=== PATIENT | female | born 1990 | race Caucasian/White ===

== ENCOUNTER 2020-03-12 13:23 | Emergency (ER) | payer OTHER, SELFPAY ==
[2020-03-12 13:27] VITALS: BP 148/92; PULSE 94; RESP 18; TEMP 36.4; O2SAT 98; BMI 34.5
--- NOTE | 2020-03-12 14:48 | ED.BACK ---
HPI - Back Pain/Injury General Chief Complaint: Back Pain/Injury Stated Complaint: low back and leg pain Time Seen by Provider: 03/12/20 14:34 Source: patient Mode of arrival: ambulatory Limitations: no limitations History of Present Illness HPI Narrative: 30yoF c PMHx of chronic back pain for the past 4 months she had an MRI which revealed a bulging this presenting to the ED with complaints of acute on chronic worsening back pain. Reports she stop using all the medications they gave her due to they are not providing any symptomatic relief she gets a long list which includes Advil, Motrin, naproxen, Flexeril and multiple other drugs that she mention. Denies any other symptom complaints or concerns at this time. Related Data Previous Rx's Medication Instructions Recorded ibuprofen 800 mg PO Q8H PRN #14 tab 03/12/20 oxycodone 5 mg PO Q8H PRN #14 tab 03/12/20 prednisone 40 mg PO DAILY 5 Days #10 tab 03/12/20 Allergies Allergy/AdvReac Type Severity Reaction Status Date / Time minocycline [MINOCYCLINE] Allergy Intermediate INTERCRANIAL Verified 03/12/20 13:27 HTN Review of Systems Review of Systems: Constitutional : No trauma, No Weight loss, No Fever, No Chills, ENT/Mouth : No Hearing loss, No Ear Pain, No Nasal Congestion, No Sinus Pain, No Hoarseness, No sore throat, No Rhinorrhea, No Swallowing Difficulty Cardiovascular : No Chest Pain, No SOB Respiratory : No Cough, No Dyspnea Gastrointestinal : No Nausea, No Vomiting, No Diarrhea, No abdominal Pain, No Hematochezia, No Melena Genitourinary : No Dysuria, No Urinary Frequency, No Hematuria, No Urinary or Bowel Incontinence/retention Musculoskeletal : + Back pain, No neck pain, No joint stiffness, No joint swelling Skin : No Skin Lesions, No rash or signs of infection Neuro : No Weakness, No radiation, No Numbness, No Paresthesias, No headache, no loss of bowel or bladder incontinence, no saddle anesthesia Denies history of IV drug usage. Yes all other systems are reviewed and are negative [facility] Past Medical History Attestation statement: The following information was validated with the patient. Medical History Bulging disc HTN (hypertension) Migraines Social History Social History Advance Directives: No Advance Directives Information Provided: No Physical Exam Vital Signs: Vital Signs: Last Vital Signs Temp 97.6 F 03/12/20 13:27 Pulse 94 03/12/20 13:27 Resp 18 03/12/20 13:27 BP 148/92 H 03/12/20 13:27 Pulse Ox 98 03/12/20 13:27 Body Mass Index 34.5 vital signs have been reviewed as normal and appeared to be correct. Blood pressure normal. Heart rate normal. Respiration rate normal. Temperature normal. Oxygen saturation normal. Appearance: Alert. Oriented X3. No acute distress. Head: Normal external exam. Normocephalic. Atraumatic. No Gandara signs noted. No raccoon eyes noted Eyes: PERRLA. EOMI. Conjunctiva and sclera normal. Eyelids normal. ENT: EAC normal. TM's Normal. Pharynx normal. Uvula midline. Moist mucous membranes. No trismus noted. No drooling noted. No muffled voice noted. Neck: Normal inspection. Neck supple. FROM. No adenopathy. Thyroid Normal. No meningeal signs. No neck mass noted. CVS: Normal heart rate and rhythm. Heart sound normal. No murmurs noted. Pulses normal throughout. Respiratory: No respiratory distress. Painless inspiration. Breath sounds normal. No wheezes/rales/rhonchi noted. Chest nontender. No accessory muscle usage noted or decreased air movement noted. Abdomen: Soft and nontender. Bowel sounds normal in all 4 quadrants. No distention noted. No organomegaly noted. No visible injury noted. Back: No CVA tenderness. Full range of motion noted. No obvious deformities, or edema. Mild para-spinal muscular tenderness from lumbar region to coccyx. Full ROM in back and lower extremities. 5/5 strength hip extension/flexion, abduction, adduction. Mild Lumbar pain with hip flexion against resistance. Straight leg raise test negative on right; Straight leg raise test negative on left; Reflexes normal ankle and knee bilaterally; EHL motor strength normal bilaterally Skin: Skin warm and dry. Normal skin color. Normal skin turgor. No rashes/lesions/lacerations noted. Extremities: No lower extremity edema. Extremities exhibit normal range of motion. Extremities nontender. Neuro: Oriented X 3. No motor deficit. No sensory deficit. Reflexes normal. Course Course Course Narrative: Pt c likely muscular pain, but could be herniated disc. Neuro exam shows no deficits. Not c/w AAA/epidural abscess/dissection.No high risk Hx (Incont, fever, immunosupp, recent surgery/LP, coag, signif trauma, wt loss, puls mass, hx/o Ca, TB, or IVDU) to warrant MRI/CT today. Not c/w Pyelo/UTI/kidney stone/spinal fx. Not cauda equina syndrome. DC c meds and f/u. MDM - Back Pain/Injury Medical Records Attestation: I reviewed the patient's medical records. Discharge Plan Discharge Clinical Impression: Lumbar radiculopathy Patient Disposition: Home, Self-Care Instructions: Lumbar Radiculopathy (ED), Lower Back Exercises (ED) Additional Instructions: [facility] [address], [place] [address] [phone] Prescriptions: New ibuprofen 800 mg tablet 800 mg PO Q8H PRN (Reason: pain) Qty: 14 RF: 0 prednisone 20 mg tablet 40 mg PO DAILY 5 Days Qty: 10 RF: 0 oxycodone 5 mg tablet 5 mg PO Q8H PRN (Reason: pain) Qty: 14 RF: 0 Referrals: Physician,Unknown [Primary Care Provider] - 2 days Darrius Thurston MD [Physician] - 2 days Stand Alone Forms: Work/School Release Print Language: Taiwanese
[2020-03-12] MEDS: NaPROXEN 500 MG TABLET PO (15:02)
[2020-03-12] MEDS: oxyCODONE HCl Immed Release 5 MG TABLET PO (15:02)
== END 2020-03-12 15:10 | disposition home or self-care (01) ==
PROVIDERS: Emergency Provider Emergency Medicine Emergency Medical Services
DX: M54.16 Radiculopathy, lumbar region (principal); I10 Essential (primary) hypertension
CPT/HCPCS: 99283

== ENCOUNTER → 2020-05-16 12:34 | Outpatient (BNVA) | payer OTHER, SELFPAY | PROVIDERS: Visit Provider Anesthesiology ==

== ENCOUNTER 2020-05-28 12:10 | Emergency (ER) | payer OTHER, SELFPAY ==
[2020-05-28 12:14] VITALS: BP 145/105; PULSE 72; RESP 18; TEMP 36.8; O2SAT 99; BMI 34.7
--- NOTE | 2020-05-28 12:27 | ED.SKABFB ---
HPI - Skin/Abscess/Foreign Bdy General Chief complaint: Skin/Abscess/Foreign Body Stated complaint: infection in nose Time Seen by Provider: 05/28/20 12:22 Source: patient Mode of arrival: ambulatory Limitations: no limitations History of Present Illness HPI narrative: recurrent nose cellulitis on and off since 2010 on cephalexin since 05/26 feels it is not improving, no topical medications ordered Onset (ago): day(s) (3) Tetanus up to date: yes Location: face (nose) Severity: mild Quality: aching Pain Consistency: constant Relieving factors: none Exacerbating factors: none Context: recent antibiotic Associated symptoms: fever and chills Treatments prior to arrival: antibiotic Related Data Previous Rx's Medication Instructions Recorded ibuprofen 800 mg PO Q8H PRN #14 tab 03/12/20 oxycodone 5 mg PO Q8H PRN #14 tab 03/12/20 prednisone 40 mg PO DAILY 5 Days #10 tab 03/12/20 alprazolam 0.5 mg tablet 0.5 mg PO DAILY 1 Days #2 tab 05/16/20 mupirocin 1 appl TOPICAL BID 7 Days #15 g 05/28/20 sulfamethoxazole-trimethoprim 1 tab PO BID 7 Days #14 tab 05/28/20 [Bactrim DS] Allergies Allergy/AdvReac Type Severity Reaction Status Date / Time minocycline [MINOCYCLINE] Allergy Intermediate INTERCRANIAL Verified 05/16/20 12:58 HTN Review of Systems Review of Systems: Constitutional : pos Fever, No Chills ENT/Mouth : No sore throat, No Rhinorrhea Eyes: No Eye Pain, No Swelling, No Redness Cardiovascular : No Chest Pain, No SOB Respiratory : No Cough, No Sputum Gastrointestinal : No Nausea, No Vomiting, No Diarrhea, No abdominal Pain Genitourinary : No Dysuria, No Hematuria Musculoskeletal : No joint pain, No Myalgias, No Joint Swelling Skin : pos Skin Lesions, positive skin rash Neuro : No Weakness, No Numbness, No Headache Psych : No Anxiety, No Depression Heme/Lymph: No Bruising, No Bleeding,No Lymphadenopathy Endocrine : No Polyuria, No Polydipsia All other systems reviewed and are negative PMFSH Past Medical History Attestation statement: The following information was validated with the patient. 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 Oriented X3. No acute distress. Eyes: Pupils equal, round and reactive to light. ENT: Pharynx normal. Nose - honey colored crusts on tip of nose no vesicles, mild swelling with erythema no extension into the nose Neck: Normal inspection. Neck supple. CVS: Normal heart rate and rhythm. Pulses normal. Respiratory: No respiratory distress. Breath sounds normal. Abdomen: Soft and nontender. Skin: Skin warm and dry. Normal skin color. Normal skin turgor. Extremities: No lower extremity edema. No calf ttp Neuro: Oriented X 3. No motor deficit. No sensory deficit. MDM - Skin/Abscess/Foreign Bdy MDM Narrative Medical decision making narrative: 30 yo female with hx of nose cellulitis - at this time the patient is on keflex but likely needs dual coverage, she is not toxic, no signs of facial extension - add on bactrim given hx of tetracycline intolerance and mupirocin - refer to PCP Discharge Plan Discharge Clinical Impression: Impetigo Cellulitis Qualifiers: Site of cellulitis: face Qualified Code(s): L03.211 - Cellulitis of face Patient Disposition: Home, Self-Care Instructions: Impetigo (ED), Cellulitis (ED) Additional Instructions: return to ED for any worsening symptoms or concerns continue the oral antibiotic continue the cephalexin Prescriptions: New mupirocin 2 % ointment 1 appl topical BID 7 Days Qty: 15 RF: 0 sulfamethoxazole-trimethoprim [Bactrim DS] 800-160 mg tablet 1 tab PO BID 7 Days Qty: 14 RF: 0 No Action ibuprofen 800 mg tablet 800 mg PO Q8H PRN (Reason: pain) Qty: 14 RF: 0 prednisone 20 mg tablet 40 mg PO DAILY 5 Days Qty: 10 RF: 0 oxycodone 5 mg tablet 5 mg PO Q8H PRN (Reason: pain) Qty: 14 RF: 0 alprazolam 0.5 mg tablet 0.5 mg PO DAILY 1 Days Qty: 2 RF: 0 Referrals: Physician,None [Primary Care Provider] - 2 days Stand Alone Forms: Work/School Release
== END 2020-05-28 12:43 | disposition home or self-care (01) ==
PROVIDERS: Emergency Provider Emergency Medicine
DX: L01.00 Impetigo, unspecified (principal); L03.211 Cellulitis of face; I10 Essential (primary) hypertension
CPT/HCPCS: 99283

== ENCOUNTER 2020-05-30 09:08 | Outpatient (REF) | payer OTHER, SELFPAY ==
--- NOTE | ~2020-05-30 | US_ITS ---
EXAMINATION: PELVIC ULTRASOUND CLINICAL INFORMATION: Follow-up right ovarian cyst seen on lumbar spine MRI COMPARISON: Lumbar spine MRI 02/29/2020 TECHNIQUE: Transabdominal and transvaginal pelvic ultrasound was performed. Transvaginal exam was performed for better visualization of the uterus and ovaries. FINDINGS: The uterus is retroverted and retroflexed and measures 7.4 x 5.1 x 1.2 cm in dimension. No focal uterine lesion is seen. There may be an arcuate-type uterus. Endometrial thickness is normal measuring 1 cm. The cervix is normal. The right ovary is normal and measures 3.4 x 1.4 x 2.9 cm, volume 7.2 mL. The previously identified 1.8 cm right ovarian cyst on lumbar spine MRI February 2020 is no longer seen. The left ovary measures 3.1 x 2.2 x 2.2 cm, volume 8 mL. There is a 2 cm simple left ovarian cyst or dominant follicle. There is no fluid in the pelvis. US/US transvaginal IMPRESSION: Unremarkable pelvic ultrasound.
--- NOTE | ~2020-05-30 | US_ITS ---
EXAMINATION: PELVIC ULTRASOUND CLINICAL INFORMATION: Follow-up right ovarian cyst seen on lumbar spine MRI COMPARISON: Lumbar spine MRI 02/29/2020 TECHNIQUE: Transabdominal and transvaginal pelvic ultrasound was performed. Transvaginal exam was performed for better visualization of the uterus and ovaries. FINDINGS: The uterus is retroverted and retroflexed and measures 7.4 x 5.1 x 1.2 cm in dimension. No focal uterine lesion is seen. There may be an arcuate-type uterus. Endometrial thickness is normal measuring 1 cm. The cervix is normal. The right ovary is normal and measures 3.4 x 1.4 x 2.9 cm, volume 7.2 mL. The previously identified 1.8 cm right ovarian cyst on lumbar spine MRI February 2020 is no longer seen. The left ovary measures 3.1 x 2.2 x 2.2 cm, volume 8 mL. There is a 2 cm simple left ovarian cyst or dominant follicle. There is no fluid in the pelvis. US/US pelvic complete IMPRESSION: Unremarkable pelvic ultrasound.
== END 2020-05-30 09:09 | disposition home or self-care (01) ==
LOC: HO.HMGCX 09:08
PROVIDERS: Visit Provider Nurse Practitioner Primary Care
DX: N94.89 Other specified conditions associated with female genital organs and menstrual cycle (principal)
CPT/HCPCS: 76830; 76856

== ENCOUNTER 2020-05-30 19:35 | Emergency (ER) | payer OTHER, SELFPAY ==
[2020-05-30 21:14] VITALS: BP 142/72; PULSE 81; RESP 18; TEMP 36.3; O2SAT 99; BMI 34.7
--- NOTE | 2020-05-30 23:48 | ED_ITS ---
HPI - Back Pain/Injury General Chief Complaint: Back Pain/Injury Stated Complaint: back pain Time Seen by Provider: 05/31/20 00:08 Source: patient Mode of arrival: ambulatory Limitations: no limitations History of Present Illness HPI Narrative: 30-year-old female with past medical history of sacroiliac joint dysfunction of the right side, disc degeneration to the lumbar, and spondylosis presents with lumbar back pain. States that she has been to her primary care physician as well as Pain Management and they ?do not do anything for her?. She is asking for pain management stating that nothing she has been doing has been working. She does not describe any symptoms indicating cauda equina, has a well-balanced gait, denies fevers, chills, abdominal pain, abdominal distention, dysuria, hematuria, numbness or tingling down the extremities, loss of sensation to the feet, or any other concerning symptoms. MD elicited complaint: back pain Pertinent past history: prior back pain Onset (ago): month(s) Timing: constant Severity: severe Pain scale (0-10): 10 Similar Symptoms Previously: Yes Quality: burning, aching, spasming and throbbing Location: lumbar spine and sacrum Radiation: none Exacerbating factors: movement, supine positioning, walking and coughing/sneezing Relieving factors: none Associated symptoms: denies other symptoms Treatments prior to arrival: cold therapy, heat therapy, NSAIDS, acetaminophen and prescription analgesics Work related injury: No Related Data Previous Rx's Medication Instructions Recorded ibuprofen 800 mg PO Q8H PRN #14 tab 03/12/20 oxycodone 5 mg PO Q8H PRN #14 tab 03/12/20 prednisone 40 mg PO DAILY 5 Days #10 tab 03/12/20 alprazolam 0.5 mg tablet 0.5 mg PO DAILY 1 Days #2 tab 05/16/20 mupirocin 1 appl TOPICAL BID 7 Days #15 g 05/28/20 sulfamethoxazole-trimethoprim 1 tab PO BID 7 Days #14 tab 05/28/20 [Bactrim DS] diazepam [Valium] 5 mg PO TID PRN #14 tab 05/31/20 methocarbamol [Robaxin-750] 750 mg PO Q8H PRN #30 tab 05/31/20 Allergies Allergy/AdvReac Type Severity Reaction Status Date / Time minocycline [MINOCYCLINE] Allergy Intermediate INTERCRANIAL Verified 05/16/20 12:58 HTN Review of Systems Review of Systems: Constitutional: No Fever, No Chills ENT/Mouth: No Ear Pain, No Hoarseness, No sore throat Eyes: No Eye Pain, No Swelling, No Redness, No Foreign Body Cardiovascular: No Chest Pain, No SOB Respiratory: No Cough, No Dyspnea Gastrointestinal: No Nausea, No Vomiting, No Diarrhea, No abdominal Pain Genitourinary: No Dysuria, No Hematuria Musculoskeletal: positive lower back pain, No Myalgias, No Joint Swelling Skin: No Skin lacerations, No rash Neuro: No Weakness, No Numbness, No Paresthesias, No Loss of Consciousness, No Dizziness, No Headache Psych: No Anxiety/Panic, No Depression Heme/Lymph: no easy bruising, no Lymphadenopathy Endocrine: No Polyuria, No Polydipsia Yes all other systems are reviewed and are negative [facility] Past Medical History Attestation statement: The following information was validated with the patient. 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 Oriented X3. No acute distress. Eyes: Pupils equal, round and reactive to light. ENT: Pharynx normal. Neck: Normal inspection. Neck supple. CVS: Normal heart rate and rhythm. Pulses normal. Respiratory: No respiratory distress. Breath sounds normal. Abdomen: Soft and nontender. Skin: Skin warm and dry. Normal skin color. Normal skin turgor. Extremities: No lower extremity edema. Neuro: No motor deficit. No sensory deficit. Course Course Course Narrative: 30-year-old female with chronic lower back pain presents for unrelieved back pain. She is asking for pain management. She was seen by Dr. Thurston on 05/16/20 and his note stated in his note that he was going to schedule this patient for bilateral L2-L3 L4 dorsal ramus L5 medial branch blocks diagnostic and will offer her options for radiofrequency ablation versus therapeutic injections in the area. This was discussed with the patient, she states that she is looking for pain medications and that her primary care physician and pain management will not give her oxycodone. She stated that she received oxycodone in the emergency department at our prior visit. Detailed discussion about proper use of narcotics, she was dissatisfied but did except the Valium and Robaxin prescriptions that were offered to her. She is advised to follow-up with pain management as scheduled. MDM - Back Pain/Injury MDM Narrative Medical decision making narrative: Spondylolysis Differential Diagnosis Differential diagnosis: Likely lumbar radiculopathy, thoracic back pain and discitis Medical Records Attestation: I reviewed the patient's medical records. Discharge Plan Discharge Clinical Impression: Spondylosis without myelopathy or radiculopathy, lumbar region, Sacroiliac joint dysfunction of right side Patient Disposition: Home, Self-Care Instructions: Chronic Back Pain (DC) Additional Instructions: You were evaluated for lower back pain. Please follow-up with the plan design by Dr. Thurston on May 16, 2020 for radiofrequency ablation versus therapeutic injections. We cannot prescribe narcotics at this time. Please use Valium to help with muscle spasms, Valium as benzo diazepam has high risk for addiction and abuse. Do not drive or operate machinery while taking this medication. This medication will delay reaction time, cause drowsiness, and increased risk. Please use Robaxin, this is a muscle relaxer. This medication can reduce reaction time, cause drowsiness, and increased risk. Do not drive or operate machinery while taking this medication. Thank you for choosing this emergency department for evaluation. Please follow-up with primary care physician as needed. Return to the emergency department for any new, concerning, or worsening symptoms. Prescriptions: New diazepam [Valium] 5 mg tablet 5 mg PO TID PRN (Reason: muscle spasm) Qty: 14 RF: 0 methocarbamol [Robaxin-750] 750 mg tablet 750 mg PO Q8H PRN (Reason: Pain, muscle spasms) Qty: 30 RF: 0 No Action mupirocin 2 % ointment 1 appl topical BID 7 Days Qty: 15 RF: 0 sulfamethoxazole-trimethoprim [Bactrim DS] 800-160 mg tablet 1 tab PO BID 7 Days Qty: 14 RF: 0 ibuprofen 800 mg tablet 800 mg PO Q8H PRN (Reason: pain) Qty: 14 RF: 0 prednisone 20 mg tablet 40 mg PO DAILY 5 Days Qty: 10 RF: 0 oxycodone 5 mg tablet 5 mg PO Q8H PRN (Reason: pain) Qty: 14 RF: 0 alprazolam 0.5 mg tablet 0.5 mg PO DAILY 1 Days Qty: 2 RF: 0 Interventions: ED Discharge Assessment Last Done: 05/31/20 00:38 Discharge Date/Time: 05/31/20 00:39
[2020-05-31] MEDS: diazePAM 5 MG TABLET PO (00:33)
[2020-05-31] MEDS: Ketorolac Tromethamine 60 MG/2 ML VIAL IM (00:35)
== END 2020-05-31 00:39 | disposition home or self-care (01) ==
PROVIDERS: Emergency Provider Internal Medicine
DX: G89.29 Other chronic pain (principal); M54.5 Low back pain; M47.816 Spondylosis without myelopathy or radiculopathy, lumbar region; M53.3 Sacrococcygeal disorders, not elsewhere classified; M51.36 Other intervertebral disc degeneration, lumbar region; I10 Essential (primary) hypertension; Z79.899 Other long term (current) drug therapy
CPT/HCPCS: 96372; 99283; 99284; J1885

== ENCOUNTER → 2020-05-31 13:02 | Outpatient (BNVA) | payer OTHER, SELFPAY | PROVIDERS: Visit Provider Anesthesiology ==

== ENCOUNTER → 2020-06-16 10:10 | Outpatient (BNVA) | payer OTHER, SELFPAY | PROVIDERS: Visit Provider Anesthesiology ==

== ENCOUNTER → 2020-06-30 10:19 | Outpatient (BNVA) | payer OTHER, SELFPAY | PROVIDERS: Visit Provider Anesthesiology ==

== ENCOUNTER 2020-12-19 18:35 | Outpatient (REF) | payer OTHER, SELFPAY ==
--- NOTE | ~2020-12-19 | MR_ITS ---
EXAMINATION: MR LUMBAR SPINE WITHOUT CONTRAST CLINICAL INFORMATION: Radiculopathy. Spondylosis without myelopathy. COMPARISON: None TECHNIQUE: MRI of the lumbar spine was obtained using routine sequences without contrast. FINDINGS: The lumbar vertebral bodies maintain normal heights and alignment. There is mild disc desiccation at L4-L5 without associated height loss. No bone marrow edema is seen. There is a hemangioma in the L4 vertebral body. The distal spinal cord appears normal. Conus medullaris terminates normally at the L1 level. The extraspinal soft tissues are within normal limits. SPINAL LEVELS: L1-L2: No posterior disc abnormality. No spinal canal or neural foraminal stenosis. L2-L3: No posterior disc abnormality. No spinal canal or neural foraminal stenosis. L3-L4: No posterior disc abnormality. No spinal canal or neural foraminal stenosis. L4-L5: Disc bulging with shallow central disc protrusion with associated annular fissuring causing mild indentation on the ventral thecal sac. Mild facet arthropathy. No significant narrowing of the spinal canal or neural foramina. L5-S1: Disc bulging with shallow central disc protrusion and mild facet arthropathy. No spinal canal or neural foraminal stenosis. MR/MR lumbar spine wo con IMPRESSION: No spinal canal stenosis or nerve root compression. Shallow central disc protrusion seen at L4-L5 and L5-S1.
== END 2020-12-19 18:36 | disposition home or self-care (01) ==
LOC: HO.MRI 18:35
PROVIDERS: PCP Internal Medicine; Visit Provider Internal Medicine
DX: M47.819 Spondylosis without myelopathy or radiculopathy, site unspecified (principal); M51.9 Unspecified thoracic, thoracolumbar and lumbosacral intervertebral disc disorder
CPT/HCPCS: 72148

== ENCOUNTER 2022-01-11 15:57 | Outpatient (REF) | payer OTHER, SELFPAY ==
--- NOTE | ~2022-01-11 | XR_ITS ---
EXAMINATION: XR KNEE, RIGHT CLINICAL INFORMATION: Pain right knee. COMPARISON: None TECHNIQUE: Four views of the right knee. FINDINGS: Bones and soft tissues are normal. No fracture or joint effusion. Alignment is anatomic. Joint spaces are well maintained. No abnormal soft tissue calcification. XR/XR knee RT 4V IMPRESSION: Unremarkable right knee.
== END 2022-01-11 15:58 | disposition home or self-care (01) ==
LOC: HO.XRAY 15:57
PROVIDERS: PCP Internal Medicine; Visit Provider Internal Medicine
DX: M25.561 Pain in right knee (principal)
CPT/HCPCS: 73564

== ENCOUNTER 2022-02-09 07:54 | Outpatient (REF) | payer OTHER, SELFPAY | END 2022-02-09 07:55 | disposition home or self-care (01) | LOC: HO.HOSX 07:54 | PROVIDERS: Visit Provider Physician Assistant | DX: Z13.89 Encounter for screening for other disorder (principal) ==

== ENCOUNTER 2023-02-11 12:20 | Outpatient (REF) | payer OTHER, SELFPAY ==
[2023-02-11 14:10] LABS: Rheumatoid Factor < 13.0 IU/mL (<15.0)
[2023-02-11 14:16] LABS: C Reactive Protein 2.84 mg/dL (< or = 0.50)
[2023-02-11 14:24] LABS: Erythrocyte Sedimentation Rate 44 MM/HR (0-20)
[2023-02-13 09:18] LABS: Cyclic Citrullinated Peptide <16 UNITS
[2023-02-15 07:44] LABS: Anti Nuclear Antibody Screen NEGATIVE (NEGATIVE)
== END 2023-02-11 12:21 | disposition home or self-care (01) ==
LOC: HO.HHCL 12:20
PROVIDERS: Visit Provider Internal Medicine
DX: R21 Rash and other nonspecific skin eruption (principal); R53.82 Chronic fatigue, unspecified
CPT/HCPCS: 36415; 85652; 86038; 86140; 86200; 86431

== ENCOUNTER → 2023-10-08 10:05 | Outpatient (BNVA) | payer MEDICAID, SELFPAY | PROVIDERS: PCP Internal Medicine; Visit Provider Internal Medicine Hypertension Specialist ==

== ENCOUNTER 2023-10-08 10:09 | Outpatient (AMB) | payer MEDICAID, SELFPAY ==
--- NOTE | 2023-10-08 10:03 | HO.NEPHOV_ITS ---
Vital Signs 10/08/23 10:06 Height 5 ft 2 in Weight 232 lb BMI 42.4 BP 110/84 Blood Pressure Location Lt brachial Position Sitting Pulse 84 Pulse Source Pulse Oximeter Pulse Oximetry (%) 94 Oxygen Delivery Method Room Air Intake Visit Reasons: Hypertension/ Conf Administrative Personal Assistant Required: No Accompanied by: Son Allergies minocycline [MINOCYCLINE] Allergy (Intermediate, Verified 10/08/23 10:07) INTERCRANIAL HTN Medication List - Last Reconciled 10/08/23 by Vinay Tapia MD albuterol sulfate 90 mcg/actuation 2 puffs inhalation Q4H PRN amoxicillin-pot clavulanate 875-125 mg 1 tab PO BID cholecalciferol (vitamin D3) 25 mcg PO QAM hydrochlorothiazide 12.5 mg PO DAILY ibuprofen 800 mg PO Q8H lidocaine 5% patches topical nifedipine ER 90 mg PO QAM phentermine 15 mg PO QAM pyridoxine (vitamin B6) 25 mg PO DAILY sertraline (Zoloft) 25 mg PO DAILY sumatriptan succinate 100 mg PO DAILY PRN venlafaxine ER 150 mg PO DAILY HPI Comments Details: Nadia is a pleasant 33-year-old woman with a history of hypertension and elevated BMI. She was diagnosed with hypertension at age of 26. She has been on 2 antihypertensive medications and she is here for further evaluation of hypertension and possible renal evaluation. 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 She is history of chronic back pain. She takes ibuprofen 800 mg 3 times a day. This is a history of weight gain. She also has history of mild snoring at night. She had not been evaluated for sleep apnea. No history of any smoking or alcohol abuse. She was a strong family history of hypertension. No renal issues. [facility] Medical History (Updated 10/08/23 @ 10:21 by Vinay Tapia MD) Sacroiliac joint dysfunction of right side Disc degeneration, lumbar Spondylosis without myelopathy or radiculopathy, lumbar region HTN (hypertension) Migraines Bulging disc Social History Alcohol intake: never Review of Systems Const Reports as per HPI, Denies anorexia, Denies fatigue, Denies fever(s) and Denies headache(s) Eyes Denies blurry vision ENT Denies headache(s) Card Denies chest pain, Denies pedal edema and Denies dyspnea Resp Denies cough, Denies hemoptysis and Denies dyspnea GI Denies diarrhea, Denies nausea and Denies vomiting Denies hematuria, Denies urinary frequency and Denies urinary hesitancy Neuro Denies confusion, Denies headache(s) and Denies focal weakness Psych Denies confusion Endo Denies cold intolerance, Denies fatigue and Denies polyuria Physical Exam Vital Signs: Last Vital Signs Pulse 84 10/08/23 10:06 BP 110/84 10/08/23 10:06 Pulse Ox 94 10/08/23 10:06 Oxygen Delivery Method Room Air 10/08/23 10:06 BMI result Body Mass Index 42.4 Const General: No confusion Orientation/consciousness: No confusion Eyes General: appearance normal, both eyes and all related structures Visual Sharpe: normal visual sharpe by confrontation Neck Neck: Yes supple and Yes no JVD Resp Effort & Inspection: normal respiratory effort and respiratory effort not decreased Auscultation: rhonchi Cardio Palpation: no palpable S3 and no palpable S4 Heart sounds: no rubs GI Inspection: Yes normal to inspection Palpation (GI): Soft to palpation Percussion: Yes normal to percussion Auscultation: normal bowel sounds General: Yes no CVA tenderness Back/Spine/Pelvis Back: no CVA tenderness Skin General skin exam: no petechiae and no purpura Neuro General: No confusion Extrem General: No clubbing and No edema Results Reviewed Results Reviewed: Labs Nephrology Results: No Data to Display Assessment & Plan Assessment & Plan (1) HTN (hypertension): Code(s): I10 - Essential (primary) hypertension Category: Medical Plan Young woman with hypertension in the setting of elevated BMI. Today the blood pressure is acceptable. However blood pressure has been fluctuating in the past. I have initiated basic workup including UA urine studies and BMP. She will benefit from a 24 hour ambulatory blood pressure monitoring. I have ordered the same. Encouraged her to stand low-sodium diet. She will benefit from weight loss. Baseline with a 24 hour blood pressure monitoring if she has significant nocturnal elevation in blood pressure she will require a polysomnography. No changes were made to the medications today. Orders: Orders Comprehensive Met. Panel Today Vinay Tpaia MD I10 - Essential (primary) hypertension Total Protein Urine Random Today Vinay Tapia MD I10 - Essential (primary) hypertension Aldost/Renin Today Vinay Tapia MD I10 - Essential (primary) hypertension AMB 24 HR B/P Monitor INTERPRETATION Today Vinay Tapia MD I10 - Essential (primary) hypertension UA and rflx microscopic Today Vinay Tapia MD I10 - Essential (primary) hypertension Creatinine Urine Today Vinay Tapia MD I10 - Essential (primary) hypertension Aldosterone Today MD Mick Renee0 - Essential (primary) hypertension Renin Today Vinay Tapia MD I10 - Essential (primary) hypertension Medications: Changed From ibuprofen 800 mg PO Q8H PRN 14 tabs 0RF pain To ibuprofen 800 mg PO Q8H MACHELLE Black Coding Level of Care Code New Pt Level 4 (28988) Diagnoses HTN (hypertension) I10
[2023-10-08 10:06] VITALS: BP 110/84; PULSE 84; O2SAT 94; BMI 42.4
--- OUTSIDE RECORDS SUMMARY | 2023-10-08 10:08 | XMS_ITS | Continuity of Care Document ---
Author Organization [facility] Address [address] [place] [address], [address] [place] [address]- Care Team Providers Care Internal Combustion Engine Subassembler Name Role Phone Kishan Kennedy MD, Becki Herrera Primary Care Physici an [id number] Date(s[facility] - 09/04/21 [facility] [address], 4th [place] [address]- Attending Physician: Robert HOWARD [OB], Patti Palencia Allergies, Adverse Reactions, Alerts Substance Reaction Severity Status minocycline 1 H/A Active 1pseudotumor ceriebri Immunizations Given and Recorded Vaccine Date Status Refusal Reason tetanus/diphtheria/pertussis, acel(Tdap) 1 06/26/21 Given influenza virus vaccine, inactivated 06/04/10 Give n pneumococcal 23-valent vaccine 06/04/10 Given 1Result Comment: [id number] Medications aspirin 81 mg oral capsule 4 capsule = 324 mg, By Mouth, Every 4 hours, 0 Refills, Maintenance, 06/26/21 8:45:00 EDT, Partial fill upon patient request if the prescription is for a schedule II opioid drug. Start Date: 06/26/21 Status: Ordered hydrocortisone-pramoxine topical 1%-1% cream with applicator 1 application, Rectally, 3 times a day, # 30 Gm, 0 Refills, Acute 04/07/22 0:00:00 EST, 07/09/21 20:49:00 EDT, Cream, [id number], ok to sub for foam if cream not available, 1 application Rectally 3 times a day, 158, cm, 06/26/21 8:44:... Start Date: 07/09/21 Stop Date: 04/07/22 Status: Ordered hydrocortisone-pramoxine topical 1%-1% cream with applicator 1 application, Rectally, 3 times a day, for 90 days, # 30 Gm, 3 Refills, Acute 04/02/23 0:00:00 EST, 04/07/22 0:00:00 EST, Cream, [facility], ok to sub for foam if cream not available, 1 application Rectally 3 times a day,x90 days,... Start Date: 04/07/22 Stop Date: 04/02/23 Status: Ordered labetalol 100 mg oral tablet 1 tablet = 100 mg, By Mouth, 2 times a day, # 60 tablet, 6 Refills, Maintenance, 05/17/21 9:07:00 EST, Tablet, [facility], Partial fill upon patient request if the prescription isfor a schedule II opioid drug., 158, cm, 05/17/21 8... Start Date: 05/17/21 Status: Ordered 1 0 Refills, Maintenance, 03/26/21 18:49:00 EST, Partial fill upon patient request if the prescription is for a schedule II opioid drug. Start Date: 03/26/21 Status: Ordered Unisom = 25 mg, By Mouth, Daily, 0 Refills, Maintenance, 03/26/21 18:49:00 EST, Partial fill upon patient request if the prescription is for a schedule II opioid drug. Start Date: 03/26/21 Status: Ordered Vitamin B12 with Iron and Zinc oral liquid 1 mL, By Mouth, Daily, # 60 mL, 0 Refills, Maintenance, 03/26/21 18:49:00 EST, Liquid, Partial fillupon patient request if the prescription is for a schedule II opioid drug. Start Date: 03/26/21 Status: Ordered Vitamin B6 25 mg oral tablet 1 tablet = 25 mg, By Mouth, Daily, # 60 tablet, 5 Refills, Acute 02/22/22 14:48:00 EST, 02/21/21 14:47:00 EST, Tablet, [facility], Partial fill upon patient request if the prescription is for a schedule II opioid drug., 158, cm, 11... Start Date: 02/21/21 Stop Date: 02/22/22 Status: Ordered Problem List Condition Effective Dates Status Health Status Inform ant Constipation(Confirmed) Active Disorder of lumbar disc(Confirmed) Active History of COVID-19(Confirmed) Active Chronic hypertension(Confirmed) Active Migraine headache without aura(Confirmed) Active Obesity(Confirmed) Active Severe obesity(Confirmed) Active Social History Social History Type Response Smoking Status Never (less than 100 in lifetime) entered on: 02/07/21 Sex
--- OUTSIDE RECORDS SUMMARY | 2023-10-08 10:08 | XMS_ITS | Continuity of Care Document ---
Author Organization [facility] ter Address [address] [place] [address]- Care Team Providers Care Manager School Name Role Phone Kishan Kennedy MD, Becki Herrera Primary Care Physici an Encounter [facility] Date(s): 12/16/22 - 12/16/[address] [address]- Discharge Disposition: A-D/C Home Attending Physician: Hai Ugalde MD Admitting Physician: Hai Ugalde MD Referring Physician: Not on Staff, Referring MD Allergies, Adverse Reactions, Alerts Substance Reaction Severity Status minocycline 1 H/A Active 1pseudotumor ceriebri Immunizations Given and Recorded Vaccine Date Status Refusal Reason Measles/Mumps/Rubella Virus Vaccine 09/13/21 Given tetanus/diphtheria/pertussis, acel(Tdap) 1 06/26/21 Given influenza virus vaccine, inactivated 06/04/10 Give n pneumococcal 23-valent vaccine 06/04/10 Given 1Result Comment: [id number] Medications acetaminophen/butalbital/caffeine 325 mg-50 mg-40 mg oral tablet 0 Refills, Maintenance, 08/16/22 14:19:00 EDT, Partial fill upon patient request if the prescription is for a schedule II opioid drug. Start Date: 08/16/22 Status: Ordered ergocalciferol 37999 iu oral capsule 50,000 International_Units, 1, capsule, By Mouth, Every week, # 30 capsule, Refills 0, Maintenance,08/16/22 14:19:00 EDT, Partial fill upon patient request if the prescription is for a schedule II opioid drug. Start Date: 08/16/22 Status: Ordered hydrOXYzine hydrochloride 25 mg oral tablet 1 tablet = 25 mg, By Mouth, 4 times a day, 0 Refills, Maintenance, 08/16/22 14:21:00 EDT Start Date: 08/16/22 Status: Ordered Liletta 52 mg intrauterine device 1 each = 52 mg, Vaginally, Once, # 1 each, 0 Refills, Soft Stop, 09/06/21 11:23:00 EDT, [facility], Partial fill upon patient request if the prescription is for a schedule II opioid drug., 158, cm, 09/06/21 10:59:00 EDT, Height, 103.1... Start Date: 09/06/21 Status: Ordered NIFEdipine (Eqv-Procardia XL) 90 mg oral tablet, extended release TAKE 1 TABLET BY MOUTH EVERY MORNING. DO NOT BREAK, CRUSH, DISSOLVE OR CHEW Start Date: 12/06/22 Status: Ordered sertraline 25 mg oral tablet 1 tablet = 25 mg, By Mouth, Daily, # 30 tablet, 0 Refills, Maintenance, 12/06/22 15:49:00 EDT, Tablet, Partial fill upon patient request if the prescription is for a schedule II opioid drug. Start Date: 12/06/22 Status: Ordered Sumatriptan = 50 mg, Once, 0 Refills, Maintenance, 08/16/22 14:21:00 EDT Start Date: 08/16/22 Status: Ordered topiramate 25 mg oral tablet TAKE 1 TABLET BY MOUTH EVERY TWELVE HOURS Start Date: 12/06/22 Status: Ordered venlafaxine 75 mg oral capsule, extended release TAKE 1 CAPSULE BY MOUTH EVERY MORNING. DO NOT BREAK, CRUSH, DISSOLVE OR CHEW Start Date: 12/06/22 Status: Ordered Problem List Condition Confirmation Course Effective Dates Status [facility] atus Informant Facet arthropathy, lumbosacral Confirmed Active Constipation Confirmed Active Disorder of lumbar disc Confirmed Active History of COVID-19 Confirmed Active Chronic hypertension Confirmed Active Migraine headache without aura Confirmed Active Obesity Confirmed Active Encounter for insertion of mirena IUD Confirmed Active Rubella non-immune Confirmed Active Severe obesity Confirmed Active Syncope Confirmed Active Vital Signs Most recent to oldest [Reference Range]: 1 2 3 Height 160 cm (12/16/22 11:12 PM) 160 cm (12/16/22 2:00 PM) 160 cm (12/16/22 1:46 PM) Oxygen Saturation [94-100 %] 100 % (12/16/22 11:12 PM) 100 % (12/16/22 2:32 PM) 100 % (12/16/22 1:46 PM) Pulse Rate [55-90 bpm] 54 bpm *L* (12/16/22 11:12 PM) 56 bpm (12/16/22 2:32 PM) 60 bpm (12/16/22 1:46 PM) Blood Pressure [90-138/55-84 mm Hg] 109/70mm Hg (12/16/22 11:12 PM) 143/98mm Hg *H* (12/16/22 2:32 PM) 136/88mm Hg (12/16/22 1:46 PM) Respiratory Rate [16-30 br/min] 18 br/min (12/16/22 11:12 PM) 18 br/min (12/16/22 1:46 PM) Temperature [96.8-100.4 DegF] 98.2 DegF (12/16/22 2:32 PM) 98.2 DegF (12/16/22 1:46 PM) Mode of Delivery (Oxygen) Room air (12/16/22 11:12 PM) Room air (12/16/22 2:32 PM) Room air (12/16/22 1:46 PM) Blood pressure sites Arm, right (12/16/22 11:12 PM) Arm, left (12/16/22 2:32 PM) Arm, right (12/16/22 1:46 PM) Temperature Route Oral (12/16/22 2:32 PM) Oral (12/16/22 1:46 PM) Dry Weight 100 kg (12/16/22 11:12 PM) 100 kg (12/16/22 2:00 PM) 100 kg (12/16/22 1:46 PM) Social History Social History Type Response Smoking Status Never (less than 100 in lifetime) entered on: 02/07/21 Sex Patient Care team information Care Team Personnel Name: Becki Posadas MD Position: [facility] Outreach Member Role: PCP Address: Address: [address] [place] [address] [address] [place] [address]- [place] Name: Isaiah Bravo Position: [facility] Associate Professional Member Role: ED Physician Typesetter Perforator Operator Address: Address: [address] [place] [address] [place] [address]- Name: Magnolia Suarez RN Position: [facility] ED RN W/OE and Tasks Member Role: Patient Care Provider Name: Hai Ugalde MD Position: [facility] ED Medicine MD Member Role: Admitting Physician Address: Address: [address] [place] [address]- Care Team Related Persons Name: DAVID, BELLA Address: home [address] [place] [address] Name: RADHA GALLEGOS Address: home [address] [place] [address] Name: LUIS CARLOS SAENZ Address: home [address] [address] Name: GEENA SAENZ Address: [address] Address: home [address]
--- OUTSIDE RECORDS SUMMARY | 2023-10-08 10:08 | XMS_ITS | Continuity of Care Document ---
Author Organization [facility] Address [address] [place] [address], [address] [place] [address]- Care Team Providers Care Plumber Apprentice Name Role Phone Kishan Kennedy MD, Becki Herrera Primary Care Physici an Encounter [facility] [place] [facility] Date(s): 09/06/21 - 09/13/21 [facility] [address] [facility], 4th [place] [address]- Attending Physician: Jt HOWARD, Codi Suarez Referring Physician: Robert HOWARD [OB], Patti Palencia Allergies, Adverse Reactions, Alerts Substance Reaction Severity Status minocycline 1 H/A Active 1pseudotumor ceriebri Immunizations Given and Recorded Vaccine Date Status Refusal Reason Measles/Mumps/Rubella Virus Vaccine 09/13/21 Given tetanus/diphtheria/pertussis, acel(Tdap) 1 06/26/21 Given influenza virus vaccine, inactivated 06/04/10 Give n pneumococcal 23-valent vaccine 06/04/10 Given 1Result Comment: [id number] Medications aspirin 81 mg oral capsule 4 [...] 04/07/22 0:00:00 EST, 07/09/21 20:49:00 EDT, Cream, [facility] #[id number], ok to sub for foam if cream not available, 1 application Rectally 3 times a day, 158, cm, 06/26/21 8:44:... Start Date: 07/09/21 Stop Date: 04/07/22 Status: Ordered hydrocortisone-pramoxine topical 1%-1% cream with applicator 1 application, Rectally, 3 times a day, for 90 days, # 30 Gm, 3 Refills, Acute 04/02/23 0:00:00 EST, 04/07/22 0:00:00 EST, Cream, [facility], ok to sub for foam if cream not available, 1 application Rectally 3 times a day,x90 days,... Start Date: 04/07/22 Stop Date: 04/02/23 Status: Ordered labetalol 100 mg oral tablet 1 tablet = 100 mg, By Mouth, 2 times a day, # 60 tablet, 6 Refills, Maintenance, 05/17/21 9:07:00 EST, Tablet, [facility], Partial fill upon patient request if the prescription isfor a schedule II opioid drug., 158, cm, 05/17/21 8... Start Date: 05/17/21 Status: Ordered Liletta 52 mg intrauterine device 1 each = 52 mg, Vaginally, Once, # 1 each, 0 Refills, Soft Stop, 09/06/21 11:23:00 EDT, [facility], Partial fill upon patient request if the prescription is for a schedule II opioid drug., 158, cm, 09/06/21 10:59:00 EDT, Height, 103.1... Start Date: 09/06/21 Status: Ordered 1 0 Refills, Maintenance, 03/26/21 [...] 02/22/22 14:48:00 EST, 02/21/21 14:47:00 EST, Tablet, [facility], Partial fill upon patient request if the prescription is for a schedule II opioid drug., 158, cm, 11... Start Date: 02/21/21 Stop Date: 02/22/22 Status: Ordered Problem List Condition Effective Dates Status Health Status Inform ant Constipation(Confirmed) Active Disorder of lumbar disc(Confirmed) Active History of COVID-19(Confirmed) Active Chronic hypertension(Confirmed) Active Migraine headache without aura(Confirmed) Active Obesity(Confirmed) Active Rubella non-immune(Confirmed) Active Severe obesity(Confirmed) Active Syncope(Confirmed) Active Vital Signs Most recent to oldest [Reference Range]: 1 Height 158 cm (09/06/21 10:59 AM) Weight 111.81 kg (09/06/21 10:59 AM) Body Mass Index [18.5-24.99] 44.79 *>HHI* (09/06/21 10:59 AM) Blood Pressure [90-138/55-84 mm Hg] 108/ 72mm Hg (09/06/21 10:59 AM) Blood pressure sites Arm, left (09/06/21 10:59 AM) Weight Obtained Via Standing scale (09/06/21 10:59 AM) Social History Social History Type Response Smoking Status Never (less than 100 in lifetime) entered on: 02/07/21 Sex
--- OUTSIDE RECORDS SUMMARY | 2023-10-08 10:08 | XMS_ITS | Continuity of Care Document ---
Author Organization [facility] Address [address], [address] [place] [address]- Care Team Providers Care Tree Surgeon Helper Name Role Phone Joshua HOWARD, [place] Primary Care Physician Encounter [facility] [place] Date(s): 05/12/20 - 06/11/20 [facility] [address], 4th [address] [place], [place] [address] Allergies, Adverse Reactions, Alerts Substance Reaction Severity Status minocycline 1 H/A Active 1pseudotumor ceriebri Immunizations Given and Recorded Vaccine Date Status Refusal Reason influenza virus vaccine, inactivated 06/04/10 Give n pneumococcal 23-valent vaccine 06/04/10 Given Medications Mirena 52 mg intrauterine device 1 each = 52 mg, Vaginally, Once, # 1 each, 0 Refills, Soft Stop, 05/12/20 16:31:00 EST, [facility], Partial fill upon patient request if the prescription is for a schedule II opioid drug., 161, cm, 04/28/20 13:38:00 EST, Height, 93.5,... Start Date: 05/12/20 Status: Ordered Nexplanon 68 mg subcutaneous implant 1 each = 68 mg, Subcutaneous Infusion, Once, Pharmacy supplied and inserted by Judith Ramirez 06/12/18 lot#[id number] exp 09/2020, # 1 each, 0 Refills, Soft Stop, 06/12/18 15:19:03 EST Start Date: 06/12/18 Status: Ordered Oxycodone By Mouth, 0 Refills, Maintenance, 04/28/20 13:42:00 EST, Partial fill upon patient request if the prescription is for a schedule II opioid drug. Start Date: 04/28/20 Status: Ordered Topamax 100 mg oral tablet 1 tablet = 100 mg, By Mouth, Daily, D/C PRIOR SCRIPT .dose increase, # 30 tablet, 5 Refills, Maintenance, 01/12/19 11:48:32 EDT, Tablet Start Date: 01/12/19 Stop Date: 07/11/19 Status: Ordered Problem List Condition Effective Dates Status Health Status Inform ant Pseudotumor cerebri(Confirmed) Active Epidermoid cyst of skin(Confirmed) 2014 Active Migraine headache without aura(Confirmed) Active Women's annual routine gynec ological examination(Confirmed) Active Social History Social History Type Response Smoking Status Never (less than 100 in lifetime); Tobacco user in household: No entered on: 01/14/19 Sex
--- OUTSIDE RECORDS SUMMARY | 2023-10-08 10:08 | XMS_ITS | Continuity of Care Document ---
Author Organization [facility] Address [address], [address]t [place] [address]- Care Team Providers Care Medical Leader Name Role Phone Kishan Kennedy MD, Becki Herrera Primary Care Physici an [place] [facility] Date(s): 03/14/21 - 04/13/21 [facility] [address], [address]th [place] [address]- Allergies, Adverse Reactions, Alerts Substance Reaction Severity Status minocycline 1 H/A Active 1pseudotumor ceriebri Immunizations Given and Recorded Vaccine Date Status Refusal Reason influenza virus vaccine, inactivated 06/04/10 Give n pneumococcal 23-valent vaccine 06/04/10 Given Medications Labetalol 0 Refills, Maintenance, 03/26/21 18:49:00 EST, Partial fill upon patient request if the prescription is for a schedule II opioid drug. Start Date: 03/26/21 Status: Ordered 1 0 Refills, Maintenance, 03/26/21 18:49:00 EST, Partial fill upon patient request if the prescription is for a schedule II opioid drug. Start Date: 03/26/21 Status: Ordered vitamins vitamins, 0 Refills, Maintenance, 02/21/21 14:20:00 EST Start Date: 02/21/21 Status: Ordered Unisom = 25 mg, By [...] Daily, # 60 tablet, 5 Refills, Acute 10/10/21 10:38:00 EDT, 02/22/21 14:48:00 EST, Tablet, [facility], Partial fill upon patient request if the prescription is for a schedule II opioid drug., 158, cm, 12... Start Date: 02/22/21 Stop Date: 10/10/21 Status: Ordered Vitamin B6 25 mg oral tablet 1 tablet = 25 mg, By Mouth, Daily, # 60 tablet, 5 Refills, Acute 02/22/22 14:48:00 EST, 02/21/21 14:47:00 EST, Tablet, [facility], Partial fill upon patient request if the prescription is for a schedule II opioid drug., 158, cm, 11... Start Date: 02/21/21 Stop Date: 02/22/22 Status: Ordered Problem List Condition Effective Dates Status Health Status Inform ant Pseudotumor cerebri(Confirmed) Active Constipation(Confirmed) Active Disorder of lumbar disc(Confirmed) Active Chronic hypertension(Confirmed) Active Migraine headache without aura(Confirmed) Active Obesity(Confirmed) Active Women's annual routine gynec ological examination(Confirmed) Active Severe obesity(Confirmed) Active Social History Social History Type Response Smoking Status Never (less than 100 in lifetime) entered on: 02/07/21 Sex
--- OUTSIDE RECORDS SUMMARY | 2023-10-08 10:08 | XMS_ITS | Continuity of Care Document ---
Author Organization [facility] Address [address], [address] [place] [address]- Care Team Providers Care Tanning Salon Attendant Name Role Phone Kishan Kennedy MD, Becki Herrera Primary Care Physici an [place] [facility] [place](s): 03/15/21 - 04/14/21 [facility] [address], [address]th [place] [address]- Allergies, Adverse Reactions, Alerts Substance Reaction Severity [...] 10/10/21 10:38:00 EDT, 02/22/21 14:48:00 EST, Tablet, [facility], Partial fill upon patient request if the prescription is for a schedule II opioid drug., 158, cm, 12... Start Date: 02/22/21 Stop Date: 10/10/21 Status: Ordered Vitamin B6 25 mg oral tablet 1 tablet = 25 mg, By Mouth, Daily, # 60 tablet, 5 Refills, Acute 02/22/22 14:48:00 EST, 02/21/21 14:47:00 EST, Tablet, [facility], Partial fill upon patient request [...]
--- OUTSIDE RECORDS SUMMARY | 2023-10-08 10:08 | XMS_ITS | Continuity of Care Document ---
Author Organization [facility] Address [address] [place] [address], 4t [place] [address]- Care Team Providers Care Component Technician Name Role Phone Kishan Kennedy MD, Becki Herrera Primary Care Physici an [place] [facility] [place] 05[place]22 [facility] [address] [facility], [address]th [place], [place] [address] Attending Physician: Admtr, Ar8 Admitting Physician: Admtr, Ar8 Referring Physician: Admtr, Ar8 Allergies, Adverse Reactions, Alerts Substance Reaction Severity Status minocycline 1 H/A Active 1pseudotumor ceriebri Immunizations Given and Recorded Vaccine Date Status Refusal Reason Measles/Mumps/Rubella Virus Vaccine 09/13/21 Given tetanus/diphtheria/pertussis, acel(Tdap) 1 06/26/21 Given influenza virus vaccine, inactivated 06/04/10 Give n pneumococcal 23-valent vaccine 06/04/10 Given 1Result Comment: [id number] Medications Liletta 52 mg intrauterine device 1 each = 52 mg, Vaginally, Once, # 1 each, 0 Refills, Soft Stop, 09/06/21 11:23:00 EDT, [facility], Partial fill upon patient request if the prescription is for a schedule II opioid drug., 158, cm, 09/06/21 10:59:00 EDT, Height, 103.1... Start Date: 09/06/21 Status: Ordered 1 0 Refills, Maintenance, 03/26/21 18:49:00 EST, Partial fill upon patient request if the prescription is for a schedule II opioid drug. Start Date: 03/26/21 Status: Ordered Problem List Condition Confirmation Course Effective Dates Status Health St atus Informant Constipation Confirmed Active Disorder of lumbar disc Confirmed Active History of COVID-19 Confirmed Active Chronic hypertension Confirmed Active Migraine headache without aura Confirmed Active Obesity Confirmed Active Encounter for insertion of mirena IUD Confirmed Active Rubella non-immune Confirmed Active Severe obesity Confirmed Active Syncope Confirmed Active Social History Social History Type Response Smoking Status Never (less than 100 in lifetime) entered on: 02/07/21 Sex Patient Care team information Care Team Personnel Name: Becki Posadas MD Position: [facility] Outreach Member Role: PCP Address: Address: [address] [place] [address] [address] [place] [address]- Care Team Related Persons Name: BELLA HERNANDEZ Address: home [address] [place] [address] Name: RADHA GALLEGOS Address: home [address] [place] [address] Name: LUIS CARLOS SAENZ Address: home [address] [place] [address] Name: GEENA SAENZ Address: [address] Address: home [address] [id number]
--- OUTSIDE RECORDS SUMMARY | 2023-10-08 10:08 | XMS_ITS | Continuity of Care Document ---
Author Organization [facility] Address [address] [place] [address], 4[address] [place] [address]- Care Team Providers Care Filter Changing Technician Name Role Phone Kishan Kennedy MD, Becki Herrera Primary Care Physici an [id number] Date[facility]s): [facility]21[facility]21 - [facility]28/[facility] [address] [facility], 4th [place] [address]- Attending Physician: Coy HOWARD, Dot Hernandez Referring Physician: Ligia Arce MD Allergies, Adverse Reactions, Alerts Substance Reaction Severity Status minocycline 1 H/A Active 1pseudotumor ceriebri Immunizations Given and Recorded Vaccine Date Status Refusal Reason influenza virus vaccine, inactivated 06/04/10 Give n pneumococcal 23-valent vaccine 06/04/10 Given Medications vitamins vitamins, 0 Refills, Maintenance, 02/21/21 14:20:00 EST Start Date: 02/21/21 Status: Ordered Vitamin B6 25 mg oral tablet 1 tablet = 25 mg, By Mouth, Daily, # 60 tablet, 5 Refills, Acute 02/22/22 14:48:00 EST, 02/21/21 14:47:00 EST, Tablet, [facility], Partial fill upon patient request [...] gynec ological examination(Confirmed) Active Severe obesity(Confirmed) Active Vital Signs Most recent to oldest [Reference Range]: 1 Height 158 cm (02/21/21 2:02 PM) Weight 100.72 kg (02/21/21 2:02 PM) Body Mass Index [18.5-24.99] 40.35 *>HHI* (02/21/21 2:02 PM) Blood Pressure [90-138/55-84 mm Hg] 126/ 86mm Hg (02/21/21 2:02 PM) Blood pressure sites Arm, left (02/21/21 2:02 PM) Weight Obtained Via Standing scale (02/21/21 2:02 PM) Social History Social History Type Response Smoking Status Never (less than 100 in lifetime) entered on: 02/07/21 Sex
--- OUTSIDE RECORDS SUMMARY | 2023-10-08 10:08 | XMS_ITS | Continuity of Care Document ---
Author Organization [facility] [address], [address] [place] [address]- Care Team Providers Care Neurological Surgery Teacher Name Role Phone Spring Lewis MD Primary Care Physician Encounter [facility] Date(s): 01/18/21 - 02/17/21 [facility] [address] [place] [address] Drive, [address] [place], [place] [address] Attending Physician: Sheila Hodge Admitting Physician: Sheila Hodge Referring Physician: AdmSheila null Allergies, Adverse Reactions, Alerts Substance Reaction Severity Status minocycline 1 H/A Active 1pseudotumor ceriebri Immunizations Given and Recorded Vaccine Date Status Refusal Reason influenza virus vaccine, inactivated 06/04/10 Give n pneumococcal 23-valent vaccine 06/04/10 Given Problem List Condition Effective Dates Status Health Status Inform ant Pseudotumor cerebri(Confirmed) Active Constipation(Confirmed) Active Chronic hypertension(Confirmed) Active Migraine headache without aura(Confirmed) Active Obesity(Confirmed) Active Women's annual routine gynec ological examination(Confirmed) Active Social History Social History Type Response Smoking Status Never (less than 100 in lifetime) entered on: 02/07/21 Sex
--- OUTSIDE RECORDS SUMMARY | 2023-10-08 10:08 | XMS_ITS | Continuity of Care Document ---
Author Organization [facility] Address [address] [place] [address], 4t [place] [address]- Care Team Providers Care Commercial Loan Reviewer Name Role Phone Kishan Kennedy MD, Becki Herrera Primary Care Physici an [place] [facility] [place] Date(s): 06/27/21 - 10/25/21 [facility] [address] [facility], 4th [place] [address]- Attending Physician: Yazimn HOWARD, Ligia Suarez Referring Physician: Robert HOWARD [OB], Patti Palencia Allergies, Adverse Reactions, Alerts Substance Reaction Severity Status minocycline 1 H/A Active 1pseudotumor ceriebri Immunizations Given and Recorded Vaccine Date Status Refusal Reason Measles/Mumps/Rubella Virus Vaccine 09/13/21 Given tetanus/diphtheria/pertussis, acel(Tdap) 1 06/26/21 Given influenza virus vaccine, inactivated 06/04/10 Give n pneumococcal 23-valent vaccine 06/04/10 Given 1Result Comment: [id number] Medications aspirin 81 mg oral capsule 4 [...] 04/07/22 0:00:00 EST, 07/09/21 20:49:00 EDT, Cream, [id number], ok to sub for foam if cream not available, 1 application Rectally 3 times a day, 158, cm, 06/26/21 8:44:... Start Date: 07/09/21 Stop Date: 04/07/22 Status: Ordered hydrocortisone-pramoxine topical 1%-1% cream with applicator 1 application, Rectally, 3 times a day, for 90 days, # 30 Gm, 3 Refills, Acute 04/02/23 0:00:00 EST, 04/07/22 0:00:00 EST, Cream, [facility], [place] to sub for foam if cream not available, 1 application Rectally 3 times a day,x90 days,... Start Date: 04/07/22 Stop Date: 04/02/23 Status: Ordered labetalol 100 mg oral tablet 1 tablet = 100 mg, By Mouth, 2 times a day, # 60 tablet, 6 Refills, Maintenance, 05/17/21 9:07:00 EST, Tablet, [facility], Partial fill upon patient request if the prescription isfor a schedule II opioid drug., 158, cm, 05/17/21 8... Start Date: 05/17/21 Status: Ordered Liletta 52 mg intrauterine device 1 each = 52 mg, Vaginally, Once, # 1 each, 0 Refills, Soft Stop, 09/06/21 11:23:00 EDT, [facility], Partial fill upon patient [...] 02/22/22 14:48:00 EST, 02/21/21 14:47:00 EST, Tablet, [facility], Partial fill upon patient [...] non-immune(Confirmed) Active Severe obesity(Confirmed) Active Syncope(Confirmed) Active Social History Social History Type Response Smoking Status Never (less than 100 in lifetime) entered on: 02/07/21 Sex
--- OUTSIDE RECORDS SUMMARY | 2023-10-08 10:08 | XMS_ITS | Continuity of Care Document ---
Author Organization [facility] Address [address] [place] [address]- Care Team Providers Care Hvac Technician Name Role Phone Kishan Kennedy MD, Becki Herrera Primary Care Physici an [place] [facility] [place] Date(s): 03/07/21 - 03/14/21 [facility] [address] [place] [id number] Attending Physician: Loretta Mack MD Referring Physician: Dot Cespedes MD Mary Allergies, Adverse Reactions, Alerts Substance Reaction Severity [...] 02/22/22 14:48:00 EST, 02/21/21 14:47:00 EST, Tablet, [facility], Partial fill upon patient request if [...]
--- OUTSIDE RECORDS SUMMARY | 2023-10-08 10:08 | XMS_ITS | Continuity of Care Document ---
Author Organization [facility] Address [address] [place] [address], 4t [place] [address]- Care Team Providers Care Geophysicist Name Role Phone Kishan Kennedy MD, Becki Herrera Primary Care Physici an Encounter [facility] [id number] Date(s): 06/13/21 - 10/11/21 [facility]any [facility] [address] [facility], 4th Floor [place], [place] [address] Attending Physician: Robert HOWARD [OB], Patti Palencia Allergies, Adverse Reactions, Alerts Substance Reaction Severity Status minocycline 1 H/A Active 1pseudotumor ceriebri Immunizations Given and Recorded Vaccine Date Status Refusal Reason Measles/Mumps/Rubella Virus Vaccine 09/13/21 Given tetanus/diphtheria/pertussis, acel(Tdap) 1 06/26/21 Given influenza virus vaccine, inactivated 06/04/10 Give n pneumococcal 23-valent vaccine 06/04/10 Given 1Result Comment: [id number] Medications aspirin 81 mg oral capsule 4 [...] 04/07/22 0:00:00 EST, 07/09/21 20:49:00 EDT, Cream, [id number], ok to sub for foam if cream not available, 1 application Rectally 3 times a day, 158, cm, 06/26/21 8:44:... Start Date: 07/09/21 Stop Date: 04/07/22 Status: Ordered hydrocortisone-pramoxine topical 1%-1% cream with applicator 1 application, Rectally, 3 times a day, for 90 days, # 30 Gm, 3 Refills, Acute 04/02/23 0:00:00 EST, 04/07/22 0:00:00 EST, Cream, [facility], ok to sub for foam if cream not available, 1 application Rectally 3 times a day,x90 days,... Start Date: 04/07/22 Stop Date: 04/02/23 Status: Ordered labetalol 100 mg oral tablet 1 tablet = 100 mg, By Mouth, 2 times a day, # 60 tablet, 6 Refills, Maintenance, 05/17/21 9:07:00 EST, Tablet, [facility], Partial fill upon patient request if the prescription isfor a schedule II opioid drug., 158, cm, 05/17/21 8... Start Date: 05/17/21 Status: Ordered Liletta 52 mg intrauterine device 1 each = 52 mg, Vaginally, Once, # 1 each, 0 Refills, Soft Stop, 09/06/21 11:23:00 EDT, [facility], Partial fill upon patient [...] 02/22/22 14:48:00 EST, 02/21/21 14:47:00 EST, Tablet, [facility], Partial fill upon patient request [...]
--- OUTSIDE RECORDS SUMMARY | 2023-10-08 10:09 | XMS_ITS | Continuity of Care Document ---
Author Organization [facility] Address [address] [place] [address], [address] [address]- Care Team Providers Care Housekeeping Worker Name Role Phone Kishan Kennedy MD, Becki Herrera Primary Care Physici an Encounter [facility] [place] Date(s): 11/03/21 - 12/03/21 [facility] [employer] [facility] [address] [facility], 4th [place] [address]- Allergies, Adverse Reactions, Alerts Substance Reaction Severity Status minocycline 1 H/A Active 1pseudotumor ceriebri Immunizations Given and Recorded Vaccine Date Status Refusal Reason Measles/Mumps/Rubella Virus Vaccine 09/13/21 Given tetanus/diphtheria/pertussis, acel(Tdap) 1 06/26/21 Given influenza virus vaccine, inactivated 06/04/10 Give n pneumococcal 23-valent vaccine 06/04/10 Given 1Result Comment: [id number] Medications Liletta 52 mg intrauterine device 1 each = 52 mg, Vaginally, Once, # 1 each, 0 Refills, Soft Stop, 09/06/21 11:23:00 EDT, [facility], Partial fill upon patient request if the prescription is for a schedule II opioid drug., 158, cm, 09/06/21 10:59:00 EDT, Height, 103.1... Start Date: 09/06/21 Status: Ordered 1 0 Refills, Maintenance, 03/26/21 18:49:00 EST, Partial fill upon patient request if the prescription is for a schedule II opioid drug. Start Date: 03/26/21 Status: Ordered Problem List Condition Effective Dates Status Health Status Inform ant Constipation(Confirmed) Active Disorder of lumbar disc(Confirmed) Active History of COVID-19(Confirmed) Active Chronic hypertension(Confirmed) Active Migraine headache without aura(Confirmed) Active Obesity(Confirmed) Active Encounter for insertion of m bernard IUD(Confirmed) Active Rubella non-immune(Confirmed) Active Severe obesity(Confirmed) Active Syncope(Confirmed) Active Social History Social History Type Response Smoking Status Never (less than 100 in lifetime) entered on: 02/07/21 Sex Care Team Personnel Name: Becki Posadas MD Address: [address] [place] [address] [address] [place] [id number]
--- OUTSIDE RECORDS SUMMARY | 2023-10-08 10:09 | XMS_ITS | Continuity of Care Document ---
Author Organization [facility] Address [address] [facility], 4t [place] [address]- Care Team Providers Care Patrol Mother Name Role Phone Kishan Kennedy MD, Becki Herrera Primary Care Physici an [id number] Date(s): 05/04[facility]21 - 05/11/21 [facility]any [facility] [address] [facility], 4th [place] [address]- Attending Physician: Dot Cespedes MD Mary Allergies, Adverse [...] 02/22/22 14:48:00 EST, 02/21/21 14:47:00 EST, Tablet, [facility], Partial fill upon patient request if [...]
--- OUTSIDE RECORDS SUMMARY | 2023-10-08 10:09 | XMS_ITS | Continuity of Care Document ---
Author Organization [facility] Address [address] [place] [address], 4t [place] [address]- Care Team Providers Care Poultry Processing Supervisor Name Role Phone Kishan Kennedy MD, Becki Herrera Primary Care Physici an [place] [facility] [id number] Date(s): 01/01/23 - 03/29/23 [facility] [address] [facility], 4th [place] [address]- Attending Physician: Not on Staff, Attending MD Referring Physician: Mohan Taylor MD Allergies, Adverse Reactions, Alerts Substance Reaction Severity Status minocycline 1 H/A Active 1pseudotumor ceriebri Immunizations Given and Recorded Vaccine Date Status Refusal Reason Measles/Mumps/Rubella Virus Vaccine 09/13/21 Given tetanus/diphtheria/pertussis, acel(Tdap) 1 06/26/21 Given influenza virus vaccine, inactivated 06/04/10 Give n pneumococcal 23-valent vaccine 06/04/10 Given 1Result Comment: [id number] Medications acetaminophen/butalbital/caffeine 325 mg-50 mg-40 mg oral tablet 0 Refills, Maintenance, 08/16/22 14:19:00 EDT, Partial fill upon patient request if the prescription is for a schedule II opioid drug. Start Date: 08/16/22 Status: Ordered ergocalciferol 51293 iu oral capsule 50,000 International_[employer]its, 1, capsule, By Mouth, Every week, # 30 capsule, Refills 0, Maintenance,08/16/22 14:19:00 EDT, Partial fill upon patient request if the prescription is for a schedule II opioid drug. Start Date: 08/16/22 Status: Ordered Mirena 52 mg intrauterine device 1 each = 52 mg, Intrauterine, Once, Please bring to office for insertion., # 1 each, 0 Refills, Soft Stop, 01/01/23 16:56:00 EDT, [facility], Partial fill upon patient request if theprescription is for a schedule II opioid drug., 160... Start Date: 01/01/23 Status: Ordered NIFEdipine (Eqv-Procardia XL) 90 mg oral tablet, extended release TAKE 1 TABLET BY MOUTH EVERY MORNING. DO NOT BREAK, CRUSH, DISSOLVE OR CHEW Start Date: 12/06/22 Status: Ordered phentermine 15 mg oral capsule 1 capsule = 15 mg, By Mouth, Daily in AM, 0 Refills, Maintenance, 01/05/23 16:17:00 EDT, Capsule, Partial fill upon patient request if the prescription is for a schedule II opioid drug. Start Date: 01/05/23 Status: Ordered sertraline 25 mg oral tablet 1 tablet = 25 mg, By Mouth, Daily, # 30 tablet, 0 Refills, Maintenance, 12/06/22 15:49:00 EDT, Tablet, Partial fill upon patient request if the prescription is for a schedule II opioid drug. Start Date: 12/06/22 Status: Ordered Sumatriptan = 50 mg, Once, 0 Refills, Maintenance, 08/16/22 14:21:00 EDT Start Date: 08/16/22 Status: Ordered venlafaxine 75 mg oral capsule, extended release TAKE 1 CAPSULE BY MOUTH EVERY MORNING. DO NOT BREAK, CRUSH, DISSOLVE OR CHEW Start Date: 12/06/22 Status: Ordered Problem List Condition Confirmation Course Effective Dates Status [facility] St atus Informant Facet arthropathy, lumbosacral Confirmed Active Sacroiliac joint dysfunction of both sides Confirmed Active Constipation Confirmed Active Disorder of lumbar disc Confirmed Active History of COVID-19 Confirmed Active Chronic hypertension Confirmed Active Migraine headache without aura Confirmed Active Obesity Confirmed Active Encounter for insertion of mirena IUD Confirmed Active Peripheral neuropathy Confirmed Active Rubella non-immune Confirmed Active Severe obesity Confirmed Active Syncope Confirmed Active Social History Social History Type Response Smoking Status Never (less than 100 in lifetime) entered on: 02/07/21 Sex Patient Care team information Care Team Personnel Name: Becki Posadas MD Position: [facility] Outreach Member Role: PCP Address: Address: [address] [place] [address] [address] [place] [address]- Care Team Related Persons Name: BELLA HERNANDEZ Address: home [address] [place] [address] Name: RADHA GALLEGOS Address: home [address] [place] [address] Name: LUIS CARLOS SAENZ Address: [address] [address] Name: GEENA SAENZ Address: [address] Address: [address]
--- OUTSIDE RECORDS SUMMARY | 2023-10-08 10:09 | XMS_ITS | Continuity of Care Document ---
Author Organization [facility] Address [address] [facility], 4t [place] [address]- Care Team Providers Care Neuro Psych Sales Specialist Name Role Phone Kishan Kennedy MD, Becki Herrera Primary Care Physici an [id number] Date(s): 04/20/21 - 04/27/21 [facility] [address] [facility], 4th [place] [address]- Attending Physician: Mohan Taylor MD Referring Physician: Dot Cespedes MD Mary [...] 02/22/22 14:48:00 EST, 02/21/21 14:47:00 EST, Tablet, [facility], Partial fill upon patient [...]
--- OUTSIDE RECORDS SUMMARY | 2023-10-08 10:09 | XMS_ITS | Continuity of Care Document ---
Author Organization [facility] Address [address] [facility] [facility] [address], [address]r d Floor, [address] [place] [address]- Care Team Providers Care Airport Clerk Name Role Phone Spring Lewis MD Primary Care Physician [phone] Encounter [facility] Date(s): 04/28/19 - 05/08/19 [facility] [address], [address] Floor, [address] [place] [address] Attending Physician: Sheila Hodge Admitting Physician: AdmSheila null Referring Physician: Sheila Hodge Allergies, Adverse Reactions, Alerts Substance Reaction Severity Status minocycline 1 H/A Active 1pseudotumor ceriebri Immunizations Given and Recorded Vaccine Date Status Refusal Reason influenza virus vaccine, inactivated 06/04/10 Give n pneumococcal 23-valent vaccine 06/04/10 Given Medications metoprolol 25 mg oral tablet 25 mg, 1, tablet, By Mouth, 2 times a day, # 180 tablet, Refills 0, Maintenance, 08/10/18 12:44:39 EDT Start Date: 08/10/18 Status: Ordered Nexplanon 68 mg subcutaneous implant 1 each = 68 mg, Subcutaneous Infusion, Once, Pharmacy supplied and inserted by Judith Ramirez 06/12/18 lot#[id number] exp 09/2020, # 1 each, 0 Refills, Soft Stop, 06/12/18 15:19:03 EST Start Date: 06/12/18 Status: Ordered SUMAtriptan 100 mg oral tablet 1 tablet = 100 mg, By Mouth, Once, 0 Refills, Maintenance, 09/17/17 16:12:23 EDT Start Date: 09/17/17 Status: Ordered Topamax 100 mg oral tablet [...]
--- OUTSIDE RECORDS SUMMARY | 2023-10-08 10:09 | XMS_ITS | Continuity of Care Document ---
Author Organization [facility] Address [address] [place] [address], [address] [place] [address]- Care Team Providers Care Foreign Language Interpreter Name Role Phone Kishan Kennedy MD, Becki Herrera Primary Care Physici an En[facility] [place] Date(s): 05/05/21 - 06/04/21 [facility] [address] [facility], 4th [place] [address]- Allergies, Adverse Reactions, Alerts Substance Reaction Severity Status minocycline 1 H/A Active 1pseudotumor ceriebri Immunizations Given and Recorded Vaccine Date Status Refusal Reason influenza virus vaccine, inactivated 06/04/10 Give n pneumococcal 23-valent vaccine 06/04/10 Given Medications labetalol 100 mg oral tablet 1 tablet = 100 mg, By Mouth, 2 times a day, # 60 tablet, 6 Refills, Maintenance, 05/17/21 9:07:00 EST, Tablet, [facility], Partial fill upon patient [...] 02/22/22 14:48:00 EST, 02/21/21 14:47:00 EST, Tablet, [facility], Partial fill upon patient [...]
--- OUTSIDE RECORDS SUMMARY | 2023-10-08 10:09 | XMS_ITS | Continuity of Care Document ---
Author Organization [facility] ter Address [address] [place] [address]- Care Team Providers Care Fire Prevention Officer Name Role Phone Kishan Kennedy MD, Becki Herrera Primary Care Physici an [place] [facility] [place]26/21 - 03/26/[address] [address]- Discharge Disposition: A-D/C Home Attending Physician: Roderick Yang DO Admitting Physician: Roderick Yang DO Referring Physician: Roderick Yang DO Allergies, Adverse Reactions, Alerts Substance Reaction Severity [...] 02/22/22 14:48:00 EST, 02/21/21 14:47:00 EST, Tablet, [facility], Partial fill upon patient request [...] Most recent to oldest [Reference Range]: 1 Weight 103.1 kg (03/26/21 6:42 PM) Oxygen Saturation [94-100 %] 100 % (03/26/21 6:42 PM) Pulse Rate [55-90 bpm] 86 bpm (03/26/21 6:42 PM) Blood Pressure [90-138/55-84 mm Hg] 137/ 80mm Hg (03/26/21 6:42 PM) Respiratory Rate [16-30 br/min] 16 br/mi n (03/26/21 6:42 PM) Temperature [96.8-100.4 DegF] 98.3 DegF (03/26/21 6:42 PM) Mode of Delivery (Oxygen) Room air (03/26/21 6:42 PM) Blood pressure sites Arm, left 1 (03/26/21 6:42 PM) Temperature Route Oral (03/26/21 6:42 PM) Dry Weight 103.1 kg (03/26/21 6:42 PM) Weight Obtained Via Standing scale (03/26/21 6:42 PM) Dry Weight Obtained Via Standing scale (03/26/21 6:42 PM) 1Result Comment: left arm measured at 42cm Social History Social History Type Response Smoking Status Never (less than 100 in lifetime) entered on: 02/07/21 Sex
--- OUTSIDE RECORDS SUMMARY | 2023-10-08 10:09 | XMS_ITS | Continuity of Care Document ---
Author Organization [facility] Address [address] [facility] [address], 4t [place] [address]- Care Team Providers Care Outboard Motor Assembler Name Role Phone Kishan Kennedy MD, Becki Herrera Primary Care Physici an En[place] [facility] [place] Date(s): 03/01/21 - 03/31/21 [facility] [employer] [address], 4th [place] [address]- Allergies, Adverse Reactions, Alerts Substance Reaction Severity [...] 02/22/22 14:48:00 EST, 02/21/21 14:47:00 EST, Tablet, [facility], Partial fill upon patient request if [...]
--- OUTSIDE RECORDS SUMMARY | 2023-10-08 10:09 | XMS_ITS | Continuity of Care Document ---
Author Organization [facility] [employer] Address [address] [place] [address], 4t [place] [address]- Care Team Providers Care Accounting Methods Analyst Name Role Phone Kishan Kennedy MD, Becki Herrera Primary Care Physici an [id number] Date(s): 06/14/21 - 06/21/21 [facility] [address] [facility], 4th [place] [address]- Attending Physician: Codi Waters MD Referring Physician: Ligia Arce MD Allergies, Adverse [...] 6 Refills, Maintenance, 05/17/21 9:07:00 EST, Tablet, [facility], Partial fill upon patient request if [...] 02/22/22 14:48:00 EST, 02/21/21 14:47:00 EST, Tablet, [facility], Partial fill upon patient request if the prescription is for a schedule II opioid drug., 158, cm, 11... Start Date: 02/21/21 Stop Date: 02/22/22 Status: Ordered Problem List Condition Effective Dates Status Health Status Inform ant Constipation(Confirmed) Active Disorder of lumbar disc(Confirmed) Active History of COVID-19(Confirmed) Active Chronic hypertension(Confirmed) Active Migraine headache without aura(Confirmed) Active Obesity(Confirmed) Active Severe obesity(Confirmed) Active Vital Signs Most recent to oldest [Reference Range]: 1 Height 158 cm (06/14/21 8:55 AM) Weight 107.27 kg (06/14/21 8:55 AM) Body Mass Index [18.5-24.99] 42.97 *>HHI* (06/14/21 8:55 AM) Blood Pressure [90-138/55-84 mm Hg] 110/ 60mm Hg (06/14/21 8:55 AM) Blood pressure sites Arm, left (06/14/21 8:55 AM) Weight Obtained Via Standing scale (06/14/21 8:55 AM) Social History Social History Type Response Smoking Status Never (less than 100 in lifetime) entered on: 02/07/21 Sex
--- OUTSIDE RECORDS SUMMARY | 2023-10-08 10:09 | XMS_ITS | Continuity of Care Document ---
Author Organization [facility] Address [address] [place] [address]- Care Team Providers Care Earth Moving Machine Operator Name Role Phone Kishan Kennedy MD, Becki Herrera Primary Care Physici an [id number] Date(s): 06/11/23 - 08/21/23 [facility] [address] [place] [address]- Attending Physician: Johan Resendiz MD Admitting Physician: Johan Resendiz MD Allergies, Adverse Reactions, Alerts Substance Reaction Severity Status minocycline 1 H/A Active 1pseudotumor ceriebri Immunizations Given and Recorded Vaccine Date Status Refusal Reason Measles/Mumps/Rubella Virus Vaccine 09/13/21 Given tetanus/diphtheria/pertussis, acel(Tdap) 1 06/26/21 Given influenza virus vaccine, inactivated 06/04/10 Give n pneumococcal 23-valent vaccine 06/04/10 Given 1Result Comment: [id number] Medications acetaminophen/butalbital/caffeine 325 mg-50 mg-40 mg oral tablet 0 Refills, Maintenance, 08/16/22 14:19:00 EDT, Partial fill upon patient request if the prescription is for a schedule II opioid drug. Start Date: 08/16/22 Status: Ordered ergocalciferol 56361 iu oral capsule 50,000 International_Units, 1, capsule, By Mouth, Every week, # 30 capsule, Refills 0, Maintenance,08/16/22 14:19:00 EDT, Partial fill upon patient request if the prescription is for a schedule II opioid drug. Start Date: 08/16/22 Status: Ordered Mirena 52 mg intrauterine device 1 each = 52 mg, Intrauterine, Once, Pharmacy supplied and inserted by Gee Munguia MD on 07/18/23 lot#[id number] exp 12/2024 [facility]#55713-392-59, # 1 each, 0 Refills, Soft Stop, 04/10/23 9:19:00 EST, [facility], Partial fill upon patient requ... Start Date: 04/10/23 Status: Ordered NIFEdipine (Eqv-Procardia XL) 90 mg [...] Effective Dates Status Health St atus Informant Facet arthropathy, lumbosacral Confirmed [...] Team Personnel Name: Becki Posadas MD Position: [facility] Outreach Member Role: PCP Address: Address: [address] [place] [address] [address] [place], [place] [address] Care Team Related Persons Name: DAVID, BELLA Address: home [address] [place] [address] Name: RADHA GALLEGOS Address: home [address] [place] [address] Name: LUIS CARLOS SAENZ Address: [address] [address] Name: GEENA SAENZ Address: [address] Address: [address]
--- OUTSIDE RECORDS SUMMARY | 2023-10-08 10:09 | XMS_ITS | Continuity of Care Document ---
Author Organization [facility] Address [address] [place] [address], 4t [place] [address]- Care Team Providers Care Tyre Builder Name Role Phone Kishan Kennedy MD, Becki Herrera Primary Care Physici an En[place] [facility] [place] Date(s): 06/20/21 - 10/18/21 [facility]nadia Su[facility] [address] [facility], 4th [place] [address]- Attending Physician: Robert HOWARD [OB], Patti Palencia Allergies, Adverse Reactions, Alerts Substance Reaction Severity Status minocycline 1 H/A Active 1pseudotumor ceriebri Immunizations Given and Recorded Vaccine Date Status Refusal Reason Measles/Mumps/Rubella Virus Vaccine 09/13/21 Given tetanus/diphtheria/pertussis, acel(Tdap) 1 06/26/21 Given influenza virus vaccine, inactivated 06/04/10 Give n pneumococcal 23-valent vaccine 06/04/10 Given 1Result Comment: [id number] Medications aspirin 81 mg oral capsule 4 [...] 04/07/22 0:00:00 EST, 07/09/21 20:49:00 EDT, Cream, [id number], ok to sub for foam if cream not available, 1 application Rectally 3 times a day, 158, cm, 06/26/21 8:44:... Start Date: 07/09/21 Stop Date: 04/07/22 Status: Ordered hydrocortisone-pramoxine topical 1%-1% cream with applicator 1 application, Rectally, 3 times a day, for 90 days, # 30 Gm, 3 Refills, Acute 04/02/23 0:00:00 EST, 04/07/22 0:00:00 EST, Cream, [facility], ok to sub for foam if cream not available, 1 application Rectally 3 times a day,x90 days,... Start Date: 04/07/22 Stop Date: 04/02/23 Status: Ordered labetalol 100 mg oral tablet 1 tablet = 100 mg, By Mouth, 2 times a day, # 60 tablet, 6 Refills, Maintenance, 05/17/21 9:07:00 EST, Tablet, [facility], Partial fill upon patient request if the prescription isfor a schedule II opioid drug., 158, cm, 05/17/21 8... Start Date: 05/17/21 Status: Ordered Liletta 52 mg intrauterine device 1 each = 52 mg, Vaginally, Once, # 1 each, 0 Refills, Soft Stop, 09/06/21 11:23:00 EDT, [facility], Partial fill upon patient [...] 02/22/22 14:48:00 EST, 02/21/21 14:47:00 EST, Tablet, [facility], Partial fill upon patient [...]
--- OUTSIDE RECORDS SUMMARY | 2023-10-08 10:09 | XMS_ITS | Continuity of Care Document ---
Author Organization [facility] Address [address] [place] [address], 4t [place] [address]- Care Team Providers Care Project Engineer Chemicals Name Role Phone Kishan Kennedy MD, Becki Herrera Primary Care Physici an [id number] Date[facility]s): 10/26/21 - 05/10/22 [facility] [address] [facility], 4th Floor [place], [place] [address] Attending Physician: Rose Grover DO Referring Physician: Mohan Taylor MD Allergies, Adverse Reactions, Alerts Substance Reaction Severity Status minocycline 1 H/A Active 1pseudotumor ceriebri Immunizations Given and Recorded Vaccine Date Status Refusal Reason Measles/Mumps/Rubella Virus Vaccine 09/13/21 Given tetanus/diphtheria/pertussis, acel(Tdap) 1 06/26/21 Given influenza virus vaccine, inactivated 06/04/10 Give n pneumococcal 23-valent vaccine 06/04/10 Given 1Result Comment: [id number] Medications Liletta 52 mg intrauterine device 1 each = 52 mg, Vaginally, Once, # 1 each, 0 Refills, Soft Stop, 09/06/21 11:23:00 EDT, [facility], Partial fill upon patient request [...] Care team information Care Team Personnel Name: Kishan Kennedy MD, Becki Herrera Position: [facility] Outreach Member Role: PCP Address: Address: [address] [place] [address] [place] [address]- Care Team Related Persons Name: BELLA HERNANDEZ Address: home [address] [place] [address] Name: RADHA GALLEGOS Address: home [address] [place] [address] Name: LUIS CARLOS SAENZ Address: home [address] [place] [address] Name: GEENA SAENZ Address: [address] Address: [place] [phone]
--- OUTSIDE RECORDS SUMMARY | 2023-10-08 10:09 | XMS_ITS | Continuity of Care Document ---
Author Organization [facility] Address [address] [place] [address], 4[place] [address]- Care Team Providers Care Sleeve Setter Lockstitch Name Role Phone Kishan Kennedy MD, Becki Herrera Primary Care Physici an [facility] [id number] Date(s): 03/21/21 - 03/28/21 [facility] [address] [facility], 4th [place] [address]- Attending Physician: Yazmin HOWARD, Ligia Suarez Referring Physician: Dot Cespedes MD Mary Allergies, [...] 02/22/22 14:48:00 EST, 02/21/21 14:47:00 EST, Tablet, [facility], Partial fill upon patient request [...] oldest [Reference Range]: 1 Height 158 cm (03/21/21 3:37 PM) Weight 100.45 kg (03/21/21 3:37 PM) Body Mass Index [18.5-24.99] 40.24 *>HHI* (03/21/21 3:37 PM) Blood Pressure [90-138/55-84 mm Hg] 133/ 87mm Hg (03/21/21 3:37 PM) Blood pressure sites Arm, left (03/21/21 3:37 PM) Weight Obtained Via Standing scale (03/21/21 3:37 PM) Social History Social History Type Response Smoking Status Never (less than 100 in lifetime) entered on: 02/07/21 Sex
--- OUTSIDE RECORDS SUMMARY | 2023-10-08 10:09 | XMS_ITS | Continuity of Care Document ---
Author Organization [facility] Address [address] [facility], 4t [place] [address]- Care Team Providers Care Community Ambassador Name Role Phone Kishan Kennedy MD, Becki Herrera Primary Care Physici an Encounter [place] Date(s): 01/31/21 - 03/02/21 [facility] Suh[facility] [address] [facility], 4th [place] [address]- Allergies, Adverse Reactions, Alerts Substance Reaction Severity [...] 14:48:00 EST, 02/21/21 14:47:00 EST, Tablet, [facility], Partial fill upon patient request if [...]
--- OUTSIDE RECORDS SUMMARY | 2023-10-08 10:09 | XMS_ITS | Continuity of Care Document ---
Author Organization [facility] Address [address] [place] [address], [address] [place] [address]- Care Team Providers Care Personal Companion Name Role Phone Joshua HOWARD, [place] Primary Care Physician [phone] Encounter [facility] Date(s): 01/03/21 - 02/02/21 [facility] [address] [place] [address], [address] [place] [address]- Allergies, Adverse Reactions, Alerts Substance Reaction Severity [...]
--- OUTSIDE RECORDS SUMMARY | 2023-10-08 10:09 | XMS_ITS | Continuity of Care Document ---
Author Organization [facility] Address [address] [place] [address], 4[place] [address]- Care Team Providers Care Construction Project Manager Name Role Phone Kishan Kennedy MD, Becki Herrera Primary Care Physici an [place] [facility] [place](s[place] 02/27/23 - 03/29/23 [facility] [address] [facility], 4th [address] [place], [place] [address] Attending Physician: Admtr, [id number] Admitting Physician: Admtr, Ar8 Referring Physician: Admtr, Ar8 Allergies, Adverse Reactions, Alerts Substance Reaction Severity Status minocycline 1 H/A Active 1pseudotumor ceriebri Immunizations Given and Recorded Vaccine Date Status Refusal Reason Measles/Mumps/Rubella Virus Vaccine 09/13/21 Given tetanus/diphtheria/pertussis, acel(Tdap) 1 06/26/21 Given influenza virus vaccine, inactivated 06/04/10 Give n pneumococcal 23-valent vaccine 06/04/10 Given 1Result Comment: [id number] Medications acetaminophen/butalbital/caffeine 325 mg-50 mg-40 mg oral tablet 0 Refills, Maintenance, 08/16/22 14:19:00 EDT, Partial fill upon patient request if the prescription is for a schedule II opioid drug. Start Date: 08/16/22 Status: Ordered ergocalciferol 23776 iu oral capsule 50,000 International_Units, 1, capsule, [...] 0 Refills, Soft Stop, 01/01/23 16:56:00 EDT, [facility], Partial fill upon [...] List Condition Confirmation Course Effective Dates Status [facility] St atus Informant Facet arthropathy, lumbosacral Confirmed [...] Team Personnel Name: Becki Posadas MD Position: [facility] Outreach Member Role: PCP Address: Address: [address] [place] [address] [address] [place] [address]- [place] Care Team Related Persons Name: DAVIDBELLA Address: home [address] [place] [address] Name: RADHA GALLEGOS Address: home [address] [place] [address] Name: LUIS CARLOS SAENZ Address: [address] [address] Name: GEENA SAENZ Address: [address] Address: [address]
--- OUTSIDE RECORDS SUMMARY | 2023-10-08 10:09 | XMS_ITS | Continuity of Care Document ---
Author Organization [facility] Address [address] [place] [address], [address] [address]- Care Team Providers Care Establishment Guide Name Role Phone Kishan Kennedy MD, Becki Herrera Primary Care Physici an [id number] Date(s): 07/18/23 - 07/25/23 [facility] [employer] [facility] [address] [facility], 4th [place] [address]- Attending Physician: Ric Faye MD Admitting Physician: Gee Munguia MD Referring Physician: Kishan Kennedy MD, Becki Herrera Allergies, Adverse Reactions, Alerts Substance Reaction Severity Status minocycline 1 H/A Active 1pseudotumor ceriebri Immunizations Given and Recorded Vaccine Date Status Refusal Reason Measles/Mumps/Rubella Virus Vaccine 09/13/21 Given tetanus/diphtheria/pertussis, acel(Tdap) 1 06/26/21 Given influenza virus vaccine, inactivated 06/04/10 Give n pneumococcal 23-valent vaccine 06/04/10 Given 1Result Comment: [id number] Medications acetaminophen/butalbital/caffeine 325 mg-50 mg-40 mg oral tablet 0 Refills, Maintenance, 08/16/22 14:19:00 EDT, Partial fill upon patient request if the prescription is for a schedule II opioid drug. Start Date: 08/16/22 Status: Ordered ergocalciferol 95566 iu oral capsule 50,000 International_Units, 1, capsule, By Mouth, Every week, # 30 capsule, Refills 0, Maintenance,08/16/22 14:19:00 EDT, Partial fill upon patient request if the prescription is for a schedule II opioid drug. Start Date: 08/16/22 Status: Ordered Mirena 52 mg intrauterine device 1 each = 52 mg, Intrauterine, Once, Pharmacy supplied and inserted by Gee Munguia MD on 07/18/23 lot#[id number] exp 12/2024 [facility]#[id number], # 1 each, 0 Refills, Soft Stop, 04/10/23 9:19:00 EST, [facility], Partial fill upon patient requ... [...] oldest [Reference Range]: 1 Height 158 cm (07/18/23 4:00 PM) Pulse Rate [55-90 bpm] 67 bpm (07/18/23 4:00 PM) Blood Pressure [90-138/55-84 mm Hg] 123/ 85mm Hg (07/18/23 4:00 PM) Blood pressure sites Arm, right (07/18/23 4:00 PM) Weight Obtained Via Patient/family state d (07/18/23 4:00 PM) Dry Weight Obtained Via Patient/family s tated (07/18/23 4:00 PM) Social History Social History Type Response Smoking Status Never (less than 100 in lifetime) entered on: 02/07/21 Sex Patient Care team information Care Team Personnel Name: Kishan Kennedy MD, Becki Herrera Position: [facility] Outreach Member Role: PCP Address: Address: [address] [place] [address] [address] [place] [address]- [place] Care Team Related Persons Name: BELLA HERNANDEZ Address: home [address] [place] [address] Name: RADHA GALLEGOS Address: home [address] [place] [address] Name: LUIS CARLOS SAENZ Address: home [address] [address] Name: GEENA SAENZ Address: [address] Address: home [address] [place] [id number]
--- OUTSIDE RECORDS SUMMARY | 2023-10-08 10:09 | XMS_ITS | Continuity of Care Document ---
Author Organization [facility] Address [address] [place] [address]- Care Team Providers Care Residential Solar Sales Consultant Name Role Phone Kishan Kennedy MD, Becki Herrera Primary Care Physici an Encounter [facility] Date(s): 01/05/23 - 01/05/[address] [address]- Discharge Disposition: A-D/C Home Attending Physician: Andrea Recinos MD Admitting Physician: Andrea Recinos MD Referring Physician: Not on Staff, Referring MD Allergies, Adverse Reactions, Alerts Substance Reaction Severity Status minocycline 1 H/A Active 1pseudotumor ceriebri Immunizations Given and Recorded Vaccine Date Status Refusal Reason Measles/Mumps/Rubella Virus Vaccine 09/13/21 Given tetanus/diphtheria/pertussis, acel(Tdap) 1 06/26/21 Given influenza virus vaccine, inactivated 06/04/10 Give n pneumococcal 23-valent vaccine 06/04/10 Given 1Result Comment: [id number] Medications acetaminophen/butalbital/caffeine 325 mg-50 mg-40 mg oral tablet 0 Refills, Maintenance, 08/16/22 14:19:00 EDT, Partial fill upon patient request if the prescription is for a schedule II opioid drug. Start Date: 08/16/22 Status: Ordered cephalexin monohydrate 500 mg oral capsule 1 capsule = 500 mg, By Mouth, 4 times a day, for 7 days, # 28 capsule, 0 Refills, Acute 01/12/23 19:15:00 EDT, 01/05/23 19:15:00 EDT, Capsule, [id number], Partial fill upon patient request if the prescription is for a schedule II opio... Start Date: 01/05/23 Stop Date: 01/12/23 Status: Ordered ergocalciferol 86660 iu oral capsule 50,000 International_Units, 1, capsule, [...] 0 Refills, Soft Stop, 09/06/21 11:23:00 EDT, [facility], Partial fill upon patient request if the prescription is for a schedule II opioid drug., 158, cm, 09/06/21 10:59:00 EDT, Height, 103.1... Start Date: 09/06/21 Status: Ordered Mirena 52 mg intrauterine device 1 each = 52 mg, Intrauterine, Once, Please bring to office for insertion., # 1 each, 0 Refills, Soft Stop, 01/01/23 16:56:00 EDT, [facility], Partial fill upon patient [...] recent to oldest [Reference Range]: 1 2 Height 158 cm (01/05/23 6:46 PM) 158 cm (01/05/23 4:16 PM) Weight 102.2 kg (01/05/23 4:16 PM) Oxygen Saturation [94-100 %] 100 % (01/05/23 6:46 PM) 99 % (01/05/23 4:14 PM) Pulse Rate [55-90 bpm] 113 bpm *H* (01/05/23 6:46 PM) 119 bpm *H* (01/05/23 4:14 PM) Blood Pressure [90-138/55-84 mm Hg] 130/ 78mm Hg (01/05/23 6:46 PM) 151/94mm Hg *H* (01/05/23 4:16 PM) Respiratory Rate [16-30 br/min] 18 br/mi n (01/05/23 6:46 PM) 16 br/min (01/05/23 4:14 PM) Temperature [96.8-100.4 DegF] 97.1 DegF (01/05/23 4:16 PM) Mode of Delivery (Oxygen) Room air (01/05/23 6:46 PM) Room air (01/05/23 4:14 PM) Blood pressure sites Arm, left (01/05/23 4:16 PM) Temperature Route Temporal (01/05/23 4:16 PM) Dry Weight 102.2 kg (01/05/23 4:16 PM) Weight Obtained Via Standing scale (01/05/23 4:16 PM) Dry Weight Obtained Via Standing scale (01/05/23 4:16 PM) Social History Social History Type Response Smoking Status Never (less than 100 in lifetime) entered on: 02/07/21 Sex Note * Andrea Recinos MD: PERFORM Event Display: Patient Education Leaflets Authored Date: [id number] Cellulitis ?? [id number] Cellulitis Cellulitis is an infection of the deep layers of skin. A break in the skin, such as a cut or scratch, can let bacteria under the skin. Cellulitis causes the affected skin to become red, swollen, warm, and sore. The reddened areas havea border you can see. An open sore may leak fluid (pus). You may have a fever, chills, and pain. Cellulitis is treated with antibiotics taken for 7 to 10 days. An open sore may be cleaned and covered with cool wet gauze. Symptoms should get better 1 to 2 days after treatment is started. Make sure to take all the antibiotics for the full number of days until they are gone. Keep taking the medicine even if your symptoms go away. If not treated, cellulitis can get into the bloodstream and lymph nodes. The infection can then spread throughout the body. This causes serious illness. Home care Follow these tips: ??? Limit the use of the part of your body with cellulitis.? If the infection is on your leg, keep your leg raised while sitting. This helps reduce swelling. ??? Take all of the antibiotic medicine exactly as directed until it is gone. Don't miss any doses, especially duringthe first 7 days. Finish taking all of the medicine even when your symptoms get better. ??? Keep the affected area clean and dry. ??? Wash your hands with soap and clean, running water before and after touching your skin. Anyone else who touches your skin should also wash his or her hands. Don't share towels. ?? Follow-up care Follow up with your healthcare provider, or as advised. If your infection doesn't go away after finishing the first antibiotic, your healthcare provider will prescribe a different one. ?? When to seek medical advice Call your healthcare provider right away if any of these occur: ??? Red areas that spread ??? Swelling or pain that gets worse ??? Fluid leaking from the skin (pus) ??? Fever higher of 100.4?? F (38.0?? C) or higher after 2 days on antibiotics ?? Last Reviewed Date: 2021 ?? [id number] [employer] All rights reserved. This information is not intended as a substitute for professional medical care. Always follow your healthcare professional's instructions. ?? Patient Care team information Care Team Personnel Name: Becki Posadas MD Position: [facility] Outreach Member Role: PCP Address: Address: [address] [place] [id number] Name: Adrianna Jackson RN Position: [facility] ED RN W/OE and Tasks Member Role: Patient Care Provider Name: Andrea Recinos MD Position: [facility] ED Medicine MD Member Role: Admitting Physician Address: Address: [address] [place] [address] Emergency Medicine [place], [place] [address] Name: Andrew COSTA, Chilango Maldonado Position: [facility] ED RN W/OE and Tasks Member Role: Patient Care Provider Name: Yanely Wayne Position: [facility] ED TA [facility] Member Role: Patient Care Provider Care Team Related Persons Name: BELLA HERNANDEZ Address: home [address] [place] [address] Name: RADHA GALLEGOS Address: home [address] [place] [address] Name: LUIS CARLOS SAENZ Address: home [address] [address] Name: GEENA SAENZ Address: [address] Address: home [address] [address]
--- OUTSIDE RECORDS SUMMARY | 2023-10-08 10:09 | XMS_ITS | Continuity of Care Document ---
[facility] Address [address] [facility], [address] [place] [address]- Care Team Providers Care Fuel House Attendant Name Role Phone Joshua HOWARD, [place] Primary Care Physician [phone] Encounter [facility] Date(s): 01/10/21 - 02/09/21 [facility] [address], [address] [place] [address]- Allergies, Adverse Reactions, Alerts Substance Reaction Severity [...]
--- OUTSIDE RECORDS SUMMARY | 2023-10-08 10:09 | XMS_ITS | Continuity of Care Document ---
Author Organization [facility] Address [address] [facility], 4t [place] [address]- Care Team Providers Care Secretary Office Clerk Name Role Phone Joshua HOWARD, [place] Primary Care Physician [place] [facility] [place]07[place] - 02/14/21 [facility] [address], 4th [place] [address]- Attending Physician: Yazmin HOWARD, Ligia Suarez Allergies, Adverse Reactions, Alerts Substance Reaction Severity [...] Women's annual routine gynec ological examination(Confirmed) Active Vital Signs Most recent to oldest [Reference Range]: 1 Height 158 cm (02/07/21 3:06 PM) Weight 93.5 kg (02/07/21 3:06 PM) Body Mass Index [18.5-24.99] 37.45 *>HHI* (02/07/21 3:06 PM) Dry Weight 93.5 kg (02/07/21 3:06 PM) Weight Obtained Via Standing scale (02/07/21 3:06 PM) Dry Weight Obtained Via Standing scale (02/07/21 3:06 PM) Social History Social History Type Response Smoking Status Never (less than 100 in lifetime) entered on: 02/07/21 Sex
--- OUTSIDE RECORDS SUMMARY | 2023-10-08 10:09 | XMS_ITS | Continuity of Care Document ---
Author Organization [facility] Address [address] [place] [address]- Care Team Providers Care Data Analytics Developer Name Role Phone Kishan Kennedy MD, Becki Herrera Primary Care Physici an [place] [facility] [place] 03/15/23 - 04/14/23 [facility] [address] [place] [address]- Attending Physician: Admtr, [id number] Admitting Physician: Admtr, Ar8 Referring Physician: Admtr, Ar8 Allergies, Adverse Reactions, Alerts Substance Reaction Severity Status minocycline 1 H/A Active 1pseudotumor ceriebri Immunizations Given and Recorded Vaccine Date Status Refusal Reason Measles/Mumps/Rubella Virus Vaccine 09/13/21 Given tetanus/diphtheria/pertussis, acel(Tdap) 1 06/26/21 Given influenza virus vaccine, inactivated 06/04/10 Give n pneumococcal 23-valent vaccine 06/04/10 Given 1Result Comment: [id number] Medications acetaminophen/butalbital/caffeine 325 mg-50 mg-40 mg oral tablet 0 Refills, Maintenance, 08/16/22 14:19:00 EDT, Partial fill upon patient request if the prescription is for a schedule II opioid drug. Start Date: 08/16/22 Status: Ordered ergocalciferol 39942 iu oral capsule 50,000 International_Units, 1, capsule, [...] 0 Refills, Soft Stop, 04/10/23 9:19:00 EST, [facility], Partial fill upon patient request if the prescription is for a schedule II opioid drug., 158,... Start Date: 04/10/23 Status: Ordered NIFEdipine (Eqv-Procardia [...] Team Personnel Name: Becki Posadas MD Position: [facility] Outreach Member Role: PCP Address: Address: [address] [place] [address] [address] [place] [address]- Care Team Related Persons Name: BELLA HERNANDEZ Address: home [address] [place] [address] Name: RADHA GALLEGOS Address: home [address] [place] [address] Name: LUIS CARLOS SAENZ Address: [address] [address] Name: GEENA SAENZ Address: [address] Address: [place] [phone]
--- OUTSIDE RECORDS SUMMARY | 2023-10-08 10:09 | XMS_ITS | Continuity of Care Document ---
Author Organization [facility] Address [address] [place] [address], 4t [place] [address]- Care Team Providers Care Vice President Process Name Role Phone Kishan Kennedy MD, Becki Herrera Primary Care Physici an [id number] Date[facility]11[facility]23 - [facility]/23 [facility] [address] [facility], 4th [place] [address]- Attending Physician: Not on Staff, Attending MD Referring Physician: Kishan Kennedy MD, Becki Herrera Allergies, Adverse Reactions, Alerts Substance Reaction Severity Status minocycline 1 H/A Active 1pseudotumor ceriebri Immunizations Given and Recorded Vaccine Date Status Refusal Reason Measles/Mumps/Rubella Virus Vaccine 09/13/21 Given tetanus/diphtheria/pertussis, acel(Tdap) 1 06/26/21 Given influenza virus vaccine, inactivated 06/04/10 Give n pneumococcal 23-valent vaccine 06/04/10 Given 1Result Comment: [id number] Medications acetaminophen/butalbital/caffeine 325 mg-50 mg-40 mg oral tablet 0 Refills, Maintenance, 08/16/22 14:19:00 EDT, Partial fill upon patient request if the prescription is for a schedule II opioid drug. Start Date: 08/16/22 Status: Ordered ergocalciferol 75527 iu oral capsule 50,000 International_Units, 1, capsule, [...] 0 Refills, Soft Stop, 04/10/23 9:19:00 EST, [facility], Partial fill upon patient request [...] List Condition Confirmation Course Effective Dates Status [facility] St atus Informant Facet arthropathy, [...] Team Personnel Name: Becki Posadas MD Position: [facility] Outreach Member Role: PCP Address: Address: [address] [place] [address] [address] [place] [address]- Care Team Related Persons Name: BELLA HERNANDEZ Address: home [address] [place] [address] Name: RADHA GALLEGOS Address: home [address] [place] [address] Name: LUIS CARLOS SAENZ Address: [address] [address] Name: GEENA SAENZ Address: [address] Address: [address]
--- OUTSIDE RECORDS SUMMARY | 2023-10-08 10:09 | XMS_ITS | Continuity of Care Document ---
Author Organization [facility] Address [address] [place] [address], [address] [place] [address]- Care Team Providers Care Grants Assistant Name Role Phone Kishan Kennedy MD, Becki Herrera Primary Care Physici an [id number] Date[facility] 08/21/21 - 08/28/21 [facility] [address] [facility], 4th [place] [address]- Attending Physician: Yazmin HOWARD, Ligia Suarez Referring Physician: Robert HOWARD [OB], Patti Palencia Allergies, Adverse Reactions, Alerts Substance Reaction Severity Status minocycline 1 H/A Active 1pseudotumor ceriebri Immunizations Given and Recorded Vaccine Date Status Refusal Reason tetanus/diphtheria/pertussis, acel(Tdap) 1 06/26/21 Given influenza virus vaccine, inactivated 06/04/10 Give n pneumococcal 23-valent vaccine 06/04/10 Given 1Result Comment: [id number] Medications aspirin 81 mg oral capsule 4 [...] 04/07/22 0:00:00 EST, 07/09/21 20:49:00 EDT, Cream, [id number], ok to sub for foam if cream not available, 1 application Rectally 3 times a day, 158, cm, 06/26/21 8:44:... Start Date: 07/09/21 Stop Date: 04/07/22 Status: Ordered hydrocortisone-pramoxine topical 1%-1% cream with applicator 1 application, Rectally, 3 times a day, for 90 days, # 30 Gm, 3 Refills, Acute 04/02/23 0:00:00 EST, 04/07/22 0:00:00 EST, Cream, [facility], ok to sub for foam if cream not available, 1 application Rectally 3 times a day,x90 days,... Start Date: 04/07/22 Stop Date: 04/02/23 Status: Ordered labetalol 100 mg oral tablet 1 tablet = 100 mg, By Mouth, 2 times a day, # 60 tablet, 6 Refills, Maintenance, 05/17/21 9:07:00 EST, Tablet, [facility], Partial fill upon [...] 02/22/22 14:48:00 EST, 02/21/21 14:47:00 EST, Tablet, [facility], Partial fill upon [...]
--- OUTSIDE RECORDS SUMMARY | 2023-10-08 10:09 | XMS_ITS | Continuity of Care Document ---
Author Organization [facility] Address [address] [place] [address], [address] [place] [address]- Care Team Providers Care Chairman And Chief Executive Officer Name Role Phone Kishan Kennedy MD, Becki Herrera Primary Care Physici an [place] [facility] [place](s): 01/01/23 - 01/31/23 [facility] [address] [facility], [address] [place] [address]- Allergies, Adverse Reactions, Alerts Substance Reaction Severity Status minocycline 1 H/A Active 1pseudotumor ceriebri Immunizations Given and Recorded Vaccine Date Status Refusal Reason Measles/Mumps/Rubella Virus Vaccine 09/13/21 Given tetanus/diphtheria/pertussis, acel(Tdap) 1 06/26/21 Given influenza virus vaccine, inactivated 06/04/10 Give n pneumococcal 23-valent vaccine 06/04/10 Given 1Result Comment: [id number] Medications acetaminophen/butalbital/caffeine 325 mg-50 mg-40 mg oral tablet 0 Refills, Maintenance, 08/16/22 14:19:00 EDT, Partial fill upon patient request if the prescription is for a schedule II opioid drug. Start Date: 08/16/22 Status: Ordered ergocalciferol 85106 iu oral capsule 50,000 International_Units, 1, capsule, [...] 0 Refills, Soft Stop, 09/06/21 11:23:00 EDT, [facility], Partial fill upon patient request if the prescription is for a schedule II opioid drug., 158, cm, 09/06/21 10:59:00 EDT, Height, 103.1... Start Date: 09/06/21 Status: Ordered Mirena 52 mg intrauterine device 1 each = 52 mg, Intrauterine, Once, Please bring to office for insertion., # 1 each, 0 Refills, Soft Stop, 01/01/23 16:56:00 EDT, [facility], Partial fill upon patient [...] Name: Kishan Kennedy MD, Becki Herrera Position: [facility] Outreach Member Role: PCP Address: Address: [address] [place] [address] [address] [place] [address]- Care Team Related Persons Name: BELLA HERNANDEZ Address: home [address] [place] [address] Name: RADHA GALLEGOS Address: home [address] [place] [address] Name: LUIS CARLOS SAENZ Address: home [address] [place] [address] Name: GEENA SAENZ Address: [address] Address: [place] [id number]
--- OUTSIDE RECORDS SUMMARY | 2023-10-08 10:09 | XMS_ITS | Continuity of Care Document ---
Author Organization [facility] Address [address] [place] [address], 4t [place] [address]- Care Team Providers Care Yoghurt Maker Name Role Phone Kishan Kennedy MD, Becki Herrera Primary Care Physici an [place] [facility] [place] Date(s): 06/26/21 - 07/03/21 [facility] [address] [facility], 4th [place] [address]- Attending Physician: Robert HOWARD [OB], Patti Palencia Allergies, Adverse Reactions, Alerts Substance Reaction Severity Status minocycline 1 H/A Active 1pseudotumor ceriebri Immunizations Given and Recorded Vaccine Date Status Refusal Reason tetanus/diphtheria/pertussis, acel(Tdap) 1 06/26/21 Given influenza virus vaccine, inactivated 06/04/10 Give n pneumococcal 23-valent vaccine 06/04/10 Given 1Result Comment: [id number] Medications aspirin 81 mg oral capsule 4 capsule = 324 mg, By Mouth, Every 4 hours, 0 Refills, Maintenance, 06/26/21 8:45:00 EDT, Partial fill upon patient request if the prescription is for a schedule II opioid drug. Start Date: 06/26/21 Status: Ordered labetalol 100 mg oral tablet 1 tablet = 100 mg, By Mouth, 2 times a day, # 60 tablet, 6 Refills, Maintenance, 05/17/21 9:07:00 EST, Tablet, [facility], Partial fill upon patient request [...] 02/22/22 14:48:00 EST, 02/21/21 14:47:00 EST, Tablet, [facility], Partial fill upon patient request [...]
--- OUTSIDE RECORDS SUMMARY | 2023-10-08 10:09 | XMS_ITS | Continuity of Care Document ---
Author Organization [facility] Address [address] [place] [address]- Care Team Providers Care Bilingual Teacher Name Role Phone Joshua HOWARD, [place] Primary Care Physician [place] [facility] [place] - 01/[place]/[address] [address] Discharge Disposition: A-D/C Home Attending Physician: Gerhard Hopper MD Admitting Physician: Gerhard Hopper MD Referring Physician: Gerhard Hopper MD Allergies, Adverse Reactions, Alerts Substance Reaction [...] Most recent to oldest [Reference Range]: 1 Oxygen Saturation [94-100 %] 100 % (01/31/21 12:22 PM) Pulse Rate [55-90 bpm] 90 bpm (01/31/21 12:22 PM) Blood Pressure [90-138/55-84 mm Hg] 122/ 77mm Hg (01/31/21 12:22 PM) Respiratory Rate [16-30 br/min] 20 br/mi n (01/31/21 12:22 PM) Temperature [96.8-100.4 DegF] 98.7 DegF (01/31/21 12:22 PM) Mode of Delivery (Oxygen) Room air (01/31/21 12:22 PM) Blood pressure sites Arm, left 1 (01/31/21 12:22 PM) Temperature Route Oral (01/31/21 12:22 PM) 1Result Comment: left arm measured at 40cm Social History Social History Type Response Smoking Status Never (less than 100 in lifetime); Tobacco user in household: No entered on: 01/14/19 Sex
--- OUTSIDE RECORDS SUMMARY | 2023-10-08 10:10 | XMS_ITS | Continuity of Care Document ---
Author Organization [facility] Address [address] [facility], 4t [place] [address]- Care Team Providers Care Assistant Floor Covering Printer Name Role Phone Kishan Kennedy MD, Becki Herrera Primary Care Physici an En[place] [facility] [place] Date(s): 03/01/21 - 03/31/21 [facility] [address], 4th [place] [address]- Allergies, Adverse Reactions, Alerts Substance Reaction Severity [...] 02/22/22 14:48:00 EST, 02/21/21 14:47:00 EST, Tablet, [facility], Partial fill upon [...]
--- OUTSIDE RECORDS SUMMARY | 2023-10-08 10:10 | XMS_ITS | Continuity of Care Document ---
Author Organization [facility] [facility] Address [address] [facility], 4t [place] [address]- Care Team Providers Care Locomotive Electrician Name Role Phone Kishan Kennedy MD, Becki Herrera Primary Care Physici an [place] [facility] [place] [facility] [id number] Date(s): 08/07/21 - 08/14/21 [facility] [address] [facility] [facility], [address]th [place] [address]- Attending Physician: Robert HOWARD [OB], Patti Palencia Allergies, Adverse Reactions, Alerts Substance Reaction Severity Status minocycline 1 H/A Active 1pseudotumor ceriebri Immunizations Given and Recorded Vaccine Date Status Refusal Reason tetanus/diphtheria/pertussis, acel(Tdap) 1 06/26/21 Given influenza virus vaccine, inactivated 06/04/10 Give n pneumococcal 23-valent vaccine 06/04/10 Given 1Result Comment: [id number] Medications aspirin 81 mg oral capsule 4 [...] 04/07/22 0:00:00 EST, 07/09/21 20:49:00 EDT, Cream, [id number], ok to sub for foam if cream not available, 1 application Rectally 3 times a day, 158, cm, 06/26/21 8:44:... Start Date: 07/09/21 Stop Date: 04/07/22 Status: Ordered hydrocortisone-pramoxine topical 1%-1% cream with applicator 1 application, Rectally, 3 times a day, for 90 days, # 30 Gm, 3 Refills, Acute 04/02/23 0:00:00 EST, 04/07/22 0:00:00 EST, Cream, [facility], ok to sub for foam if cream not available, 1 application Rectally 3 times a day,x90 days,... Start Date: 04/07/22 Stop Date: 04/02/23 Status: Ordered labetalol 100 mg oral tablet 1 tablet = 100 mg, By Mouth, 2 times a day, # 60 tablet, 6 Refills, Maintenance, 05/17/21 9:07:00 EST, Tablet, [facility], Partial fill upon patient [...] 02/22/22 14:48:00 EST, 02/21/21 14:47:00 EST, Tablet, [facility], Partial fill upon patient [...]
--- OUTSIDE RECORDS SUMMARY | 2023-10-08 10:10 | XMS_ITS | Continuity of Care Document ---
Author Organization [facility] Address [address], [address] [place] [address]- Care Team Providers Care Siding Applicator Name Role Phone Kishan Kenneyd MD, Becki Herrera Primary Care Physici an [place] [facility] [place] 09/24/21 [facility]ia [employer] [facility] [address], 4th [place] [address]- Allergies, Adverse Reactions, Alerts Substance Reaction Severity Status minocycline 1 H/A Active 1pseudotumor ceriebri Immunizations Given and Recorded Vaccine Date Status Refusal Reason Measles/Mumps/Rubella Virus Vaccine 09/13/21 Given tetanus/diphtheria/pertussis, acel(Tdap) 1 06/26/21 Given influenza virus vaccine, inactivated 06/04/10 Give n pneumococcal 23-valent vaccine 06/04/10 Given 1Result Comment: [id number] Medications aspirin 81 mg oral capsule 4 [...] 04/07/22 0:00:00 EST, 07/09/21 20:49:00 EDT, Cream, [id number], ok to sub for foam if cream not available, 1 application Rectally 3 times a day, 158, cm, 06/26/21 8:44:... Start Date: 07/09/21 Stop Date: 04/07/22 Status: Ordered hydrocortisone-pramoxine topical 1%-1% cream with applicator 1 application, Rectally, 3 times a day, for 90 days, # 30 Gm, 3 Refills, Acute 04/02/23 0:00:00 EST, 04/07/22 0:00:00 EST, Cream, [facility], ok to sub for foam if cream not available, 1 application Rectally 3 times a day,x90 days,... Start Date: 04/07/22 Stop Date: 04/02/23 Status: Ordered labetalol 100 mg oral tablet 1 tablet = 100 mg, By Mouth, 2 times a day, # 60 tablet, 6 Refills, Maintenance, 05/17/21 9:07:00 EST, Tablet, [facility], Partial fill upon patient request if the prescription isfor a schedule II opioid drug., 158, cm, 05/17/21 8... Start Date: 05/17/21 Status: Ordered Liletta 52 mg intrauterine device 1 each = 52 mg, Vaginally, Once, # 1 each, 0 Refills, Soft Stop, 09/06/21 11:23:00 EDT, [facility], Partial fill upon patient [...] 02/22/22 14:48:00 EST, 02/21/21 14:47:00 EST, Tablet, [facility], Partial fill upon patient request [...]
--- OUTSIDE RECORDS SUMMARY | 2023-10-08 10:10 | XMS_ITS | Continuity of Care Document ---
Author Organization [facility] [employer] Address [address] [place] [address], [address] [place] [address]- Care Team Providers Care Heel Sander Rubber Name Role Phone Kishan Kennedy MD, Becki Herrera Primary Care Physici an [id number]): [facility] [employer] [facility] [address], [address] [place] [address]- Attending Physician: Robert HOWARD [OB], Patti Palencia Referring Physician: Ligia Arce MD Allergies, Adverse [...] 6 Refills, Maintenance, 05/17/21 9:07:00 EST, Tablet, [facility], Partial fill upon patient request [...] 02/22/22 14:48:00 EST, 02/21/21 14:47:00 EST, Tablet, [facility], Partial fill upon patient request [...] oldest [Reference Range]: 1 Height 158 cm (05/17/21 8:52 AM) Weight 107.27 kg (05/17/21 8:52 AM) Body Mass Index [18.5-24.99] 42.97 *>HHI* (05/17/21 8:52 AM) Blood Pressure [90-138/55-84 mm Hg] 134/ 75mm Hg (05/17/21 8:52 AM) Blood pressure sites Arm, right (05/17/21 8:52 AM) Weight Obtained Via Standing scale (05/17/21 8:52 AM) Social History Social History Type Response Smoking Status Never (less than 100 in lifetime) entered on: 02/07/21 Sex
--- OUTSIDE RECORDS SUMMARY | 2023-10-08 10:10 | XMS_ITS | Continuity of Care Document ---
Author Organization [facility] Group Address [address] [place] [address], [address] [address]- Care Team Providers Care Rice Farmer Name Role Phone Kishan Kennedy MD, Becki Herrera Primary Care Physici an Encounter [facility] [place] Date(s): 08/07/21 - 08/14/21 [facility]anynadia [facility] [facility] [address] [facility], [address] [place] [address]- Attending Physician: Yazmin HOWARD, Ligia Suarez Referring Physician: Robert HOWARD [OB], Patti Palencia Allergies, Adverse Reactions, Alerts Substance Reaction Severity Status minocycline 1 H/A Active 1pseudotumor ceriebri Immunizations Given and Recorded Vaccine Date Status Refusal Reason tetanus/diphtheria/pertussis, acel(Tdap) 1 06/26/21 Given influenza virus vaccine, inactivated 06/04/10 Give n pneumococcal 23-valent vaccine 06/04/10 Given 1Result Comment: [id number] Medications aspirin 81 mg oral capsule 4 [...] 04/07/22 0:00:00 EST, 07/09/21 20:49:00 EDT, Cream, [id number], ok to sub for foam if cream not available, 1 application Rectally 3 times a day, 158, cm, 06/26/21 8:44:... Start Date: 07/09/21 Stop Date: 04/07/22 Status: Ordered hydrocortisone-pramoxine topical 1%-1% cream with applicator 1 application, Rectally, 3 times a day, for 90 days, # 30 Gm, 3 Refills, Acute 04/02/23 0:00:00 EST, 04/07/22 0:00:00 EST, Cream, [facility], ok to sub for foam if cream not available, 1 application Rectally 3 times a day,x90 days,... Start Date: 04/07/22 Stop Date: 04/02/23 Status: Ordered labetalol 100 mg oral tablet 1 tablet = 100 mg, By Mouth, 2 times a day, # 60 tablet, 6 Refills, Maintenance, 05/17/21 9:07:00 EST, Tablet, [facility], Partial fill upon patient request [...] 02/22/22 14:48:00 EST, 02/21/21 14:47:00 EST, Tablet, [facility], Partial fill upon patient request [...] oldest [Reference Range]: 1 Height 158 cm (08/07/21 10:02 AM) Weight 109.09 kg (08/07/21 10:02 AM) Body Mass Index [18.5-24.99] 43.7 *>HHI* (08/07/21 10:02 AM) Blood Pressure [90-138/55-84 mm Hg] 118/ 62mm Hg (08/07/21 10:02 AM) Blood pressure sites Arm, right (08/07/21 10:02 AM) Weight Obtained Via Standing scale (08/07/21 10:02 AM) Social History Social History Type Response Smoking Status Never (less than 100 in lifetime) entered on: 02/07/21 Sex
--- OUTSIDE RECORDS SUMMARY | 2023-10-08 10:10 | XMS_ITS | Continuity of Care Document ---
Author Organization [facility] [address], [address] [place] [address]- Care Team Providers Care Spragger Name Role Phone Joshua HOWARD, Spring Primary Care Physician [phone] [place] [facility] [place]s): 01/03/21 - 02/17/21 [facility] [address] [place] [address] Drive, [address] [place] [address]- Attending Physician: Alber Gilbert MD Referring Physician: Becki Posadas MD Allergies, Adverse Reactions, Alerts Substance Reaction [...]
--- OUTSIDE RECORDS SUMMARY | 2023-10-08 10:10 | XMS_ITS | Continuity of Care Document ---
Author Organization [facility] [facility] Address [address] [place] [address], [address] [place] [address]- Care Team Providers Care All Source Analyst Name Role Phone Kishan Kennedy MD, Becki Herrera Primary Care Physici an [place] [facility] [place]): 07/24/21 - 07/31/21 [facility] [facility] [facility] [address] [facility], 4th [place] [address]- Attending Physician: Robert HOWARD [OB], Patti Palencia Allergies, Adverse Reactions, Alerts Substance Reaction Severity Status minocycline 1 H/A Active 1pseudotumor ceriebri Immunizations Given and Recorded Vaccine Date Status Refusal Reason tetanus/diphtheria/pertussis, acel(Tdap) 1 06/26/21 Given influenza virus vaccine, inactivated 06/04/10 Give n pneumococcal 23-valent vaccine 06/04/10 Given 1Result Comment: [id number] Medications aspirin 81 mg oral capsule 4 [...] 04/07/22 0:00:00 EST, 07/09/21 20:49:00 EDT, Cream, [facility][id number], ok to sub for foam if cream not available, 1 application Rectally 3 times a day, 158, cm, 06/26/21 8:44:... Start Date: 07/09/21 Stop Date: 04/07/22 Status: Ordered hydrocortisone-pramoxine topical 1%-1% cream with applicator 1 application, Rectally, 3 times a day, for 90 days, # 30 Gm, 3 Refills, Acute 04/02/23 0:00:00 EST, 04/07/22 0:00:00 EST, Cream, [facility], ok to sub for foam if cream not available, 1 application Rectally 3 times a day,x90 days,... Start Date: 04/07/22 Stop Date: 04/02/23 Status: Ordered labetalol 100 mg oral tablet 1 tablet = 100 mg, By Mouth, 2 times a day, # 60 tablet, 6 Refills, Maintenance, 05/17/21 9:07:00 EST, Tablet, [facility] [...] oldest [Reference Range]: 1 Height 158 cm (07/24/21 9:25 AM) Weight 108.98 kg (07/24/21 9:25 AM) Body Mass Index [18.5-24.99] 43.65 *>HHI* (07/24/21 9:25 AM) Blood Pressure [90-138/55-84 mm Hg] 114/ 69mm Hg (07/24/21 9:25 AM) Blood pressure sites Arm, right (07/24/21 9:25 AM) Weight Obtained Via Standing scale (07/24/21 9:25 AM) Social History Social History Type Response Smoking Status Never (less than 100 in lifetime) entered on: 02/07/21 Sex
--- OUTSIDE RECORDS SUMMARY | 2023-10-08 10:10 | XMS_ITS | Continuity of Care Document ---
Author Organization [facility] Address [address] [place] [address], [address] [place] [address]- Care Team Providers Care Dry Clipper Tender Name Role Phone Joshua HOWARD, [place] Primary Care Physician En[place] [facility] [place] Date(s): 05/26/20 - 07/13/20 [facility] [address] [place] [address] Drive, [address] [place], [place] [address] Attending Physician: Alber Gilbert MD Referring Physician: Lurdes DESIGN CHECKER, Lacy Perez Allergies, Adverse Reactions, Alerts Substance Reaction Severity Status minocycline 1 H/A Active 1pseudotumor ceriebri Immunizations Given and Recorded Vaccine Date Status Refusal Reason influenza virus vaccine, inactivated 06/04/10 Give n pneumococcal 23-valent vaccine 06/04/10 Given Medications Mirena 52 mg intrauterine device 1 each = 52 mg, Vaginally, Once, # 1 each, 0 Refills, Soft Stop, 05/12/20 16:31:00 EST, [facility], Partial fill upon patient request if the prescription is for a schedule II opioid drug., 161, cm, 04/28/20 13:38:00 EST, Height, 93.5,... Start Date: 05/12/20 Status: Ordered Nexplanon 68 mg subcutaneous implant 1 each = 68 mg, Subcutaneous Infusion, Once, Pharmacy supplied and inserted by Judith Ramirez 06/12/18 lot#[id number] exp 09/2020, # 1 each, 0 Refills, [...]
--- OUTSIDE RECORDS SUMMARY | 2023-10-08 10:10 | XMS_ITS | Continuity of Care Document ---
Author Organization [facility] Address [address] [place] [address]- Care Team Providers Care Epic Trainer Name Role Phone Kishan Kennedy MD, Becki Herrera Primary Care Physici an [place] [facility] [place]23 [place] 07/11/23 [facility] [address] [place] [address]- Allergies, Adverse Reactions, Alerts Substance Reaction Severity Status minocycline 1 H/A Active 1pseudotumor ceriebri Immunizations Given and Recorded Vaccine Date Status Refusal Reason Measles/Mumps/Rubella Virus Vaccine 09/13/21 Given tetanus/diphtheria/pertussis, acel(Tdap) 1 06/26/21 Given influenza virus vaccine, inactivated 06/04/10 Give n pneumococcal 23-valent vaccine 06/04/10 Given 1Result Comment: [id number] Medications acetaminophen/butalbital/caffeine 325 mg-50 mg-40 mg oral tablet 0 Refills, Maintenance, 08/16/22 14:19:00 EDT, Partial fill upon patient request if the prescription is for a schedule II opioid drug. Start Date: 08/16/22 Status: Ordered ergocalciferol 68662 iu oral capsule 50,000 International_Units, 1, capsule, [...] 0 Refills, Soft Stop, 04/10/23 9:19:00 EST, [facility], Partial fill upon patient [...] Team Personnel Name: Becki Posadas MD Position: [facility] Outreach Member Role: PCP Address: Address: [address] [place] [address] [place] [address]- Care Team Related Persons Name: BELLA HERNANDEZ Address: home [address] [place] [address] Name: RADHA GALLEGOS Address: home [address] [place] [address] Name: LUIS CARLOS SAENZ Address: [address] [address] Name: GEENA SAENZ Address: [address] Address: [address] [address]
--- OUTSIDE RECORDS SUMMARY | 2023-10-08 10:10 | XMS_ITS | Continuity of Care Document ---
Author Organization [facility] Address [address] [facility], 4t [place] [address]- Care Team Providers Care Traveling Sales Representative Name Role Phone Kishan Kennedy MD, Becki Herrera Primary Care Physici an En[facility] [place] Date(s): 06/22/21 - 07/22/21 [facility] [facility] [address] [facility], 4th [place] [address]- Allergies, Adverse Reactions, Alerts Substance Reaction Severity Status minocycline 1 H/A Active 1pseudotumor ceriebri Immunizations Given and Recorded Vaccine Date Status Refusal Reason tetanus/diphtheria/pertussis, acel(Tdap) 1 06/26/21 Given influenza virus vaccine, inactivated 06/04/10 Give n pneumococcal 23-valent vaccine 06/04/10 Given 1Result Comment: [id number] Medications aspirin 81 mg oral capsule 4 [...] 04/07/22 0:00:00 EST, 07/09/21 20:49:00 EDT, Cream, [facility] #[id number], ok to sub for foam if cream not available, 1 application Rectally 3 times a day, 158, cm, 06/26/21 8:44:... Start Date: 07/09/21 Stop Date: 04/07/22 Status: Ordered hydrocortisone-pramoxine topical 1%-1% cream with applicator 1 application, Rectally, 3 times a day, for 90 days, # 30 Gm, 3 Refills, Acute 04/02/23 0:00:00 EST, 04/07/22 0:00:00 EST, Cream, [facility], ok to sub for foam if cream not available, 1 application Rectally 3 times a day,x90 days,... Start Date: 04/07/22 Stop Date: 04/02/23 Status: Ordered labetalol 100 mg oral tablet 1 tablet = 100 mg, By Mouth, 2 times a day, # 60 tablet, 6 Refills, Maintenance, 05/17/21 9:07:00 EST, Tablet, [facility], Partial fill upon patient request [...] 02/22/22 14:48:00 EST, 02/21/21 14:47:00 EST, Tablet, [facility], Partial fill upon patient request [...]
--- OUTSIDE RECORDS SUMMARY | 2023-10-08 10:10 | XMS_ITS | Continuity of Care Document ---
Author Organization [facility] Address [address] [place] [address]- Care Team Providers Care Trolley Collector Name Role Phone Kishan Kennedy MD, Becki Herrera Primary Care Physici an [place] [facility] [place] Date(s): 09/11/21 - 09/13/[address] [address]- Discharge Disposition: A-D/C Home Attending Physician: Gerhard Hopper MD Admitting Physician: Gerhard Hopper MD Referring Physician: Ligia Arce MD Allergies, Adverse Reactions, Alerts Substance Reaction Severity Status minocycline 1 H/A Active 1pseudotumor ceriebri Immunizations Given and Recorded Vaccine Date Status Refusal Reason Measles/Mumps/Rubella Virus Vaccine 09/13/21 Given tetanus/diphtheria/pertussis, acel(Tdap) 1 06/26/21 Given influenza virus vaccine, inactivated 06/04/10 Give n pneumococcal 23-valent vaccine 06/04/10 Given 1Result Comment: [id number] Medications Acetaminophen Tablet 650 mg, Tablet, By Mouth, Every 4 hours, PRN for Pain , Mild, (1-3), may give 325mg per patient preference and re-dose with 325mg within 4 hours, if needed. Patient should only receive a total of 650mg of Acetaminophen every 4 hours., Routine, 09/12... Start Date: 09/12/21 Stop Date: 09/14/21 Status: Discontinued aspirin 81 mg oral capsule 4 capsule [...] 04/07/22 0:00:00 EST, 07/09/21 20:49:00 EDT, [id number], ok to sub for foam if cream not available, 1 application Rectally 3 times a day, 158, cm, 06/26/21 8:44:... Start Date: 07/09/21 Stop Date: 04/07/22 Status: Ordered hydrocortisone-pramoxine topical 1%-1% cream with applicator 1 application, Rectally, 3 times a day, for 90 days, # 30 Gm, 3 Refills, Acute 04/02/23 0:00:00 EST, 04/07/22 0:00:00 EST, Cream, [facility], ok to sub for foam if cream not available, 1 application Rectally 3 times a day,x90 days,... Start Date: 04/07/22 Stop Date: 04/02/23 Status: Ordered labetalol 100 mg oral tablet 1 tablet = 100 mg, By Mouth, 2 times a day, # 60 tablet, 6 Refills, Maintenance, 05/17/21 9:07:00 EST, Tablet, [facility], Partial fill upon patient request if the prescription isfor a schedule II opioid drug., 158, cm, 05/17/21 8... Start Date: 05/17/21 Status: Ordered labetalol 100 mg oral tablet 100 mg, Tablet, By Mouth, 09/13/21 9:00:00 EDT Start Date: 09/13/21 Stop Date: 09/13/21 Status: Completed Liletta 52 mg intrauterine device 1 each = 52 mg, Vaginally, Once, # 1 each, 0 Refills, Soft Stop, 09/06/21 11:23:00 EDT, [facility], Partial fill upon patient [...] 02/22/22 14:48:00 EST, 02/21/21 14:47:00 EST, Tablet, [facility], Partial fill upon patient request [...] oldest [Reference Range]: 1 2 3 Height 158 cm (09/13/21 4:01 AM) 158 cm (09/13/21 12:26 AM) 158 cm (09/12/21 8:35 PM) Weight 111.81 kg (09/11/21 8:19 AM) Oxygen Saturation [94-100 %] 98 % (09/13/21 8:00 AM) 98 % (09/13/21 4:01 AM) 96 % (09/13/21 12:26 AM) Pulse Rate [55-90 bpm] 71 bpm (09/13/21 9:06 AM) 71 bpm (09/13/21 8:00 AM) 71 bpm (09/13/21 4:01 AM) Body Mass Index [18.5-24.99] 44.79 *>HHI* (09/11/21 8:19 AM) Blood Pressure [90-138/55-84 mm Hg] 110/56mm Hg (09/13/21 9:06 AM) 110/56mm Hg (09/13/21 8:00 AM) 114/62mm Hg (09/13/21 4:01 AM) Respiratory Rate [16-30 br/min] 18 br/min (09/13/21 8:00 AM) 20 br/min (09/13/21 4:01 AM) 18 br/min (09/13/21 1:26 AM) Temperature [96.8-100.4 DegF] 98.7 DegF (09/13/21 8:00 AM) 98.4 DegF (09/13/21 4:01 AM) 98.4 DegF (09/13/21 12:26 AM) Mode of Delivery (Oxygen) Room air (09/13/21 8:00 AM) Room air (09/13/21 4:01 AM) Room air (09/13/21 12:26 AM) Blood pressure sites Arm, right (09/13/21 8:00 AM) Arm, right (09/13/21 4:01 AM) Arm, right (09/13/21 12:26 AM) Temperature Route Oral (09/13/21 8:00 AM) Oral (09/13/21 4:01 AM) Oral (09/13/21 12:26 AM) Dry Weight 111.81 kg (09/11/21 8:19 AM) Social History Social History Type Response Smoking Status Never (less than 100 in lifetime) entered on: 02/07/21 Sex
--- OUTSIDE RECORDS SUMMARY | 2023-10-08 10:10 | XMS_ITS | Continuity of Care Document ---
Author Organization [facility] Address [address] [place] [address]- Care Team Providers Care Group Home Supervisor Name Role Phone Kishan Kennedy MD, Becki Herrera Primary Care Physici an [place] [facility] [place] - 01/16/23 [facility] [address] [place] [address]- Allergies, Adverse Reactions, Alerts Substance Reaction Severity Status minocycline 1 H/A Active 1pseudotumor ceriebri Immunizations Given and Recorded Vaccine Date Status Refusal Reason Measles/Mumps/Rubella Virus Vaccine 09/13/21 Given tetanus/diphtheria/pertussis, acel(Tdap) 1 06/26/21 Given influenza virus vaccine, inactivated 06/04/10 Give n pneumococcal 23-valent vaccine 06/04/10 Given 1Result Comment: [id number] Medications acetaminophen/butalbital/caffeine 325 mg-50 mg-40 mg oral tablet 0 Refills, Maintenance, 08/16/22 14:19:00 EDT, Partial fill upon patient request if the prescription is for a schedule II opioid drug. Start Date: 08/16/22 Status: Ordered ergocalciferol 07946 iu oral capsule 50,000 International_Units, 1, capsule, [...] 0 Refills, Soft Stop, 09/06/21 11:23:00 EDT, [facility], Partial fill upon patient request if the prescription is for a schedule II opioid drug., 158, cm, 09/06/21 10:59:00 EDT, Height, 103.1... Start Date: 09/06/21 Status: Ordered Mirena 52 mg intrauterine device 1 each = 52 mg, Intrauterine, Once, Please bring to office for insertion., # 1 each, 0 Refills, Soft Stop, 01/01/23 16:56:00 EDT, [facility], Partial fill upon patient [...] Team Personnel Name: Becki Posadas MD Position: [facility] Outreach Member Role: PCP Address: Address: [address] [place] [address]- Care Team Related Persons Name: BELLA HERNANDEZ Address: home [address] [place] [address] Name: RADHA GALLEGOS Address: home [address] [place] [address] Name: LUIS CARLOS SAENZ Address: home [address] [place] [address] Name: GEENA SAENZ Address: [address] Address: [place] [id number]
--- OUTSIDE RECORDS SUMMARY | 2023-10-08 10:10 | XMS_ITS | Continuity of Care Document ---
Author Organization [facility] Address [address] [place] [address]- Care Team Providers Care Behavioral Health Associate Name Role Phone Kishan Kennedy MD, Becki Herrera Primary Care Physici an [place] [facility] [place] 07/[place]23 - 08/21/23 [facility] [address] [place] [address]- Attending Physician: Sheila Hodge Admitting Physician: AdmtrSheila Referring Physician: Admtr, Ar8 Allergies, Adverse Reactions, Alerts Substance Reaction Severity Status minocycline 1 H/A Active 1pseudotumor ceriebri Immunizations Given and Recorded Vaccine Date Status Refusal Reason Measles/Mumps/Rubella Virus Vaccine 09/13/21 Given tetanus/diphtheria/pertussis, acel(Tdap) 1 06/26/21 Given influenza virus vaccine, inactivated 06/04/10 Give n pneumococcal 23-valent vaccine 06/04/10 Given 1Result Comment: [id number] Medications acetaminophen/butalbital/caffeine 325 mg-50 mg-40 mg oral tablet 0 Refills, Maintenance, 08/16/22 14:19:00 EDT, Partial fill upon patient request if the prescription is for a schedule II opioid drug. Start Date: 08/16/22 Status: Ordered ergocalciferol 92254 iu oral capsule 50,000 International_Units, 1, capsule, By Mouth, Every week, # 30 capsule, Refills 0, Maintenance,08/16/22 14:19:00 EDT, Partial fill upon patient request if the prescription is for a schedule II opioid drug. Start Date: 08/16/22 Status: Ordered Mirena 52 mg intrauterine device 1 each = 52 mg, Intrauterine, Once, Pharmacy supplied and inserted by Gee Munguia MD on 07/18/23 lot#[id number] exp 12/2024 [facility]#[id number], # 1 each, 0 Refills, Soft Stop, 04/10/23 9:19:00 EST, [facility], Partial fill upon patient [...] Condition Confirmation Course Effective Dates Status [facility] Informant Facet arthropathy, lumbosacral [...] Team Personnel Name: Becki Posadas MD Position: [facility] Outreach Member Role: PCP Address: Address: [address] [place] [address] [place] [address]- Care Team Related Persons Name: BELLA HERNANDEZ Address: home [address] [place] [address] Name: RADHA GALLEGOS Address: home [address] [place] [address] Name: LUIS CARLOS SAENZ Address: [address] [address] Name: GEENA SAENZ Address: [address] Address: [address]
--- OUTSIDE RECORDS SUMMARY | 2023-10-08 10:10 | XMS_ITS | Continuity of Care Document ---
Author Organization [facility] [employer] Address [address] [place] [address], [address] [address]- Care Team Providers Care Ruby Software Developer Name Role Phone Kishan Kennedy MD, Becki Herrera Primary Care Physici an [id number] Date(s): 02/21/21 - 02/28/21 [facility] [address] [facility], 4th [place] [address]- Attending Physician: Loretta Mack MD Referring Physician: Ligia Arce MD Allergies, [...] 02/22/22 14:48:00 EST, 02/21/21 14:47:00 EST, Tablet, [facility], Partial fill upon patient request if [...]
--- OUTSIDE RECORDS SUMMARY | 2023-10-08 10:10 | XMS_ITS | Continuity of Care Document ---
Author Organization [facility] [employer] Address [address] [place] [address], [address] [address]- Care Team Providers Care Dental Prosthetist Name Role Phone Kishan Kennedy MD, Becki Herrera Primary Care Physici an Encounter [facility] [place] Date(s): 08/16/21 - 08/23/21 [facility] [employer] [facility] [address] [facility], 4th [place] [address]- Attending Physician: Robert HOWARD [OB], Patti Palencia Allergies, Adverse Reactions, Alerts Substance Reaction Severity Status minocycline 1 H/A Active 1pseudotumor ceriebri Immunizations Given and Recorded Vaccine Date Status Refusal Reason tetanus/diphtheria/pertussis, acel(Tdap) 1 06/26/21 Given influenza virus vaccine, inactivated 06/04/10 Give n pneumococcal 23-valent vaccine 06/04/10 Given 1Result Comment: [id number] Medications aspirin 81 mg oral capsule 4 [...] 04/07/22 0:00:00 EST, 07/09/21 20:49:00 EDT, Cream, [id number], ok to sub for foam if cream not available, 1 application Rectally 3 times a day, 158, cm, 06/26/21 8:44:... Start Date: 07/09/21 Stop Date: 04/07/22 Status: Ordered hydrocortisone-pramoxine topical 1%-1% cream with applicator 1 application, Rectally, 3 times a day, for 90 days, # 30 Gm, 3 Refills, Acute 04/02/23 0:00:00 EST, 04/07/22 0:00:00 EST, Cream, [facility], ok to sub for foam if cream not available, 1 application Rectally 3 times a day,x90 days,... Start Date: 04/07/22 Stop Date: 04/02/23 Status: Ordered labetalol 100 mg oral tablet 1 tablet = 100 mg, By Mouth, 2 times a day, # 60 tablet, 6 Refills, Maintenance, 05/17/21 9:07:00 EST, Tablet, [facility], Partial fill upon patient [...] 02/22/22 14:48:00 EST, 02/21/21 14:47:00 EST, Tablet, [facility], Partial fill upon patient [...]
--- OUTSIDE RECORDS SUMMARY | 2023-10-08 10:10 | XMS_ITS | Continuity of Care Document ---
Author Organization [facility] [employer] Address [address] [facility], 4[address] [place] [address]- Care Team Providers Care Groundsman Name Role Phone Kishan Kennedy MD, Becki Herrera Primary Care Physici an [place] [facility] [place]11[place]21 - 05/11/21 [facility] [employer] [facility] [address] [facility], 4th [place] [address]- Allergies, Adverse Reactions, Alerts Substance Reaction Severity [...]
--- OUTSIDE RECORDS SUMMARY | 2023-10-08 10:10 | XMS_ITS | Continuity of Care Document ---
Author Organization [facility] [employer] [facility] Address [address] [place] [address], 4t [place] [address]- Care Team Providers Care Licensed Sales Producer Name Role Phone Kishan Kennedy MD, Becki Herrera Primary Care Physici an Encounter [facility] [place] Date(s): 07/10/21 - 07/17/21 [facility] [address] [facility], 4th [place] [address]- Attending Physician: Robert HOWARD [OB], Patti Palencia Allergies, Adverse Reactions, Alerts Substance Reaction Severity Status minocycline 1 H/A Active 1pseudotumor ceriebri Immunizations Given and Recorded Vaccine Date Status Refusal Reason tetanus/diphtheria/pertussis, acel(Tdap) 1 06/26/21 Given influenza virus vaccine, inactivated 06/04/10 Give n pneumococcal 23-valent vaccine 06/04/10 Given 1Result Comment: [id number] Medications aspirin 81 mg oral capsule 4 [...] 04/07/22 0:00:00 EST, 07/09/21 20:49:00 EDT, Cream, [id number], ok to sub for foam if cream not available, 1 application Rectally 3 times a day, 158, cm, 06/26/21 8:44:... Start Date: 07/09/21 Stop Date: 04/07/22 Status: Ordered hydrocortisone-pramoxine topical 1%-1% cream with applicator 1 application, Rectally, 3 times a day, for 90 days, # 30 Gm, 3 Refills, Acute 04/02/23 0:00:00 EST, 04/07/22 0:00:00 EST, Cream, [facility], ok to sub for foam if cream not available, 1 application Rectally 3 times a day,x90 days,... Start Date: 04/07/22 Stop Date: 04/02/23 Status: Ordered labetalol 100 mg oral tablet 1 tablet = 100 mg, By Mouth, 2 times a day, # 60 tablet, 6 Refills, Maintenance, 05/17/21 9:07:00 EST, Tablet, [facility], Partial fill upon patient [...] 02/22/22 14:48:00 EST, 02/21/21 14:47:00 EST, Tablet, [facility], Partial fill upon patient [...] oldest [Reference Range]: 1 Height 158 cm (07/10/21 8:18 AM) Weight 110.0 kg (07/10/21 8:18 AM) Body Mass Index [18.5-24.99] 44.06 *>HHI* (07/10/21 8:18 AM) Blood Pressure [90-138/55-84 mm Hg] 115/ 78mm Hg (07/10/21 8:18 AM) Blood pressure sites Arm, right (07/10/21 8:18 AM) Weight Obtained Via Standing scale (07/10/21 8:18 AM) Social History Social History Type Response Smoking Status Never (less than 100 in lifetime) entered on: 02/07/21 Sex
--- OUTSIDE RECORDS SUMMARY | 2023-10-08 10:10 | XMS_ITS | Continuity of Care Document ---
Author Organization [facility] Address [address] [place] [address], [address]r [address] Floor, [address] [place] [address]- Care Team Providers Care Data Security Analyst Name Role Phone Spring Lewis MD Primary Care Physician Encounter [facility] [place] Date(s): 01/28/19 - 05/28/19 [facility] [address] [facility], 3rd Floor, [address] [place] [address] Attending Physician: Olegario Jordan NP Admitting Physician: Olegario Jordan NP Allergies, Adverse Reactions, Alerts Substance Reaction Severity [...] supplied and inserted by Judith Ramirez 06/12/18 lot#[id number] exp 09/2020, # 1 each, 0 Refills, [...]
--- OUTSIDE RECORDS SUMMARY | 2023-10-08 10:10 | XMS_ITS | Continuity of Care Document ---
Author Organization [facility] Address [address] [place] [address]- Care Team Providers Care Sterile Technician Name Role Phone Kishan Kennedy MD, Becki Herrera Primary Care Physici an [place] [facility] [place] Date(s): 02/28/22 - 03/30/22 [facility] [address] [place] [address]- Attending Physician: Admtr, Ar8 Admitting Physician: Admtr, Ar8 Referring Physician: Admtr, Ar8 Allergies, Adverse Reactions, Alerts Substance Reaction Severity Status minocycline 1 H/A Active 1pseudotumor ceriebri Immunizations Given and Recorded Vaccine Date Status Refusal Reason Measles/Mumps/Rubella Virus Vaccine 09/13/21 Given tetanus/diphtheria/pertussis, acel(Tdap) 1 06/26/21 Given influenza virus vaccine, inactivated 06/04/10 Give n pneumococcal 23-valent vaccine 06/04/10 Given 1Result Comment: [id number] Medications Liletta 52 mg intrauterine device 1 each = 52 mg, Vaginally, Once, # 1 each, 0 Refills, Soft Stop, 09/06/21 11:23:00 EDT, [facility], Partial fill upon patient request [...] Team Personnel Name: Becki Posadas MD Position: [facility] Outreach Member Role: PCP Address: Address: [address] [place] [address]- Care Team Related Persons Name: BELLA HERNANDEZ Address: home [address] [place] [address] Name: RADHA GALLEGOS Address: home [address] [place] [address] Name: LUIS CARLOS SAENZ Address: home [address] [place] [address] Name: GEENA SAENZ Address: [address] Address: [place] [phone]
--- OUTSIDE RECORDS SUMMARY | 2023-10-08 10:10 | XMS_ITS | Continuity of Care Document ---
Author Organization [facility] [employer] [facility] Address [address] [facility], 4t [place] [address]- Care Team Providers Care Stock And Station Agent Name Role Phone Kishan Kennedy MD, Becki Herrera Primary Care Physici an En[place] [facility] [place] Date(s): 07/05/21 - 08/04/21 [facility] [employer] [facility] [address] [facility], 4th [place] [address]- Allergies, Adverse Reactions, Alerts Substance Reaction Severity Status minocycline 1 H/A Active 1pseudotumor ceriebri Immunizations Given and Recorded Vaccine Date Status Refusal Reason tetanus/diphtheria/pertussis, acel(Tdap) 1 06/26/21 Given influenza virus vaccine, inactivated 06/04/10 Give n pneumococcal 23-valent vaccine 06/04/10 Given 1Result Comment: [id number] Medications aspirin 81 mg oral capsule 4 [...] 04/07/22 0:00:00 EST, 07/09/21 20:49:00 EDT, Cream, [id number], ok to sub for foam if cream not available, 1 application Rectally 3 times a day, 158, cm, 06/26/21 8:44:... Start Date: 07/09/21 Stop Date: 04/07/22 Status: Ordered hydrocortisone-pramoxine topical 1%-1% cream with applicator 1 application, Rectally, 3 times a day, for 90 days, # 30 Gm, 3 Refills, Acute 04/02/23 0:00:00 EST, 04/07/22 0:00:00 EST, Cream, [facility], ok to sub for foam if cream not available, 1 application Rectally 3 times a day,x90 days,... Start Date: 04/07/22 Stop Date: 04/02/23 Status: Ordered labetalol 100 mg oral tablet 1 tablet = 100 mg, By Mouth, 2 times a day, # 60 tablet, 6 Refills, Maintenance, 05/17/21 9:07:00 EST, Tablet, [facility], Partial fill upon patient [...] 02/22/22 14:48:00 EST, 02/21/21 14:47:00 EST, Tablet, [facility], Partial fill upon patient [...]
--- OUTSIDE RECORDS SUMMARY | 2023-10-08 10:10 | XMS_ITS | Continuity of Care Document ---
Author Organization [facility] [employer] Address [address] [place] [address], 4t [place] [address]- Care Team Providers Care Associate Professor Of Pathology Name Role Phone Joshua HOWARD, Spring Primary Care Physician [place] [facility] [place] Date(s): 05/12/20 - 07/23/20 [facility] [place] [facility] [address] [facility], 4th Floor [place], [place] [address] Attending Physician: Lianne Wick MD Referring Physician: Judith Alaniz CNM Allergies, Adverse Reactions, Alerts Substance Reaction Severity Status minocycline 1 H/A Active 1pseudotumor ceriebri Immunizations Given and Recorded Vaccine Date Status Refusal Reason influenza virus vaccine, inactivated 06/04/10 Give n pneumococcal 23-valent vaccine 06/04/10 Given Medications Mirena 52 mg intrauterine device 1 each = 52 mg, Vaginally, Once, # 1 each, 0 Refills, Soft Stop, 05/12/20 16:31:00 EST, [facility], Partial fill upon patient request if the prescription is for a schedule II opioid drug., 161, cm, 04/28/20 13:38:00 EST, Height, 93.5,... Start Date: 05/12/20 Status: Ordered Nexplanon 68 mg subcutaneous implant 1 each = 68 mg, Subcutaneous Infusion, Once, Pharmacy supplied and inserted by Judith Ramirez 06/12/18 lot#[id number] exp 09/2020, # 1 each, 0 Refills, [...]
--- OUTSIDE RECORDS SUMMARY | 2023-10-08 10:10 | XMS_ITS | Continuity of Care Document ---
Author Organization [facility] [employer] Address [address] [facility], 4t [place] [address]- Care Team Providers Care Manager Commission Name Role Phone Joshua HOWARD, Spring Primary Care Physician [place] [facility] [place](s[place] 05/16/20 - 06/15/20 [facility] [place] [facility] [address] [facility], 4th Floor [place], [place] [address] Allergies, Adverse Reactions, Alerts Substance Reaction Severity Status minocycline 1 H/A Active 1pseudotumor ceriebri Immunizations Given and Recorded Vaccine Date Status Refusal Reason influenza virus vaccine, inactivated 06/04/10 Give n pneumococcal 23-valent vaccine 06/04/10 Given Medications Mirena 52 mg intrauterine device 1 each = 52 mg, Vaginally, Once, # 1 each, 0 Refills, Soft Stop, 05/12/20 16:31:00 EST, [facility], Partial fill upon patient request if the prescription is for a schedule II opioid drug., 161, cm, 04/28/20 13:38:00 EST, Height, 93.5,... Start Date: 05/12/20 Status: Ordered Nexplanon 68 mg subcutaneous implant 1 each = 68 mg, Subcutaneous Infusion, Once, Pharmacy supplied and inserted by Judith Ramirez 06/12/18 lot#[id number] exp 09/2020, # 1 each, 0 Refills, [...]
--- OUTSIDE RECORDS SUMMARY | 2023-10-08 10:10 | XMS_ITS | Continuity of Care Document ---
Author Organization [facility] [employer] Address [address] [place] [address], 4[place] [address]- Care Team Providers Care Leaf Sucker Operator Name Role Phone Kishan Kennedy MD, Becki Herrera Primary Care Physici an [place] [facility] [place]): 09/06[place]21 - 09/13/21 [facility] [employer] [address] [facility], 4th [place] [address]- Attending Physician: Robert HOWARD [OB], Patti Palencia Allergies, Adverse Reactions, Alerts Substance Reaction Severity Status minocycline 1 H/A Active 1pseudotumor ceriebri Immunizations Given and Recorded Vaccine Date Status Refusal Reason Measles/Mumps/Rubella Virus Vaccine 09/13/21 Given tetanus/diphtheria/pertussis, acel(Tdap) 1 06/26/21 Given influenza virus vaccine, inactivated 06/04/10 Give n pneumococcal 23-valent vaccine 06/04/10 Given 1Result Comment: [id number] Medications aspirin 81 mg oral capsule 4 [...] 04/07/22 0:00:00 EST, 07/09/21 20:49:00 EDT, Cream, [id number], ok to sub for foam if cream not available, 1 application Rectally 3 times a day, 158, cm, 06/26/21 8:44:... Start Date: 07/09/21 Stop Date: 04/07/22 Status: Ordered hydrocortisone-pramoxine topical 1%-1% cream with applicator 1 application, Rectally, 3 times a day, for 90 days, # 30 Gm, 3 Refills, Acute 04/02/23 0:00:00 EST, 04/07/22 0:00:00 EST, Cream, [facility], ok to sub for foam if cream not available, 1 application Rectally 3 times a day,x90 days,... Start Date: 04/07/22 Stop Date: 04/02/23 Status: Ordered labetalol 100 mg oral tablet 1 tablet = 100 mg, By Mouth, 2 times a day, # 60 tablet, 6 Refills, Maintenance, 05/17/21 9:07:00 EST, Tablet, [facility], Partial fill upon patient request if the prescription isfor a schedule II opioid drug., 158, cm, 05/17/21 8... Start Date: 05/17/21 Status: Ordered Liletta 52 mg intrauterine device 1 each = 52 mg, Vaginally, Once, # 1 each, 0 Refills, Soft Stop, 09/06/21 11:23:00 EDT, [facility], Partial fill upon patient [...] 02/22/22 14:48:00 EST, 02/21/21 14:47:00 EST, Tablet, [facility], Partial fill upon patient request [...]
--- OUTSIDE RECORDS SUMMARY | 2023-10-08 10:10 | XMS_ITS | Continuity of Care Document ---
Author Organization [facility] [employer] Address [address] [place] [address], 4[place] [address]- Care Team Providers Care Nursing Secretary Name Role Phone Joshua HOWARD, Spring Primary Care Physician [place] [facility] [place](s): 04/28/20 - 06/15/20 [facility] [address] [facility], 4th Floor [place], [place] [address] Attending Physician: Not on Staff, Attending MD Referring Physician: Adrianna Chamorro CNM Allergies, Adverse Reactions, Alerts Substance Reaction Severity Status minocycline 1 H/A Active 1pseudotumor ceriebri Immunizations Given and Recorded Vaccine Date Status Refusal Reason influenza virus vaccine, inactivated 06/04/10 Give n pneumococcal 23-valent vaccine 06/04/10 Given Medications Mirena 52 mg intrauterine device 1 each = 52 mg, Vaginally, Once, # 1 each, 0 Refills, Soft Stop, 05/12/20 16:31:00 EST, [facility], Partial fill upon patient request if the prescription is for a schedule II opioid drug., 161, cm, 04/28/20 13:38:00 EST, Height, 93.5,... Start Date: 05/12/20 Status: Ordered Nexplanon 68 mg subcutaneous implant 1 each = 68 mg, Subcutaneous Infusion, Once, Pharmacy supplied and inserted by Judith Ramirez 06/12/18 lot#[id number] exp 09/2020, # 1 each, 0 Refills, [...]
--- OUTSIDE RECORDS SUMMARY | 2023-10-08 10:11 | XMS_ITS | Continuity of Care Document ---
Author Organization [facility] Address [address] [place] [address]- Care Team Providers Care Nuclear Chemistry Technician Name Role Phone Joshua HOWARD, Spring Primary Care Physician Encounter [facility] Date(s): 01/31/21 - 01/31/[address] [address]- Discharge Disposition: A-D/C Home Attending Physician: Torrey Reid MD Admitting Physician: Torrey Reid MD Referring Physician: Not on Staff, Referring MD Allergies, Adverse Reactions, Alerts Substance Reaction Severity Status minocycline 1 H/A Active 1pseudotumor ceriebri Immunizations Given and Recorded Vaccine Date Status Refusal Reason influenza virus vaccine, inactivated 06/04/10 Give n pneumococcal 23-valent vaccine 06/04/10 Given Medications No Known Medications Problem List Condition Effective Dates Status Health Status Inform ant Pseudotumor cerebri(Confirmed) Active Epidermoid cyst of skin(Confirmed) 2014 Active Migraine headache without aura(Confirmed) Active Women's annual routine gynec ological examination(Confirmed) Active Vital Signs Most recent to oldest [Reference Range]: 1 2 3 Height 158 cm (01/31/21 8:43 PM) 158 cm (01/31/21 5:36 PM) Weight 97.9 kg (01/31/21 5:36 PM) Oxygen Saturation [94-100 %] 99 % (01/31/21 9:48 PM) 99 % (01/31/21 8:43 PM) 99 % (01/31/21 5:36 PM) Pulse Rate [55-90 bpm] 82 bpm (01/31/21 9:48 PM) 85 bpm (01/31/21 8:43 PM) 88 bpm (01/31/21 5:36 PM) Blood Pressure [90-138/55-84 mm Hg] 112/70mm Hg (01/31/21 9:48 PM) 107/68mm Hg (01/31/21 8:43 PM) 123/73mm Hg (01/31/21 5:36 PM) Respiratory Rate [16-30 br/min] 20 br/min (01/31/21 9:48 PM) 16 br/min (01/31/21 8:43 PM) 16 br/min (01/31/21 5:36 PM) Temperature [96.8-100.4 DegF] 99.1 DegF (01/31/21 5:36 PM) Mode of Delivery (Oxygen) Room air (01/31/21 9:48 PM) Room air (01/31/21 8:43 PM) Room air (01/31/21 5:36 PM) Blood pressure sites Arm, right (01/31/21 9:48 PM) Arm, left (01/31/21 8:43 PM) Arm, right (01/31/21 5:36 PM) Temperature Route Oral (01/31/21 5:36 PM) Dry Weight 97.9 kg (01/31/21 5:36 PM) Weight Obtained Via Standing scale (01/31/21 5:36 PM) Dry Weight Obtained Via Standing scale (01/31/21 5:36 PM) Social History Social History Type Response Smoking Status Never (less than 100 in lifetime); Tobacco user in household: No entered on: 01/14/19 Sex
--- OUTSIDE RECORDS SUMMARY | 2023-10-08 10:11 | XMS_ITS | Continuity of Care Document ---
Author Organization [facility] [employer] Address [address] [facility], 4t [place] [address]- Care Team Providers Care Derrick Boat Leverman Name Role Phone Joshua HOWARD, Spring Primary Care Physician [place] [facility] [place] 03/07/20 - 04/06/20 [facility] [address] [facility], 4th [place] [address]- Allergies, Adverse Reactions, Alerts Substance Reaction Severity [...] supplied and inserted by Judith Ramirez 06/12/18 lot#[id number] exp 09/2020, # 1 each, 0 Refills, [...]
--- OUTSIDE RECORDS SUMMARY | 2023-10-08 10:11 | XMS_ITS | Continuity of Care Document ---
Author Organization [facility] Address [address] [place] [address]- Care Team Providers Care Utility Plant Operative Name Role Phone Kishan Kennedy MD, Becki Herrera Primary Care Physici an En[place] [facility] [place] Date(s): 04/18/23 - 05/18/23 [facility] [address] [place] [address]- Allergies, Adverse Reactions, Alerts Substance Reaction Severity Status minocycline 1 H/A Active 1pseudotumor ceriebri Immunizations Given and Recorded Vaccine Date Status Refusal Reason Measles/Mumps/Rubella Virus Vaccine 09/13/21 Given tetanus/diphtheria/pertussis, acel(Tdap) 1 06/26/21 Given influenza virus vaccine, inactivated 06/04/10 Give n pneumococcal 23-valent vaccine 06/04/10 Given 1Result Comment: [id number] Medications acetaminophen/butalbital/caffeine 325 mg-50 mg-40 mg oral tablet 0 Refills, Maintenance, 08/16/22 14:19:00 EDT, Partial fill upon patient request if the prescription is for a schedule II opioid drug. Start Date: 08/16/22 Status: Ordered ergocalciferol 71351 iu oral capsule 50,000 International_[employer]its, 1, capsule, [...] 0 Refills, Soft Stop, 04/10/23 9:19:00 EST, [facility], Partial fill upon [...] Team Personnel Name: Becki Posadas MD Position: [facility] Outreach Member Role: PCP Address: Address: [address] [place] [address] [address] [place] [address]- Care Team Related Persons Name: DAVIDITA NUNEZMA Address: home [address] [place] [address] Name: RADHA GALLEGOS Address: home [address] [place] [address] Name: LUIS CARLOS SAENZ Address: [address] [address] Name: GEENA SAENZ Address: [address] Address: [address]
--- OUTSIDE RECORDS SUMMARY | 2023-10-08 10:11 | XMS_ITS | Continuity of Care Document ---
Author Organization [facility] Address [address] [place] [address], 4t [place] [address]- Care Team Providers Care Client Technical Professional Name Role Phone Kishan Kennedy MD, Becki Herrera Primary Care Physici an [id number] Date[facility]s): 09/13/21 - 10/19/21 [facility] Clifford [facility] [address] [facility], 4th [place] [address]- Attending Physician: Yazmin HOWARD, Ligia Suarez Referring Physician: Cathy Torres DO Allergies, Adverse Reactions, Alerts Substance Reaction Severity Status minocycline 1 H/A Active 1pseudotumor ceriebri Immunizations Given and Recorded Vaccine Date Status Refusal Reason Measles/Mumps/Rubella Virus Vaccine 09/13/21 Given tetanus/diphtheria/pertussis, acel(Tdap) 1 06/26/21 Given influenza virus vaccine, inactivated 06/04/10 Give n pneumococcal 23-valent vaccine 06/04/10 Given 1Result Comment: [id number] Medications aspirin 81 mg oral capsule 4 [...] 04/07/22 0:00:00 EST, 07/09/21 20:49:00 EDT, Cream, [id number], ok to sub for foam if cream not available, 1 application Rectally 3 times a day, 158, cm, 06/26/21 8:44:... Start Date: 07/09/21 Stop Date: 04/07/22 Status: Ordered hydrocortisone-pramoxine topical 1%-1% cream with applicator 1 application, Rectally, 3 times a day, for 90 days, # 30 Gm, 3 Refills, Acute 04/02/23 0:00:00 EST, 04/07/22 0:00:00 EST, Cream, [facility], ok to sub for foam if cream not available, 1 application Rectally 3 times a day,x90 days,... Start Date: 04/07/22 Stop Date: 04/02/23 Status: Ordered labetalol 100 mg oral tablet 1 tablet = 100 mg, By Mouth, 2 times a day, # 60 tablet, 6 Refills, Maintenance, 05/17/21 9:07:00 EST, Tablet, [facility], Partial fill upon patient request if the prescription isfor a schedule II opioid drug., 158, cm, 05/17/21 8... Start Date: 05/17/21 Status: Ordered Liletta 52 mg intrauterine device 1 each = 52 mg, Vaginally, Once, # 1 each, 0 Refills, Soft Stop, 09/06/21 11:23:00 EDT, [facility], Partial fill upon patient [...] 02/22/22 14:48:00 EST, 02/21/21 14:47:00 EST, Tablet, [facility], Partial fill upon patient [...]
--- OUTSIDE RECORDS SUMMARY | 2023-10-08 10:11 | XMS_ITS | Continuity of Care Document ---
Author Organization [facility] Address [address] [place] [address], 4[place] [address]- Care Team Providers Care Refrigerating Engineer Head Name Role Phone Kishan Kennedy MD, Becki Herrera Primary Care Physici an [facility] [id number] Date(s): 06/26/21 - 07/03/[address] [facility] Hany [facility] [address] [facility], 4th [place] [address]- Attending Physician: Yazmin HOWARD, Ligia Suarez Referring Physician: Robert HOWARD [OB], Patti Palencia Allergies, Adverse Reactions, Alerts Substance Reaction Severity Status minocycline 1 H/A Active 1pseudotumor ceriebri Immunizations Given and Recorded Vaccine Date Status Refusal Reason tetanus/diphtheria/pertussis, acel(Tdap) 1 06/26/21 Given influenza virus vaccine, inactivated 06/04/10 Give n pneumococcal 23-valent vaccine 06/04/10 Given 1Result Comment: [id number] Medications aspirin 81 mg oral capsule 4 [...] 6 Refills, Maintenance, 05/17/21 9:07:00 EST, Tablet, [facility], Partial fill upon patient request if [...] 02/22/22 14:48:00 EST, 02/21/21 14:47:00 EST, Tablet, [facility], Partial fill upon patient request if [...] oldest [Reference Range]: 1 Height 158 cm (06/26/21 8:44 AM) Weight 108.1 kg (06/26/21 8:44 AM) Body Mass Index [18.5-24.99] 43.3 *>HHI* (06/26/21 8:44 AM) Blood Pressure [90-138/55-84 mm Hg] 118/ 78mm Hg (06/26/21 8:44 AM) Blood pressure sites Arm, left (06/26/21 8:44 AM) Weight Obtained Via Standing scale (06/26/21 8:44 AM) Social History Social History Type Response Smoking Status Never (less than 100 in lifetime) entered on: 02/07/21 Sex
--- OUTSIDE RECORDS SUMMARY | 2023-10-08 10:11 | XMS_ITS | Continuity of Care Document ---
Author Organization [facility] Group Address [address] [place] [address], 4[place] [address]- Care Team Providers Care Professor Of Fine Art Name Role Phone Kishan Kennedy MD, Becki Herrera Primary Care Physici an Encounter [facility] Date(s): 10/26/21 - 11/02/21 [facility] [address] [facility], [address]th [place], [place] [address] Attending Physician: Mohan Taylor MD Referring Physician: Robert HOWARD [OB], Patti Palencia Allergies, Adverse Reactions, Alerts Substance Reaction Severity Status minocycline 1 H/A Active 1pseudotumor ceriebri Immunizations Given and Recorded Vaccine Date Status Refusal Reason Measles/Mumps/Rubella Virus Vaccine 09/13/21 Given tetanus/diphtheria/pertussis, acel(Tdap) 1 06/26/21 Given influenza virus vaccine, inactivated 06/04/10 Give n pneumococcal 23-valent vaccine 06/04/10 Given 1Result Comment: [id number] Medications Liletta 52 mg intrauterine device 1 each = 52 mg, Vaginally, Once, # 1 each, 0 Refills, Soft Stop, 09/06/21 11:23:00 EDT, [facility], Partial fill upon [...] oldest [Reference Range]: 1 Height 158 cm (10/26/21 10:15 AM) Weight 100 kg (10/26/21 10:15 AM) Body Mass Index [18.5-24.99] 40.06 *>HHI* (10/26/21 10:15 AM) Blood Pressure [90-138/55-84 mm Hg] 118/ 69mm Hg (10/26/21 10:15 AM) Blood pressure sites Arm, right (10/26/21 10:15 AM) Weight Obtained Via Standing scale (10/26/21 10:15 AM) Social History Social History Type Response Smoking Status Never (less than 100 in lifetime) entered on: 02/07/21 Sex
--- OUTSIDE RECORDS SUMMARY | 2023-10-08 10:11 | XMS_ITS | Continuity of Care Document ---
Author Organization [facility]any [employer] Address [address] [facility], 4t [place] [address]- Care Team Providers Care Store Grocery Merchandiser Name Role Phone Joshua HOWARD, Spring Primary Care Physician [phone] [id number] Date(s): 08/30/20 - 12/28/20 [facility] [employer] [facility] [address] [facility], 4th Floor [place], [place] [address] Attending Physician: Not on Staff, Attending MD Referring Physician: Judith Alaniz CNM Allergies, Adverse Reactions, Alerts Substance Reaction Severity Status minocycline 1 H/A Active 1pseudotumor ceriebri Immunizations Given and Recorded Vaccine Date Status Refusal Reason influenza virus vaccine, inactivated 06/04/10 Give n pneumococcal 23-valent vaccine 06/04/10 Given Medications Alejandra 30 mg oral tablet 1 tablet = 30 mg, By Mouth, Once, # 1 tablet, 1 Refills, Soft Stop, 08/29/20 15:59:00 EDT, Tablet, [id number], Partial fill upon patient request if the prescription is for a scheduleII opioid drug., 161, cm, 08/29/20 15:34:00 EDT, He... Start Date: 08/29/20 Status: Ordered Nexplanon 68 mg subcutaneous implant 1 each = 68 mg, Subcutaneous Infusion, Once, Pharmacy supplied and inserted by Judith Ramirez 06/12/18 lot#[id number] exp 09/2020, # 1 each, 0 Refills, Soft Stop, 06/12/18 15:19:03 EST Start Date: 06/12/18 Status: Ordered Topamax 100 mg oral tablet 1 tablet = 100 mg, By Mouth, Daily, D/C PRIOR SCRIPT .dose increase, # 30 tablet, 5 Refills, Maintenance, 01/12/19 11:48:32 EDT, Tablet Start Date: 01/12/19 Stop Date: 07/11/19 Status: Ordered traZODone 50 mg oral tablet 50 mg, 1, tablet, By Mouth, 2 times a day, Refills 0, Maintenance, 08/29/20 15:36:00 EDT, Partial fill upon patient request if the prescription is for a schedule II opioid drug. Start Date: 08/29/20 Status: Ordered Problem List Condition Effective Dates Status Health Status Inform ant Pseudotumor cerebri(Confirmed) Active Epidermoid cyst of skin(Confirmed) 2014 Active Migraine headache without aura(Confirmed) Active Women's annual routine gynec ological examination(Confirmed) Active Social History Social History Type Response Smoking Status Never (less than 100 in lifetime); Tobacco user in household: No entered on: 01/14/19 Sex
--- OUTSIDE RECORDS SUMMARY | 2023-10-08 10:11 | XMS_ITS | Continuity of Care Document ---
Author Organization [facility] Address [address] [place] [address], [address] [address]- Care Team Providers Care Hogshead Builder Name Role Phone Kishan Kennedy MD, Becki Herrera Primary Care Physici an Encounter [facility] Date(s): 08/03/21 - 11/22/21 [facility] [address] [facility] [place], [address]th [place], [place] [address] Attending Physician: Robert HOWARD [OB], Patti Palencia Allergies, Adverse Reactions, Alerts Substance Reaction Severity Status minocycline 1 H/A Active 1pseudotumor ceriebri Immunizations Given and Recorded Vaccine Date Status Refusal Reason Measles/Mumps/Rubella Virus Vaccine 09/13/21 Given tetanus/diphtheria/pertussis, acel(Tdap) 1 06/26/21 Given influenza virus vaccine, inactivated 06/04/10 Give n pneumococcal 23-valent vaccine 06/04/10 Given 1Result Comment: [id number] Medications Liletta 52 mg intrauterine device 1 each = 52 mg, Vaginally, Once, # 1 each, 0 Refills, Soft Stop, 09/06/21 11:23:00 EDT, [facility], Partial fill upon [...]
--- OUTSIDE RECORDS SUMMARY | 2023-10-08 10:11 | XMS_ITS | Continuity of Care Document ---
Author Organization [facility] ter Address [address] [place] [address]- Care Team Providers Care Compensation And Benefits Manager Name Role Phone Spring Lewis MD Primary Care Physician En[facility] NBR [id number] Date(s): 05/16/19 - 05/16/[address] [address] Encounter Diagnosis Cellulitis(Final) - 05/16/19 Discharge Disposition: A-D/C Home Attending Physician: Cody Coker MD Admitting Physician: Cody Coker MD Referring Physician: Not on Staff, Referring MD Allergies, Adverse Reactions, Alerts Substance Reaction Severity Status minocycline 1 H/A Active 1pseudotumor ceriebri Immunizations Given and Recorded Vaccine Date Status Refusal Reason influenza virus vaccine, inactivated 06/04/10 Give n pneumococcal 23-valent vaccine 06/04/10 Given Medications Bactrim DS 800 mg-160 mg oral tablet 1 tablet, By Mouth, 2 times a day, for 7 days, # 14 tablet, 0 Refills, Acute 05/23/19 18:04:00 EST,05/16/19 18:04:00 EST, Tablet, [facility][id number], 1 tablet By Mouth 2 times a day,x7 days, 161, cm, 01/14/19 9:08:00 EDT, Height, 81.6, kg, 0... Start Date: 05/16/19 Stop Date: 05/23/19 Status: Ordered metoprolol 25 mg oral tablet 25 mg, 1, tablet, By Mouth, 2 times a day, # 180 tablet, Refills 0, Maintenance, 08/10/18 12:44:39 EDT Start Date: 08/10/18 Status: Ordered Miconazole 3 vaginal suppository 1 supp = 200 mg, Vaginally, Daily at bedtime, for 3 days, # 3 supp, 0 Refills, Acute 05/19/19 18:28:00 EST, 05/16/19 18:28:00 EST, [id number], 161, cm, 01/14/19 9:08:00 EDT, Height, 81.6, kg, 08/10/18 12:40:00 EDT, Dry Weight Start Date: 05/16/19 Stop Date: 05/19/19 Status: Ordered miconazole topical 100 mg suppository 1 sprays, Vaginally, Daily at bedtime, # 7 supp, 0 Refills, Acute 05/17/19 18:29:00 EST, 05/16/19 18:28:00 EST, Suppository, [facility] #[id number], 161, cm, 01/14/19 9:08:00 EDT, Height, 81.6, kg, 08/10/18 12:40:00 EDT, Dry Weight Start Date: 05/16/19 Stop Date: 05/17/19 Status: Ordered Nexplanon 68 mg subcutaneous implant 1 each = 68 mg, Subcutaneous Infusion, Once, Pharmacy supplied and inserted by Judith Ramirez 06/12/18 lot#[id number] exp 09/2020, # 1 each, 0 Refills, [...] 1 Oxygen Saturation [94-100 %] 100 % (05/16/19 4:07 PM) Pulse Rate [55-90 bpm] 51 bpm *L* (05/16/19 4:07 PM) Blood Pressure [90-138/55-84 mm Hg] 109/ 64mm Hg (05/16/19 4:07 PM) Respiratory Rate [16-30 br/min] 16 br/mi n (05/16/19 4:07 PM) Temperature [96.8-100.4 DegF] 98.6 DegF (05/16/19 4:07 PM) Mode of Delivery (Oxygen) Room air (05/16/19 4:07 PM) Blood pressure sites Arm, right (05/16/19 4:07 PM) Temperature Route Oral (05/16/19 4:07 PM) Social History Social History Type Response Smoking Status Never (less than 100 in lifetime); Tobacco user in household: No entered on: 01/14/19 Sex
--- OUTSIDE RECORDS SUMMARY | 2023-10-08 10:11 | XMS_ITS | Continuity of Care Document ---
Author Organization [facility] Hany [employer] [facility] Address [address] [facility], [address]t [place] [address]- Care Team Providers Care Benzene Washer Name Role Phone Joshua HOWARD, Spring Primary Care Physician [facility] Date(s): 11/28/20 - 12/28/20 [facility] [address] [facility] [address] [facility], [address] [place], [place] [address] Attending Physician: Admtr, Ar8 Admitting Physician: [...] Refills, Soft Stop, 08/29/20 15:59:00 EDT, Tablet, [facility][id number], Partial fill upon patient request if the prescription is for a scheduleII opioid drug., 161, cm, 08/29/20 15:34:00 EDT, He... Start Date: 08/29/20 Status: Ordered Nexplanon 68 mg subcutaneous implant 1 each = 68 mg, Subcutaneous Infusion, Once, Pharmacy supplied and inserted by Judith Ramirez 06/12/18 lot#[id number] exp 09/2020, # 1 each, 0 Refills, [...]
--- OUTSIDE RECORDS SUMMARY | 2023-10-08 10:11 | XMS_ITS | Continuity of Care Document ---
Author Organization [facility] [email or web address] [facility] Address [address] [place] [address], 4[place] [address]- Care Team Providers Care Philosophy Faculty Member Name Role Phone Kishan Kennedy MD, Becki Herrera Primary Care Physici an Encounter [facility] Date(s): 05/27/23 - 06/26/23 [facility] [place] [email or web address] [facility] [address] [facility], [address]th [place], [place] [address] Attending Physician: Admtr, Ar8 Admitting Physician: Admtr, Ar8 Referring Physician: Admtr, Ar8 Allergies, Adverse Reactions, Alerts Substance Reaction Severity Status minocycline 1 H/A Active 1pseudotumor ceriebri Immunizations Given and Recorded Vaccine Date Status Refusal Reason Measles/Mumps/Rubella Virus Vaccine 09/13/21 Given tetanus/diphtheria/pertussis, acel(Tdap) 1 06/26/21 Given influenza virus vaccine, inactivated 06/04/10 Give n pneumococcal 23-valent vaccine 06/04/10 Given 1Result Comment: [id number] Medications acetaminophen/butalbital/caffeine 325 mg-50 mg-40 mg oral tablet 0 Refills, Maintenance, 08/16/22 14:19:00 EDT, Partial fill upon patient request if the prescription is for a schedule II opioid drug. Start Date: 08/16/22 Status: Ordered ergocalciferol 75770 iu oral capsule 50,000 International[employer]its, 1, capsule, [...] 0 Refills, Soft Stop, 04/10/23 9:19:00 EST, [facility], Partial fill upon [...] List Condition Confirmation Course Effective Dates Status [facility] atus Informant Facet arthropathy, [...] Team Personnel Name: Becki Posadas MD Position: [facility] Outreach Member Role: PCP Address: Address: [address] [place] [address]- Care Team Related Persons Name: BELLA HERNANDEZ Address: home [address] [place] [address] Name: RADHA GALLEGOS Address: home [address] [place] [address] Name: LUIS CARLOS SAENZ Address: [address] [address] Name: GEENA SAENZ Address: [address] Address: [address]
--- OUTSIDE RECORDS SUMMARY | 2023-10-08 10:11 | XMS_ITS | Continuity of Care Document ---
Author Organization [facility] [employer] [facility] Address [address] [place] [address], 4t [place] [address]- Care Team Providers Care Metal Tube Cutter Name Role Phone Kishan Kennedy MD, Becki Herrera Primary Care Physici an Encounter [facility] Date(s): 09/19/21 - 10/19/21 [facility] [address] [facility], 4th Floor [place], [place] [address] Attending Physician: Admtr, Ar8 Admitting Physician: Admtr, Ar8 Referring Physician: Admtr, Ar8 Allergies, Adverse Reactions, Alerts Substance Reaction Severity Status minocycline 1 H/A Active 1pseudotumor ceriebri Immunizations Given and Recorded Vaccine Date Status Refusal Reason Measles/Mumps/Rubella Virus Vaccine 09/13/21 Given tetanus/diphtheria/pertussis, acel(Tdap) 1 06/26/21 Given influenza virus vaccine, inactivated 06/04/10 Give n pneumococcal 23-valent vaccine 06/04/10 Given 1Result Comment: [id number] Medications aspirin 81 mg oral capsule 4 [...] 04/07/22 0:00:00 EST, 07/09/21 20:49:00 EDT, Cream, [facility][id number], ok to sub for foam if cream [...] 0 Refills, Soft Stop, 09/06/21 11:23:00 EDT, [facility], Partial fill upon patient [...]
--- OUTSIDE RECORDS SUMMARY | 2023-10-08 10:11 | XMS_ITS | Continuity of Care Document ---
Author Organization [facility] Address [address] [facility], 4t [place] [address]- Care Team Providers Care Head Neck Surgeon Name Role Phone Kishan Kennedy MD, Becki Herrera Primary Care Physici an En[facility] Date(s): 02/28/21 - 03/30/21 [facility]any [facility] [address], 4th [place] [address]- Allergies, Adverse Reactions, Alerts Substance Reaction Severity [...] 02/22/22 14:48:00 EST, 02/21/21 14:47:00 EST, Tablet, [facility], Partial fill upon patient request [...]
--- OUTSIDE RECORDS SUMMARY | 2023-10-08 10:11 | XMS_ITS | Continuity of Care Document ---
Author Organization [facility] Address [address] [place] [address], [address] [place] [address]- Care Team Providers Care Hydroelectric Station Operator Name Role Phone Joshua HOWARD, Spring Primary Care Physician [phone] [facility] Date(s[place] 06/13/20 - 07/13/20 [facility] [address] [place] [address], [address] [place], [place] [address] Attending Physician: Admtr, Ar8 Admitting Physician: Admtr, [...] 0 Refills, Soft Stop, 05/12/20 16:31:00 EST, [facility], Partial fill upon patient request if the prescription is for a schedule II opioid drug., 161, cm, 04/28/20 13:38:00 EST, Height, 93.5,... Start Date: 05/12/20 Status: Ordered Nexplanon 68 mg subcutaneous implant 1 each = 68 mg, Subcutaneous Infusion, Once, Pharmacy supplied and inserted by Judith Ramirez 06/12/18 lot#[id number] exp 09/2020, # 1 each, 0 Refills, [...]
--- OUTSIDE RECORDS SUMMARY | 2023-10-08 10:11 | XMS_ITS | Continuity of Care Document ---
Author Organization [facility]any [employer] Address [address] [facility], 4t [place] [address]- Care Team Providers Care Telecom Manager Name Role Phone Spring Lewis MD Primary Care Physician [phone] [id number] Date[facility]s): 08/29/20 - 09/05/20 [facility] [address] [facility], 4th [address] [place], [place] [address] Attending Physician: Not on Staff, Attending MD Referring Physician: Spring Lewis MD Allergies, Adverse Reactions, Alerts Substance Reaction Severity Status minocycline 1 H/A Active 1pseudotumor ceriebri Immunizations Given and Recorded Vaccine Date Status Refusal Reason influenza virus vaccine, inactivated 06/04/10 Give n pneumococcal 23-valent vaccine 06/04/10 Given Medications Alejandra 30 mg oral tablet 1 tablet = 30 mg, By Mouth, Once, # 1 tablet, 1 Refills, Soft Stop, 08/29/20 15:59:00 EDT, Tablet, [id number], Partial fill upon patient request if the prescription is for a scheduleII opioid drug., 161, cm, 08/29/20 15:34:00 EDT, He... Start Date: 08/29/20 Status: Ordered Nexplanon 68 mg subcutaneous implant 1 each = 68 mg, Subcutaneous Infusion, Once, Pharmacy supplied and inserted by [facility] Ramirez 06/12/18 lot#[id number] 09/2020, # 1 each, 0 Refills, [...] recent to oldest [Reference Range]: 1 Height 161 cm (08/29/20 3:34 PM) Weight 93.5 kg (08/29/20 3:34 PM) Pulse Rate [55-90 bpm] 76 bpm (08/29/20 3:34 PM) Body Mass Index [18.5-24.99] 36.07 *>HHI* (08/29/20 3:34 PM) Blood Pressure [90-138/55-84 mm Hg] 136/ 88mm Hg (08/29/20 3:34 PM) Blood pressure sites Arm, right (08/29/20 3:34 PM) Dry Weight 93.5 kg (08/29/20 3:34 PM) Weight Obtained Via Standing scale (08/29/20 3:34 PM) Dry Weight Obtained Via Standing scale (08/29/20 3:34 PM) Social History Social History Type Response Smoking Status Never (less than 100 in lifetime); Tobacco user in household: No entered on: 01/14/19 Sex
--- OUTSIDE RECORDS SUMMARY | 2023-10-08 10:11 | XMS_ITS | Continuity of Care Document ---
Author Organization [facility] [employer] [facility] [facility] Address [address] [place] [address], 4t [place] [address]- Care Team Providers Care Parboiler Name Role Phone Joshua HOWARD, Spring Primary Care Physician [facility] Date(s): 04/28/20 - 05/05/20 [facility] [employer] [facility] [facility] [address] [facility], 4th [place] [address]- Attending Physician: Ligia Arce MD Referring Physician: Judith Alaniz CNM Allergies, Adverse Reactions, Alerts Substance Reaction Severity Status minocycline 1 H/A Active 1pseudotumor ceriebri Immunizations Given and Recorded Vaccine Date Status Refusal Reason influenza virus vaccine, inactivated 06/04/10 Give n pneumococcal 23-valent vaccine 06/04/10 Given Medications Nexplanon 68 mg subcutaneous implant 1 each = 68 mg, Subcutaneous Infusion, Once, Pharmacy supplied and inserted by [facility] Ramirez 06/12/18 lot#[id number] 09/2020, # 1 each, 0 Refills, [...] oldest [Reference Range]: 1 Height 161 cm (04/28/20 1:38 PM) Weight 93.5 kg (04/28/20 1:38 PM) Pulse Rate [55-90 bpm] 91 bpm *H* (04/28/20 1:38 PM) Body Mass Index [18.5-24.99] 36.07 *>HHI* (04/28/20 1:38 PM) Blood Pressure [90-138/55-84 mm Hg] 120/ 70mm Hg (04/28/20 1:38 PM) Blood pressure sites Arm, right (04/28/20 1:38 PM) Dry Weight 93.5 kg (04/28/20 1:38 PM) Weight Obtained Via Standing scale (04/28/20 1:38 PM) Dry Weight Obtained Via Standing scale (04/28/20 1:38 PM) Social History Social History Type Response Smoking Status Never (less than 100 in lifetime); Tobacco user in household: No entered on: 01/14/19 Sex
--- OUTSIDE RECORDS SUMMARY | 2023-10-08 10:11 | XMS_ITS | Continuity of Care Document ---
Author Organization [facility] Address [address] [place] [address], [address] [place] [address]- Care Team Providers Care [place] Manager Name Role Phone Joshua HOWARD, Spring Primary Care Physician [phone] Encounter [facility] Date(s): 05/26/20 - 06/25/20 [facility] [address] [place] [address] Drive, [address] [place], [place] [address] Allergies, Adverse Reactions, Alerts Substance Reaction Severity Status minocycline 1 H/A Active 1pseudotumor ceriebri Immunizations Given and Recorded Vaccine Date Status Refusal Reason influenza virus vaccine, inactivated 06/04/10 Give n pneumococcal 23-valent vaccine 06/04/10 Given Medications Mirena 52 mg intrauterine device 1 each = 52 mg, Vaginally, Once, # 1 each, 0 Refills, Soft Stop, 05/12/20 16:31:00 EST, [facility], Partial fill upon patient request if the prescription is for a schedule II opioid drug., 161, cm, 04/28/20 13:38:00 EST, Height, 93.5,... Start Date: 05/12/20 Status: Ordered Nexplanon 68 mg subcutaneous implant 1 each = 68 mg, Subcutaneous Infusion, Once, Pharmacy supplied and inserted by Judith Ramirez 06/12/18 lot#[id number] exp 09/2020, # 1 each, 0 Refills, [...]
--- OUTSIDE RECORDS SUMMARY | 2023-10-08 10:11 | XMS_ITS | Continuity of Care Document ---
Author Organization [facility] Address [address] [place] [address], [address] [place] [address]- Care Team Providers Care [place]is[place] Head Name Role Phone Kishan Kennedy MD, Becki Herrera Primary Care Physici an Encounter [facility] Date(s): 08/21/21 - 08/28/21 [facility] [address] [facility] [place], [address]th [place] [address]- Attending Physician: Robert HOWARD [OB], Patti Palencia Allergies, Adverse Reactions, Alerts Substance Reaction Severity Status minocycline 1 H/A Active 1pseudotumor ceriebri Immunizations Given and Recorded Vaccine Date Status Refusal Reason tetanus/diphtheria/pertussis, acel(Tdap) 1 06/26/21 Given influenza virus vaccine, inactivated 06/04/10 Give n pneumococcal 23-valent vaccine 06/04/10 Given 1Result Comment: [id number] Medications aspirin 81 mg oral capsule 4 [...] 04/07/22 0:00:00 EST, 07/09/21 20:49:00 EDT, Cream, [id number], ok to sub for foam if cream not available, 1 application Rectally 3 times a day, 158, cm, 06/26/21 8:44:... Start Date: 07/09/21 Stop Date: 04/07/22 Status: Ordered hydrocortisone-pramoxine topical 1%-1% cream with applicator 1 application, Rectally, 3 times a day, for 90 days, # 30 Gm, 3 Refills, Acute 04/02/23 0:00:00 EST, 04/07/22 0:00:00 EST, Cream, [facility], ok to sub for foam if cream not available, 1 application Rectally 3 times a day,x90 days,... Start Date: 04/07/22 Stop Date: 04/02/23 Status: Ordered labetalol 100 mg oral tablet 1 tablet = 100 mg, By Mouth, 2 times a day, # 60 tablet, 6 Refills, Maintenance, 05/17/21 9:07:00 EST, Tablet, [facility], Partial fill upon patient [...] 14:48:00 EST, 02/21/21 14:47:00 EST, Tablet, [facility], Partial fill upon patient [...]
--- OUTSIDE RECORDS SUMMARY | 2023-10-08 10:11 | XMS_ITS | Continuity of Care Document ---
Author Organization [facility] Address [address] [place] [address]- Care Team Providers Care Rn Labor And Delivery Name Role Phone Joshua HOWARD, Spring Primary Care Physician Encounter [facility] Date(s): 01/31/21 - 01/31/[address] [address]- Discharge Disposition: A-D/C Walkout Attending Physician: Not on Staff, Attending MD Admitting Physician: Not on Staff, Admitting MD Referring Physician: Not on Staff, Referring [...] Oxygen Saturation [94-100 %] 100 % (01/31/21 12:55 PM) Pulse Rate [55-90 bpm] 98 bpm *H* (01/31/21 12:55 PM) Blood Pressure [90-138/55-84 mm Hg] 116/ 66mm Hg (01/31/21 12:55 PM) Respiratory Rate [16-30 br/min] 18 br/mi n (01/31/21 12:55 PM) Temperature [96.8-100.4 DegF] 98.6 DegF (01/31/21 12:55 PM) Mode of Delivery (Oxygen) Room air (01/31/21 12:55 PM) Blood pressure sites Arm, left (01/31/21 12:55 PM) Temperature Route Oral (01/31/21 12:55 PM) Social History Social History Type Response Smoking Status Never (less than 100 in lifetime); Tobacco user in household: No entered on: 01/14/19 Sex
--- OUTSIDE RECORDS SUMMARY | 2023-10-08 10:11 | XMS_ITS | Continuity of Care Document ---
Author Organization [facility] Address [address] [facility], [address] [place] [address]- Care Team Providers Care Pricer Bagger Name Role Phone Kishan Kennedy MD, Becki Herrera Primary Care Physici an Encounter [facility] AC[facility] R [id number] Date(s): 08/02/21 - 08/09/21 [facility] [address] [facility], [address]th [place] [address]- Attending Physician: Robert HOWARD [OB], Patti Palencia Allergies, Adverse Reactions, Alerts Substance Reaction Severity Status minocycline 1 H/A Active 1pseudotumor ceriebri Immunizations Given and Recorded Vaccine Date Status Refusal Reason tetanus/diphtheria/pertussis, acel(Tdap) 1 06/26/21 Given influenza virus vaccine, inactivated 06/04/10 Give n pneumococcal 23-valent vaccine 06/04/10 Given 1Result Comment: [id number] Medications aspirin 81 mg oral capsule 4 [...] 04/07/22 0:00:00 EST, 07/09/21 20:49:00 EDT, Cream, [id number], ok to sub for foam if cream not available, 1 application Rectally 3 times a day, 158, cm, 06/26/21 8:44:... Start Date: 07/09/21 Stop Date: 04/07/22 Status: Ordered hydrocortisone-pramoxine topical 1%-1% cream with applicator 1 application, Rectally, 3 times a day, for 90 days, # 30 Gm, 3 Refills, Acute 04/02/23 0:00:00 EST, 04/07/22 0:00:00 EST, Cream, [facility], ok to sub for foam if cream not available, 1 application Rectally 3 times a day,x90 days,... Start Date: 04/07/22 Stop Date: 04/02/23 Status: Ordered labetalol 100 mg oral tablet 1 tablet = 100 mg, By Mouth, 2 times a day, # 60 tablet, 6 Refills, Maintenance, 05/17/21 9:07:00 EST, Tablet, [facility], Partial fill upon patient request if [...] 14:48:00 EST, 02/21/21 14:47:00 EST, Tablet, [facility], Partial fill upon patient request if [...]
== END 2023-10-08 10:33 | disposition home or self-care (01) ==
PROVIDERS: PCP Internal Medicine; Visit Provider Internal Medicine Hypertension Specialist
DX: I10 Essential (primary) hypertension (principal)
CPT/HCPCS: 99204

== ENCOUNTER 2023-10-08 10:27 | Outpatient (REF) | payer MEDICAID, SELFPAY ==
[2023-10-08 13:18] LABS: Appearance Urine Cloudy; Color Urine Yellow; Glucose Urine UA Negative (Negative); Leukocyte Esterase Urine Small (1+) (Negative); Nitrite Urine Negative (Negative); PH >= 9.0 (5.0-9.0); Specific Gravity - Urine 1.015 (1.005-1.025); UMIC TRIGGER UA YES; Urine Blood Trace (Negative); Urine Ketones Negative (Negative); Urine Protein Trace mg/dL (Neg-Trace)
[2023-10-08 13:27] LABS: Bacteria Urine None Seen (None Seen); Hyaline Casts Urine 0-2 /LPF (0-2); RBC Urine 0-2 /HPF (0-2); WBC Urine 0-5 /HPF (0-5)
[2023-10-08 13:58] LABS: Alanine Aminotransferase 20 U/L (0-31); Albumin Level 4.2 g/dL (3.5-5.0); Alkaline Phosphatase 55 U/L (39-117); Anion Gap 11 (12-20); Aspartate Amino Transferase 19 U/L (5-31); Bilirubin Total 0.3 mg/dL (0.0-1.0); Blood Urea Nitrogen 10 mg/dL (9-16); Calcium 9.5 mg/dL (8.4-10.2); Carbon Dioxide 29 mmol/L (22-29); Chloride 104 mmol/L (96-108); Estimated Glomerular Filt Rate > 60; Glucose Random 106 mg/dL (60-115); Potassium 3.5 mmol/L (3.3-5.1); Sodium 140 mmol/L (135-145); Total Protein 7.9 g/dL (6.5-8.0)
[2023-10-08 14:09] LABS: Total Protein Urine Random 8 mg/dL (<12)
[2023-10-14 15:12] LABS: Renin 2.76 ng/mL/h (0.25-5.82)
[2023-10-15 14:09] LABS: Aldosterone/Renin Ratio 16.3 Ratio (0.9-28.9); Plasma Renin Activity 1.53 ng/mL/h (0.25-5.82)
== END 2023-10-08 10:28 | disposition home or self-care (01) ==
LOC: HO.10HDL 10:27
PROVIDERS: Visit Provider Internal Medicine Hypertension Specialist
DX: I10 Essential (primary) hypertension (principal)
CPT/HCPCS: 36415; 80053; 81001; 82088; 82570; 84156; 84244; 99202

== ENCOUNTER 2023-10-28 14:04 | Outpatient (AMB) | payer MEDICAID, SELFPAY ==
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
== END 2023-10-28 14:39 | disposition home or self-care (01) ==
PROVIDERS: PCP Internal Medicine; Referring Provider Physician Assistant; Visit Provider Physician Assistant
DX: M54.16 Radiculopathy, lumbar region (principal)
CPT/HCPCS: 99204

== ENCOUNTER → 2023-10-28 14:04 | Outpatient (BNVA) | payer MEDICAID, SELFPAY | PROVIDERS: PCP Internal Medicine; Visit Provider Physician Assistant | DX: M54.16 Radiculopathy, lumbar region (principal) | CPT/HCPCS: 99212 ==

== ENCOUNTER 2023-10-28 16:02 | Outpatient (REF) | payer MEDICAID, SELFPAY ==
[2023-10-28 17:40] LABS: Hematocrit 40.1 % (37.0-47.0); Hemoglobin 13.7 g/dl (12.0-16.0); Mean Corpuscular HGB Conc 34.2 g/dl (31.0-35.0); Mean Corpuscular Hemoglobin 30.4 pg (27.0-33.0); Mean Corpuscular Volume 89.1 fL (80.0-98.0); Mean Platelet Volume 9.9 fL (9.4-12.3); Platelet Count 371 X10*3/uL (160-400); Red Cell Distribution Width 13.8 % (11.0-16.0); White Blood Count 10.3 X10*3/uL (4.8-10.8)
[2023-10-28 17:55] LABS: Alanine Aminotransferase 22 U/L (0-31); Albumin Level 4.5 g/dL (3.5-5.0); Alkaline Phosphatase 57 U/L (39-117); Anion Gap 16 (12-20); Aspartate Amino Transferase 19 U/L (5-31); Bilirubin Total 0.2 mg/dL (0.0-1.0); Blood Urea Nitrogen 22 mg/dL (9-16); Calcium 10.6 mg/dL (8.4-10.2); Carbon Dioxide 25 mmol/L (22-29); Chloride 104 mmol/L (96-108); Estimated Glomerular Filt Rate > 60; Glucose Random 106 mg/dL (60-115); Potassium 3.9 mmol/L (3.3-5.1); Sodium 141 mmol/L (135-145); Total Protein 8.4 g/dL (6.5-8.0)
== END 2023-10-28 16:03 | disposition home or self-care (01) ==
LOC: HO.HHCL 16:02
PROVIDERS: Visit Provider Nurse Practitioner Family
DX: K92.1 Melena (principal)
CPT/HCPCS: 36415; 80053; 85027

== ENCOUNTER → 2023-11-06 12:33 | Outpatient (BNVA) | payer MEDICAID, SELFPAY | PROVIDERS: PCP Internal Medicine; Visit Provider Internal Medicine Hypertension Specialist ==

== ENCOUNTER 2023-11-07 11:41 | Outpatient (REF) | payer MEDICAID, SELFPAY | END 2023-11-07 11:42 | disposition home or self-care (01) | LOC: HO.HHCLNP 11:41 | PROVIDERS: Visit Provider Nurse Practitioner Family | DX: I10 Essential (primary) hypertension (principal) | CPT/HCPCS: 99212 ==

== ENCOUNTER 2023-11-07 11:42 | Outpatient (AMB) | payer MEDICAID, SELFPAY ==
[2023-11-07 11:52] VITALS: BP 140/92; PULSE 104; O2SAT 98; BMI 42.6
--- NOTE | 2023-11-07 11:52 | HO.NEPHOV ---
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 Golf Player Assistant Required: No Accompanied by: Child Allergies minocycline [MINOCYCLINE] Allergy (Intermediate, Verified 11/07/23 11:54) INTERCRANIAL HTN Medication List - Last Reconciled 11/07/23 by Vinay Tapia MD albuterol sulfate 90 mcg/actuation 2 puffs inhalation Q4H PRN amoxicillin-pot clavulanate 875-125 mg 1 tab PO BID biotin-keratin 10,000-100 mcg-mg tabs PO DAILY cholecalciferol (vitamin D3) 25 mcg PO QAM cyanocobalamin (vitamin B-12) 1,000 mcg PO DAILY hydrochlorothiazide 12.5 mg PO DAILY ibuprofen 800 mg PO Q8H lidocaine 5% patches topical nifedipine ER 90 mg PO QAM phentermine 15 mg PO QAM pyridoxine (vitamin B6) 25 mg PO DAILY sertraline (Zoloft) 25 mg PO DAILY sumatriptan succinate 100 mg PO DAILY PRN venlafaxine ER 150 mg PO DAILY HPI Comments Details: Nadia is a pleasant 33-year-old woman with a history of hypertension and elevated BMI. She was diagnosed with hypertension at age of 26. She has been on 2 antihypertensive medications and she is here for further evaluation of hypertension and possible renal evaluation. 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 She is history of chronic back pain. She takes ibuprofen 800 mg 3 times a day. This is a history of weight gain. She also has history of mild snoring at night. She had not been evaluated for sleep apnea. No history of any smoking or alcohol abuse. She was a strong family history of hypertension. No renal issues. [facility] Medical History (Updated 10/28/23 @ 14:46 by MACHELLE Islas) Lumbar radiculopathy Sacroiliac joint dysfunction of right side Disc degeneration, lumbar Spondylosis without myelopathy or radiculopathy, lumbar region HTN (hypertension) Migraines Bulging disc Social History Alcohol intake: never Physical Exam Vital Signs: Last Vital Signs Pulse 104 H 11/07/23 11:52 BP 140/92 H 11/07/23 11:52 Pulse Ox 98 11/07/23 11:52 Oxygen Delivery Method Room Air 11/07/23 11:52 BMI result Body Mass Index 42.6 Const General: comfortable; No acute distress Orientation/consciousness: patient oriented x3 Eyes General: appearance normal, both eyes and all related structures Visual Sharpe: normal visual sharpe by confrontation Neck Neck: Yes supple and Yes no JVD Resp Effort & Inspection: normal respiratory effort and respiratory effort not decreased Auscultation: rhonchi Cardio Palpation: no palpable S3 and no palpable S4 Heart sounds: no rubs GI Inspection: Yes normal to inspection Palpation (GI): Soft to palpation Percussion: Yes normal to percussion Auscultation: normal bowel sounds General: Yes no CVA tenderness Back/Spine/Pelvis Back: no CVA tenderness Skin General skin exam: no petechiae and no purpura Neuro General: patient oriented x3 and no focal motor deficits Extrem General: No clubbing and No edema Office Procedures 24 B/P Monitor Interpretation Details: 24 hour blood pressure elevated. Suboptimal dipping. She has ABP stage I hypertension. CPT: 18015 24 Hour Blood Pressure Monitor Reading Procedure code (CPT) selection complete Results Reviewed Nephrology Results: Hgb 13.7 g/dl (12.0-16.0) 10/28/23 WBC 10.3 X10*3/uL (4.8-10.8) 10/28/23 Plt Count 371 X10*3/uL (160-400) 10/28/23 Sodium 141 mmol/L (135-145) 10/28/23 Potassium 3.9 mmol/L (3.3-5.1) 10/28/23 Chloride 104 mmol/L (96-108) 10/28/23 Carbon Dioxide 25 mmol/L (22-29) 10/28/23 BUN 22 mg/dL (9-16) H 10/28/23 Creatinine 0.88 mg/dL (0.5-1.4) 10/28/23 Calcium 10.6 mg/dL (8.4-10.2) H 10/28/23 Urine Protein Trace mg/dL (Neg-Trace) 10/08/23 Urine Creatinine 95.90 mg/dL 10/08/23 Assessment & Plan Assessment & Plan (1) HTN (hypertension): Code(s): I10 - Essential (primary) hypertension Category: Medical Plan Young woman with hypertension in the setting of elevated BMI. Based on the 24 hour ambulatory blood pressure monitoring I will discontinue HCTZ. Start spironolactone/HCTZ 20/25 half a tablet today and titrate dose has need Encouraged her to stayon low-sodium diet. She will benefit from weight loss. Mild hypercalcemia. Recheck serum calcium intact PTH prior to next visit. Orders: Orders AMB 24 HR B/P Monitor INTERPRETATION Today I10 - Essential (primary) hypertension Basic Metabolic Panel 4 Weeks I10 - Essential (primary) hypertension Parathyroid Hormone Intact 4 Weeks I10 - Essential (primary) hypertension Vitamin D 25-OH (D2 and D3) 4 Weeks I10 - Essential (primary) hypertension Medications: New spironolacton-hydrochlorothiaz 25-25 mg 0.5 tabs PO DAILY 90 tabs 0RF Coding Level of Care Code Est Pt Level 4 (84363) Diagnoses HTN (hypertension) I10 CPT Codes - CPT: 55314 24 Hour Blood Pressure Monitor Reading ([id number])
== END 2023-11-07 12:14 | disposition home or self-care (01) ==
PROVIDERS: PCP Internal Medicine; Visit Provider Internal Medicine Hypertension Specialist
DX: I10 Essential (primary) hypertension (principal)
CPT/HCPCS: 93790; 99214

== ENCOUNTER 2023-12-25 15:49 | Outpatient (AMB) | payer MEDICAID, SELFPAY ==
--- NOTE | 2023-12-25 15:50 | HO.NEPHOV_ITS ---
Vital Signs 12/25/23 15:51 Height 5 ft 2 in Weight 220 lb BMI 40.2 BP 130/84 Blood Pressure Location Rt brachial Position Sitting Pulse 97 Pulse Source Pulse Oximeter Pulse Oximetry (%) 97 Oxygen Delivery Method Room Air Intake Visit Reasons: Hypertension/ Conf Produce Shipper Required: No Accompanied by: Self / Same As Patient Allergies minocycline [MINOCYCLINE] Allergy (Intermediate, Verified 12/25/23 15:53) INTERCRANIAL HTN Medication List - Last Reconciled 12/25/23 by Vinay Tapia MD biotin-keratin 10,000-100 mcg-mg tabs PO DAILY cholecalciferol (vitamin D3) 25 mcg PO QAM cyanocobalamin (vitamin B-12) 1,000 mcg PO DAILY lidocaine 5% patches topical nifedipine ER 90 mg PO QAM pyridoxine (vitamin B6) 25 mg PO DAILY rizatriptan 10 mg PO Q2-4H PRN tramadol 50 mg PO DAILY PRN HPI Comments Details: Nadia is a pleasant 33-year-old woman with a history of hypertension and elevated BMI. She was diagnosed with hypertension at age of 26. She has been on 2 antihypertensive medications and she is here for further evaluation of hypertension and possible renal evaluation. 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 She is history of chronic back pain. She takes ibuprofen 800 mg 3 times a day. This is a history of weight gain. She also has history of mild snoring at night. She had not been evaluated for sleep apnea. No history of any smoking or alcohol abuse. She was a strong family history of hypertension. No renal issues. 12/25/2023 During her previous visit Based on the 24 hour ambulatory blood pressure monitoring I discontinued HCTZ. Started spironolactone/HCTZ 20/25 half tablet Blood pressure is suboptimal and she increase to full tablet today. Since then blood pressure well controlled. She is overall she is doing well no new issues today. 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, lumbar Spondylosis without myelopathy or radiculopathy, lumbar region HTN (hypertension) Migraines Bulging disc Social History Alcohol intake: never Physical Exam Vital Signs: Last Vital Signs Pulse 97 12/25/23 15:51 BP 130/84 12/25/23 15:51 Pulse Ox 97 12/25/23 15:51 Oxygen Delivery Method Room Air 12/25/23 15:51 BMI result Body Mass Index 40.2 Const General: comfortable; No acute distress Orientation/consciousness: patient oriented x3 Eyes General: appearance normal, both eyes and all related structures Visual Sharpe: normal visual sharpe by confrontation Neck Neck: Yes supple and Yes no JVD Resp Effort & Inspection: normal respiratory effort and respiratory effort not decreased Auscultation: rhonchi Cardio Palpation: no palpable S3 and no palpable S4 Heart sounds: no rubs GI Inspection: Yes normal to inspection Palpation (GI): Soft to palpation Percussion: Yes normal to percussion Auscultation: normal bowel sounds General: Yes no CVA tenderness Back/Spine/Pelvis Back: no CVA tenderness Skin General skin exam: no petechiae and no purpura Neuro General: patient oriented x3 and no focal motor deficits Extrem General: No clubbing and No edema Results Reviewed Results Reviewed: 11/21/2023 Repeat calcium 9.3 Serum creatinine 0.72 Nephrology Results: Hgb 13.7 g/dl (12.0-16.0) 10/28/23 WBC 10.3 X10*3/uL (4.8-10.8) 10/28/23 Plt Count 371 X10*3/uL (160-400) 10/28/23 Sodium 141 mmol/L (135-145) 10/28/23 Potassium 3.9 mmol/L (3.3-5.1) 10/28/23 Chloride 104 mmol/L (96-108) 10/28/23 Carbon Dioxide 25 mmol/L (22-29) 10/28/23 BUN 22 mg/dL (9-16) H 10/28/23 Creatinine 0.88 mg/dL (0.5-1.4) 10/28/23 Calcium 10.6 mg/dL (8.4-10.2) H 10/28/23 Urine Protein Trace mg/dL (Neg-Trace) 10/08/23 Urine Creatinine 95.90 mg/dL 10/08/23 Assessment & Plan Assessment & Plan (1) HTN (hypertension): Code(s): I10 - Essential (primary) hypertension Category: Medical Plan Young woman with hypertension in the setting of elevated BMI. Overall blood pressure is better controlled. Keep spironolactone HCTZ 25/25 1 a day along with nifedipine. Encouraged her to stay on low-sodium diet. She will benefit from weight loss. h/o Mild hypercalcemia. Repeat serum calcium was normal at 9.3. She will follow as needed Orders: Orders Basic Metabolic Panel 6 Months I10 - Essential (primary) hypertension Coding Level of Care Code Est Pt Level 3 (21958) Diagnoses HTN (hypertension) I10
--- OUTSIDE RECORDS SUMMARY | 2023-12-25 15:50 | XMS_ITS | Continuity of Care Document ---
Author Organization [facility] Address [address] [place] [address], [address] [place] [address]- Care Team Providers Care Driver License Reviewing Officer Name Role Phone Kishan Kennedy MD, Becki Herrera Primary Care Physici an [id number] Date(s[facility] - 10/23/23 [facility] [address] [facility], 4th [place] [address]- Attending Physician: Not on Staff, Attending MD Referring Physician: Gee Munguia MD Allergies, Adverse Reactions, Alerts Substance Reaction Severity Status minocycline 1 H/A Active 1pseudotumor ceriebri Immunizations Given and Recorded Vaccine Date Status Refusal Reason Measles/Mumps/Rubella Virus Vaccine 09/13/21 Given tetanus/diphtheria/pertussis, acel(Tdap) 1 06/26/21 Given influenza virus vaccine, inactivated 06/04/10 Give n pneumococcal 23-valent vaccine 06/04/10 Given 1Result Comment: [id number] Medications acetaminophen/butalbital/caffeine 325 mg-50 mg-40 mg oral tablet 0 Refills, Maintenance, 08/16/22 14:19:00 EDT, Partial fill upon patient request if the prescription is for a schedule II opioid drug. Start Date: 08/16/22 Status: Ordered ergocalciferol 33775 iu oral capsule 50,000 [employer], 1, capsule, By Mouth, Every week, # 30 capsule, Refills 0, Maintenance,08/16/22 14:19:00 EDT, Partial fill upon patient request if the prescription is for a schedule II opioid drug. Start Date: 08/16/22 Status: Ordered Mirena 52 mg intrauterine device 1 each = 52 mg, Intrauterine, Once, Pharmacy supplied and inserted by Gee Munguia MD on 07/18/23 lot#[id number] exp 12/2024 [facility]#[id number], # 1 each, 0 Refills, Soft Stop, 04/10/23 9:19:00 EST, [facility], Partial fill upon [...] Outreach Member Role: PCP Address: Address: [address] [place] [address] [address] [place] [address]- Care Team Related Persons Name: BELLA HERNANDEZ Address: home [address] [place] [address] Name: RADHA GALLEGOS Address: home [address] [place] [address] Name: LUIS CARLOS SAENZ Address: home [address] [place] [address] Name: GEENA SAENZ Address: [address] Address: [address]
--- OUTSIDE RECORDS SUMMARY | 2023-12-25 15:50 | XMS_ITS | Continuity of Care Document ---
Author Organization [facility] Address [address] [place] [address]- Care Team Providers Care Patient Registration Supervisor Name Role Phone Kishan Kennedy MD, Becki Herrera Primary Care Physici an Encounter [facility] Date(s): 11/09/23 - 11/09/[address] [address]- Discharge Disposition: A-D/C Home Attending Physician: Misti Dorantes MD Admitting Physician: Misti Dorantes MD Referring Physician: Not on Staff, Referring MD Allergies, Adverse Reactions, Alerts Substance Reaction Severity Status minocycline 1 H/A Active 1pseudotumor ceriebri Immunizations Given and Recorded Vaccine Date Status Refusal Reason Measles/Mumps/Rubella Virus Vaccine 09/13/21 Given tetanus/diphtheria/pertussis, acel(Tdap) 1 06/26/21 Given influenza virus vaccine, inactivated 06/04/10 Give n pneumococcal 23-valent vaccine 06/04/10 Given 1Result Comment: [id number] Medications acetaminophen/butalbital/caffeine 325 mg-50 mg-40 mg oral tablet 0 Refills, Maintenance, 08/16/22 14:19:00 EDT, Partial fill upon patient request if the prescription is for a schedule II opioid drug. Start Date: 08/16/22 Status: Ordered Biotin By Mouth, Daily, 0 Refills, Maintenance, 11/09/23 15:22:00 EDT, Partial fill upon patient request if the prescription is for a schedule II opioid drug. Start Date: 11/09/23 Status: Ordered ergocalciferol 20187 iu oral capsule 50,000 International_Units, 1, capsule, By Mouth, Every week, # 30 capsule, Refills 0, Maintenance,08/16/22 14:19:00 EDT, Partial fill upon patient request if the prescription is for a schedule II opioid drug. Start Date: 08/16/22 Status: Ordered hydroCHLOROthiazide 12.5 mg oral capsule 1 capsule = 12.5 mg, By Mouth, Daily, 0 Refills, Maintenance, 11/09/23 15:21:00 EDT, Partial fill upon patient request if the prescription is for a schedule II opioid drug. Start Date: 11/09/23 Status: Ordered Mirena 52 mg intrauterine device 1 each = 52 mg, Intrauterine, Once, Pharmacy supplied and inserted by Gee Munguia MD on 07/18/23 lot#[id number] exp 12/[address] [facility]#[id number], # 1 each, 0 Refills, Soft Stop, 04/10/23 9:19:00 EST, [facility], Partial fill upon patient requ... Start Date: 04/10/23 Status: Ordered Multi Vitamin+ 0 Refills, Maintenance, 11/09/23 15:22:00 EDT, Partial fill upon patient request if the prescription is for a schedule II opioid drug. Start Date: 11/09/23 Status: Ordered NIFEdipine (Eqv-Procardia XL) 90 mg [...] 14:21:00 EDT Start Date: 08/16/22 Status: Ordered Toradol Inj 10 mg, Injection, IV Push Slowly, Once, STAT, 11/09/23 18:27:00 EDT, Stop date 11/09/23 18:27:00 EDT Start Date: 11/09/23 Stop Date: 11/09/23 Status: Completed venlafaxine 75 mg oral capsule, extended release [...] Severe obesity Confirmed Active Syncope Confirmed Active Results Radiology Reports * Exam Date Time Procedure Performing Provider Status 11/09/23 6:[address] Abd/Pelvis W/ IV Contrast Only Maral Flower; Dany (Verified) Notes: (CT Abd/Pelvis W/ IV Contrast Only) Reason For Exam: LLQ abdominal pain;Other: RESULT: CT Abd/Pelvis W/ IV Contrast Only CT Abd/Pelvis W/ IV Contrast Only Hx of Present Illness: GI issues for some tome but now Blood in stool with polyp like blood filled substance.; Reason: Other:; LLQ abdominal pain; Clinical Question(s): Diverticulitis; Order Comment:11 09 2023 18:19:01 EDT MD with pt, try back in a few mins. TECHNIQUE: Spiral CT through the abdomen and pelvis with IV contrast formatted in 3 planes. 100 cc of Omnipaque 300 was administered intravenously. This study was performed without oral contrast. Weight-based protocol using automatic tube modulation was used to optimize exposure parameters. CTDIvol Body: 23.25 mGy, DLP Body: 1188 mGy*cm. COMPARISON: None. FINDINGS: Tube Draw Helper View Findings, Lines and Tubes: None. Visualized Chest: Lung bases are clear. No pleural effusion. The heart is normal in size. No pericardial effusion. Diaphragm: Normal. Liver: Normal. Gallbladder: No CT evidence of gallbladder pathology. Bile ducts: No biliary ductal dilation. Spleen: Normal. Pancreas: Normal. Adrenal glands: Normal. Kidneys and ureters: No hydronephrosis, stones, or suspicious masses. Small hypodensities in the liver. Tiny possible stone in the lower pole of the right kidney. Bladder: Normal. Reproductive organs: Unremarkable. Stomach, small bowel, and large bowel: Normal. Appendix: Normal. Peritoneum and retroperitoneum: No ascites or pneumoperitoneum. No omental or mesenteric lesions. Lymph nodes: No enlarged lymph nodes. Blood vessels: Normal. No aneurysm. No evidence of venous thrombosis. Abdominal and pelvic wall: Unremarkable. Bones: No acute abnormality. IMPRESSION: No acute abnormality is appreciated. WSN: [id number] Ordering Physician: Misti Dorantes Dictated By: Vu Mendieta MD Dictated Date/Time: 11/09/23 7:14 pm Reviewed By: Vu Mendieta MD Signed By: Vu Mendieta MD Signed Date/Time: 11/09/23 7:14 pm Transcribed By: LAUREN Transcribed Date/Time: 11/09/23 7:05 pm Vital Signs Most recent to oldest [Reference Range]: 1 2 3 Height 158 cm (11/09/23 8:08 PM) 158 cm (11/09/23 6:58 PM) 158 cm (11/09/23 3:19 PM) Weight 102.4 kg (11/09/23 8:08 PM) 102.4 kg (11/09/23 6:58 PM) 102.4 kg (11/09/23 3:19 PM) Oxygen Saturation [94-100 %] 97 % (11/09/23 8:08 PM) 98 % (11/09/23 6:58 PM) 96 % (11/09/23 3:19 PM) Pulse Rate [55-90 bpm] 85 bpm (11/09/23 8:08 PM) 73 bpm (11/09/23 6:58 PM) 106 bpm *H* (11/09/23 3:19 PM) Body Mass Index [18.5-24.99 kg/m2] 41.02 kg/m2 *>HHI* (11/09/23 8:08 PM) 41.02 kg/m2 *>HHI* (11/09/23 6:58 PM) Blood Pressure [90-138/55-84 mm Hg] 143/100mm Hg *H* (11/09/23 8:08 PM) 139/94mm Hg *H* (11/09/23 6:58 PM) 169/116mm Hg *H* (11/09/23 3:19 PM) Respiratory Rate [16-30 br/min] 16 br/min (11/09/23 8:08 PM) 16 br/min (11/09/23 7:23 PM) 20 br/min (11/09/23 6:58 PM) Temperature [96.8-100.4 DegF] 97.8 DegF (11/09/23 3:19 PM) Mode of Delivery (Oxygen) Room air (11/09/23 8:08 PM) Room air (11/09/23 6:58 PM) Room air (11/09/23 3:19 PM) Blood pressure sites Arm, left (11/09/23 8:08 PM) Arm, left (11/09/23 6:58 PM) Arm, left (11/09/23 3:19 PM) Dry Weight 102.4 kg (11/09/23 8:08 PM) 102.4 kg (11/09/23 6:58 PM) 102.4 kg (11/09/23 3:19 PM) Dry Weight Obtained Via Standing scale (11/09/23 3:19 PM) Social History Social History Type Response Smoking Status Never (less than 100 in lifetime) entered on: 02/07/21 Sex Note * Misti Dorantes MD: PERFORM Event Display: Patient Education Leaflets Authored Date: [id number] Lower Gastrointestinal (GI) Bleeding (Stable) ?? [id number] Lower Gastrointestinal (GI) Bleeding (Stable) You have signs of blood in your stool. This is called rectal bleeding. The bleeding may have begun in another part of your gastrointestinal (GI) tract. If the blood is bright red, it's likely coming from the lower part of the GI tract. If the blood is black or dark, it might be coming from higher up in the GI tract. Very small amounts of GI bleeding may not be visible and can only be discovered during a test on your stool. Possible causes of lower GI bleeding include: ??? Swollen inflamed veins in the rectum (hemorrhoids) ??? Tear in the lining of the anus (anal fissures) ??? Bleeding from a blood vessel in a small pouch in the large intestine (diverticular bleeding) ??? Inflammatory bowel disease (Crohn's disease or ulcerative colitis) ??? Polyps (growths) in the intestine ??? Swelling and irritation of the colon (infectious colitis or other types of colitis)??? Colon cancer Note:??Iron supplements and medicines for diarrhea or upset stomach can cause black stools. Foods, such as licorice and red beets, can also discolor the stool and be mistaken for bleeding. These are not bleeding and are not a cause for alarm. Home care You have not lost a large amount of blood and your condition appears stable at this time.??You may resume normal activity as long as you feel well. Don't take NSAIDs, such as aspirin, ibuprofen, or naproxen. They can irritate the stomach and causefurther bleeding. If you are taking these medicines for other medical reasons, talk to your healthcare provider before you stop them.? Follow-up care Follow up with your healthcare provider, or as advised. Further tests may be needed to find??the cause of your bleeding. ?? When to get medical advice Call your healthcare provider??right away??if any of the following occur: ??? Rectal bleeding?Increasing belly (abdominal) pain ??? Weakness, dizziness ??? Current symptoms get worse, or you have new symptoms ?? Call 911 Call 911 if any of the following occur: ??? Loss of consciousness ??? Vomiting blood ??? Large amount of rectal bleeding? Last Reviewed Date: 2022 ?? [id number] [employer]. All rights reserved. This information is not intended as a substitute for professional medical care. Always follow your healthcare professional's instructions. ?? Patient Care team information Care Team Personnel Name: Becki Posadas MD Position: [facility] Outreach Member Role: PCP Address: Address: [address] [place] [address] [address] [place] [address]- [place] Care Team Related Persons Name: BELLA HERNANDEZ Address: home [address] [place] [address] Name: RADHA GALLEGOS Address: home [address] [place] [address] Name: LUIS CARLOS SAENZ Address: [address] [address] Name: LETTY, IVAR Address: [address] Address: home [address] [place] [address] [place]
[2023-12-25 15:51] VITALS: BP 130/84; PULSE 97; O2SAT 97; BMI 40.2
--- OUTSIDE RECORDS SUMMARY | 2023-12-25 15:51 | XMS_ITS | Continuity of Care Document ---
Author Organization [facility] Address [address] [place] [address], [address] [place] [address]- Care Team Providers Care Scissors Grinder Name Role Phone Kishan Kennedy MD, Becki Herrera [id number] Date(s): 10/[facility] - 10/22/23 [facility] [address] [facility], 4th [place] [address]- Attending Physician: Ric Faye MD Referring Physician: Not on Staff, Referring MD Allergies, Adverse Reactions, Alerts Substance Reaction Severity Status minocycline 1 H/A Active 1pseudotumor ceriebri Immunizations Given and Recorded Vaccine Date Status Refusal Reason Measles/Mumps/Rubella Virus Vaccine 09/13/21 Given tetanus/diphtheria/pertussis, acel(Tdap) 1 06/26/21 Given influenza virus vaccine, inactivated 06/04/10 Give n pneumococcal 23-valent vaccine 06/04/10 Given 1Result Comment: [id number] Medications acetaminophen/butalbital/caffeine 325 mg-50 mg-40 mg oral tablet 0 Refills, Maintenance, 08/16/22 14:19:00 EDT, Partial fill upon patient request if the prescription is for a schedule II opioid drug. Start Date: 08/16/22 Status: Ordered ergocalciferol 57682 iu oral capsule 50,000 International_Units, 1, capsule, By Mouth, Every week, # 30 capsule, Refills 0, Maintenance,08/16/22 14:19:00 EDT, Partial fill upon patient request if the prescription is for a schedule II opioid drug. Start Date: 08/16/22 Status: Ordered Mirena 52 mg intrauterine device 1 each = 52 mg, Intrauterine, Once, Pharmacy supplied and inserted by Gee Munguia MD on 07/18/23 lot#[id number] 12/[address] [facility]#[id number], # 1 each, 0 Refills, Soft Stop, 04/10/23 9:19:00 EST, [facility], Partial fill upon patient requ... [...] List Condition Confirmation Course Effective Dates Status [facility] atus Informant Facet arthropathy, lumbosacral [...] oldest [Reference Range]: 1 Height 158 cm (10/15/23 10:24 AM) Weight 102.72 kg (10/15/23 10:24 AM) Pulse Rate [55-90 bpm] 79 bpm (10/15/23 10:24 AM) Body Mass Index [18.5-24.99 kg/m2] 41.15 kg/m2 *>HHI* (10/15/23 10:24 AM) Blood Pressure [90-138/55-84 mm Hg] 129/ 85mm Hg (10/15/23 10:24 AM) Blood pressure sites Arm, right (10/15/23 10:24 AM) Dry Weight 102.72 kg (10/15/23 10:24 AM) Weight Obtained Via Standing scale (10/15/23 10:24 AM) Dry Weight Obtained Via Standing scale (10/15/23 10:24 AM) Social History Social History Type Response Smoking Status Never (less than 100 in lifetime) entered on: 02/07/21 Sex Patient Care team information Care Team Personnel Name: Becki Posadas MD Position: [facility] Outreach Member Role: PCP Address: Address: [address] [place] [address] [address] [place] [address]- Care Team Related Persons Name: BELLA HERNANDEZ Address: home [address] [place] [address] Name: RADHA GALLEGOS Address: home [address] [place] [address] Name: LUIS CARLOS SAENZ Address: home [address] [address] Name: GEENA SAENZ Address: [address] Address: [address] [address]
--- OUTSIDE RECORDS SUMMARY | 2023-12-25 15:52 | XMS_ITS | Continuity of Care Document ---
[facility] Address [address] [place] [address], [address] [place] [address]- Care Team Providers Care Manager Van Name Role Phone Kishan Kennedy MD, Becki Herrera Primary Care Physici an Encounter [facility] Date(s): 10/14/23 - 11/13/23 [facility] [address] [facility], [address] [place] [address]- Allergies, Adverse Reactions, Alerts Substance Reaction Severity Status minocycline 1 H/A Active 1pseudotumor ceriebri Immunizations Given and Recorded Vaccine Date Status Refusal Reason Measles/Mumps/Rubella Virus Vaccine 09/13/21 Given tetanus/diphtheria/pertussis, acel(Tdap) 1 06/26/21 Given influenza virus vaccine, inactivated 06/04/10 Give n pneumococcal 23-valent vaccine 06/04/10 Given 1Result Comment: [id number] Medications acetaminophen/butalbital/caffeine 325 mg-50 mg-40 mg oral [...] drug. Start Date: 11/09/23 Status: Ordered ergocalciferol 72666 iu oral capsule 50,000 International_Units, 1, capsule, [...] inserted by Gee Munguia MD on 07/18/23 lot#[id number] exp 12/2024 [facility]#[id number], # 1 each, 0 Refills, Soft Stop, 04/10/23 9:19:00 EST, [facility], Partial [...] OR CHEW Start Date: 12/06/22 Status: Ordered PEG-3350 with Electrolytes Lemon (Eqv-NuLYTELY) oral powder for reconstitution 240 mL, By Mouth, Every 10 minutes, until 4 liters are consumed or the rectal effluent is clear, # 4,000 mL, 0 Refills, Maintenance, 11/11/23 21:11:00 EDT, REC Powder, [facility] #[id number], Partial fill upon patient request if the prescription... Start Date: 11/11/23 Status: Ordered phentermine 15 mg oral capsule [...] Name: Kishan Kennedy MD, Becki Herrera Position: [facility] Outreach Member Role: PCP Address: Address: [address] [place] [address] [place], [place] [id number]- Care Team Related Persons Name: BELLA HERNANDEZ Address: [address] [place] [address] Name: RADHA GALLEGOS Address: home [address] [place] [address] Name: LUIS CARLOS SAENZ Address: [address] [address] Name: GEENA SAENZ Address: [address] Address: [place] [phone]
--- OUTSIDE RECORDS SUMMARY | 2023-12-25 15:53 | XMS_ITS | Continuity of Care Document ---
Author Organization [facility] [facility] Address [address] [place] [address], [address] [place] [address]- Care Team Providers Care Tin Can Feeder Name Role Phone Kishan Kennedy MD, Becki Herrera Primary Care Physici an Encounter [facility] Date(s): 10/15/23 - 11/14/23 [facility] [address] [facility], [address] [place], [place] [address] Attending Physician: Admtr, [id number] Admitting Physician: Admtr, Ar8 Referring Physician: Admtr, Ar8 Allergies, Adverse Reactions, Alerts Substance Reaction Severity Status minocycline 1 H/A Active 1pseudotumor ceriebri Immunizations Given and Recorded Vaccine Date Status Refusal Reason Measles/Mumps/Rubella Virus Vaccine 09/13/21 Given tetanus/diphtheria/pertussis, acel(Tdap) 1 06/26/21 Given influenza virus vaccine, inactivated 06/04/10 Give n pneumococcal 23-valent vaccine 06/04/10 Given 1Result Comment: [id number] Medications acetaminophen/butalbital/caffeine 325 mg-50 mg-40 mg oral [...] drug. Start Date: 11/09/23 Status: Ordered ergocalciferol 76367 iu oral capsule 50,000 International_Units, 1, capsule, [...] inserted by Gee Munguia MD on 07/18/23 lot#[id number] exp 12/2024 [facility]#[id number], # 1 each, 0 Refills, Soft Stop, 04/10/23 9:19:00 EST, [facility], Partial fill upon patient requ... [...] Refills, Maintenance, 11/11/23 21:11:00 EDT, REC Powder, [id number], Partial fill upon patient request if the [...] Name: Kishan Kennedy MD, Becki Herrera Position: [facility] Outreach Member Role: PCP Address: Address: [address] [place] [address] [address] [place] [address]- Care Team Related Persons Name: BELLA HERNANDEZ Address: home [address] [place] [address] Name: RADHA GALLEGOS Address: home [address] [place] [address] Name: LUIS CARLOS SAENZ Address: home [address] [address] Name: GEENA SAENZ Address: [address] Address: home [address] [place] [id number]
--- OUTSIDE RECORDS SUMMARY | 2023-12-25 15:53 | XMS_ITS | Continuity of Care Document ---
Author Organization [facility] ter Address [address] [place] [id number]- Care Team Providers Care Internal Medicine Specialist Name Role Phone Kishan Kennedy MD, Becki Herrera Primary Care Physici an [id number] Date(s): 11/21/23 - 11/21/[address] [id number] Discharge Disposition: A-D/C Home Attending Physician: Tobi Garcia DO Admitting Physician: Tobi Garcia DO Referring Physician: Tobi Garcia DO Allergies, Adverse Reactions, Alerts Substance Reaction Severity Status minocycline 1 H/A Active 1pseudotumor ceriebri Immunizations Given and Recorded Vaccine Date Status Refusal Reason Measles/Mumps/Rubella Virus Vaccine 09/13/21 Given tetanus/diphtheria/pertussis, acel(Tdap) 1 06/26/21 Given influenza virus vaccine, inactivated 06/04/10 Give n pneumococcal 23-valent vaccine 06/04/10 Given 1Result Comment: [id number] Medications acetaminophen/butalbital/caffeine 325 mg-50 mg-40 mg oral [...] drug. Start Date: 11/09/23 Status: Ordered ergocalciferol 14460 iu oral capsule 50,000 International_Units, 1, capsule, [...] inserted by Gee Munguia MD on 07/18/23 lot#[id number] exp 12/2024 [facility]#91576-642-10, # 1 each, 0 Refills, Soft Stop, 04/10/23 9:19:00 EST, [facility], Partial fill [...] oldest [Reference Range]: 1 2 3 Height 157.5 cm (11/21/23 10:30 AM) Weight 103 kg (11/21/23 10:30 AM) Oxygen Saturation [94-100 %] 98 % (11/21/23 11:58 AM) 97 % (11/21/23 11:54 AM) 97 % (11/21/23 11:50 AM) Pulse Rate [55-90 bpm] 70 bpm (11/21/23 11:58 AM) 66 bpm (11/21/23 11:54 AM) 72 bpm (11/21/23 11:50 AM) Body Mass Index [18.5-24.99 kg/m2] 41.52 kg/m2 *>HHI* (11/21/23 10:30 AM) Blood Pressure [90-138/55-84 mm Hg] 111/81mm Hg (11/21/23 11:58 AM) 111/64mm Hg (11/21/23 11:54 AM) 106/64mm Hg (11/21/23 11:50 AM) Respiratory Rate [16-30 br/min] 18 br/min (11/21/23 11:58 AM) 20 br/min (11/21/23 11:54 AM) 20 br/min (11/21/23 11:50 AM) Temperature [96.8-100.4 DegF] 97.4 DegF (11/21/23 11:50 AM) 97.5 DegF (11/21/23 10:30 AM) Mode of Delivery (Oxygen) Room air (11/21/23 11:58 AM) Room air (11/21/23 11:54 AM) Room air (11/21/23 11:50 AM) Blood pressure sites Arm, left (11/21/23 10:30 AM) Temperature Route Temporal (11/21/23 10:30 AM) Weight Obtained Via Patient/family state d (11/21/23 10:30 AM) Social History Social History Type Response Smoking Status Never (less than 100 in lifetime) entered on: 02/07/21 Sex Note * Zach Heck RN: PERFORM Event Display: Discharge/Transfer Note Hospital Authored Date: Nursing Discharge Note Entered On: 11/21/2023 11:48 EDT Performed On: 11/21/2023 11:48 EDT by Zach Hcek RN Nursing Discharge Note 2 Discharge Time : 11/21/2023 12:25 EDT Zach Heck RN - 11/21/2023 12:27 EDT Discharge Level of Care at Discharge : Home/Mcfp/Foster Care Patient Left Unit Via : Ambulatory Patient Accompanied Off Unit with : Significant other DC Instructions Provided & Signed by Pt : Yes Patient Understands D/C Instructions : Yes Patient Instructions Discharge Signed : Yes Did Pt have Specialty Bed or Wound Vac : No Zach Heck RN - 11/21/2023 11:48 EDT * Zach Heck RN: PERFORM Event Display: Patient Education/Instruction Authored Date: Surgery Adult Discharge Instructions [place] [id number] Name: MARIO COLE : 1990?? Visit: 11/21/2023 10:15?? Current Date: 11/21/2023 11:48 ?? Account: [id number]?? Surgery Discharge Instructions We would like to thank you for allowing us to assist you with your healthcare needs. The following includes patient education materials and information regarding your injury/illness. Our entire staffstrives to provide an excellent experience for our patients and their families. PLEASE ENSURE YOU FOLLOW-UP PER THE INSTRUCTIONS BELOW! ?? YOUR OPINION IS IMPORTANT TO US! Please complete the survey you may receive by mail or email. Your feedback will be used to make improvements to the healthcare experiences of our patients and their families. Surveys are administered by [employer] ?? If further treatment with your primary care physician or another doctor is recommended, it is important for you to keep the appointment. Call your primary care physician or return to the Emergency Department immediately if your condition worsens, fails to improve, or new symptoms develop. If you need to find a doctor, you can call [facility] Link for a referral at [phone] or toll free at [phone]) or log in to [email or web address].. ?? [facility], in keeping with [facility] guidance, no longer requires face masks for staff, patientsor visitors in most situations. Similiar to time spent indoors at other locations, there is the chance that you were exposed to repiratory viruses during your time with us (such as flu or COVID-19). If you develop symptoms concerning for a viral respiratory infection, please seek testing (and treatment if indicated) from your medical provider or home test kit. ?? You can view and manage your care through the patient portal or by using a health care iva of your choosing. [employer] is a website that allows you to securely view your medical information including your hospital discharge summary, office visit summaries, medications and follow-up visits. You can also request appointments, renew medications, and request access to your medical information using a health care iva of your choosing, or just ask a question. You are entitled to know the individuals who participated in your treatment. This information is available within your medical record and will be provided upon your request. You can enroll at [email or web address] or register d uring your next office visit. You have been discharged from [facility], Patient Care Unit: ENDO??. If you have any questions regarding these instructions after you leave, please call us and we will be happy to assist you. [facility] Your Care Team Attending Physician Jose MEHTA, Tobi Tri?? Reason for Admission RECTAL BLEEDING Primary Care Provider Becki Posadas MD? Advance Directive Health Care Proxy on File Yes - Health Care Proxy What to do next Instructions From Your Doctor ?? Orders?? You Need to Schedule the Following Appointments Follow Up with??Follow up with your PCP Follow Up with??Becki Kennedy When:??In 0 days Where: [address] [facility] [address] [place] [address]- [facility] (1) Discharge Medications MARIO MIRZA :1990 Visit Date:11/21/2023 Medications: Please continue your medications until treatment is completed or stopped by your provider. You may resume your daily prescription medications. Discuss any questions related to medications with your provider. What How Much When Instructions Next Dose Unchanged Acetaminophen/ Butalbital/ Caffeine (acetaminophen/ butalbital/ caffeine 325 mg-50 mg-40 mg oral tablet) Unchanged Biotin Oral Daily Unchanged Ergocalciferol (ergocalciferol 46014 iu oral capsule) 1 capsule Oral Every week Unchanged Hydrochlorothiazide (hydroCHLOROthiazide 12.5 mg oral capsule) 1 capsule Oral Daily Unchanged Levonorgestrel (Mirena 52 mg intrauterine device) 1 Each Intrauterine Once Pharmacy supplied and inserted by Gee Munguia MD on lot#[id number] exp 2024 [facility]#[id number] ?? Unchanged Multivitamin (Multi Vitamin+) Unchanged NIFEdipine (NIFEdipine (Eqv-Procardia XL) 90 mg oral tablet, extended release) TAKE 1 TABLET BY MOUTH EVERY MORNING. DO NOT BREAK, CRUSH, DISSOLVE OR CHEW ?? Unchanged Phentermine (phentermine 15 mg oral capsule) 1 capsule Oral Daily in the morning Unchanged Sertraline (sertraline 25 mg oral tablet) 1 tab(s) Oral Daily Unchanged Sumatriptan 50 Milligram Once Unchanged Venlafaxine (venlafaxine 75 mg oral capsule, extended release) TAKE 1 CAPSULE BY MOUTH EVERY MORNING. DO NOT BREAK, CRUSH, DISSOLVE OR CHEW ?? Allergies (NKA means No Known Allergies) minocycline??(H/A) Education Materials Below is the list of Educational Leaflet Providered with your Discharge Instructions. [employer] Patient Education - Surgery Medical Daystay Surgical Overnight Discharge Instructions?? [employer] Patient Education - Hemorrhoids Discharge Instructions?? Valuables and Belongings I fully understand and agree that [facility] accepts no responsibility for all my personal property including clothing, toilet articles, radios, jewelry, dentures, hearing aids, rings, money, or any other property that is in my possession or is brought to me after admission. I understand certain valuables may be placed in a hospital safe for a short period of time. I understand that the hospital is not liable for loss or damage due to accident, fire, or other natural occurrence while said property is in the safe. I accept full responsibility for any personal property that I keep with me, and will not hold the hospital responsible in case of loss or disappearance. I acknowledge that i have been encouraged to send valuables and belongings home. ?? Review of Valuable and Belonging List: With patient Date for Pt to Sign Valuables/Belongings: 11/21/23 10:30:00 ?? Valuables & Belongings ?? Clothes Electronic devices Jewelry Monetary Items Personal devices Miscellaneous Medications (Valuables) Valuables at Bedside Pants, Shirt, Shoes, Undergarments Cell phone ? Valuables Sent Home ? Valuables Sent to Security ? Valuables Sent to Locker ? Other Discharge Information ? Case Management Discharge Plan?? Discharge Plan?? Discharge Level of Care at Discharge: Home/Mcfp/Foster Care ?? Pulmonary Rehab Status?? Pulmonary Rehab Discharge Status?? Respiratory Rate:??14 br/min??Low ? Common Emergency Awareness Tips IS IT A STROKE? Act FAST and Check for these signs: FACE Does the face look uneven? ARM Does one arm drift down? SPEECH Does their speech sound strange? TIME Call at any sign of stroke ?? Heart Attack Signs Chest discomfort: Most heart attacks involve discomfort in the center of the chest and lasts more than a few minutes, or goes away and comes back. It can feel like uncomfortable pressure, squeezing, fullness or pain. Discomfort in upper body: Symptoms can include pain or discomfort in one or both arms, back, neck, jaw or stomach. Shortness of breath: With or without discomfort. Other signs: Breaking out in a cold sweat, nausea, or lightheaded. Remember, MINUTES DO MATTER. If you experience any of these heart attack warning signs, call to get immediate medical attention! ?? Smoking can increase your chances of developing chronic health problems and can cause harmful effects to other family members in your house. If you smoke, you are strongly encouraged to quit. Please call [facility] Link at [phone] or [phone] ([phone]) or log in to [email or web address] for referrals to smoking cessation programs. ?? The National Suicide Prevention Hotline is available 29/10 if you or someone you know needs to find a reason to keep living. By calling 4-980-147-[employer] (2663) you'll be connected to a skilled, trained counselor at a crisis center in your area. SURGERY DISCHARGE INSTRUCTIONS SIGNATURE PAGE MARIO MIRZA Location:[facility] Registration Date and Time:11/21/2023 10:15 EDT Primary Care Physician: Kishan Kennedy MD, Becki Herrera, Attending Physician: Tobi Garcia DO, I MARIO IMRZA, have received the above patient education materials/instructions and have verbalized understanding. If ambulance or transport services are being used I further acknowledge being given a choice of service. ?? If you need to contact me, please call me at this number: . Patient/Audiovisual Production Specialist Name: Patient/Audiovisual Production Specialist Signature: Relationship to Patient: Witness Name/Signature: Date: * Zach Heck RN: PERFORM, SIGN, VERIFY Event Display: Patient Education Handout Authored Date: * Zach Heck RN: PERFORM Event Display: Patient Education Leaflets Authored Date: Surgery Medical Daystay Surgical Overnight Discharge Instructions ?? 295 Medical Daystay/Surgical Overnight Discharge Instructions ? Since your coordination and judgment may be altered by medication and/or anesthesia, a responsible adult must drive you home from the hospital. ? If you have received medication for pain or sedation while under our care, you should not drive, operate machinery, drink alcohol, or sign any legal documents for 24 hours.?? You should have someone with you at home tonight. ? Remain at home the day of discharge.?? You may be up and about unless otherwise instructed by your physician. ? You may resume your daily prescription medication schedule.?? Any depressant medication should be avoided for 24 hours unless otherwise instructed by your surgeon or anesthesiologist. ? Call your physician for a follow-up appointment.? If you experience unusual or severe pain not relied by your pain medication, excessive bleedingor drainage, persistent nausea and vomiting, excessive swelling or redness, foul odor from incisionsite or fever over 100.6F, you need to call your physician. ? A follow-up phone call by a nurse will be made the day after your procedure.?? If you have stayed with us over night, you will not be receiving a follow-up phone call. ? Nausea and vomiting are a common side effect of prescription pain medication.?? We recommend that pills are not taken on an empty stomach.?? While taking any prescription pain medication you should not drive or drink alcohol. ? * Umang COSTA, Zach Araujo: PERFORM Event Display: Patient Education Leaflets Authored Date: [id number] Hemorrhoids Discharge Instructions ?? 672 ??Hemorrhoids Discharge Instructions ??You must carefully read the Consumer Information Use and Disclaimer below in order to understand and correctly use this information?? About this topic Hemorrhoids are swollen veins in the rectum. Your rectum is where stool leaves your body. You may be able to see or feel your hemorrhoids outside of your body, but some hemorrhoids are inside of yourrectum and cannot be seen. Hemorrhoids can cause itching, pain, and bleeding. Being constipated or having hard stools can make your hemorrhoids worse.?? What care is needed at home? Ask your doctor what you need to do when you go home. Make sure??you ask questions if you do not understand what the doctor says. This??way you will know what you need to do. ??? Soak your bottomin a few inches of warm water for 10 to 15 minutes??at a time. You can do this 2 to 3 times each day. Do not add soap,??bubble bath, or anything to the water. ??? Use jucm-qdy-akmnwlu medicines to treat your hemorrhoids. These??include ointments and creams to help with pain and swelling. You can??also use a product like witch eric to help dry out the skin in the area. ??? To help with constipation: ??? Use stool softeners when needed. ??? Eat high-fiber foods. These include whole grains, fruits, and??vegetables. ??? Drink plenty of water and other fluids each day. This helps to??keep your stools soft. ??? Set a regular schedule to try and have a bowel movement. Do??not ignore the urge to go to the bathroom. Don???t hold it in. ??? Give yourself plenty of time to have a bowel movement, but do not linger on the toilet either, by sitting and reading for a long time. ??? Do mild exercise each day like taking a walk. ??? Avoid heavy lifting or straining while the hemorrhoid is healing. ?? What follow-up care is needed? If your problem does not get better, other care may be needed. Your doctor may ask you to make visits to the office to check on your progress. Be sure to keep these visits.?? What drugs may be needed? The doctor may order drugs to: ??? Help with pain and swelling ??? Ease itching ??? Soften stools ?? Will physical activity be limited? Working out can help with digestion. It might help keep you from having hard stools. Ask your doctor about the best kind of exercise for you. ?? What problems could happen? You may have very bad bleeding. ??? Sometimes, treatments do not work. Some hemorrhoids are very??large. You might need surgery for either of these. ?? When do I need to call the doctor? You have a lot of bleeding from your rectum. ??? Your bowel movement looks like tar. ??? You are not able to pass stool because of pain from your??hemorrhoids. ??? Your pain gets worse and is nothelped by egoj-wqt-mqkhnmh??medicines, warm water, or your home care. ??? You have a fever of 100.4??F (38??C) or higher. ?? Teach Back: Helping You Understand The Teach Back Method helps you understand the information we are giving you. After you talk with the staff, tell them in your own words what you learned. This helps to make sure the staff has described each thing clearly. It also helps to explain things that may have been confusing. Before going home, make sure you can do these: ??? I can tell you about my condition. ??? I can tell you what may help ease my pain. ??? I can tell you what I will do if I have blood in my rectum. Where can I learn more?[employer] [place] [employer]icianshttps://familydoctor.or g/condition/hemorrhoids/National Digestive Disease Information Clearinghousehttps://www.niddk.nih.go v/health-information/digestive-diseases/hemorrhoids/definition-factsLast Reviewed Tgon0167-52-27Vkumfiqf Information Use and Disclaimer:This generalized information is a limited summary of diagnosis,treatment, and/or medication information. It is not meant to be comprehensive and should be used asa tool to help the user understand and/or assess potential diagnostic and treatment options. It does NOT include all information about conditions, treatments, medications, side effects, or risks thatmay apply to a specific patient. It is not intended to be medical advice or a substitute for the medical advice, diagnosis, or treatment of a health care provider based on the health care provider's examination and assessment of a patient???s specific and unique circumstances. Patients must speak with a health care provider for complete information about their health, medical questions, and treatment options, including any risks or benefits regarding use of medications. This information does not endorse any treatments or medications as safe, effective, or approved for treating a specific patient. [employer] and its affiliates disclaim any warranty or liability relating to this information or the use thereof. The use of this information is governed by the Terms of Use, available at??htt ps://www.[employer].com/en/know/ndjhqvhv-qvxrdmzoldgen-rbtrkZxgw Updated 05/31/21? Patient Care team information Care Team Personnel Name: Becki Posadas MD Position: [facility] Outreach Member Role: PCP Address: Address: [address] [place] [address] [address] [place] [address]- Care Team Related Persons Name: BELLA HERNANDEZ Address: home [address] [place] [address] Name: RADHA GALLEGOS Address: [address] [place] [address] Name: LUIS CARLOS SAENZ Address: [address] [address] Name: GEENA SAENZ Address: [address] Address: [address] [address]
== END 2023-12-25 16:11 | disposition home or self-care (01) ==
LOC: HO.HKAM 15:49
PROVIDERS: PCP Internal Medicine; Referring Provider Internal Medicine; Visit Provider Internal Medicine Hypertension Specialist
DX: I10 Essential (primary) hypertension (principal)
CPT/HCPCS: 99213

== ENCOUNTER → 2023-12-25 15:49 | Outpatient (BNVA) | payer MEDICAID, SELFPAY | PROVIDERS: PCP Internal Medicine; Visit Provider Internal Medicine Hypertension Specialist | DX: I10 Essential (primary) hypertension (principal); Z68.41 Body mass index [BMI] 40.0-44.9, adult | CPT/HCPCS: 99212 ==

== ENCOUNTER 2024-02-17 14:42 | Outpatient (AMB) | payer MEDICAID, SELFPAY ==
--- NOTE | 2024-02-17 14:44 | HO.NEPHOV_ITS ---
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 She was diagnosed with hypertension at age of 26. She has been on 2 antihypertensive medications and she is here for further evaluation of hypertension and possible renal evaluation. 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 She is history of chronic back pain. She takes ibuprofen 800 mg 3 times a day. This is a history of weight gain. She also has history of mild snoring at night. She had not been evaluated for sleep apnea. No history of any smoking or alcohol abuse. She was a strong family history of hypertension. No renal issues. 12/25/2023 During her previous visit Based on the 24 hour ambulatory blood pressure monitoring I discontinued HCTZ. Started spironolactone/HCTZ half tablet Blood pressure is suboptimal and she increase to full tablet today. Since then blood pressure well controlled. She is overall she is doing well no new issues today. 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, lumbar Spondylosis without myelopathy or radiculopathy, lumbar region HTN (hypertension) Migraines Bulging disc Social History Alcohol intake: never Physical Exam Vital Signs: Last Vital Signs Pulse 76 02/17/24 14:45 BP 118/80 02/17/24 14:45 Pulse Ox 98 02/17/24 14:45 Oxygen Delivery Method Room Air 02/17/24 14:45 Results Reviewed Nephrology Results: Hgb 13.7 g/dl (12.0-16.0) 10/28/23 WBC 10.3 X10*3/uL (4.8-10.8) 10/28/23 Plt Count 371 X10*3/uL (160-400) 10/28/23 Sodium 141 mmol/L (135-145) 10/28/23 Potassium 3.9 mmol/L (3.3-5.1) 10/28/23 Chloride 104 mmol/L (96-108) 10/28/23 Carbon Dioxide 25 mmol/L (22-29) 10/28/23 BUN 22 mg/dL (9-16) H 10/28/23 Creatinine 0.88 mg/dL (0.5-1.4) 10/28/23 Calcium 10.6 mg/dL (8.4-10.2) H 10/28/23 Urine Protein Trace mg/dL (Neg-Trace) 10/08/23 Urine Creatinine 95.90 mg/dL 10/08/23 Assessment & Plan Assessment & Plan (1) HTN (hypertension): Code(s): I10 - Essential (primary) hypertension Category: Medical Plan Young woman with hypertension in the setting of elevated BMI. Overall blood pressure is better controlled. Keep current dose of nifedipine. Would not use TONY inhibitors or ARB is since she is Encouraged her to stay on low-sodium diet. She will benefit from weight loss. h/o Mild hypercalcemia. Repeat serum calcium was normal at 9.3. She will follow as needed Coding Level of Care Code Est Pt Level 3 (78042) Diagnoses HTN (hypertension) I10
[2024-02-17 14:45] VITALS: BP 118/80; PULSE 76; O2SAT 98
== END 2024-02-17 14:57 | disposition home or self-care (01) ==
PROVIDERS: PCP Internal Medicine; Visit Provider Internal Medicine Hypertension Specialist
DX: I10 Essential (primary) hypertension (principal)
CPT/HCPCS: 99213

== ENCOUNTER → 2024-02-17 14:42 | Outpatient (BNVA) | payer MEDICAID, SELFPAY | PROVIDERS: PCP Internal Medicine; Visit Provider Internal Medicine Hypertension Specialist | DX: I10 Essential (primary) hypertension (principal) | CPT/HCPCS: 99212 ==

== ENCOUNTER 2024-09-29 13:25 | Outpatient (REF) | payer MEDICAID, SELFPAY ==
--- OUTSIDE RECORDS SUMMARY | 2024-09-29 15:30 | XMS_ITS | Encounter Summary ---
Author Organization [employer] Address [address] [place] [address] 7 [place] [address] Care Team Providers Care Assistant Executive Housekeeper Name Role Phone Becki Posadas MD Primary Care Provide r Jennie Deleon NP Primary Care Provider [phone] Jennie Deleon NP Primary Care Provider [phone] Reason for Visit * Reason Comments Med Refill Encounter Details Date Type Department Care Team (Late st Contact Info) Description 10/21/2022 Refill [facility] MED[facility]INE [address] [place], [place] [phone] Qian Jacques MD [address] [place], [place] [phone] Migraine without aura, not refractory Social History Tobacco Use Types Packs/Day Years Used Date Smoking Tobacco: Never Smokeless Tobacco: Never Alcohol Use Standard Drinks/Week Comments Not Currently 0 (1 standard drink = 0.6 oz pur e alcohol) Depression Answer Date Recorded Patient Health Questionnaire-9 Score 0 07/19/2022 Depression Answer Date Recorded Patient Health Questionnaire-2 Score 0 07/19/2022 Comments Unknown Sex and Gender Information Value Date Recorded Sex Assigned at Female 02/05/2022 10:17 AM EDT Legal Sex Female 10:17 AM EDT Gender Identity Female 02/05/2022 10:17 AM EDT Sexual Orientation Straight 02/05/2022 10 :17 AM EDT COVID-19 Exposure Response Date Recorded In the last 10 days, have nupur u been in contact with someone who was confirmed or suspected to have Coronavirus/COVID-19? No / Unsure 09/26/2022 9:40 AM EDT documented as of this encounter Plan of Treatment Upcoming Encounters Date Type Department Care Team (Late st Contact Info) Description 10/16/2024 2:30 PM EDT Office Visit [facility] ADULT DENTAL [address] [place] [address] Ramone Louis, DDS [address] [place] [address] 12/16/2024 3:00 PM EDT Office Visit [facility] OPTOMETRY [address] [place] [address] RubinPatti ramirez, OD [address] [place] [address] documented as of this encounter Visit Diagnoses Diagnosis Migraine without aura, not refractory documented in this encounter Additional Health Concerns Assessment Noted Time PHQ-9 Depression Total Score: 0 07/20/19 23 2:37 PM EDT documented as of this encounter Care Teams Assistant Executive Housekeeper Relationship Specialty Start Date End Date Becki Posadas MD [address] [place] [address] PCP - General Family Medicine 08/30/20 11/10/23 Jennie Deleon NP [address] [place] [address] PCP - General Family Medicine 11/11/23 11/11/23 Jennie Deleon NP [address] [place] [address] PCP - General Family Medicine 11/12/23 documented as of this encounter
[2024-09-29 16:26] LABS: Anion Gap 15 (12-20); Blood Urea Nitrogen 10 mg/dL (9-16); Calcium 9.5 mg/dL (8.4-10.2); Carbon Dioxide 25 mmol/L (22-29); Chloride 105 mmol/L (96-108); Estimated Glomerular Filt Rate > 60; Glucose Random 85 mg/dL (60-115); Potassium 3.6 mmol/L (3.3-5.1); Sodium 141 mmol/L (135-145)
[2024-09-29 17:04] LABS: Parathyroid Hormone Intact 86.8 pg/mL (8.7-77.1)
[2024-09-30 09:06] LABS: Alanine Aminotransferase 17 U/L (0-31); Albumin Level 4.1 g/dL (3.5-5.0); Alkaline Phosphatase 63 U/L (39-117); Anion Gap 13 (12-20); Aspartate Amino Transferase 22 U/L (5-31); Bilirubin Total 0.3 mg/dL (0.0-1.0); Blood Urea Nitrogen 11 mg/dL (9-16); Calcium 9.1 mg/dL (8.4-10.2); Carbon Dioxide 26 mmol/L (22-29); Chloride 105 mmol/L (96-108); Estimated Glomerular Filt Rate > 60; Glucose Random 81 mg/dL (60-115); Potassium 3.7 mmol/L (3.3-5.1); Sodium 140 mmol/L (135-145); Total Protein 7.6 g/dL (6.5-8.0)
[2024-10-04 15:48] LABS: Vitamin D 25-OH, D2 8 ng/mL; Vitamin D 25-OH, D3 27 ng/mL; Vitamin D 25-OH, Total 35 ng/mL (30-100)
== END 2024-09-29 13:26 | disposition home or self-care (01) ==
LOC: HO.HHCL 13:25
PROVIDERS: Internal Medicine Hypertension Specialist; PCP Nurse Practitioner Family; Visit Provider Emergency Medicine
DX: O10.03 Pre-existing essential hypertension complicating the puerperium (principal)
CPT/HCPCS: 36415; 80048; 80053; 82306; 83970

== ENCOUNTER 2024-10-01 14:43 | Outpatient (AMB) | payer MEDICAID, SELFPAY ==
[2024-10-01 14:47] VITALS: BP 108/78; PULSE 80; O2SAT 96; BMI 40.4
--- NOTE | 2024-10-01 14:47 | HO.NEPHOV ---
Vital Signs 10/01/24 14:47 Height 5 ft 2 in Weight 221 lb BMI 40.4 BP 108/78 Blood Pressure Location Lt brachial Position Sitting Pulse 80 Pulse Source Pulse Oximeter Pulse Oximetry (%) 96 Oxygen Delivery Method Room Air Intake Visit Reasons: Hypertension FU Compensation Expert Required: No Accompanied by: Nephew or Niece Allergies minocycline (MINOCYCLINE) Allergy (Intermediate, Verified 10/01/24 14:50) INTERCRANIAL HTN Medication List - Last Reconciled 10/01/24 by Vinay Tapia MD ferrous sulfate 324 mg PO BID nifedipine ER 90 mg PO QAM vit [id number] 27 mg iron- 800 mcg ( Vitamin) 1 tab PO DAILY HPI Comments Details: Nadia is a pleasant 33-year-old woman with a history of hypertension and elevated BMI. She was diagnosed with hypertension at age of 26. She has been on 2 antihypertensive medications and she is here for further evaluation of hypertension and possible renal evaluation. 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 She is history of chronic back pain. She takes ibuprofen 800 mg 3 times a day. This is a history of weight gain. She also has history of mild snoring at night. She had not been evaluated for sleep apnea. No history of any smoking or alcohol abuse. She was a strong family history of hypertension. No renal issues. 12/25/2023 During her previous visit Based on the 24 hour ambulatory blood pressure monitoring I discontinued HCTZ. Started spironolactone/HCTZ half tablet Blood pressure is suboptimal and she increase to full tablet today. Since then blood pressure well controlled. She is overall she is doing well no new issues today. 02/17/24 Currently 2 weeks Stopped Aldactazide Now on Nifedipine 10/01/24 The patient is a 34-year-old female presenting with hypertension and peripheral edema. Her blood pressure has been fluctuating since giving on September 17, with readings ranging from 114/76 to 139/89 mmHg. The patient also reports significant swelling in her feet, which began after her recent childbirth. The patient has a history of hyperparathyroidism, with recent lab tests showing normal calcium levels at 9.1 mg/dL but elevated parathyroid hormone levels. She is currently [facility] Medical History (Updated 10/28/23 @ 14:46 by MACHELLE Islas) Lumbar radiculopathy Sacroiliac joint dysfunction of right side Disc degeneration, lumbar Spondylosis without myelopathy or radiculopathy, lumbar region HTN (hypertension) Migraines Bulging disc Social History Alcohol intake: never Physical Exam Vital Signs: Last Vital Signs Pulse 80 10/01/24 14:47 BP 108/78 10/01/24 14:47 Pulse Ox 96 10/01/24 14:47 Oxygen Delivery Method Room Air 10/01/24 14:47 BMI result Body Mass Index 40.4 Const General: comfortable; No acute distress Orientation/consciousness: patient oriented x3 Eyes General: appearance normal, both eyes and all related structures Visual Sharpe: normal visual sharpe by confrontation Neck Neck: Yes supple and Yes no JVD Resp Effort & Inspection: normal respiratory effort and respiratory effort not decreased Auscultation: rhonchi Cardio Palpation: no palpable S3 and no palpable S4 Heart sounds: no rubs GI Inspection: Yes normal to inspection Palpation (GI): Soft to palpation Percussion: Yes normal to percussion Auscultation: normal bowel sounds General: Yes no CVA tenderness Back/Spine/Pelvis Back: no CVA tenderness Skin General skin exam: no petechiae and no purpura Neuro General: patient oriented x3 and no focal motor deficits Extrem General: No clubbing and No edema Results Reviewed Nephrology Results: Hgb, (12.0-16.0) 13.7 g/dl 10/28/23 WBC, (4.8-10.8) 10.3 X10*3/uL 10/28/23 Plt Count, (160-400) 371 X10*3/uL 10/28/23 Sodium, (135-145) 140 mmol/L 09/29/24 Potassium, (3.3-5.1) 3.7 mmol/L 09/29/24 Chloride, (96-108) 105 mmol/L 09/29/24 Carbon Dioxide, (22-29) 26 mmol/L 09/29/24 BUN, (9-16) 11 mg/dL 09/29/24 Creatinine, (0.5-1.4) 0.71 mg/dL 09/29/24 Calcium, (8.4-10.2) 9.1 mg/dL 09/29/24 PTH Intact, (8.7-77.1) 86.8 pg/mL H 09/29/24 Assessment & Plan Assessment & Plan (1) HTN (hypertension): Code(s): I10 - Essential (primary) hypertension Category: Medical Plan Young woman with hypertension in the setting of elevated BMI. DECREASE nifedipine to 30 mg due to edema. Would not use TONY inhibitors or ARB (breast feeding) Encouraged her to stay on low-sodium diet. She will benefit from weight loss. h/o Mild hypercalcemia. Repeat serum calcium was normal at 9.1 PTH mildly elevated will follow as needed Medications: New nifedipine ER 30 mg PO DAILY 90 tabs 0RF Coding Level of Care Code Est Pt Level 4 (87511) Diagnoses HTN (hypertension) I10
== END 2024-10-01 15:02 | disposition home or self-care (01) ==
LOC: HO.HKA 14:44
PROVIDERS: PCP Internal Medicine; Visit Provider Internal Medicine Hypertension Specialist
DX: I10 Essential (primary) hypertension (principal)
CPT/HCPCS: 99214

== ENCOUNTER → 2024-10-01 14:43 | Outpatient (BNVA) | payer MEDICAID, SELFPAY | PROVIDERS: PCP Internal Medicine; Visit Provider Internal Medicine Hypertension Specialist | DX: I10 Essential (primary) hypertension (principal) | CPT/HCPCS: 99212 ==

== ENCOUNTER 2024-11-30 13:53 | Outpatient (REF) | payer MEDICAID, SELFPAY ==
--- OUTSIDE RECORDS SUMMARY | 2024-11-27 15:45 | XMS_ITS | Encounter Summary ---
Author Organization [employer] Address [address] [facility] 7 [place] [address] Care Team Providers Care Chemist Name Role Phone Jennie Deleon NP Primary Care Provider [phone] Reason for Visit * Reason Comments Follow-up Encounter Details Date Type Department Care Team (Latest Contact Info) Description 11/27/2024 3:45 PM EDT Office Visit [facility] [address] [place], [place] [phone] Jennie Deleon NP [address] [place] [address] MARTINA (generalized anxiety disorder) (Primary Dx); Encounter [...] day (headache, bp monitoring). 1 each 1 gomzoifrxc-bcrvrvfgsobna-olpbjpbr (Fioricet) 50-300-40 MG capsule Take 1 capsule [...] Description 12/16/2024 3:00 PM EDT Office Visit [facility] OPT[facility]ET[facility] [address] [place] [address] Patti Conklin, OD [address] [place] [address] 12/28/2024 4:00 PM EDT Office Visit [facility] [address] [place] [address] Jennie Deleon NP [address] [place] [address] Scheduled Orders Name Type Priority Associated Diagnoses [...] documented as of this encounter Care Teams Chemist Relationship Specialty Start Date End Date Jennie Deleon NP [address] [place] [address] PCP - General Family Medicine 11/12/23 documented as of this encounter
--- NOTE | ~2024-11-30 | US_ITS ---
EXAMINATION: US PELVIS TRANSABDOMINAL AND TRANSVAGINAL HISTORY: s/p IUD placement, bleeding COMPARISON: Comparison is made with the prior examination dated 05/30/2020. TECHNIQUE: Transabdominal and endovaginal real-time 2D saldivar-scale ultrasound was performed. FINDINGS: Uterus: The uterus is normal in size, measuring 8.2 x 4.7 x 5.8 cm. Myometrium has a normal echotexture. No fibroids are identified. Endometrium: The endometrial stripe measures 3 mm in thickness. An IUD is noted in appropriate position in the endometrial cavity. Right ovary: The right ovary measures 2.3 x 2.2 x 2.2 cm. The right ovary is normal in size and echotexture. Left ovary: The left ovary measures 2.4 x 2.6 x 1.9 cm. The left ovary is normal in size and echotexture. Pelvic fluid: none. US/US pelvic and transvaginal IMPRESSION: Unremarkable pelvic ultrasound. IUD in appropriate position in the endometrial cavity. Electronically signed by: Alber Mercer MD 11/30/2024 03:20 PM EDT
--- OUTSIDE RECORDS SUMMARY | 2024-11-30 11:15 | XMS_ITS | Encounter Summary ---
Author Organization [employer] Address [address] [place] [address] Care Team Providers Care Rug Measurer Name Role Phone Jennie Deleon NP Primary Care Provider [phone] Reason for Referral * Imaging (STAT) - Closed Specialty Diagnoses / Procedures Referred By Ashley downing Referred To Contact Radiology Diagnoses Encounter for IUD insertion Procedures US Pelvis Transvaginal Jennie Deleon NP [address] [place] [address] Phone: tel: fax: [address] Phone: tel: fax: Referral ID Status Reason Start Date Expiration Date Visits Re quested Visits Authorized [id number] Closed 11/30/2024 11/30/2025 1 1 * Imaging (STAT) - Closed Specialty Diagnoses / Procedures Referred By Ashley downing Referred To Contact Radiology Diagnoses Encounter for IUD insertion Procedures Us Pelvis complete Jennie Deleon NP [address] [place] [address] Phone: tel: fax: [address] Phone: tel: fax: Referral ID Status Reason Start Date Expiration Date Visits Re quested Visits Authorized [id number] Closed 11/30/2024 11/30/2025 1 1 Encounter Details Date Type Department Care Team (Late st Contact Info) Description 11/30/2024 11:15 AM EDT Office Visit [facility] [address] [place] [address] Jennie Deleon NP [address] [place] [address] Encounter for IUD insertion (Primary Dx) Social History Tobacco Use Types Packs/Day Years [...] is your housing situation today? I have kemarsusi mata 11/27/[address] you [...] Sign Reading Time Taken Comments Blood Pressure 158/92 11/30/2024 12:52 PM EDT Pulse 73 11/30/2024 12:52 PM EDT Temperature 36.5 C (97.7 F) 11/30/2024 12:52 PM EDT Respiratory Rate 16 11/30/2024 12:52 PM EDT Oxygen Saturation 96% 11/30/2024 12:52 PM EDT Inhaled Oxygen Concentration - - Weight 98 kg (216 lb) 11/30/2024 12:52 PM EDT Height 157.5 cm (5' 2 ) 11/30/2024 12:52 PM EDT Body Mass Index 39.51 11/30/2024 12:52 PM EDT documented in this encounter Plan of Treatment Upcoming Encounters Date Type Department Care Team (Late st Contact Info) Description 12/16/2024 3:00 PM EDT Office Visit [facility] [address] [place] [address] Rubin, Patti, OD [address] [place] [address] 12/28/2024 4:00 PM EDT Office Visit [facility] [address] [place] [address] Jennie Deleon NP [address] [place] [address] Scheduled Orders Name Type Priority Associated Diagnoses Orde r Schedule IUD Management Procedures Routine Encounter for IUD insertion Ordered: 11/30/2024 Chlamydia/N. Gonorrhoeae, PCR, Urine Lab Routine Encounter for IUD insertion Ordered: 11/30/2024 CBC auto differential Lab Routine Encounter for IUD insertion Expected: 11/30/2024 (Approximate), Expires: 11/30/2025 Us Pelvis complete Imaging STAT Encounter for IUD insertion Expected: 11/30/2024, Expires: 11/30/2025 US Pelvis Transvaginal Imaging STAT Encounter for IUD insertion Expected: 11/30/2024, Expires: 11/30/2025 documented as of this encounter Procedures Procedure Name Priority Date/Time Associated Diagnosis Comments POCT , URINE Routine 11/30/2024 12:27 PM EDT Encounter for IUD insertion documented in this encounter Results * POCT Urine (11/30/2024 12:27 PM EDT) Preg Test, Ur Negative Negative, Indeterminate, None Detected, Invalid, Specimen unsatisfactory for evaluation, Weakly Positive, 2+ QC Media Lot # [id number] Lot# Expiration Date [id number] Urine 11/30/2024 12:2 7 PM EDT Jennie Deleon NP POINT OF CARE TEST ENTER/EDIT OR DERABLES Final Result documented in this encounter Visit Diagnoses Diagnosis Encounter for IUD insertion- Primary Insertion of intrauterine contraceptive device documented in this encounter Additional Health Concerns Assessment Noted Time PHQ-9 Depression Total Score: 10 025 4:36 PM EDT documented as of this encounter Care Teams Rug Measurer Relationship Specialty Start Date End Date Jennie Deleon NP [address] [place] [address] PCP - General Family Medicine 11/12/23 documented as of this encounter
--- OUTSIDE RECORDS SUMMARY | 2024-11-30 15:15 | XMS_ITS | Encounter Summary ---
Author Organization [employer] Address [address] [facility] 7 [place] [address] Care Team Providers Care Building Insulation Supervisor Name Role Phone Becki Posadas MD Primary Care Provide r Jennie Deleon NP Primary Care Provider [phone] Jennie Deleon NP Primary Care Provider [phone] Reason for Visit * Reason Comments Med Refill Encounter Details Date Type Department Care Team (Late st Contact Info) Description 04/03/2023 Refill [facility] [address] [place], [place] [phone] Joselyn Wild MD [address] [place], [place] [phone] Social History Tobacco Use Types Packs/Day Years Used Date Smoking Tobacco: Never Smokeless Tobacco: Never Alcohol Use Standard Drinks/Week Comments Not Currently 0 (1 standard drink = 0.6 oz pur e alcohol) Depression Answer Date Recorded Patient Health Questionnaire-9 Score 0 07/19/2022 Housing Stability Answer Date Recorded What is your housing situation today? I have kemar mata 01/25/[address] you li ve. Do you have problems with any of the following? None of the above 01/25/2023 Food Insecurity Answer Date Recorded Within the past 12 months, y ou worried that your food would run out before you got money to buy more: Never True 01/25/2023 Within the past 12 months,th e food you bought just didn't last and you didn't have enough money to get more: Never True Transportation Answer Date Recorded In the past 12 months, has l ack of transportation kept you from medical appts, meetings, work or from getting things needed for daily living? No 01/25/2023 Utilities Answer Date Recorded In the past 12 months, has t he electric, gas, oil or water company threatened to shut off services in your home? No 01/25/2023 Depression Answer Date Recorded Patient Health Questionnaire-2 [...] Description 12/16/2024 3:00 PM EDT Office Visit [facility] [address] [place] [address] Rubin, Patti, OD [address] [place] [address] 12/28/2024 4:00 PM EDT Office Visit [facility] [address] [place] [address] Jennie Deleon NP [address] [place] [address] documented as of this encounter Visit Diagnoses Not on filedocumented in this encounter Additional Health Concerns Assessment Noted Time PHQ-9 Depression Total Score: 0 07/20/19 23 2:37 PM EDT documented as of this encounter Care Teams Building Insulation Supervisor Relationship Specialty Start Date End Date Becki Posadas MD [address] [place] [address] PCP - General Family Medicine 08/30/20 11/10/23 Jennie Deleon NP [address] [place] [address] PCP - General Family Medicine 11/11/23 11/11/23 Jennie Deleon NP [address] [place] [address] PCP - General Family Medicine 11/12/23 documented as of this encounter
--- OUTSIDE RECORDS SUMMARY | 2024-11-30 15:15 | XMS_ITS | Encounter Summary ---
Author Organization [employer] Address [address] [facility] 7 [place] [address] Care Team Providers Care Community Pharmacist Name Role Phone Becki Posadas MD Primary Care Provide r Jennie Deleon NP Primary Care Provider [phone] Jennie Deleon NP Primary Care Provider [phone] Reason for Visit * Reason Comments Med Refill Encounter Details Date Type Department Care Team (Late st Contact Info) Description 12/28/2022 Refill [facility] [address] [place] [phone] Olegario Marquis MD [address] [place], [place] [phone] Social History Tobacco Use Types Packs/Day Years [...] Description 12/16/2024 3:00 PM EDT Office Visit [facility] [address] [place] [address] Patti Conklin, OD [address] [place] [address] 12/28/2024 4:00 PM EDT Office Visit [facility] [address] [place] [address] Jennie Deleon NP [address] [place] [address] documented as of this encounter Visit Diagnoses Not on filedocumented in this encounter Additional Health Concerns Assessment Noted Time PHQ-9 Depression Total Score: 0 07/20/19 23 2:37 PM EDT documented as of this encounter Care Teams Community Pharmacist Relationship Specialty Start Date End Date Becki Posadas MD [address] [place] [address] PCP - General Family Medicine 08/30/20 11/10/23 Jennie Deleon NP [address] [place] [address] PCP - General Family Medicine 11/11/23 11/11/23 Jennie Deleon NP [address] [place] [address] PCP - General Family Medicine 11/12/23 documented as of this encounter
--- OUTSIDE RECORDS SUMMARY | 2024-11-30 15:15 | XMS_ITS | Encounter Summary ---
Author Organization [employer] Address [address] [place] [address] 7 [place] [address] Care Team Providers Care Beef Grinder Name Role Phone Becki Posadas MD Primary Care Provide r Jennie Deleon NP Primary Care Provider [phone] Jennie Deleon NP Primary Care Provider [phone] Reason for Visit * Reason Onset Date Comments Med Refill 10/20/2023 Encounter Details Date Type Department Care Team (Late st Contact Info) Description 10/20/2023 Refill [facility] [address] [place], [place] [phone] Becki Posadas MD [address] [place], [place] [phone] Migraine without aura, not refractory; Migraine without aura and with status migrainosus, not intractable; Chronic hypertension; Primary hypertension; Class 3 severe obesity due to excess calories with serious comorbidity and body mass index (BMI) of 40.0 to 44.9 in adult (CMS/HCC); Anxiety; Migraine without status migrainosus, not intractable, unspecified migraine type Social History Tobacco Use Types Packs/Day Years [...] AM EDT documented as of this encounter Miscellaneous Notes * Telephone Encounter - Becki Kennedy MD - 10/21/2023 2:31 PM EDT I don't agree with some of the refills I will refill medications that I approve, for rest of it shewill have to follow up with new PCP thank you documented in this encounter Plan of Treatment Upcoming Encounters Date Type Department Care Team (Late st Contact Info) Description 12/16/2024 3:00 PM EDT Office Visit [facility] [address] [place] [address] Patti Conklin, OD [address] [place] [address] 12/28/2024 4:00 PM EDT Office Visit [facility] [address] [place] [address] Jennie Deleon NP [address] [place] [address] documented as of this encounter Visit Diagnoses Diagnosis Migraine without aura, not refractory Migraine without aura and with status migrainosus, not intractable Chronic hypertension Primary hypertension Unspecified essential hypertension Class 3 severe obesity due to excess calories with serious comorbidity and body mass index (BMI) of 40.0 to 44.9 in adult Anxiety Anxiety state, unspecified Migraine without status migrainosus, not intractable, unspecified migraine type documented in this encounter Additional Health Concerns Assessment Noted Time PHQ-9 Depression Total Score: 0 07/20/19 23 2:37 PM EDT documented as of this encounter Care Teams Beef Grinder Relationship Specialty Start Date End Date Becki Posadas MD [address] [place] [address] PCP - General Family Medicine 08/30/20 11/10/23 Jennie Deleon NP [address] [place] [address] PCP - General Family Medicine 11/11/23 11/11/23 Jennie Deleon NP [address] [place] [address] PCP - General Family Medicine 11/12/23 documented as of this encounter
--- OUTSIDE RECORDS SUMMARY | 2024-11-30 15:15 | XMS_ITS | Encounter Summary ---
Author Organization [employer] Address [address] [facility] 7 [place] [address] Care Team Providers Care Health Information Systems Technician Name Role Phone DanitzaJennie govea NIKOLAS Primary Care Provider [phone] Reason for Visit * Reason Onset Date Comments Med Refill 11/28/2023 Encounter Details Date Type Department Care Team (Late st Contact Info) Description 11/28/2023 Refill [facility] [address] [place], [place] [phone] Becki Posadas MD [address] [place], [place] [phone] Chronic hypertension; Class 3 severe obesity due to excess calories with serious comorbidity and body mass index (BMI) of 40.0 to 44.9 in adult (CMS/HCC); Vitamin D deficiency; Chronic bilateral low back pain, unspecified whether sciatica present; Anxiety; Migraine without aura, not refractory; Migraine without aura and with status migrainosus, not intractable Social History Tobacco Use Types Packs/Day Years Used Date Smoking Tobacco: Never Passive Smoke Exposure: Never Smokeless Tobacco: Never Alcohol Use Standard Drinks/Week Comments Not Currently 0 (1 standard drink = 0.6 oz pur e alcohol) Depression Answer Date Recorded Patient Health Questionnaire-9 Score 0 11/13/2023 Patient Health Questionnaire-9 Score 0 11/13/2023 Last PHQ-9: Questionnaire Data Not on file 0 11/13/2023 Housing Stability Answer Date Recorded What is your housing situation today? I have kemar sing 11/12/[address] you li ve. Do you have problems with any of the following? None of the above 11/12/2023 Food Insecurity Answer Date Recorded Within the past 12 months, y ou worried that your food would run out before you got money to buy more: Never True 11/12/2023 Within the past 12 months,th e food you bought just didn't last and you didn't have enough money to get more: Never True 09/2023 Transportation Answer Date Recorded In the past 12 months, has l ack of transportation kept you from medical appts, meetings, work or from getting things needed for daily living? No 11/12/2023 Utilities Answer Date Recorded In the past 12 months, has t he electric, gas, oil or water company threatened to shut off services in your home? No 11/12/2023 Depression Answer Date Recorded Patient Health Questionnaire-2 Score 0 11/13/2023 Comments No Sex and Gender Information Value Date Recorded Sex Assigned at Female 02/05/2022 10:17 AM EDT Legal Sex Female 10:17 AM EDT Gender Identity Female 02/05/2022 10:17 AM EDT Sexual Orientation Straight 02/05/2022 10 :17 AM EDT documented as of this encounter Miscellaneous Notes * Telephone Encounter - Jennie Deleon NP - 12/16/2023 10:07 AM EDT She needs visit as she is now taking daily htanks documented in this encounter Plan of Treatment Upcoming Encounters Date Type Department Care Team (Late st Contact Info) Description 12/16/2024 3:00 PM EDT Office Visit [facility] [address] [place] [address] Patti Conklin, BISMARK [address] [place] [address] 12/28/2024 4:00 PM EDT Office Visit [facility] [address] [place] [address] Jennie Deleon NP [address] [place] [address] documented as of this encounter Visit Diagnoses Diagnosis Chronic hypertension Class 3 severe obesity due to excess calories with serious comorbidity and body mass index (BMI) of 40.0 to 44.9 in adult Vitamin D deficiency Chronic bilateral low back pain, unspecified whether sciatica present Anxiety Anxiety state, unspecified Migraine without aura, not refractory Migraine without aura and with status migrainosus, not intractable documented in this encounter Additional Health Concerns Assessment Noted Time PHQ-9 Depression Total Score: 0 11/13/19 24 3:31 PM EDT documented as of this encounter Care Teams Health Information Systems Technician Relationship Specialty Start Date End Date Jennie Deleon NP [address] [place] [address] PCP - General Family Medicine 11/12/23 documented as of this encounter
--- OUTSIDE RECORDS SUMMARY | 2024-11-30 15:15 | XMS_ITS | Encounter Summary ---
Author Organization [employer] Address [address] [place] [address] 7 [place] [address] Care Team Providers Care Private Branch Exchange Service Adviser Name Role Phone Becki Posadas MD Primary Care Provide r Jennie Deleon NP Primary Care Provider [phone] Jennie Deleon NP Primary Care Provider Reason for Visit * Reason Onset Date Comments FYI 11/21/2022 Encounter Details Date Type Department Care Team (Late st Contact Info) Description 11/21/2022 Telephone [facility] [address] [place], [place] [phone] Becki Posadas MD 230 [place], [place] [phone] Social History Tobacco Use Types Packs/Day Years [...] encounter Miscellaneous Notes * Telephone Encounter - Wilma Christie LPN - 11/26/2022 9:41 AM EDT Patient called to report that she is on a waitlist for the neurologist and did not get an appt. Shewas going to address with PCP, see if she could get a referral to another location. informed her that her paperwork just put referral to neurology w/o dates * Telephone Encounter - Gretta Brito - 11/21/2022 10:04 AM EDT Tc from pt calling to inform she will be bring in FMLA paper work to medical records today . Any questions may contact pt . documented in this encounter Plan of Treatment Upcoming Encounters Date Type Department Care Team (Late st Contact Info) Description 12/16/2024 3:00 PM EDT Office Visit [facility] [address] [place] [address] Rubin, Patti, OD 230 [place] [address] 12/28/2024 4:00 PM EDT Office Visit [facility] [address] [place] [address] Jennie Deleon NP 230 [place] [address] documented as of this encounter Visit Diagnoses Not on filedocumented in this encounter Additional Health Concerns Assessment Noted Time PHQ-9 Depression Total Score: 0 07/20/19 23 2:37 PM EDT documented as of this encounter Care Teams Private Branch Exchange Service Adviser Relationship Specialty Start Date End Date Becki Posadas MD 230 [place] [address] PCP - General Family Medicine 08/30/20 11/10/23 Jennie Deleon NP [address] [place] [address] PCP - General Family Medicine 11/11/23 11/11/23 Jennie Deleon NP [address] [place] [address] PCP - General Family Medicine 11/12/23 documented as of this encounter
--- OUTSIDE RECORDS SUMMARY | 2024-11-30 15:15 | XMS_ITS | Encounter Summary ---
Author Organization [employer] Address [address] [facility] 7 [place] [address] Care Team Providers Care Java Solutions Architect Name Role Phone Becki Posadas MD Primary Care Provide r Jennie Deleon NP Primary Care Provider [phone] Jennie Deleon NP Primary Care Provider Encounter Details Date Type Department Care Team (Late st Contact Info) Description 03/13/2023 Orders Only [facility] 230 [place], [place] [phone] Susan Lopes MD [address] [place], [place] [phone] Social History Tobacco Use Types Packs/Day Years [...] Description 12/16/2024 3:00 PM EDT Office Visit [facility] [address] [place] [address] Rubin, Patti, OD 230 [place] [address] 12/28/2024 4:00 PM EDT Office Visit [facility] [address] [place] [address] Jennie Deleon NP 230 [place] [address] documented as of this encounter Visit Diagnoses Not on filedocumented in this encounter Additional Health Concerns Assessment Noted Time PHQ-9 Depression Total Score: 0 07/20/19 23 2:37 PM EDT documented as of this encounter Care Teams Java Solutions Architect Relationship Specialty Start Date End Date Becki Posadas MD [address] [place] [address] PCP - General Family Medicine 08/30/20 11/10/23 Jennie Deleon NP [address] [place] [address] PCP - General Family Medicine 11/11/23 11/11/23 Jennie Deleon NP 230 [place] [address] PCP - General Family Medicine 11/12/23 documented as of this encounter
--- OUTSIDE RECORDS SUMMARY | 2024-11-30 15:15 | XMS_ITS | Encounter Summary ---
Author Organization [employer] Address [address] [place] [address] 7 [place] [address] Care Team Providers Care Laundry Or Dry Cleaners Counter Clerk Name Role Phone Becki Posadas MD Primary Care Provide r Jennie Deleon NP Primary Care Provider [phone] Jennie Deleon NP Primary Care Provider [phone] Reason for Visit * Reason Comments Med Refill Encounter Details Date Type Department Care Team (Late st Contact Info) Description 10/21/2022 Refill [facility] 230 [place], [place] [phone] Qian Jacques MD 230 [place], [place] [phone] Migraine without aura, not refractory Social History [...] Recorded In the last 10 days, have yo u been in contact with someone who was confirmed or suspected to have Coronavirus/COVID-19? No / Unsure 09/26/2022 9:40 AM EDT documented as of this encounter Plan of Treatment Upcoming Encounters Date Type Department Care Team (Late st Contact Info) Description 12/16/2024 3:00 PM EDT Office Visit [facility] [address] [place] [address] Rubin, Patti, OD 230 [place] [address] 12/28/2024 4:00 PM EDT Office Visit [facility] [address] [place] [address] Jennie Deleon NP 230 [place] [address] documented as of this encounter Visit Diagnoses Diagnosis Migraine without aura, not refractory documented in this encounter Additional Health Concerns Assessment Noted Time PHQ-9 Depression Total Score: 0 07/20/19 23 2:37 PM EDT documented as of this encounter Care Teams Laundry Or Dry Cleaners Counter Clerk Relationship Specialty Start Date End Date Becki Posadas MD [address] [place] [address] PCP - General Family Medicine 08/30/20 11/10/23 Jennie Deleon NP 230 [place] [address] PCP - General Family Medicine 11/11/23 11/11/23 Jennie Deleon NP [address] [place] [address] PCP - General Family Medicine 11/12/23 documented as of this encounter
--- OUTSIDE RECORDS SUMMARY | 2024-11-30 15:15 | XMS_ITS | Encounter Summary ---
Author Organization [employer] Address [address] [facility] 7 [place] [address] Care Team Providers Care Commercial Collections Driver Name Role Phone Becki Posadas MD Primary Care Provide r Jennie Deleon NP Primary Care Provider [phone] Jennie Deleon NP Primary Care Provider Reason for Visit * Reason Onset Date Comments Med Refill 04/04/2023 Encounter Details Date Type Department Care Team (Late st Contact Info) Description 04/04/2023 Refill [facility] 230 [place], [place] [phone] Susan Lopes MD 230 [place], [place] [phone] Social History Tobacco Use Types Packs/Day Years [...] Description 12/16/2024 3:00 PM EDT Office Visit [facility] OPT[facility] [address] [place] [address] Rubin, Patti, OD 230 [place] [address] 12/28/2024 4:00 PM EDT Office Visit [facility] [address] [place] [address] Jennie Deleon NP [address] [place] [address] documented as of this encounter Visit Diagnoses Not on filedocumented in this encounter Additional Health Concerns Assessment Noted Time PHQ-9 Depression Total Score: 0 07/20/19 23 2:37 PM EDT documented as of this encounter Care Teams Commercial Collections Driver Relationship Specialty Start Date End Date Becki Posadas MD 230 [place] [address] PCP - General Family Medicine 08/30/20 11/10/23 Jennie Deleon NP [address] [place] [address] PCP - General Family Medicine 11/11/23 11/11/23 Jennie Deleon NP [address] [place] [address] PCP - General Family Medicine 11/12/23 documented as of this encounter
--- OUTSIDE RECORDS SUMMARY | 2024-11-30 15:15 | XMS_ITS | Encounter Summary ---
Author Organization [employer] Address 75 [facility] 7 [place] [address] Care Team Providers Care Test Facility Engineer Name Role Phone Becki Posadas MD Primary Care Provide r Jennie Deleon NP Primary Care Provider [phone] Jennie Deleon NP Primary Care Provider [phone] Reason for Visit * Reason Onset Date Comments Med Refill 10/20/2023 Encounter Details Date Type Department Care Team (Late st Contact Info) Description 10/20/2023 Refill [facility] 230 [place], [place] [phone] Susan Lopes MD 230 [place], [place] [phone] Social History Tobacco Use Types Packs/Day Years [...] encounter Miscellaneous Notes * Telephone Encounter - Ariadne Baker RN - 10/21/2023 12:14 PM EDT Images from the original note were not included. Triage call regarding Pt portal message below. Pt reports blood in stool for last 2-3 months. Pt reports no blood coloring the toilet bowl water , the blood is only mixed into the stool. Pt reports it is dk red color, and clots about size of dime. Pt does have problem with constipation but, even ifnot straining for stool blood will be mixed into the stool. Pt denies pain, nausea, abdominal discomfort. Pt is taking miralax daily, advised to increase liquids to 6-8 glasses of liquid daily, freshfruit, vegetables and increase fiber . Pt reports is implementing this advice already. ASK apt withDr. Alfaro 10/23/23 @ 1130am. Pt agrees with disposition. Insurance is verified as active prior to booking. Protocol Used: Rectal Bleeding (Adult) Protocol-Based Disposition: See in Office or Video Visit within 3 Days Video visit not offered Positive Triage Question: * Mild rectal bleeding (more than just a few drops or streaks) * All higher-acuity triage questions were negative Care Advice Discussed: * Reassurance and Education - Mild Rectal Bleeding * To Soften Stools and Treat Constipation * High Fiber Diet * Reasons To Call Back - Bleeding increases in amount - Bleeding occurs 3 or more times after using Care Advice - You become worse mark [facility] Clinical Support (supporting Becki Kennedy MD)14 hours ago (10:08 PM) TR Would like to speak or make an appointment with a provider in regards of a health concern. For the past several months I have been having blood in my stools and I believe there also has been clots inthe form of a capsule. I believe is some sort of blood clot because it is round and when this is popped theirs is blood inside and has a smell like old blood. And this is becoming concerning because the blood is not coming from my hemorrhoids. Thank you documented in this encounter Plan of Treatment Upcoming Encounters Date Type Department Care Team (Late st Contact Info) Description 12/16/2024 3:00 PM EDT Office Visit [facility] OPT[facility] [address] [place] [address] RubinPatti ramirez, OD 230 [place] [address] 12/28/2024 4:00 PM EDT Office Visit [facility] MEDICINE [address] [place] [address] Jennie Deleon NP 230 [place] [address] documented as of this encounter Visit Diagnoses Not on filedocumented in this encounter Additional Health Concerns Assessment Noted Time PHQ-9 Depression Total Score: 0 07/20/19 23 2:37 PM EDT documented as of this encounter Care Teams Test Facility Engineer Relationship Specialty Start Date End Date Becki Posadas MD [address] [place] [address] PCP - General Family Medicine 08/30/20 11/10/23 Jennie Deleon NP [address] [place] [address] PCP - General Family Medicine 11/11/23 11/11/23 Jennie Deleon NP 230 [facility] [place] [address] PCP - General Family Medicine 11/12/23 documented as of this encounter
--- OUTSIDE RECORDS SUMMARY | 2024-11-30 15:15 | XMS_ITS | Encounter Summary ---
Author Organization [employer] Address [address] [facility] 7 [place] [address] Care Team Providers Care Pressure Dispatcher Name Role Phone Becki Posadas MD Primary Care Provide r Jennie Deleon NP Primary Care Provider [phone] Jennie Deleon NP Primary Care Provider [phone] Reason for Visit * Reason Onset Date Comments Med Refill 10/20/2023 Encounter Details Date Type Department Care Team (Late st Contact Info) Description 10/20/2023 Refill [facility] [address] [place] [phone] Olegario Marquis MD 230 [place], [place] [phone] Migraine without status migrainosus, not intractable, unspecified [...] the past 12 months, has t he [employer] gas, oil or water company threatened to [...] Description 12/16/2024 3:00 PM EDT Office Visit [facility] [address] [place], [place] [phone] Patti Conklin, OD [address] [place] [address] 12/28/2024 4:00 PM EDT Office Visit [facility] [address] [place] [address] Jennie Deleon NP [address] [place] [address] documented as of this encounter Visit Diagnoses Diagnosis Migraine without status migrainosus, not intractable, unspecified migraine type documented in this encounter Additional Health Concerns Assessment Noted Time PHQ-9 Depression Total Score: 0 07/20/19 23 2:37 PM EDT documented as of this encounter Care Teams Pressure Dispatcher Relationship Specialty Start Date End Date Becki Posadas MD 230 [place] [address] PCP - General Family Medicine 08/30/20 11/10/23 Jennie Deleon NP [address] [place] [address] PCP - General Family Medicine 11/11/23 11/11/23 Jennie Deleon NP [address] [place] [address] PCP - General Family Medicine 11/12/23 documented as of this encounter
--- OUTSIDE RECORDS SUMMARY | 2024-11-30 15:15 | XMS_ITS | Encounter Summary ---
Author Organization [employer] Address [address] [facility] 7 [place] [address] Care Team Providers Care Hand Tennis Ball Coverer Name Role Phone Becki Posadas MD Primary Care Provide r Jennie Deleon NP Primary Care Provider [phone] Jennie Deleon NP Primary Care Provider [phone] Reason for Visit * Reason Comments Med Refill Encounter Details Date Type Department Care Team (Late st Contact Info) Description 03/13/2023 Refill [facility] 230 [place], [place] [phone] Becki Posadas MD 230 [place], [place] [phone] Social History Tobacco Use Types Packs/Day Years Used Date Smoking Tobacco: Never Smokeless Tobacco: Never Alcohol Use Standard Drinks/Week Comments Not Currently 0 (1 standard drink = 0.6 oz pur e alcohol) Depression Answer Date Recorded Patient Health Questionnaire-9 Score 0 07/19/2022 Housing Stability Answer Date Recorded What is your housing situation today? I have kemarsusi mata 01/25/[address] you [...] encounter Miscellaneous Notes * Telephone Encounter - Susan Lopes MD - 03/13/2023 12:22 PM EST No need for large dose Vit D, last Vit D was normal. She can take daily supplementation recommendedfor all adults 1000 international uits, and I sent the script for that documented in this encounter Plan of Treatment Upcoming Encounters Date Type Department Care Team (Late st Contact Info) Description 12/16/2024 3:00 PM EDT Office Visit [facility] [address] [place] [address] Rubin, Patti, OD 230 [place] [address] 12/28/2024 4:00 PM EDT Office Visit [facility] [address] [place] [address] Jennie Deleon NP 230 [place] [address] documented as of this encounter Visit Diagnoses Not on filedocumented in this encounter Additional Health Concerns Assessment Noted Time PHQ-9 Depression Total Score: 0 07/20/19 2:37 PM EDT documented as of this encounter Care Teams Hand Tennis Ball Coverer Relationship Specialty Start Date End Date Becki Posadas MD [address] [place] [address] PCP - General Family Medicine 08/30/20 11/10/23 Jennie Deleon NP [address] [place] [address] PCP - General Family Medicine 11/11/23 11/11/23 Jennie Deleon NP [address] [place] [address] PCP - General Family Medicine 11/12/23 documented as of this encounter
--- OUTSIDE RECORDS SUMMARY | 2024-11-30 15:15 | XMS_ITS | Encounter Summary ---
Author Organization [employer] Address [address] [place] [address] 7 [place] [address] Care Team Providers Care Field Party Manager Name Role Phone Becki Posadas MD Primary Care Provide r Jennie Deleon NP Primary Care Provider [phone] Jennie Deleon NP Primary Care Provider [phone] Reason for Visit * Reason Onset Date Comments ER Follow-up 12/17/2022 Encounter Details Date Type Department Care Team (Late st Contact Info) Description 12/17/2022 Telephone [facility] MEDICINE 230 [place], [place] [phone] Becki Posadas MD 230 [place], [place] [phone] ER Follow-up Social History Tobacco Use Types Packs/Day Years [...] encounter Miscellaneous Notes * Telephone Encounter - Lakshmi Booth RN - 12/17/2022 4:18 PM EDT Call to Nadia Montenegro, no answer, LVM to return call to [facility] triage. LVM with [facility] operating hours.Per ER report seen at [facility] ED on 12/16 due to back pain /lightheadedness following cortisone injection at [facility] Pain management. Pt advised to follow up with pain management and PCP. No meds started. * Telephone Encounter - Tracy Palafox - 12/17/2022 2:52 PM EDT Patient calling to report ED visit on 12/16/22 at [facility]. Seen for back pain, (cortisone injection sideaffects) nausea, dizziness and light headed. Patient advised will forward to team nurse for follow up. Symptom: Back Pain - Not From Injury Outcome: Schedule an appointment to be seen within 3 days Reason: Caller denied all higher acuity questions The caller accepted this outcome Patient states pain in severe. documented in this encounter Plan of Treatment Upcoming Encounters Date Type Department Care Team (Late st Contact Info) Description 12/16/2024 3:00 PM EDT Office Visit [facility] OPT[facility] [address] [place] [address] Patti Conklin, OD [address] [place] [address] 12/28/2024 4:00 PM EDT Office Visit [facility] MEDICINE 230 [place] [address] Jennie Deleon NP [address] [place] [address] documented as of this encounter Visit Diagnoses Not on filedocumented in this encounter Additional Health Concerns Assessment Noted Time PHQ-9 Depression Total Score: 0 04/13/20 23 2:37 PM EDT documented as of this encounter Care Teams Field Party Manager Relationship Specialty Start Date End Date Becki Posadas MD [address] [place] [address] PCP - General Family Medicine 08/30/20 11/10/23 Jennie Deleon NP [address] [place] [address] PCP - General Family Medicine 11/11/23 11/11/23 Jennie Deleon NP [address] [place] [address] PCP - General Family Medicine 11/12/23 documented as of this encounter
--- OUTSIDE RECORDS SUMMARY | 2024-11-30 15:16 | XMS_ITS | Encounter Summary ---
Author Organization [employer] Address [address] [facility] 7t [place] [address] Care Team Providers Care Proof Inspector Name Role Phone Jennie Deleon NP Primary Care Provider [phone] Encounter Details Date Type Department Care Team (Late st Contact Info) Description 05/17/2024 Orders Only [facility] MED[facility]INE [address] [place] [address] Provider, MD Toñito Social History Tobacco Use Types Packs/Day Years [...] housing situation today? I have kemar mata 11/12/[address] you li [...] Recorded Patient Health Questionnaire-2 Score 0 11/13/2023 Internet Access Answer Date Recorded Internet Access Q1 No 12/09/2023 Internet Access Q2 I do not want or need it 05/2023 Comments Yes Sex and Gender Information Value Date Recorded Sex Assigned at Female 02/05/2022 10:17 AM EDT Legal Sex Female 10:17 AM EDT Gender Identity Female 02/05/2022 10:17 AM EDT Sexual Orientation Straight 02/05/2022 10 :17 AM EDT documented as of this encounter Plan of Treatment Upcoming Encounters Date Type Department Care Team (Late st Contact Info) Description 12/16/2024 3:00 PM EDT Office Visit [facility] OPTOMET[facility] [address] [place] [address] Patti Conklin, OD [address] [place] [address] 12/28/2024 4:00 PM EDT Office Visit [facility] MEDICINE [address] [place] [address] Jennie Deleon, NIKOLAS [address] [place] [address] documented as of this encounter Procedures Procedure Name Priority Date/Time Associated Diagnosis Comments HM PAP/HPV Routine 03/11/2024 7:23 PM EST documented in this encounter Results * HM PAP/HPV (03/11/2024 7:23 PM EST) us Historical Provider HEALTH MAINTENANCE Final Result documented in this encounter Visit Diagnoses Not on filedocumented in this encounter Additional Health Concerns Assessment Noted Time PHQ-9 Depression Total Score: 0 11/13/19 24 3:31 PM EDT documented as of this encounter Care Teams Proof Inspector Relationship Specialty Start Date End Date Jennie Deleon NP [address] [place] [address] PCP - General Family Medicine 11/12/23 documented as of this encounter
--- OUTSIDE RECORDS SUMMARY | 2024-11-30 15:16 | XMS_ITS | Patient Health Record ---
Author Organization [employer] Address [address] [place] [address] Care Team Providers Care Helpdesk Analyst Name Role Phone BONILLA ZHOU Unavailable [phone] Allergies Allergen (clinical drug ingredient) Drug/Non Drug Allergy documented on EMR Reaction Allergy Type Onset Date Status minocycline Minocycline HCl Unknown Drug Allergy Active Reason For Referral No Information Medications Medication SIG (Take, Route, Fr equency, Duration) Notes Start Date End Date Status Saxenda 18 MG/3ML 3 mg Subcutaneous da tamar; Duration: 30 days 02/22/2022 Active Fish Oil Active Vitamin D Active Amitriptyline HCl 25 MG 1 tablet at bedt [place] Orally Once a day Active Multivitamin Active Social History Tobacco Use: Social History Observation Description Date Details (start date - stop date) Never Smoker NA - NA Tobacco Use/Smoking Question Answer Notes Are you a nonsmoker 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 Problems Problem Type SNOMED Code ICD Code Onset Dates Problem Status W/U Status Risk Notes Problem Obesity (226054851) Other obesity (E66.8) Active confirmed Problem Vitamin D deficiency (94916292) Vitamin D deficiency (E55.9) Active confirmed Problem Refractory migraine (385645327) Intractable migraine without status migrainosus, unspecified migraine type (G43.919) Active confirmed Problem Body mass index (BMI) of 40.1 to 44.9 in adult (Z68.41) Active confirmed Plan Of Treatment No Information Insurance Providers Payer Name Payer Address Payer Phone Subscriber Number Group Number Insured Name Patient Relationship to Insured Coverage Start Date Coverage End Date [facility] [address] [place] [address] [phone] [id number] Nadia Guadarrama Self - patient is the insured Medications Administered Medication Instructions Date of Administration Dosage Notes MICC B12 INJECTION 01/29/2022 1 mL Lot #: [id number] MICC B12 INJECTION 02/22/2022 1 mL Lot # [id number] Medical (General) History Medical History History ICD Code migraines pseudo-tumor 2011 history of HTN prior to , not t reated seasonal allergies
--- OUTSIDE RECORDS SUMMARY | 2024-11-30 15:16 | XMS_ITS | Encounter Summary ---
Author Organization [employer] Address [address] [facility] 7[address] [place] [address] Care Team Providers Care Cooler Service Supervisor Name Role Phone Adrienne Jennie NIKOLAS Primary Care Provider [phone] Encounter Details Date Type Department Care Team (Latest Contact Info) Description 11/27/2024 Travel Social History Tobacco Use Types Packs/Day Years [...] your housing situation today? I have kemar adolfo 11/27/[address] you li [...] AM EDT documented as of this encounter Functional Status * Over the [...] 4:36 PM EDT Jeb Self MA * Moving or speaking [...] 4:36 PM EDT Jeb Self MA * Patient Health Questionnaire-9 Score Answer Date of Assessment Author 10 11/27/2024 4:36 PM EDT Jeb Self MA * How difficult have [...] to sit still 1 11/27/2024 4:36 PM ANDRAT Jeb Self MA Becoming easily annoyed or irritable 3 11/27/2024 4:36 PM EDT Jeb Self MA Feeling afraid as if somethi ng awful might happen 0 11/27/2024 4:36 PM EDT Jeb Self MA MARTINA-7 Total Score 15 11/27/2024 4:36 PM EDT Jeb Self MA documented as of this encounter Plan of Treatment Upcoming Encounters Date Type Department Care Team (Late st Contact Info) Description 12/16/2024 3:00 PM EDT Office Visit [facility] OPTOMETRY [address] [place] [address] Patti Conklin, OD [address] [place] [address] 12/28/2024 4:00 PM EDT Office Visit [facility] MEDICINE [address] [place] [address] Jennie Deleon NP [address] [place] [address] documented as of this encounter Visit Diagnoses Not on filedocumented in this encounter Additional Health Concerns Assessment Noted Time PHQ-9 Depression Total Score: 10 025 4:36 PM EDT documented as of this encounter Care Teams Cooler Service Supervisor Relationship Specialty Start Date End Date Jennie Deleon NP [address] [place] [address] PCP - General Family Medicine 11/12/23 documented as of this encounter
--- OUTSIDE RECORDS SUMMARY | 2024-11-30 15:16 | XMS_ITS | Clinical Summary ---
Author Organization [facility] Address [address] [facility] [address] [place] [phone] Phone Care Team Providers Care Chronic Condition Nurse Name Role Phone Becki Alexander MD Primary Care Provider Allergies Active Allergy Reactions Criticality Noted Date Comments Minocycline Other (See Comments) High 04/13/2014 Pseudotumor cerebri Medications albuterol 90 mcg/actuation inhaler inhale 2 puffs by mouth every 4 hours as needed for wheezing or shortness of breath Active butalbital-acetami nophen-caffeine (FIORICET) 50-300-40 mg per capsule Take 1 capsule by mouth every 6 (six) hours as needed. 06/14/19 23 Active ondansetron (ZOFRAN-ODT) 4 MG disintegrating tablet Take 1 tablet (4 mg total) by mouth every 8 (eight) hours as needed for nausea. 21 tablet 04/06/20 23 Active Additional Information Patient not taking.Reported on 05/27/2024 cholecalciferol (VITAMIN D3) 25 MCG (1,000 unit) tablet Take 1,000 Units by mouth every morning. Active lidocaine (LIDODERM) 5 % APPLY 1 PATCH TOPICALLY IN THE MORNING. REMOVE AND DISCARD WITHIN 12 HOURS OR as DIRECTED BY . 06/05/19 24 Active NIFEdipine (PROCARDIA XL) 90 MG 24 hr tablet TAKE 1 TABLET BY MOUTH EVERY MORNING. DO NOT BREAK, CRUSH, DISSOLVE OR CHEW Active phentermine 15 MG capsule TAKE 1 CAPSULE BY MOUTH BEFORE BREAKFAST 04/29/19 24 Active sertraline (ZOLOFT) 25 MG tablet Take 25 mg by mouth every morning. Active SUMAtriptan (IMITREX) 100 MG tablet TAKE 1 TABLET BY MOUTH ONCE DAILY NEEDED FOR MIGRAINE Active erythromycin (ROMYCIN) ophthalmic ointment Place 0.5 inches into the right eye every 6 (six) hours. 3.5 g 04/11/19 25 Active Additional Information Patient not taking.Reported on 05/27/2024 Active Problems No known active problems Immunizations Immunization Administration Dates Next Due COVID-19 (Pre-01/28) Moderna Vaccine, Bivalent 6mo+ 03/27/2022 COVID-19 (Pre) Moderna Vaccine, mRNA, PF 02/17/2021,04/28/2020,03/31/2020 Hepatitis B Adult 02/14/2018, 3,1991,1991,1991 INFLUENZA, SPLIT VIRUS, TRIVALENT PF 01/07/2024 Influenza Quadrivalent Prese rvative Free IM 02/02/2023 Influenza, Unspecified Formulation 12/21/2021 Tdap 06/26/2021 Social History Tobacco Use Types Packs/Day Years Used Date Smoking Tobacco: Never Passive Smoke Exposure: Never Smokeless Tobacco: Never Tobacco Cessation:Counseling Given: Not Answered Education Answer Date Recorded Are you interested in more education? Not on loc e 04/06/2023 Are you concerned about learning? Not on file 04/06/2023 No 04/06/2023 No 04/06/2023 Digital Access Answer Date Recorded No 04/06/2023 No 04/06/2023 Reliable internet access at home? Not on file 04/06/2023 Device with a working camera? Not on file Comments Unknown Sex and Gender Information Value Date Recorded Sex Assigned at Not on file Legal Sex Female 2:31 PM EDT Gender Identity Not on file Sexual Orientation Not on file Last Filed Vital Signs Vital Sign Reading Time Taken Comments Blood Pressure 136/81 05/27/2024 10:04 AM EST Pulse 78 05/27/2024 10:04 AM EST Temperature 36.8 C (98.2 F) 05/27/2024 10:04 AM EST Respiratory Rate 14 05/27/2024 10:04 AM EST Oxygen Saturation 97% 05/27/2024 10:04 AM EST Inhaled Oxygen Concentration - - Weight 104.3 kg (230 lb) 05/27/2024 10:04 AM EST Height 160 cm (5' 3 ) 05/27/2024 10:04 AM EST Body Mass Index 40.74 05/27/2024 10:04 AM EST Plan of Treatment Health Maintenance Due Date Last Done Comments DEPRESSION SCREENING 2003 HEPATITIS C SCREENING 2009 HIV ONE-TIME SCREENING (18-65 YEARS) 2009 PAP SMEAR 02/25/2012 COVID-19 VACCINE ( season) 2023 03/27/2022, 02/17/2021, 04/28/2020, Additional history exists INFLUENZA VACCINE (#1) 2024 , 02/02/2023, 12/21/2021 Adult Td,Tdap Booster 06/27/2031 06/26/2021, 016 MENINGOCOCCAL VACCINES (ACWY) Aged Out 06/18/2006 No longer eligible based on patient's age to complete this topic PNEUMOCOCCAL VACCINES (0-49 years) Aged Out 06/04/2010 No longer eligible based on patient's age to complete this topic SMOKING STATUS SCREENING (Once After 26 Yrs) Completed 05/27/2024 HEPATITIS A VACCINES Aged Out No long er eligible based on patient's age to complete this topic HIB VACCINES Aged Out No longer eligi ble based on patient's age to complete this topic MENINGOCOCCAL VACCINES (B) Aged Out N o longer eligible based on patient's age to complete this topic Medical Devices Not on file Insurance HEALTH SAFETY NET PARTIAL [employer] HE[employer] SAF[employer] NET PARTIAL Member Subscriber Plan / Payer (Ef fective 2023-Present) Name:Lan Nadia Relation to Subscriber:Self Name:Nadia Montenegro Payer ID:Not on file Group ID:Not on file Type:Medicaid Address: [address] [employer] S[employer] NET PARTIAL Member Subscriber Plan / Payer (Ef fective 2023-Present) Name:Nadia Montenegro Relation to Subscriber:Self Name:Nadia Montenegro Payer ID:Not on file Group ID:Not on file Type:Medicaid Address: [address] [employer] HE[employer] NET PARTIAL Member Subscriber Plan / Payer (Ef fective 2023-Present) Name:Nadia Montenegro Relation to Subscriber:Self Name:Nadia Montenegro Payer ID:Not on file Group ID:Not on file Type:Medicaid Address: [address] [employer] NET PARTIAL Member Subscriber Plan / Payer (Ef fective 2023-Present) Name:Nadia Montenegro Relation to Subscriber:Self Name:Nadia Montenegro Payer ID:Not on file Group ID:Not on file Type:Medicaid Address: [address] C3 [employer] [facility] SAFETY NET PARTIAL [facility] C3 ACO Care Teams Chronic Condition Nurse Relationship Specialty Start Date End Date Becki Alexander MD [address] [place] [id number] PCP - General Internal Medicine 04/06/23 Additional Source Comments The information contained in this document represents components of the legal health record. It is not the complete legal health record.[facility]
--- OUTSIDE RECORDS SUMMARY | 2024-11-30 15:16 | XMS_ITS | Encounter Summary ---
Author Organization [employer] Address [address] [facility] 7 [place] [address] Care Team Providers Care Choir Singer Name Role Phone Jennie Deleon NP Primary Care Provider [phone] Reason for Visit * Reason Onset Date Comments Med Refill 10/20/2024 Encounter Details Date Type Department Care Team (Late st Contact Info) Description 10/20/2024 Refill [facility] MEDICINE [address] [place], [place] [phone] Jennie Deleon NP [address] [place], [place] [phone] Social History Tobacco Use Types Packs/Day Years [...] Description 12/16/2024 3:00 PM EDT Office Visit [facility] OPTOMETRY [address] [place] [address] Rubin, Patti, OD [address] [place] [address] 12/28/2024 4:00 PM EDT Office Visit [facility] MEDICINE [address] [place] [address] Jennie Deleon NP [address] [place] [address] documented as of this encounter Visit Diagnoses Not on filedocumented in this encounter Additional Health Concerns Assessment Noted Time PHQ-9 Depression Total Score: 0 11/13/19 24 3:31 PM EDT documented as of this encounter Care Teams Choir Singer Relationship Specialty Start Date End Date Jennie Deleon NP [address] [place] [address] PCP - General Family Medicine 11/12/23 documented as of this encounter
--- OUTSIDE RECORDS SUMMARY | 2024-11-30 15:16 | XMS_ITS | Encounter Summary ---
Author Organization [employer] Address [address] [facility] 7 [place] [address] Care Team Providers Care Body Piercer Name Role Phone Jennie Deleon NP Primary Care Provider [phone] Reason for Visit * Reason Onset Date Comments Results 11/30/2024 Encounter Details Date Type Department Care Team ([facility] st Contact Info) Description 11/30/[address] [facility] MEDICINE [address] [place], [place] [phone] Jennie Deleon NP [address] [place] [address] Results Social History Tobacco Use Types Packs/Day Years [...] encounter Miscellaneous Notes * Telephone Encounter - Zahira Sutton MA - 11/30/2024 2:59 PM EDT Tc to pt per PCP to inform about normal ultrasound results. Pt understood. documented in this encounter Plan of Treatment Upcoming Encounters Date Type Department Care Team (Late st Contact Info) Description 12/16/2024 3:00 PM EDT Office Visit [facility] OPTOMETRY [address] [place] [address] Patti Conklin, OD [address] [place] [address] 12/28/2024 4:00 PM EDT Office Visit [facility] MEDICINE [address] [place] [address] Jennie Deleon NP [address] [place] [address] documented as of this encounter Visit Diagnoses Not on filedocumented in this encounter Additional Health Concerns Assessment Noted Time PHQ-9 Depression Total Score: 10 025 4:36 PM EDT documented as of this encounter Care Teams Body Piercer Relationship Specialty Start Date End Date Jennie Deleon NP [address] [place] [address] PCP - General Family Medicine 11/12/23 documented as of this encounter
--- OUTSIDE RECORDS SUMMARY | 2024-11-30 15:16 | XMS_ITS | Encounter Summary ---
Author Organization [employer] Address [address] [facility] [address] [place] [address] Care Team Providers Care Car Examiner Name Role Phone Adrienne Jennie NIKOLAS Primary Care Provider [phone] Encounter Details Date Type Department Care Team (Latest Contact Info) Description 11/30/2024 Travel Social History Tobacco Use Types Packs/Day [...] Description 12/16/2024 3:00 PM EDT Office Visit [facility] OPTOMETRY [address] [place] [address] Rubin, Patti, OD [address] [place] [address] 12/28/2024 4:00 PM EDT Office Visit [facility] MEDICINE [address] [place] [address] Jennie Deleon NP [address] [place] [address] documented as of this encounter Visit Diagnoses Not on filedocumented in this encounter Additional Health Concerns Assessment Noted Time PHQ-9 Depression Total Score: 10 025 4:36 PM EDT documented as of this encounter Care Teams Car Examiner Relationship Specialty Start Date End Date Jennie Deleon NP [address] [place] [address] PCP - General Family Medicine 11/12/23 documented as of this encounter
--- OUTSIDE RECORDS SUMMARY | 2024-11-30 15:16 | XMS_ITS | Encounter Summary ---
Author Organization [employer] Address [address] [facility] 7 [place] [address] Care Team Providers Care Cement Conveyor Operator Name Role Phone Jennie Deleon NP Primary Care Provider [phone] Reason for Visit * Reason Onset Date Comments Chart Prep 11/26/2024 Encounter Details Date Type Department Care Team ([facility] st Contact Info) Description 11/26/2024 Telephone [facility] MEDICINE [address] [place], [place] [phone] Jennie Deleon NP [address] [place] [address] Chart Prep Social History Tobacco Use Types Packs/Day Years [...] Access Q2 Not on file 11/27/2024 Comments Yes Sex and Gender Information Value Date Recorded Sex Assigned at Female 02/05/2022 10:17 AM EDT Legal Sex Female 10:17 AM EDT Gender Identity Female 02/05/2022 10:17 AM EDT Sexual Orientation Straight 02/05/2022 10 :17 AM EDT documented as of this encounter Miscellaneous Notes * Telephone Encounter - Zahira Sutton MA - 11/26/2024 3:24 PM EDT Chart Prep Labs: done from 09/29/24 Images: not applicable Referrals: not applicable Vaccines due: Covid Screenings: Hep C Overdue care gaps: SDOH, PHQ-9, MARTINA-7, Oral health screening, and Tobacco documented in this encounter Plan of Treatment Upcoming Encounters Date Type Department Care Team (Late st Contact Info) Description 12/16/2024 3:00 PM EDT Office Visit [facility] OPTOMETRY [address] [place] [address] Rubin, Patti, OD [address] [place] [address] 12/28/2024 4:00 PM EDT Office Visit [facility] MEDICINE [address] [place] [address] Jennie Deleon NP [address] [place] [address] documented as of this encounter Visit Diagnoses Not on filedocumented in this encounter Additional Health Concerns Assessment Noted Time PHQ-9 Depression Total Score: 0 11/13/19 3:31 PM EDT documented as of this encounter Care Teams Cement Conveyor Operator Relationship Specialty Start Date End Date Jennie Deleon NP [address] [place] [address] PCP - General Family Medicine 11/12/23 documented as of this encounter
--- OUTSIDE RECORDS SUMMARY | 2024-11-30 15:16 | XMS_ITS | Encounter Summary ---
Author Organization [employer] Address [address] [facility] [address] [place] [address] Care Team Providers Care Scrap Burner Name Role Phone DanitzaJennie govea NIKOLAS Primary Care Provider [phone] Encounter Details Date Type Department Care Team ([facility] st Contact Info) Description 05/27/2024 Orders Only [facility] MEDICINE [address] [place] [address] Becki Posadas MD [address] [place], [place] [phone] Social History Tobacco Use Types Packs/Day Years [...] Description 12/16/2024 3:00 PM EDT Office Visit [facility] OPTOMETRY [address] [place] [address] Rubin, Patti, OD [address] [place] [address] 12/28/2024 4:00 PM EDT Office Visit [facility] MEDICINE [address] [place] [address] Jennie Deleon NP [address] [place] [address] documented as of this encounter Visit Diagnoses Not on filedocumented in this encounter Additional Health Concerns Assessment Noted Time PHQ-9 Depression Total Score: 0 11/13/19 24 3:31 PM EDT documented as of this encounter Care Teams Scrap Burner Relationship Specialty Start Date End Date Jennie Deleon NP [address] [place] [address] PCP - General Family Medicine 11/12/23 documented as of this encounter
--- OUTSIDE RECORDS SUMMARY | 2024-11-30 15:16 | XMS_ITS | Clinical Summary ---
Author Organization [employer] Address [address] [facility] [address] [place] [address] Care Team Providers Care Cannon Crewmember Name Role Phone Jennie Deleon NP Primary Care Provider [phone] Allergies Active Allergy Reactions Criticality Noted Date Comments Minocycline Other High 02/22/2016 Pseudotumor cerebri Medications pyridoxine (Vitamin B-6) 25 MG tablet take one every 6 hrs as needed 12/23/19 22 Active albuterol 108 (90 Base) MCG/ACT inhaler Inhale 2 puffs every 4 (four) hours if needed for wheezing or shortness of breath. 18 g 1 09/27/19 23 Active Blood Pressure Monitoring (Blood Pressure Cuff) misc 1 kit if needed each day (headache, bp monitoring). 1 each 1 01/15/20 24 Active multivitamin () 27-0.8 MG tabletIndicatio ns:8 weeks gestation of Take 1 tablet by mouth Once per day. 90 tablet 3 01/15/20 24 025 Active NIFEdipine XL (Procardia XL) 30 MG 24 hr tablet Take by mouth Once per day. Do not crush, chew, or split. Active cholecalciferol (Vitamin D-3) 25 MCG (1000 UT) tabletIndicatio ns:Vitamin D deficiency Take 1 tablet (25 mcg) by mouth Once per day. 90 tablet 10/22/19 25 Active rizatriptan (Maxalt) 10 MG tablet TAKE 1 TABLET BY MOUTH 1 TIME NEEDED FOR MIGRAINE. MAY REPEAT IN 2 HOURS IF UNRESOLVED. DO NOT EXCEED 30 MG IN 24 HOURS. 9 tablet 11/25/19 25 Active venlafaxine XR (Effexor XR) 37.5 MG 24 hr capsuleIndicati ons:MARTINA (generalized anxiety disorder) Take 1 capsule (37.5 mg) by mouth Once per day for 7 days, THEN 2 capsules (75 mg) Once per day for 23 days. Do not crush or chew. 30 capsule 11/28/19 25 025 Active traZODone (Desyrel) 50 MG tablet Take 1 tablet (50 mg) by mouth if needed at bedtime for sleep. 30 tablet 11/28/19 25 025 Active butalbital-acet aminophen-caffe ine (Fioricet) 50-300-40 MG capsuleIndicati ons:Migraine without status migrainosus, not intractable, unspecified migraine type Take 1 capsule by mouth every 6 (six) hours if needed for headaches. 30 capsule 3 06/14/19 23 025 Discontinued(Th erapy completed) rizatriptan (Maxalt) 10 MG tablet Take 1 tablet (10 mg) by mouth 1 (one) time if needed for migraine. May repeat in 2 hours if unresolved. Do not exceed 30 mg in 24 hours. 9 tablet 10/22/19 25 025 Discontinued(Re order (will not trigger notification to Pharmacy)) Active Problems Problem Noted Date Diagnosed Date Encounter for IUD insertion 11/30/2024 MARTINA (generalized anxiety disorder) 11/27/2024 Assessment & Plan (11/27/2024 6:34 PM EDT): Meds reviewed, and discussed iwht pt, at this time initiate effexor which pt recalls was helpful Prn trazodone for sleep Encounter for other contraceptive management Assessment & Plan (11/27/2024 6:36 PM EDT): Counseled regarding options pt would like mirena reinserted as soon as possible Elevated parathyroid hormone 09/30/2024 8 weeks gestation of 01/15/2024 Assessment & Plan (02/01/2024 12:10 PM EDT): Hx of htn during , bp cuff prescribed vitamin sent Peripheral neuropathy 01/14/2024 Sacroiliac joint dysfunction of both sides 01/13 Facet arthropathy, lumbosacral 01/14/2024 Obesity 01/14/2024 Assessment & Plan (02/01/2024 12:09 PM EDT): Pt motivated to continue activity during Acute vaginitis 11/13/2023 Assessment & Plan (03/10/2024 11:34 AM EST): Hx consistent with vaginal pato Pt is , reviewed up to date Topical vaginal clotrimazole 1% rx sent, Complete therapy as prescribed, Pt will call if symptoms do not improve or return or if pt develops abdominal pain, odor or vaginal bleeding Pt will consider changing detergent as symptoms coincide with a new laundry detergent Assessment & Plan (11/13/2023 4:11 PM EDT): Ro candidiasis. Rx Fluconazole, patient states she had a NEG tests this week, she's aware that Fluconazole can not be taken if . Her chance orf early is low due to LMP date. Re consult to [facility] if sxs do not improve within 5-7d, will need vaginal swab. She agrees with POC. 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 Patient information provided Rash and wound almost resolve I will continue to monitor Chronic fatigue 02/11/2023 Vertigo 01/01/2023 Anxiety 07/19/2022 Assessment & Plan (07/19/2022 4:12 PM EDT): Patient declines for now N referral I will start her on sertraline 25mg daily and hydroxyzine 25mg PRN History of pre-eclampsia 04/11/2022 History of COVID-19 03/12/2022 Class 3 severe obesity due t o excess calories with serious comorbidity and body mass index (BMI) of 40.0 to 44.9 in adult 03/12/2022 Assessment & Plan (07/19/2022 4:11 PM EDT): Today extensive discussion was done about life style modifications I advise healthy diet (low calorie) and cardiovascular exercise Syncope 03/12/2022 Disorder of intervertebral disc of lumbar spine 03/12/2022 Assessment & Plan (11/12/2023 12:32 PM EDT): Chronic back pain, has tried both non pharmacolgic and medication interventions, work flares pain as pt is on feet , no hx of OUD , will trial prn tramadol for severe pain, side effects reviewed Assessment & Plan (02/22/2023 10:47 AM EST): Discussed upcoming procedure. Pt has good but temporary response to injections in the past. Discussed she is good candidate for procedure and she will continue her multimodal approach to pain management. Constipation 03/12/2022 Candidiasis of vagina 03/06/2022 Chronic low back pain 03/06/2022 Assessment & Plan (01/21/2024 11:11 AM EDT): Continue with sparing usage of tramadol prn for chronic back pain Assessment & Plan (08/07/2023 1:14 PM EDT): I will prescribe this time for patient 1 week of oxycodone 5mg Q 8hrs, I explain to patient again I do not believe opioids is the answer for treatment for chronic pain, I refer patient to a physiatry office that she requested HTN (hypertension) 03/06/2022 Assessment & Plan (11/12/2023 12:30 PM EDT): Recent medication adjustments from nephrology, slightly above goal today, monitor Assessment & Plan (08/07/2023 1:12 PM EDT): Uncontrolled I will add today hydrochlorothiazide 12.5mg daily, I advise: - Aerobic exercise to reduce BP. Initial goal of 30 min walk 3-5x/week. Increase as tolerated. - low-sodium diet (goal: <2g/day) and heart healthy diet such as DASH to reduce BP and prevent ASCVD. - Home BP monitoring 1-2 x day with goal of <140/90. - Seek immediate medical attention for chest pain, palpitations, SOB, syncope, or sudden changes in mental status. - Do not change or discontinue current prescriptions without first consulting health care provider Assessment & Plan (01/01/2023 12:01 PM EDT): Now control c/w same medication regimen - Aerobic exercise to reduce BP. Initial goal of 30 min walk 3-5x/week. Increase as tolerated. - low-sodium diet (goal: <2g/day) and heart healthy diet such as DASH to reduce BP and prevent ASCVD. - Home BP monitoring 1-2 x day with goal of <140/90. - Seek immediate medical attention for chest pain, palpitations, SOB, syncope, or sudden changes in mental status. - Do not change or discontinue current prescriptions without first consulting health care provider Assessment & Plan (11/22/2022 12:10 PM EDT): I advise low Na diet, weight reduction I went up on nifedipine to 90mg daily RTC 3 weeks Assessment & Plan (11/08/2022 12:25 PM EDT): I advise low Na diet Take medication every day as prescribed I decided to go up on medication to nifedipine 60mg daily Assessment & Plan (07/19/2022 4:07 PM EDT): Maintenance: BMP: ordered today Lipid Panel: ordered today - Aerobic exercise to reduce BP. Initial goal of 30 min walk 3-5x/week. Increase as tolerated. - low-sodium diet (goal: <2g/day) and heart healthy diet such as DASH to reduce BP and prevent ASCVD. - Home BP monitoring 1-2 x day with goal of <140/90. - Seek immediate medical attention for chest pain, palpitations, SOB, syncope, or sudden changes in mental status. -I will start patient today on nifedipine 30mg ER daily - Do not change or discontinue current prescriptions without first consulting health care provider -RTC 2 weeks with nurse and then 3 months with me Intervertebral disc disorder 03/06/2022 Assessment & Plan (07/19/2022 4:07 PM EDT): I will refer patient to pain management Migraine without aura, not refractory 03/06/2022 Assessment & Plan (01/21/2024 11:12 AM EDT): Trial abortive triptan Assessment & Plan (11/22/2022 12:11 PM EDT): I advise to avoid migraine triggers like red wine, chocolate, cheese, strong perfumes I went up on venlafaxine to 75mg daily C/w sumatriptan PRN neurology referral status will be check RTC 3 weeks Assessment & Plan (11/08/2022 12:27 PM EDT): I advise to avoid migraine triggers like red wine, chocolate, cheese, strong perfumes I discontinue topomax and I started her today on venlafaxine I went up on sumatriptan to 100mg I advise not to abuse or overdue medications to abort a migraine (nSAIDs, fioricept, sumatriptan) to avoid rebound headache Patient referred to neurology today Assessment & Plan (04/11/2022 8:36 PM EST): Add Topamax 25-50mg at bedtime for prophylaxis. Continue Elavil Take Ibuprofen/Imitrex prn migraine. Nausea 03/06/2022 Pre-existing essential hyper tension during in first trimester 03/06/2022 Spondylosis without myelopathy 03/06/2022 Transaminasemia 06/05/2017 Large breasts 09/12/2015 Pseudotumor cerebri 05/07/2014 Migraine headache without aura 08/25/2013 Assessment & Plan (02/01/2024 12:09 PM EDT): Improved Assessment & Plan (01/01/2023 12:01 PM EDT): I advise to avoid migraine triggers like red wine, chocolate, cheese, strong perfumes I will go up on venlafaxine to 150mg daily Acne 02/05/2012 Migraine 02/05/2012 Resolved Problems Problem Noted Date Diagnosed Date Resolved Date Elevated blood pressure read ing without diagnosis of hypertension 04/11/2022 11/12/2023 Assessment & Plan (04/11/2022 8:35 PM EST): Counseled to check BP at home three times per week or prn ANDERSON and keep sxs dairy. FU w RN in 2w, then w PCP or me in 4w. Order labs Counseled re weight reduction, low salt intake. Presence of intrauterine contraceptive device 06/27/19 18 11/12/2023 Encounters Date Type Department Care Team Description 11/30/2024 11:15 AM EDT Office Visit [facility] [address] [place] [phone] Jennie Deleon NP Encounter for IUD insertion (Primary Dx) 11/30/2024 Telephone [facility] [address] [place] [phone] Jennie Deleon NP Results 11/30/2024 Telephone [facility] [address] [place] [phone] Jennie Deleon NP Pelvis US REMINDER 11/30/2024 Travel 11/27/2024 3:45 PM EDT Office Visit [address] [phone] Jennie Deleon NP MARTINA (generalized anxiety disorder) (Primary Dx); Encounter for other contraceptive management 11/27/2024 Travel 11/26/[address] [address] Jennie Deleon, NIKOLAS Chart Prep 11/25/2024 Telephone [facility] [address] [place] [phone] Jennie Deleon, STRUCTURAL ENGINEERING TECHNICIAN Nurse Triage 11/24/2024 Travel 11/24/[address] [address] Jeb Self, [place] CHARTPREP 11/23/2024 Refill [facility] [address] [place] [phone] Mirian Arreola NP 11/17/[address] [phone] Jennie Deleon, NIKOLAS Nurse Triage 10/26/2024 Telephone [facility] [address] [place] [phone] Ramone Louis DDS rs no show appt 10/21/[address] [address] Jennie Deleon NP 10/20/[address] [address] Jennie Deleon NP 10/20/[address] [address] Becki Posadas MD Vitamin D deficiency 10/15/[address] [address] Jennie Deleon NP Care Management (C3- initial assessment-lvm case closed) 10/14/2024 Patient Outreach [address] [address] Jennie Deleon NP Care Coordination (HELENE/JOHN Segundo- LVM-Reminder [place] Appt with CM Program/Resources) 10/08/2024 Patient Outreach [address] [address] Jennie Deleon NP Care Coordination (HELENE/JOHN Segundo- R/S missed [place]-) 10/02/2024 Orders Only [facility] [address] [place] [phone] Olegario Marquis MD 10/02/2024 Telephone [facility] [address] [address] Olegario Marquis MD 09/30/2024 Telephone [facility] [address] [address] Olegario Marquis MD 09/29/2024 11:20 AM EDT Office Visit [facility] [address] [address] Olegario Marquis MD Essential hypertension in patient (Primary Dx) 09/29/2024 Orders Only GENERIC EXTERNAL DATA DEPARTMENT Provider, Generic External Data 09/29/2024 Travel 09/29/[address] [phone] Jennie Deleon NP 09/28/[address] [address] Jennie Deleon NP Care Management (C3CM initial assessment-lvm) 09/25/2024 Patient Outreach [address] [address] Jennie Deleon NP Care Coordination (CM Appt reminder) 09/21/2024 Patient Outreach [facility] [address] [place], [place] [phone] Jennie Deleon NP Transition Of Care (Tcm) (HDF unscheduled. ) 09/18/2024 Patient Outreach [address] [phone] Jennie Deleon NP Care Coordination (C3CM/CHW JOHN Lewis- AMNA Initial Assessment Appt scheduled) 09/07/2024 1:00 PM EDT Office Visit [facility] [address] [place] [phone] Shazia Mishra DDS Dental caries (Primary Dx); Dental caries into pulp from Last 3 Months Immunizations Immunization Administration Dates Next Due DTaP 05/23/1995, 4,05/12/1992,09/24,1991,1991 DTaP / HiB / IPV 05/12/1992, 2,1991,05/06 HPV, Quadrivalent 12/23/2006,08/19/2006,06/19/19 07 Hep A, Adult 02/14/2018,06/26/2017 Hep B, Adolescent or Pediatric 3,1991,1991,05/06 Hep B, adult 02/14/2018, 8,06/26/2017,05/12,1991,1991,1991 Hib (HbOC) 05/12/1992, 2,1991,05/06 IPV 05/23/1995, 3,1991,05/06 Influenza Injectable Quadriv alant Preservative Free IIV4 MDCK 12/21/2021,12/27/2020,01/13/2020 Influenza injectable quadriv alent IIV4 with preservative 12/17/2018,12/18/2017 Influenza injectable quadriv alent preservative free 02/02/2023 Influenza, IIV3, injectable 12/19/2011, 1,04/28/2009 Influenza, Unspecified 12/21/2021,01/06/2014 Influenza, seasonal, injecta ble, preservative free 01/07/2024 MMR 11/03/2021, 2,06/22/1993,05/12 Meningococcal MCV4P ACYW-135 06/18/2006 Meningococcal MPSV4 06/18/2006 Moderna Covid-19 Vaccine 12+ 02/17/2021,04/28/19 21,03/31/2020 Moderna Covid-19 Vaccine 6+ Bivalent 03/27/2022 Pneumococcal Polysaccharide PPSV23 06/04/2010 TD (adult), 2 Lf tetanus tox oid, preservative free, adsorbed 06/10/2002 Td (adult) 06/10/2002 Tdap 06/26/2021,04/06/2016 Varicella 05/18/2008,04/09/2002 Family History Medical History Relation Name Comments Diabetes Father Heart disease Father Diabetes Mother Hypertension Mother Relation Name Status Comments Father Mother Social History Tobacco Use Types Packs/Day Years Used Date Smoking Tobacco: Never Passive Smoke Exposure: Never Smokeless Tobacco: Never Tobacco Cessation:Counseling Given: Not Answered Alcohol Use Standard Drinks/Week Comments Not Currently [...] Orientation Straight 02/05/2022 10 :17 AM EDT Last Filed Vital Signs Vital Sign Reading [...] Mass Index 39.51 11/30/2024 12:52 PM EDT Plan of Treatment Upcoming Encounters Date Type Department Care Team (Late st Contact Info) Description 12/16/2024 3:00 PM EDT Office Visit [facility] [address] [place] [address] RubinPatti ramirez, OD [address] [place] [address] 12/28/2024 4:00 PM EDT Office Visit [facility] [address] [place] [address] Jennie Deleon, NIKOLAS [address] [place] [address] Health Maintenance Due Date Last Done Comments Dental Oral Exam 1991 Dental Prophylaxis 1991 Dental X-Ray: Full Mouth 1991 Family Planning (PISQ) 2006 Hepatitis C Screening 2009 COVID-19 Vaccine ( season) 2023 03/27/2022, 02/17/2021, 04/28/2020, Additional history exists Influenza Vaccine (#1) 2024 , 02/02/2023, 12/21/2021, Additional history exists Alcohol/Substance Use Screening 01/14/2025 01/15/2024 Depression Monitoring 05/30/2025 11/27/2024, 025 Dental X-Ray: Bitewings 09/08/2025 09/07/2024 Disability Screening 11/24/2025 11/24/2024 SDOH Screening 11/27/2025 11/27/2024 Tobacco Screening 11/30/2025 11/30/2024 Lipid Panel 08/16/2027 08/15/2022, 08/06, 08/15/2022, Additional history exists Cervical Cancer Screening 03/11/2029 HPV/Cotest 03/11/2029 Pap Smear 03/11/2029 03/11/2024, 01/14/2019 DTaP/Tdap/Td Vaccines (9 - Td or Tdap) 07/06/2034 07/06/2024, 06/26/2021, 04/06/2016, Additional history exists Zoster Vaccines (1 of 2) 2041 RSV Patients and Patients Aged 60 years or older (1 - 1-dose 75+ series) 2066 HIB Vaccines Completed 05/12/1992, 07/1992, 1991, Additional history exists IPV Vaccines Completed 05/23/1995, 06/06, 05/12/1992, Additional history exists Meningococcal Vaccine Aged Out 06/18/2006, 007 No longer eligible based on patient's age to complete this topic HPV Vaccines Completed 12/23/2006, 08/06, 06/18/2006 Pneumococcal Vaccine: Pediatrics (0 to 5 Years) and At-Risk Patients (6 to 49) Years Aged Out 06/04/2010 No longer eligible based on patient's age to complete this topic Hepatitis A Vaccines Aged Out 02/14/2018, 06/27/19 18 No longer eligible based on patient's age to complete this topic Hepatitis B Vaccines Completed 02/14/2018, 08/01/2017, 06/26/2017, Additional history exists HIV Screening Completed 09/06/2020 Meningococcal B Vaccine Aged Out No l onger eligible based on patient's age to complete this topic RSV under 20 months Aged Out No longe r eligible based on patient's age to complete this topic Rotavirus Vaccines Aged Out No longer eligible based on patient's age to complete this topic Procedures Procedure Name Priority Date/Time Associated Diagnosis Comments POCT , URINE Routine 11/30/2024 12:27 PM EDT Encounter for IUD insertion VITAMIN D 25-OH (D2 AND D3) Routine 09/29/2024 1:33 PM EDT PTH, INTACT WITHOUT CALCIUM Routine 09/29/2024 1:33 PM EDT BASIC METABOLIC PANEL Routine 09/29/2024 1:33 PM EDT COMPREHENSIVE METABOLIC PANEL Routine 09/29/2024 1:33 PM EDT Essential hypertension in patient CASE PRESENTATION, DETAILED AND EXTENSIVE TREATMENT PLANNING Routine 09/07/2024 1:00 PM EDT Dental caries Dental caries into pulp BITEWING - SINGLE RADIOGRAPHIC IMAGE Routine 09/07/2024 1:00 PM EDT Dental caries Dental caries into pulp INTRAORAL - PERIAPICAL FIRST RADIOGRAPHIC IMAGE Routine 09/07/2024 1:00 PM EDT Dental caries Dental caries into pulp PALLIATIVE (EMERGENCY) TREATMENT OF DENTAL PAIN - MINOR PROCEDURE Routine 09/07/2024 1:00 PM EDT Dental caries Dental caries into pulp HM PAP/HPV Routine 03/11/2024 7:23 PM EST LIPID PANEL, STANDARD Routine 08/15/2022 3:21 PM EDT Primary hypertension HIV 1/2 ANTIGEN/ANTIBODY, FOURTH GENERATION W/RFL Routine 09/06/2020 2:34 PM EDT from Last 3 Months or Most Recently Relevant to Health Maintenance Results * POCT Urine (11/30/2024 12:27 PM EDT) Preg Test, Ur Negative Negative, Indeterminate, None Detected, Invalid, Specimen unsatisfactory for evaluation, Weakly Positive, 2+ QC Media Lot # [id number] Lot# Expiration Date [id number] Urine 11/30/2024 12:2 7 PM EDT Jennie Deleon NP POINT OF CARE TEST ENTER/EDIT OR DERABLES Final Result * VITAMIN D 25-OH (D2 AND D3) (09/29/2024 1:33 PM EDT) Vitamin D, 25-OH, D2 8 ng/mL [facility] Comment:This test was develo ped and its analytical performancecharacteristics have been determined by [employer] [place], [place]. It hasnot been cleared or approved by the U.S. Food and DrugAdministration. This assay has been validated pursuantto the CLIA regulations and is used for clinicalpurposes.THIS TEST WAS PERFORMED AT:[employer] [id number] [place] [id number] MILLER MD,PHD Vitamin D, 25-OH, D3 27 ng/mL [facility] Comment:This test was develo ped and its analytical performancecharacteristics have been determined by [employer] [place], [place]. It hasnot been cleared or approved by the U.S. Food and DrugAdministration. This assay has been validated pursuantto the CLIA regulations and is used for clinicalpurposes. Vitamin D, 25-OH, Total 35 30 - 100 ng/mL [facility] Comment:Vitamin D, 25-Hydrox y reports concentrations of twocommon forms, 25-OHD2 and 25-OHD3. 25-OHD3 indicatesboth endogenous production and supplementation.25-OHD2 is an indicator of exogenous sources such asdiet or supplementation. Therapy is based onmeasurement of Total 25-OHD, with levels <20 ng/mLindicative of Vitamin D deficiency, while levelsbetween 20 ng/mL and 30 ng/mL suggest insufficiency.Optimal levels are > or = 30 ng/mL.For additional information, please refer tohttp://education.[employer]/faq/BYU482(This link is being provided for informational/educational purposes only.) 09/29/2024 1:33 PM EDT 09/29/2024 4:10 PM EDT us Generic External Data Provider LAB BLOOD ORDERAB LES Final Result Performing Organization Address City/State/[facility] Co de Phone Number [facility] [address] [place] [address] [phone] * (ABNORMAL) PTH, Intact Without Calcium (09/29/2024 1:33 PM EDT) Parathyroid Hormone, Intact 86.8(H) 8.7 - 77.1 pg/mL [facility] 09/29/2024 1:33 PM EDT 09/29/2024 4:10 PM EDT us Generic External Data Provider LAB BLOOD ORDERAB LES Final Result Performing Organization Address [facility] Co de Phone Number [facility] [address] [place] [address] [phone] * Comprehensive Metabolic Panel (09/29/2024 1:33 PM EDT) Sodium 140 135 - 145 mmol/L [facility] Potassium 3.7 3.3 - 5.1 mmol/L [facility] Chloride 105 96 - 108 mmol/L [facility] Carbon Dioxide 26 22 - 29 mmol/L [facility] Anion Gap 13 12 - 20 [facility] Urea Nitrogen (BUN) 11 9 - 16 mg/dL [facility] Creatinine, Serum 0.71 0.5 - 1.4 mg/dL [facility] Creatinine Clr Calc Pharmacy TNP [facility] Comment:Unable to calculate eCrCL; all parameters not provided. Estimated Glomerular Filt Rate >60 [facility] Comment:Chronic Kidney Disea se: Estimated GFR < 60 mL/min/[id number] Kidney Disease: Estimated GFR < 15 mL/min/1.73m2 Glucose 81 60 - 115 mg/dL [facility] Calcium 9.1 8.4 - 10.2 mg/dL [facility] Bilirubin, Total 0.3 0.0 - 1.0 mg/dL [facility] Aspartate Amino Transferase 22 5 - 31 U/L [facility] Alanine Aminotransferase 17 0 - 31 U/L [facility] Total Protein 7.6 6.5 - 8.0 g/dL [facility] Albumin Level 4.1 3.5 - 5.0 g/dL [facility] Alkaline Phosphatase 63 39 - 117 U/L [facility] Blood Venous blood specimen / Unknown 09/29/2024 1:33 PM EDT 09/30/2024 8:51 AM EDT us Olegario Marquis MD LAB BLOOD ORDERABLES Final Resul t Performing Organization Address City/[facility]/ZIP Co de Phone Number [facility] [address] [place] [phone] * Basic Metabolic Panel (09/29/2024 1:33 PM EDT) Sodium 141 135 - 145 mmol/L [facility] Potassium 3.6 3.3 - 5.1 mmol/L [facility] Chloride 105 96 - 108 mmol/L [facility] Carbon Dioxide 25 22 - 29 mmol/L [facility] Anion Gap 15 12 - 20 [facility] Urea Nitrogen (BUN) 10 9 - 16 mg/dL [facility] Creatinine, Serum 0.71 0.5 - 1.4 mg/dL [facility] Estimated Glomerular Filt Rate >60 [facility] Comment:Chronic Kidney Disea se: Estimated GFR < 60 mL/min/1.54v9Dirqbu Kidney Disease: Estimated GFR < 15 mL/min/1.73m2 Glucose 85 60 - 115 mg/dL [facility] Calcium 9.5 8.4 - 10.2 mg/dL [facility] 09/29/2024 1:33 PM EDT 09/29/2024 4:10 PM EDT us Generic External Data Provider LAB BLOOD ORDERAB LES Final Result Performing Organization Address City/[facility]/ZIP Co de Phone Number [facility] [address] [place] [phone] * HM PAP/HPV (03/11/2024 7:23 PM EST) Historical Provider HEALTH MAINTENANCE Final Result * (ABNORMAL) Lipid Panel, Standard (08/15/2022 3:21 PM EDT) Cholesterol, Total 212(H) <200 mg/dL [facility] HDL Cholesterol 45(L) > OR = 50 mg/dL [facility] Triglycerides 321(H) <150 mg/dL [facility] Comment: If a non-fasting specimen was collected, consider repeat triglyceride testing on a fasting specimen if clinically indicated. Francisco et al. J. of Clin. Lipidol. 2015;9:129-169. LDL Cholesterol 121(H) mg/dL (calc) [facility] Comment: Reference range: <100 Desirable range <100 mg/dL for primary prevention; <70 mg/dL for patients with CHD or diabetic patients with > or = 2 CHD risk factors. LDL-C is now calculated using the Evan-Driscoll calculation, which is a validated novel method providing better accuracy than the Friedewald equation in the estimation of LDL-C. Evan SS et al. JAMEY. 2013;310(19): 4610-2116 (http://education.FusionOne/faq/TYM476) Chol/HDLC Ratio 4.7 <5.0 (calc) [facility] Non-HDL Cholesterol 167(H) <130 mg/dL (calc) [facility] Comment: For patients with diabetes plus 1 major ASCVD risk factor, treating to a non-HDL-C goal of <100 mg/dL (LDL-C of <70 mg/dL) is considered a therapeutic option. Blood Venous blood specimen / Unknown 08/15/2022 3:21 PM EDT 08/15/2022 3:21 PM EDT Narrative [facility] - 08/16/2022 7:06 AM EDT FASTING:NO FASTING: NO Becki Kennedy MD LAB BLOOD ORDERABLES Final Result [facility] [address] [facility], [facility], [place] [address] [facility] [address] [place] [address] * HIV 1/2 ANTIGEN/ANTIBODY,FOURTH GENERATION W/RFL (09/06/2020 2:34 PM EDT) HIV-1/2 ANTIGEN AND ANTIBODIES, 4TH GENERATION W/ REFLEX NON-REACT KAYLIE NON-REACT KAYLIE [facility] Comment: HIV-1 antigen and HIV-1/HIV-2 antibodies were not detected. There is no laboratory evidence of HIV infection. PLEASE NOTE: This information has been disclosed to you from records whose confidentiality may be protected by state law. If your state requires such protection, then the state law prohibits you from making any further disclosure of the information without the specific written consent of the person to whom it pertains, or as otherwise permitted by law. A general authorization for the release of medical or other information is NOT sufficient for this purpose. For additional information please refer to http://education.YouWeb.Oohly/faq/ZAI678 (This link is being provided for informational/ educational purposes only.) The performance of this assay has not been clinically validated in patients less than 2 years old. 09/06/2020 2:34 PM EDT Becki Kennedy MD LAB BLOOD ORDERABLES Final Result [facility] [address] from Last 3 Months or Most Recently Relevant to Health Maintenance Insurance [facility] C3 Care Teams Cannon Crewmember Relationship Specialty Start Date End Date Jennie Deleon NP [address] [place] [address] PCP - General Family Medicine 11/12/23
--- OUTSIDE RECORDS SUMMARY | 2024-11-30 15:16 | XMS_ITS | Encounter Summary ---
Author Organization [employer] Address 75 [facility] 7 [place] [address] Care Team Providers Care Toddler Nanny Name Role Phone Jennie Deleon NP Primary Care Provider [phone] Reason for Visit * Reason Onset Date Comments Pelvis US REMINDER 11/30/2024 Encounter Details Date Type Department Care Team ([facility] Contact Info) Description 11/30/2024 Telephone [facility] MEDICINE [address] [place], [place] [phone] Jennie Deleon NP [address] [place] [address] Pelvis US REMINDER Social History Tobacco Use Types Packs/Day Years [...] encounter Miscellaneous Notes * Telephone Encounter - Yanelis Sampson MA - 11/30/2024 1:50 PM EDT T/C to pt to remind pelvis US appt for today at [facility]. Pt stated that she was already at [facility]. documented in this encounter Plan of Treatment Upcoming Encounters Date Type Department Care Team (Late st Contact Info) Description 12/16/2024 3:00 PM EDT Office Visit [facility] OPTOMETRY [address] [place] [address] Patti Conklin, OD [address] [place] [address] 12/28/2024 4:00 PM EDT Office Visit [facility] MEDICINE [address] [place], [place] [phone] Jennie Deleon NP [address] [place] [address] documented as of this encounter Visit Diagnoses Not on filedocumented in this encounter Additional Health Concerns Assessment Noted Time PHQ-9 Depression Total Score: 10 025 4:36 PM EDT documented as of this encounter Care Teams Toddler Nanny Relationship Specialty Start Date End Date Jennie Deleon NP [address] [place] [address] PCP - General Family Medicine 11/12/23 documented as of this encounter
--- OUTSIDE RECORDS SUMMARY | 2024-11-30 15:16 | XMS_ITS | Encounter Summary ---
Author Organization [employer] Address 75 [facility] 7t [place] [address] Care Team Providers Care Java Performance Engineer Name Role Phone Adrienne Jennie NIKOLAS Primary Care Provider [phone] Encounter Details Date Type Department Care Team (Late st Contact Info) Description 10/02/2024 Orders Only [facility] [address] [place], [place] [phone] Olegario Marquis MD 230 [place], [place] [phone] Social History Tobacco Use Types Packs/Day Years [...] t he electric, gas, oil or water [employer] threatened to shut off services in your [...] Description 12/16/2024 3:00 PM EDT Office Visit [facility] OPTOMETRY [address] [place] [address] Rubin, Patti, OD [address] [place] [address] 12/28/2024 4:00 PM EDT Office Visit [facility] MEDICINE [address] [place] [address] Jennie Deleon NP 230 [place] [address] documented as of this encounter Visit Diagnoses Not on filedocumented in this encounter Additional Health Concerns Assessment Noted Time PHQ-9 Depression Total Score: 0 11/13/19 24 3:31 PM EDT documented as of this encounter Care Teams Java Performance Engineer Relationship Specialty Start Date End Date Jennie Deleon NP [address] [place] [address] PCP - General Family Medicine 11/12/23 documented as of this encounter
--- OUTSIDE RECORDS SUMMARY | 2024-11-30 15:16 | XMS_ITS | Encounter Summary ---
Author Organization [employer] Address 75 [facility] 7 [place] [address] Care Team Providers Care Glass Pulverizer Equipment Operator Name Role Phone Becki Posadas MD Primary Care Provide r Jennie Deleon NP Primary Care Provider [phone] Jennie Deleon NP Primary Care Provider [phone] Reason for Visit * Reason Onset Date Comments Med Refill 04/04/2023 Encounter Details Date Type Department Care Team (Late st Contact Info) Description 04/04/2023 Refill [facility] MEDICINE 230 [place], [place] [phone] Marti Alfaro DO [address] [place], [place] [phone] Migraine without aura, not refractory Social History [...] Description 12/16/2024 3:00 PM EDT Office Visit [facility] OPTOMETRY [address] [place] [address] Rubin, Patti, OD [address] [place] [address] 12/28/2024 4:00 PM EDT Office Visit [facility] MEDICINE [address] [place] [address] Jennie Deleon NP [address] [place] [address] documented as of this encounter Visit Diagnoses Diagnosis Migraine without aura, not refractory documented in this encounter Additional Health Concerns Assessment Noted Time PHQ-9 Depression Total Score: 0 07/20/19 23 2:37 PM EDT documented as of this encounter Care Teams Glass Pulverizer Equipment Operator Relationship Specialty Start Date End Date Bekci Posadas MD [address] [place] [address] PCP - General Family Medicine 08/30/20 11/10/23 Jennie Deleon NP [address] [place] [address] PCP - General Family Medicine 11/11/23 11/11/23 Jennie Deleon NP [address] [place] [address] PCP - General Family Medicine 11/12/23 documented as of this encounter
--- OUTSIDE RECORDS SUMMARY | 2024-11-30 15:16 | XMS_ITS | Encounter Summary ---
Author Organization [employer] Address [address] [place] [address] 7 [place] [address] Care Team Providers Care Forming Machine Adjuster Name Role Phone Becki Posadas MD Primary Care Provide r Jennie Deleon NP Primary Care Provider [phone] Jennie Deleon NP Primary Care Provider [phone] Reason for Visit * Reason Onset Date Comments triage 04/05/2022 Encounter Details Date Type Department Care Team (Late st Contact Info) Description 04/05/2022 Telephone [facility] MEDICINE [address] [place], [place] [phone] Becki Posadas MD [address] [place], [place] [phone] triage Social History Tobacco Use Types Packs/Day Years Used Date Smoking Tobacco: Never Smokeless Tobacco: Never Comments Unknown Sex and Gender Information Value [...] suspected to have Coronavirus/COVID-19? No / Unsure 03/27/2022 12:06 PM EST documented as of this encounter Miscellaneous Notes * Telephone Encounter - Ariadne Bakre RN - 04/05/2022 3:20 PM EST Triage call Pt reports a BP of 146/126 on either 04/02 or . Pt only symptom is headache when BP gets high. Pt BP this morning was 106/98 and last evening it was 126/ 86. Pt does take labetolol 100mg q12hrs. Pt is asking to speak with provider to possibly change med. Advised pt to seek evaluationat ED if BP is high and becomes symptomatic before apt and Pt agreed. Pt agreed with disposition and home care reviewed. appt with Dr. Jacques 04/11 @ 1130am tele visit. Pt advised to write down BP s daily and times medtaken for apt. Pt agreed. Insurance is verified as active prior to booking Protocol Used: Blood Pressure - High (Adult) Protocol-Based Disposition: See in Office or Video Visit within 2 Weeks Video visit not offered Positive Triage Question: * Systolic BP >= 130 OR Diastolic >= 80, and is taking BP medications * All higher-acuity triage questions were negative Care Advice Discussed: * Reassurance and Education - BP 120-129 / 80 * High Blood Pressure * High Blood Pressure - Lifestyle Modifications * How to Check Your Blood Pressure? * Reasons To Call Back - Headache, blurred vision, difficulty talking, or difficulty walking occurs - Chest pain or difficulty breathing occurs - You want to go into the office for a blood pressure check - You become worse * Telephone Encounter - Scott Tadeo - 04/05/2022 1:59 PM EST Tc from pt returning call Please contact pt at [phone] * Telephone Encounter - Lakshmi Booth RN - 04/05/2022 1:47 PM EST Call returned to patient for triage. No answer LVM to return call to [facility] triage line. Left [facility] operating hours for today and tomorrow as well. * Telephone Encounter - Gretta Brito - 04/05/2022 1:14 PM EST Symptom: High Blood Pressure - Caller Reports Outcome: Talk to a nurse or provider within 15 minutes Reason: Severe headache The caller accepted this outcome documented in this encounter Plan of Treatment Upcoming Encounters Date Type Department Care Team (Late st Contact Info) Description 12/16/2024 3:00 PM EDT Office Visit [facility] OPTOMETRY [address] [place] [address] Patti Conklin, OD [address] [place] [address] 12/28/2024 4:00 PM EDT Office Visit [facility] MEDICINE [address] [place] [address] Jennie Deleon NP [address] [place] [address] documented as of this encounter Visit Diagnoses Not on filedocumented in this encounter Care Teams Forming Machine Adjuster Relationship Specialty Start Date End Date Becki Posadas MD [address] [place] [address] PCP - General Family Medicine 08/30/20 11/10/23 Jennie Deleon NP [address] [place] [address] PCP - General Family Medicine 11/11/23 11/11/23 Jennie Deleon NP [address] [place] [address] PCP - General Family Medicine 11/12/23 documented as of this encounter
--- OUTSIDE RECORDS SUMMARY | 2024-11-30 15:16 | XMS_ITS | Encounter Summary ---
Author Organization [employer] Address 75 [facility] 7 [place] [address] Care Team Providers Care Member Services Coordinator Name Role Phone Jennie Deleon NP Primary Care Provider [phone] Reason for Visit * Reason Onset Date Comments Nurse Triage 11/25/2024 Encounter Details Date Type Department Care Team ([facility] st Contact Info) Description 11/25/2024 Telephone [facility] MEDICINE [address] [place], [place] [phone] Jennie Deleon NP [address] [place] [address] Nurse Triage Social History Tobacco Use Types Packs/Day Years [...] Telephone Encounter - Lakshmi Booth RN - 11/25/2024 12:56 PM EDT Per chart review, pt already sent in portal message requesting to have in person appt today with [facility] to be via telehealth vs in person to discuss anxiety med start. Call returned to Nadia Mays to triage below at [phone]. Reports onset of migraine ANDERSON today with some photo sensitivity. Mild blurred vision. NO vomiting rported. Pt has taken her migraine medications as prescribed. Pt advised that provider currently in a meeting so unable to ask ifable to convert to telehealth. Pt advised that PCP does have an opening on Saturday , and since wantsto discuss starting anxiety medication may be best to have PCP follow up. Agrees to r/s for Saturday.Reviewed home care advise, ER precautions and reasons to call back. Reviewed [facility] operating hours and that wait times vary. Future Appointments Date Time Provider Department Center 11/27/2024 3:45 PM Jennie Deleon NP MEDICINE [facility] 12/16/2024 3:00 PM Patti Conklin, OD [facility] 12/28/2024 4:00 PM Jennie Deleon NP MEDICINE [facility] Protocol Used: Headache (Adult) Protocol-Based Disposition: Home Care Positive Triage Question: * Similar to previously diagnosed migraine headaches * All higher-acuity triage questions were negative Care Advice Discussed: * Reassurance and Education - Migraine Headache * Pain Medicine for Migraine * Pain Medicines * Rest for Migraine Headache * Cold Pack for Headache * Reasons To Call Back - Severe headache lasts over 2 hours after pain medicine - Headache lasts over 72 hours - Stiff neck occurs (can't touch chin to chest) - You become worse * Telephone Encounter - Daniel Wadsworth - 11/25/2024 12:33 PM EDT Symptom: Headache Outcome: Transfer to a nurse or provider NOW! Reason: Sudden worst headache of life now The caller accepted this outcome. documented in this encounter Plan of Treatment Upcoming Encounters Date Type Department Care Team (Late st Contact Info) Description 12/16/2024 3:00 PM EDT Office Visit [facility] OPTOMETRY [address] [place] [address] Patti Conklin, OD [address] [place] [address] 12/28/2024 4:00 PM EDT Office Visit [facility] MEDICINE [address] [place] [address] Jennie Deleon NP [address] [place] [address] documented as of this encounter Visit Diagnoses Not on filedocumented in this encounter Additional Health Concerns Assessment Noted Time PHQ-9 Depression Total Score: 0 11/13/19 24 3:31 PM EDT documented as of this encounter Care Teams Member Services Coordinator Relationship Specialty Start Date End Date Jennie Deleon NP [address] [place] [address] PCP - General Family Medicine 11/12/23 documented as of this encounter
--- OUTSIDE RECORDS SUMMARY | 2024-11-30 15:16 | XMS_ITS | Encounter Summary ---
Author Organization [employer] Address 75 [facility] 7 [place] [address] Care Team Providers Care Roller Engraver Name Role Phone Adrienne Jennie NIKOLAS Primary Care Provider [phone] Reason for Visit * Reason Onset Date Comments rs no show appt 10/26/2024 Encounter Details Date Type Department Care Team ([facility] st Contact Info) Description 10/26/[address] [facility] D[facility]AL [address] [place], [place] [phone] Ramone Louis DDS [address] [place], [place] [phone] rs no show appt Social History Tobacco Use Types Packs/Day Years [...] encounter Miscellaneous Notes * Telephone Encounter - Catrachita Tay - 10/26/2024 10:18 AM EDT Patient called in to rs no show appt. Patient has been informed there is a waiting period prior to rescheduling and she will hear from office to reschedule Patient understood DR documented in this encounter Plan of Treatment Upcoming Encounters Date Type Department Care Team (Late st Contact Info) Description 12/16/2024 3:00 PM EDT Office Visit [facility] OPTOMETRY [address] [place] [address] Patti Conklin, OD [address] [place] [address] 12/28/2024 4:00 PM EDT Office Visit [facility] MEDICINE [address] [place] [address] Jennie Deleon NP [address] [place] [address] documented as of this encounter Visit Diagnoses Not on filedocumented in this encounter Additional Health Concerns Assessment Noted Time PHQ-9 Depression Total Score: 0 11/13/19 24 3:31 PM EDT documented as of this encounter Care Teams Roller Engraver Relationship Specialty Start Date End Date Jennie Deleon NP [address] [place] [address] PCP - General Family Medicine 11/12/23 documented as of this encounter
[2024-11-30 15:36] LABS: Anion Gap 11 (12-20); Blood Urea Nitrogen 11 mg/dL (9-16); Calcium 9.3 mg/dL (8.4-10.2); Carbon Dioxide 28 mmol/L (22-29); Chloride 103 mmol/L (96-108); Estimated Glomerular Filt Rate > 60; Potassium 3.6 mmol/L (3.3-5.1); Sodium 138 mmol/L (135-145)
[2024-12-01 04:58] LABS: CT PCR Urine NOT DETECTED (Not Detect.); NG PCR Urine NOT DETECTED (Not Detect.)
== END 2024-11-30 13:54 | disposition home or self-care (01) ==
LOC: HO.US 13:53
PROVIDERS: Internal Medicine Hypertension Specialist; PCP Nurse Practitioner Family; Visit Provider Nurse Practitioner Family
DX: Z30.430 Encounter for insertion of intrauterine contraceptive device (principal); I10 Essential (primary) hypertension; T83.83XA Hemorrhage due to genitourinary prosthetic devices, implants and grafts, initial encounter
CPT/HCPCS: 36415; 76830; 76856; 80048; 87491; 87591

== ENCOUNTER → 2024-11-30 14:35 | Outpatient (BNV) | payer MEDICAID, SELFPAY | PROVIDERS: PCP Nurse Practitioner Family; Visit Provider Radiology Diagnostic Radiology | DX: R58 Hemorrhage, not elsewhere classified (principal); Z30.430 Encounter for insertion of intrauterine contraceptive device | CPT/HCPCS: 76830; 76856 ==

== ENCOUNTER 2024-12-02 09:41 | Outpatient (REF) | payer MEDICAID, SELFPAY ==
--- OUTSIDE RECORDS SUMMARY | 2024-11-27 15:45 | XMS_ITS | Encounter Summary ---
Author Organization [employer] Address [address] [facility] 7 [place] [address] Care Team Providers Care Academic Affairs Assistant Name Role Phone Jennie Deleon NP Primary Care Provider [phone] Reason for Visit * Reason Comments Follow-up Encounter Details Date Type Department Care Team (Latest Contact Info) Description 11/27/2024 3:45 PM EDT Office Visit [facility] MED[facility] [address] [place], [place] [phone] Jennie Deleon NP [address] [place] [address] MARTINA (generalized anxiety disorder) (Primary Dx); Encounter for other contraceptive management Social History Tobacco Use Types Packs/Day Years Used Date Smoking Tobacco: Never Passive Smoke Exposure: Never Smokeless Tobacco: Never Alcohol Use Standard Drinks/Week Comments Not Currently 0 (1 standard drink = 0.6 oz pur e alcohol) Alcohol Answer Date Recorded Frequency of Alcohol Consumption Not on file 01/15/2024 Average Number of Drinks Not on file 024 Frequency of Binge Drinking Not on file 12/2023 Score 0 01/15/2024 Depression Answer Date Recorded Patient Health Questionnaire-9 Score 10 11/27/2024 Patient Health Questionnaire-9 Score 10 11/27/2024 Last PHQ-9: Questionnaire Data Not on file 0 11/27/2024 Housing Stability Answer Date Recorded What is your housing situation today? I have kemar mata 11/27/[address] you li ve. Do you have problems with any of the following? None of the above 11/27/2024 Food Insecurity Answer Date Recorded Within the past 12 months, y ou worried that your food would run out before you got money to buy more: Never True 11/27/2024 Within the past 12 months,th e food you bought just didn't last and you didn't have enough money to get more: Never True Transportation Answer Date Recorded In the past 12 months, has l ack of transportation kept you from medical appts, meetings, work or from getting things needed for daily living? No 11/27/2024 Utilities Answer Date Recorded In the past 12 months, has t he electric, gas, oil or water company threatened to shut off services in your home? No 11/27/2024 Depression Answer Date Recorded Patient Health Questionnaire-2 Score 3 11/27/2024 Internet Access Answer Date Recorded Internet Access Q1 Yes 11/27/2024 Internet Access Q2 Not on file 11/27/2024 Comments No Sex and Gender Information Value Date Recorded Sex Assigned at Female 02/05/2022 10:17 AM EDT Legal Sex Female 10:17 AM EDT Gender Identity Female 02/05/2022 10:17 AM EDT Sexual Orientation Straight 02/05/2022 10 :17 AM EDT documented as of this encounter Last Filed Vital Signs Vital Sign Reading Time Taken Comments Blood Pressure 128/89 11/27/2024 4:04 PM EDT Pulse 72 11/27/2024 4:04 PM EDT Temperature 37.2 C (98.9 F) 11/27/2024 4:04 PM EDT Respiratory Rate 18 11/27/2024 4:04 PM EDT Oxygen Saturation 98% 11/27/2024 4:04 PM EDT Inhaled Oxygen Concentration - - Weight 98 kg (216 lb) 11/27/2024 4:04 PM EDT Height 157.5 cm (5' 2 ) 11/27/2024 4:04 PM EDT Body Mass Index 39.51 11/27/2024 4:04 PM EDT documented in this encounter Functional Status * Over the past 2 weeks, how often have you been bothered by any of the following problems? Question Answer Date of Assessment Author Patient Health Questionnaire -2 Score 3 11/27/2024 4:36 PM EDT Jeb Self MA * Little interest or pleasure in doing things Answer Date of Assessment Author More than half the days 11/27/2024 4:36 PM EDT Jeb Dodson MA * Feeling down, depressed, or hopeless Answer Date of Assessment Author Several days 11/27/2024 4:36 PM EDT Jeb Self MA * Trouble falling or staying asleep, or sleeping too much Answer Date of Assessment Author Nearly every day 11/27/2024 4:36 PM EDT Jeb Self MA * Feeling tired or having little energy Answer Date of Assessment Author Several days 11/27/2024 4:36 PM EDT Jeb Self MA * Poor appetite or overeating Answer Date of Assessment Author Nearly every day 11/27/2024 4:36 PM EDT Jeb Self MA * Feeling bad about yourself - or that you are a failure or have let yourself or your family down Answer Date of Assessment Author Not at all 11/27/2024 4:36 PM EDT Jeb Self MA * Trouble concentrating on things, such as reading the newspaper or watching television Answer Date of Assessment Author Not at all 11/27/2024 4:36 PM ANDRAT Jeb Self MA * Moving or speaking so slowly that other people could have noticed? Or the opposite - being so fidgety or restless that you have been moving around a lot more than usual. Answer Date of Assessment Author Not at all 11/27/2024 4:36 PM EDT Jeb Self MA * Thoughts that you would be better off or hurting yourself in some way Answer Date of Assessment Author Not at all 11/27/2024 4:36 PM ANDRAT Jeb Self MA * Patient Health Questionnaire-9 Score Answer Date of Assessment Author 10 11/27/2024 4:36 PM ANDRAT Jeb Self MA * How difficult have these problems made it for you to do your work, take care of things at home, or get along with other people? Answer Date of Assessment Author Not difficult at all 11/27/2024 4:36 PM EDT Jeb Mitchell MA * Over the last 2 weeks, how often have you been bothered by any of the following problems? Question Answer Date of Assessment Author Feeling nervous, anxious, or on edge 3 11/27/2024 4:36 PM EDT Jeb Self MA Not being able to stop or co ntrol worrying 2 11/27/2024 4:36 PM EDT Jeb Self MA Worrying too much about diff erent things 3 11/27/2024 4:36 PM EDT Jeb Self MA Trouble relaxing 3 11/27/2024 4:36 PM EDT Jeb Dodson MA Being so restless that it is hard to sit still 1 11/27/2024 4:36 PM EDT Jeb Self MA Becoming easily annoyed or irritable 3 11/27/2024 4:36 PM EDT Jeb Self MA Feeling afraid as if somethi ng awful might happen 0 11/27/2024 4:36 PM EDT Jeb Self MA MARTINA-7 Total Score 15 11/27/2024 4:36 PM EDT Jeb Self MA documented as of this encounter Progress Notes * Jennie Deleon, NIKOLAS - 11/27/2024 3:45 PM EDT Subjective: Nadia Mays is a 34 y.o. female who presents to the office for a sick visit. HPI Pt is post , not , Reports preganancy complicated by htn Currently experiencing intense Anxiety, not sleeping, turn off everything and cannot sleep,no SI orHI, This happened with last took mh medications for a few months and it resolved Pt also is interested in mirena, went to ob but at time had migraine and htn, and they suggested meet with pcp and follow up in 1 month Pt would prefer to place sooner, Problem List[1] Review of Systems Constitutional: Negative for activity change and appetite change. Respiratory: Negative for apnea and chest tightness. Genitourinary: Negative for difficulty urinating. Psychiatric/Behavioral: Negative for dysphoric mood. The patient is nervous/anxious. Allergies[2] Objective: Visit Vitals BP 128/89 (BP Location: Right arm, Patient Position: Sitting, BP Cuff Size: Large adult) Pulse 72 Temp 98.9 ??F (37.2 ??C) (Oral) Resp 18 Ht 5' 2 (1.575 m) Wt 216 lb (98 kg) LMP 11/28/2023 (Approximate) SpO2 98% Unknown BMI 39.51 kg/m?? OB Status Recent Smoking Status Never BSA 2.07 m?? Physical Exam Constitutional: Appearance: She is obese. Cardiovascular: Rate and Rhythm: Regular rhythm. Abdominal: Palpations: Abdomen is soft. Musculoskeletal: Cervical back: Neck supple. Neurological: Mental Status: She is alert. Assessment/Plan: Problem List Items Addressed This Visit MARTINA (generalized anxiety disorder) - Primary Current Assessment & Plan Meds reviewed, and discussed iwht pt, at this time initiate effexor which pt recalls was helpful Prn trazodone for sleep Relevant Medications venlafaxine XR (Effexor XR) 37.5 MG 24 hr capsule traZODone (Desyrel) 50 MG tablet Other Relevant Orders TSH W/Reflex to FT4 Encounter for other contraceptive management Current Assessment & Plan Counseled regarding options pt would like mirena reinserted as soon as possible Current Medications[3] [1] Patient Active Problem List Diagnosis Acne Migraine headache without aura Candidiasis of vagina Chronic low back pain HTN (hypertension) Intervertebral disc disorder Migraine Migraine without aura, not refractory Nausea Pre-existing essential hypertension during in first trimester Spondylosis without myelopathy Transaminasemia History of COVID-19 Large breasts Class 3 severe obesity due to excess calories with serious comorbidity and body mass index (BMI) of40.0 to 44.9 in adult Syncope Pseudotumor cerebri Disorder of intervertebral disc of lumbar spine Constipation History of pre-eclampsia Anxiety Vertigo Rash and nonspecific skin eruption Chronic fatigue Vitamin D deficiency BRBPR (bright red blood per rectum) Acute vaginitis Peripheral neuropathy Sacroiliac joint dysfunction of both sides Facet arthropathy, lumbosacral Obesity 8 weeks gestation of Elevated parathyroid hormone MARTINA (generalized anxiety disorder) Encounter for other contraceptive management [2] Allergies Allergen Reactions Minocycline Other Pseudotumor cerebri [3] Current Outpatient Medications Medication Sig Dispense Refill albuterol 108 (90 Base) MCG/ACT inhaler Inhale 2 puffs every 4 (four) hours if needed for wheezing or shortness of breath. 18 g 1 Blood Pressure Monitoring (Blood Pressure Cuff) misc 1 kit if needed each day (headache, bp monitoring). 1 each 1 ksvnisjosb-mhttsesnmftco-hbzxzyho (Fioricet) 50-300-40 MG capsule Take 1 capsule by mouth every 6 (six) hours if needed for headaches. 30 capsule 3 cholecalciferol (Vitamin D-3) 25 MCG (1000 UT) tablet Take 1 tablet (25 mcg) by mouth Once per day.90 tablet 0 multivitamin () 27-0.8 MG tablet Take 1 tablet by mouth Once per day. 90 tablet 3 NIFEdipine XL (Procardia XL) 30 MG 24 hr tablet Take by mouth Once per day. Do not crush, chew, or split. pyridoxine (Vitamin B-6) 25 MG tablet take one every 6 hrs as needed rizatriptan (Maxalt) 10 MG tablet TAKE 1 TABLET BY MOUTH 1 TIME NEEDED FOR MIGRAINE. MAY REPEAT IN 2 HOURS IF UNRESOLVED. DO NOT EXCEED 30 MG IN 24 HOURS. 9 tablet 0 traZODone (Desyrel) 50 MG tablet Take 1 tablet (50 mg) by mouth if needed at bedtime for sleep. 30 tablet 0 venlafaxine XR (Effexor XR) 37.5 MG 24 hr capsule Take 1 capsule (37.5 mg) by mouth Once per day for 7 days, THEN 2 capsules (75 mg) Once per day for 23 days. Do not crush or chew. 30 capsule 0 No current facility-administered medications for this visit. documented in this encounter Miscellaneous Notes * Assessment & Plan Note - Jennie Deleon NP - 11/27/2024 6:35 PM EDTAssociated Problem(s): Encounter for other contraceptive management Counseled regarding options pt would like mirena reinserted as soon as possible * Assessment & Plan Note - Jennie Deleon NP - 11/27/2024 6:34 PM EDTAssociated Problem(s): MARTINA (generalized anxiety disorder) Meds reviewed, and discussed iw pt, at this time initiate effexor which pt recalls was helpful Prn trazodone for sleep documented in this encounter Plan of Treatment Upcoming Encounters Date Type Department Care Team (Late st Contact Info) Description 12/16/2024 3:00 PM EDT Office Visit [facility] OPTOMETRY [address] [place] [address] Patti Conklin, OD [address] [place] [address] 12/28/2024 4:00 PM EDT Office Visit [facility] MEDICINE [address] [place] [address] Jennie Deleon NP [address] [place] [address] Scheduled Orders Name Type Priority Associated Diagnoses Orde r Schedule TSH W/Reflex to FT4 Lab Routine MARTINA (generalized anxiety disorder) Expected: 11/27/2024 (Approximate), Expires: 11/27/2025 documented as of this encounter Visit Diagnoses Diagnosis MARTINA (generalized anxiety disorder)- Primary Generalized anxiety disorder Encounter for other contraceptive management documented in this encounter Additional Health Concerns Assessment Noted Time PHQ-9 Depression Total Score: 10 025 4:36 PM EDT documented as of this encounter Care Teams Academic Affairs Assistant Relationship Specialty Start Date End Date Jennie Deleon NP [address] [place] [address] PCP - General Family Medicine 11/12/23 documented as of this encounter
--- OUTSIDE RECORDS SUMMARY | 2024-11-30 11:15 | XMS_ITS | Encounter Summary ---
Author Organization [employer] Address [address] [place] [address] Care Team Providers Care Truck Shop Supervisor Name Role Phone Jennie Deleon NP Primary Care Provider [phone] Reason for Referral * Imaging (STAT) - Closed Specialty Diagnoses / Procedures Referred By Ashley downing Referred To Contact Radiology Diagnoses Encounter for IUD insertion Procedures US Pelvis Transvaginal Jennie Deleon NP [address] [place] [address] Phone: tel: fax: [address] Phone: tel: fax: Referral ID Status Reason Start Date Expiration Date Visits Re quested Visits Authorized [id number] Closed 11/30/2024 11/30/2025 1 1 * Imaging (STAT) - Closed Specialty Diagnoses / Procedures Referred By Ashley downing Referred To Contact Radiology Diagnoses Encounter for IUD insertion Procedures Us Pelvis complete Jennie Deleon NP [address] [place] [address] Phone: tel: fax: [address] Phone: tel: fax: Referral ID Status Reason Start Date Expiration Date Visits Re quested Visits Authorized [id number] Closed 11/30/2024 11/30/2025 1 1 Encounter Details Date Type Department Care Team (Late st Contact Info) Description 11/30/2024 11:15 AM EDT Office Visit [facility] [address] [place] [address] Jennie Deleon NP [address] [place] [address] Encounter for IUD insertion (Primary Dx) Social [...] Description 12/16/2024 3:00 PM EDT Office Visit [facility] [address] [place] [address] Rubin, Patti, OD [address] [place] [address] 12/28/2024 4:00 PM EDT Office Visit [facility] [address] [place] [address] Jennie Deleon NP [address] [place] [address] Scheduled Orders Name Type Priority Associated Diagnoses Orde r Schedule IUD Management Procedures Routine Encounter for IUD insertion Ordered: 11/30/2024 CBC auto differential Lab Routine Encounter for IUD insertion Expected: 11/30/2024 (Approximate), Expires: 11/30/2025 Us Pelvis complete Imaging STAT Encounter for IUD insertion Expected: 11/30/2024, Expires: 11/30/2025 CBC auto differential Lab Routine Encounter for IUD insertion Expected: 11/30/2024 (Approximate), Expires: 11/30/2025 documented as of this encounter Procedures Procedure Name Priority Date/Time Associated Diagnosis Comments US PELVIS TRANSVAGINAL STAT 11/30/2024 2:35 PM EDT Encounter for IUD insertion CHLAMYDIA/TRICHOMONAS /NEISSERIA GONORRHOEAE, PCR, URINE Routine 11/30/2024 12:30 PM EDT Encounter for IUD insertion POCT , URINE Routine 11/30/2024 12:27 PM EDT Encounter for IUD insertion documented in this encounter Results * US Pelvis Transvaginal (11/30/2024 2:35 PM EDT) Anatomical Region Laterality Modality Pelvis Ultrasound 11/30/2024 2:35 PM EDT Narrative 11/30/2024 3:23 PM EDT [place] [address] Ultrasound Report Signed Patient: Nadia Montenegro MR#: [id number] : 1990 Acct:[id number] Age/Sex: 34 / F ADM Date: 11/30/24 Loc: HO.US Attending Dr: Jennie Deleon FREIGHT CHECKER Ordering Physician: Jennie Deleon NP Date of Service: 11/30/24 Procedure(s): US pelvic and transvaginal Accession Number(s): [id number] cc: Jennie Deleon FREIGHT CHECKER EXAMINATION: US PELVIS TRANSABDOMINAL AND TRANSVAGINAL HISTORY: s/p IUD placement, bleeding COMPARISON: Comparison is made with the prior examination dated 05/30/2020. TECHNIQUE: Transabdominal and endovaginal real-time 2D saldiavr-scale ultrasound was performed. FINDINGS: Uterus: The uterus is normal in size, measuring 8.2 x 4.7 x 5.8 cm. Myometrium has a normal echotexture. No fibroids are identified. Endometrium: The endometrial stripe measures 3 mm in thickness. An IUD is noted in appropriate position in the endometrial cavity. Right ovary: The right ovary measures 2.3 x 2.2 x 2.2 cm. The right ovary is normal in size and echotexture. Left ovary: The left ovary measures 2.4 x 2.6 x 1.9 cm. The left ovary is normal in size and echotexture. Pelvic fluid: none. US/US pelvic and transvaginal IMPRESSION: Unremarkable pelvic ultrasound. IUD in appropriate position in the endometrial cavity. Electronically signed by: Alber Mercer MD 11/30/2024 03:20 PM EDT RP Dictated By: Alber Mercer MD Signed By: <Electronically signed by Alber Mercer MD in [place]> 11/30/24 1520 DD/ 1435 TD/TT: 11/30/24 1445 Hobbing Machine Operator: Procedure Note Donotuseinterpreter, Image - 11/30/2024 [place] [address] Ultrasound Report Signed Patient: Nubia Montenegro#: [id number] : 1990Acct:[id number] Age/Sex: 34 / FADM Date: 11/30/24 Loc: HO.US Attending Dr: Jennie Deleon NP Ordering Physician: Jennie Deleon NP Date of Service: 11/30/24 Procedure(s): US pelvic and transvaginal Accession Number(s): [id number] cc: Jennie Deleon NP EXAMINATION: US PELVIS TRANSABDOMINAL AND TRANSVAGINAL HISTORY: s/p IUD placement, bleeding COMPARISON: Comparison is made with the prior examination dated 05/30/2020. TECHNIQUE: Transabdominal and endovaginal real-time 2D saldivar-scale ultrasound was performed. FINDINGS: Uterus: The uterus is normal in size, measuring 8.2 x 4.7 x 5.8 cm. Myometrium has a normal echotexture. No fibroids are identified. Endometrium: The endometrial stripe measures 3 mm in thickness. An IUD is noted in appropriate position in the endometrial cavity. Right ovary: The right ovary measures 2.3 x 2.2 x 2.2 cm. The right ovary is normal in size and echotexture. Left ovary: The left ovary measures 2.4 x 2.6 x 1.9 cm. The left ovary is normal in size and echotexture. Pelvic fluid: none. US/US pelvic and transvaginal IMPRESSION: Unremarkable pelvic ultrasound. IUD in appropriate position in the endometrial cavity. Electronically signed by: Alber Mercer MD 11/30/2024 03:20 PM EDT RP Dictated By: Alber Mercer MD Signed By: <Electronically signed by Alber Mercer MD in [place]> 11/30/24 1520 DD/ 1435 TD/TT: 11/30/24 1445 Hobbing Machine Operator: us Jennie Deleon NP IMG US PROCEDURES Final Result * Chlamydia/N. Gonorrhoeae, PCR, Urine (11/30/2024 12:30 PM EDT) CT PCR, Urine NOT DETECTED Not Detect. [facility] Comment:A not detected test result does not exclude the possibilityof infection because test results can be affected byimproper specimen collection, concurrent antibiotic therapy,or the number of organisms in the specimen which may bebelow the sensitivity of the test. As with many diagnostictests, results from the Xpert CT/NG assay should beinterpreted in conjunction with other laboratory andclinical data available to the clinician.The Xpert CT/NG assay should not be used for the evaluationof suspected sexual abuse or for other medico-legalindications. Additional testing is recommended in anycircumstance when false positive or false negative resultscould lead to adverse medical, social or psychologicalconsequences. NG PCR, Urine NOT DETECTED Not Detect. [facility] Comment:A not detected test result does not exclude the possibilityof infection because test results can be affected byimproper specimen collection, concurrent antibiotic therapy,or the number of organisms in the specimen which may bebelow the sensitivity of the test. As with many diagnostictests, results from the Xpert CT/NG assay should beinterpreted in conjunction with other laboratory andclinical data available to the clinician.The Xpert CT/NG assay should not be used for the evaluationof suspected sexual abuse or for other medico-legalindications. Additional testing is recommended in anycircumstance when false positive or false negative resultscould lead to adverse medical, social or psychologicalconsequences. Urine (Urine, Random) 11/30/2024 12:30 PM EDT 11/30/2024 4:35 PM EDT us Jennie Deleon FREIGHT CHECKER LAB URINE ORDERABLES Final Resul t [facility] [address] [place] [phone] * POCT Urine (11/30/2024 12:27 PM EDT) Preg Test, Ur Negative Negative, Indeterminate, None Detected, Invalid, Specimen unsatisfactory for evaluation, Weakly Positive, 2+ QC Media Lot # [id number] Lot# Expiration Date ,[id number] Urine 11/30/2024 12:2 7 PM EDT us Jennie Deleon NP POINT OF CARE TEST ENTER/EDIT OR DERABLES Final Result documented in this encounter Visit Diagnoses Diagnosis Encounter for IUD insertion- Primary Insertion of intrauterine contraceptive device documented in this encounter Additional Health Concerns Assessment Noted Time PHQ-9 Depression Total Score: 10 025 4:36 PM EDT documented as of this encounter Care Teams Truck Shop Supervisor Relationship Specialty Start Date End Date Jennie Deleon NP [address] [place] [address] PCP - General Family Medicine 11/12/23 documented as of this encounter
--- OUTSIDE RECORDS SUMMARY | 2024-12-02 10:21 | XMS_ITS | Encounter Summary ---
Author Organization [employer] Address 75 [facility] 7t [place] [address] Care Team Providers Care Pharmacy Technician Instructor Name Role Phone Jennie Deleon NP Primary Care Provider [phone] Encounter Details Date Type Department Care Team (Late st Contact Info) Description 05/17/2024 Orders Only [facility] MEDICINE [address] [place] [address] Provider, MD Toñito Social History Tobacco Use [...] Description 12/16/2024 3:00 PM EDT Office Visit [facility] OPTOMETRY [address] [place] [address] Patti Conklin, OD [address] [place] [address] 12/28/2024 4:00 PM EDT Office Visit [facility] MEDICINE [address] [place] [address] Jennie Deleon, NIKOLAS [address] [place] [address] documented as of this encounter Procedures Procedure [...] documented as of this encounter Care Teams Pharmacy Technician Instructor Relationship Specialty Start Date End Date Jennie Deleon NP [address] [place] [address] PCP - General Family Medicine 11/12/23 documented as of this encounter
--- OUTSIDE RECORDS SUMMARY | 2024-12-02 10:21 | XMS_ITS | Encounter Summary ---
Author Organization [employer] Address [address] [place] [address] 7 [place] [address] Care Team Providers Care Cell Biology Scientist Name Role Phone Becki Posadas MD Primary Care Provide r Jennie Deleon NP Primary Care Provider [phone] Jennie Deleon NP Primary Care Provider [phone] Reason for Visit * Reason Onset Date Comments ER Follow-up 12/17/2022 Encounter Details Date Type Department Care Team (Late st Contact Info) Description 12/17/2022 Telephone [facility] MEDICINE 230 [place], [place] [phone] Becki Posadas MD 230 [place], [place] [phone] ER Follow-up Social History Tobacco Use Types [...] no answer, LVM to return call to [facility] triage. LVM with [facility] operating hours.Per ER report seen at [facility] ED on 12/16 due to back pain /lightheadedness following cortisone injection at [facility] Pain management. Pt advised to follow up with pain management and PCP. No meds started. * Telephone Encounter - Tracy Palafox - 12/17/2022 2:52 PM EDT Patient calling to report ED visit on 12/16/22 at [facility]. Seen for back pain, (cortisone injection sideaffects) [...] 3:00 PM EDT Office Visit [facility] OPTOMETRY [address] [place] [address] Patti Conklin, OD [address] [place] [address] 12/28/2024 4:00 PM EDT Office Visit [facility] MEDICINE [address] [place] [address] Jennie Deleon NP [address] [place] [address] documented as of this encounter Visit Diagnoses Not on filedocumented in this encounter Additional Health Concerns Assessment Noted Time PHQ-9 Depression Total Score: 0 04/13/20 23 2:37 PM EDT documented as of this encounter Care Teams Cell Biology Scientist Relationship Specialty Start Date End Date Becki Posadas MD [address] [place] [address] PCP - General Family Medicine 08/30/20 11/10/23 Jennie Deleon NP [address] [place] [address] PCP - General Family Medicine 11/11/23 11/11/23 Jennie Deleon NP [address] [place] [address] PCP - General Family Medicine 11/12/23 documented as of this encounter
--- OUTSIDE RECORDS SUMMARY | 2024-12-02 10:21 | XMS_ITS | Encounter Summary ---
Author Organization [employer] Address 75 [facility] 7t [place] [address] Care Team Providers Care Electrical Design Technician Name Role Phone Jennie Deleon NP Primary Care Provider Encounter Details Date Type Department Care Team ([facility] Contact Info) Description 11/30/2024 Orders Only GENERIC EXTERNAL DATA DEPARTMENT Provider, Generic External Data Social History Tobacco Use Types Packs/Day Years [...] Description 12/16/2024 3:00 PM EDT Office Visit [facility] OPTOMETRY [address] [place] [address] Rubin, Patti, OD 230 [place] [address] 12/28/2024 4:00 PM EDT Office Visit [facility] MEDICINE 230 [place] [address] Jennie Deleon, NIKOLAS 230 [place] [address] documented as of this encounter Procedures Procedure Name Priority Date/Time Associated Diagnosis Comments BASIC METABOLIC PANEL Routine 11/30/2024 3:04 PM EDT documented in this encounter Results * (ABNORMAL) Basic Metabolic Panel (11/30/2024 3:04 PM EDT) Sodium 138 135 - 145 mmol/L [facility] Potassium 3.6 3.3 - 5.1 mmol/L [facility] Chloride 103 96 - 108 mmol/L [facility] Carbon Dioxide 28 22 - 29 mmol/L [facility] Anion Gap 11(L) 12 - 20 [facility] Urea Nitrogen (BUN) 11 9 - 16 mg/dL [facility] Creatinine, Serum 0.88 0.5 - 1.4 mg/dL [facility] Estimated Glomerular Filt Rate >60 [facility] Comment:Chronic Kidney Disea se: Estimated GFR < 60 mL/min/1.46s9Klxsnd Kidney Disease: Estimated GFR < 15 mL/min/1.73m2 Glucose 95 60 - 115 mg/dL [facility] Calcium 9.3 8.4 - 10.2 mg/dL [facility] 11/30/2024 3:04 PM EDT 11/30/2024 3:04 PM EDT us Generic External Data Provider LAB BLOOD ORDERAB LES Final Result Performing Organization Address City/State/[facility] Co de Phone Number [facility] [address] [place] [phone] documented in this encounter Visit Diagnoses Not on filedocumented in this encounter Additional Health Concerns Assessment Noted Time PHQ-9 Depression Total Score: 10 025 4:36 PM EDT documented as of this encounter Care Teams Electrical Design Technician Relationship Specialty Start Date End Date Jennie Deleon NP 230 [place] [address] PCP - General Family Medicine 11/12/23 documented as of this encounter
--- OUTSIDE RECORDS SUMMARY | 2024-12-02 10:21 | XMS_ITS | Encounter Summary ---
Author Organization [employer] Address 75 [facility] 7 [place] [address] Care Team Providers Care Hull Molder Name Role Phone Becki Posadas MD Primary Care Provide r Jennie Deleon NP Primary Care Provider [phone] Jennie Deleon NP Primary Care Provider [phone] Reason for Visit * Reason Comments Med Refill Encounter Details Date Type Department Care Team (Late st Contact Info) Description 12/28/2022 Refill [facility] [address] [place] [address] [phone] Olegario Marquis MD 230 [place], [place] [phone] Social History Tobacco Use Types Packs/Day Years [...] Description 12/16/2024 3:00 PM EDT Office Visit [facility] OPTOMETRY [address] [place] [address] Patti Conklin, OD 230 [place] [address] 12/28/2024 4:00 PM EDT Office Visit [facility] MEDICINE 230 [place] [address] Jennie Deleon NP 230 [place] [address] documented as of this encounter Visit Diagnoses Not on filedocumented in this encounter Additional Health Concerns Assessment Noted Time PHQ-9 Depression Total Score: 0 07/20/19 23 2:37 PM EDT documented as of this encounter Care Teams Hull Molder Relationship Specialty Start Date End Date Becki Posadas MD 230 [place] [address] PCP - General Family Medicine 08/30/20 11/10/23 Jennie Deleon NP 230 [place] [address] PCP - General Family Medicine 11/11/23 11/11/23 Jennie Deleon NP 230 [place] [address] PCP - General Family Medicine 11/12/23 documented as of this encounter
--- OUTSIDE RECORDS SUMMARY | 2024-12-02 10:21 | XMS_ITS | Encounter Summary ---
Author Organization [employer] Address 75 [facility] 7 [place] [address] Care Team Providers Care Grade And Center Marker Name Role Phone Jennie Deleon NP Primary Care Provider [phone] Encounter Details Date Type Department Care Team ([facility] st Contact Info) Description 12/01/2024 Results Follow-Up [facility] MED[facility]INE 230 [place], [place] [phone] Jennie Deleon NP 230 [place], [place] [phone] Chlamydia/N. Gonorrhoeae, PCR, Urine, POCT Urine Social History Tobacco Use Types Packs/Day Years [...] Description 12/16/2024 3:00 PM EDT Office Visit [facility] OPTOMETRY [address] [place] [address] Rubin, Patti, OD [address] [place] [address] 12/28/2024 4:00 PM EDT Office Visit [facility] MEDICINE 230 [place] [address] Jennie Deleon NP [address] [place] [address] documented as of this encounter Visit Diagnoses Not on filedocumented in this encounter Additional Health Concerns Assessment Noted Time PHQ-9 Depression Total Score: 10 025 4:36 PM EDT documented as of this encounter Care Teams Grade And Center Marker Relationship Specialty Start Date End Date Jennie Deleon NP 230 [place] [address] PCP - General Family Medicine 11/12/23 documented as of this encounter
--- OUTSIDE RECORDS SUMMARY | 2024-12-02 10:21 | XMS_ITS | Encounter Summary ---
Author Organization [employer] Address 75 [facility] 7 [place] [address] Care Team Providers Care Formulation Technician Name Role Phone Jennie Deleon NP Primary Care Provider [phone] Reason for Visit * Reason Onset Date Comments Med Refill 10/20/2024 Encounter Details Date Type Department Care Team (Late st Contact Info) Description 10/20/2024 Refill [facility] MED[facility]INE 230 [place], [place] [phone] Jennie Deleon NP 230 [place], [place] [phone] Social History Tobacco Use Types Packs/Day Years [...] Description 12/16/2024 3:00 PM EDT Office Visit [facility] OPTOMETRY [address] [place] [address] Rubin, Patti, OD 230 [place] [address] 12/28/2024 4:00 PM EDT Office Visit [facility] MEDICINE 230 [place] [address] Jennie eDleon NP 230 [place] [address] documented as of this encounter Visit Diagnoses Not on filedocumented in this encounter Additional Health Concerns Assessment Noted Time PHQ-9 Depression Total Score: 0 11/13/19 24 3:31 PM EDT documented as of this encounter Care Teams Formulation Technician Relationship Specialty Start Date End Date Jennie Deleon NP 230 [place] [address] PCP - General Family Medicine 11/12/23 documented as of this encounter
--- OUTSIDE RECORDS SUMMARY | 2024-12-02 10:21 | XMS_ITS | Patient Health Record ---
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 Problems Problem Type SNOMED Code ICD Code Onset Dates Problem Status W/U Status Risk Notes Problem Obesity (021541272) Other obesity (E66.8) Active confirmed Problem Vitamin D deficiency (16436277) Vitamin D deficiency (E55.9) Active confirmed Problem Refractory migraine (945863708) Intractable migraine without status migrainosus, unspecified migraine type (G43.919) Active confirmed Problem Body mass index 40+ - severely obese (705040097) Body mass index (BMI) of 40.1 to 44.9 in adult (Z68.41) Active confirmed Plan Of Treatment No Information Insurance Providers Payer Name Payer Address Payer Phone Subscriber Number Group Number Insured Name Patient Relationship to Insured Coverage Start Date Coverage End Date [facility] [address] [place] [id number] [phone] [id number] Nadia Guadarrama Self - patient is the insured Medications Administered Medication Instructions Date of Administration Dosage Notes MICC B12 INJECTION 01/29/2022 1 mL Lot #: [id number] MICC B12 INJECTION 02/22/2022 1 mL Lot # [id number] Medical (General) History Medical History History ICD Code migraines pseudo-tumor 2011 history of HTN prior to , not t reated seasonal allergies
--- OUTSIDE RECORDS SUMMARY | 2024-12-02 10:21 | XMS_ITS | Encounter Summary ---
Author Organization [employer] Address 75 [facility] 7 [place] [address] Care Team Providers Care Marine Surveyor Name Role Phone DanitzaJennie govea NIKOLAS Primary Care Provider [phone] Reason for Visit * Reason Onset Date Comments Med Refill 11/28/2023 Encounter Details Date Type Department Care Team (Late st Contact Info) Description 11/28/2023 Refill [facility] 230 [place], [place] [phone] Becki Posadas MD 230 [place], [place] [phone] Chronic hypertension; Class 3 severe obesity due [...] Description 12/16/2024 3:00 PM EDT Office Visit [facility] OPTOMETRY [address] [place] [address] Patti Conklin, BISMARK 230 [place] [address] 12/28/2024 4:00 PM EDT Office Visit [facility] 230 [place] [address] Jennie Deleon NP 230 [place] [address] documented as of this encounter Visit Diagnoses [...] documented as of this encounter Care Teams Marine Surveyor Relationship Specialty Start Date End Date Jennie Deleon NP 230 [place] [address] PCP - General Family Medicine 11/12/23 documented as of this encounter
--- OUTSIDE RECORDS SUMMARY | 2024-12-02 10:21 | XMS_ITS | Encounter Summary ---
Author Organization [employer] Address 75 [facility] 7 [place] [address] Care Team Providers Care Filling Hauler Weaving Name Role Phone Becki Posadas MD Primary Care Provide r Jennie Deleon NP Primary Care Provider Jennie Deleon NP Primary Care Provider [phone] Reason for Visit * Reason Comments Med Refill Encounter Details Date Type Department Care Team (Late st Contact Info) Description 03/13/2023 Refill [facility] MEDICINE 230 [place], [place] [phone] Becki Posadas MD 230 [place], [place] [phone] Social History Tobacco Use Types Packs/Day Years [...] Description 12/16/2024 3:00 PM EDT Office Visit [facility] OPTOMETRY [address] [place] [address] Rubin, Patti, OD 230 [place] [address] 12/28/2024 4:00 PM EDT Office Visit [facility] MEDICINE [address] [place] [address] Jennie Deleon NP [address] [place] [address] documented as of this encounter Visit Diagnoses Not on filedocumented in this encounter Additional Health Concerns Assessment Noted Time PHQ-9 Depression Total Score: 0 07/20/19 2:37 PM EDT documented as of this encounter Care Teams Filling Hauler Weaving Relationship Specialty Start Date End Date Becki Posadas MD 230 [place] [address] PCP - General Family Medicine 08/30/20 11/10/23 Jennie Deleon NP [address] [place] [address] PCP - General Family Medicine 11/11/23 11/11/23 Jennie Deleon NP [address] [place] [address] PCP - General Family Medicine 11/12/23 documented as of this encounter
--- OUTSIDE RECORDS SUMMARY | 2024-12-02 10:21 | XMS_ITS | Encounter Summary ---
Author Organization [employer] Address 75 [facility] 7t [place] [address] Care Team Providers Care Fruit Farmer Name Role Phone DanitzaJennie govea NIKOLAS Primary Care Provider [phone] Encounter Details Date Type Department Care Team ([facility] st Contact Info) Description 05/27/2024 Orders Only [facility] MEDICINE 230 [place] [address] Becki Posadas MD 230 [place], [place] [phone] Social History Tobacco Use Types Packs/Day Years [...] Description 12/16/2024 3:00 PM EDT Office Visit [facility] OPTOMETRY [address] [place] [address] Rubin, Patti, OD 230 [place] [address] 12/28/2024 4:00 PM EDT Office Visit [facility] MEDICINE 230 [place] [address] Jennie Deleon NP 230 [place] [address] documented as of this encounter Visit Diagnoses Not on filedocumented in this encounter Additional Health Concerns Assessment Noted Time PHQ-9 Depression Total Score: 0 11/13/19 24 3:31 PM EDT documented as of this encounter Care Teams Fruit Farmer Relationship Specialty Start Date End Date Jennie Deleon NP [address] [place] [address] PCP - General Family Medicine 11/12/23 documented as of this encounter
--- OUTSIDE RECORDS SUMMARY | 2024-12-02 10:21 | XMS_ITS | Encounter Summary ---
Author Organization [employer] Address [address] [place] [address] 7 [place] [address] Care Team Providers Care Hand Ii Tube Bender Name Role Phone Becki Posadas MD Primary Care Provide r Jennie Deleon NP Primary Care Provider [phone] Jennie Deleon NP Primary Care Provider [phone] Reason for Visit * Reason Comments Med Refill Encounter Details Date Type Department Care Team (Late st Contact Info) Description 10/21/2022 Refill [facility] MEDICINE 230 [place], [place] [phone] Qian Jacques MD 230 [place], [place] [phone] Migraine without aura, not refractory Social History [...] 12/16/2024 3:00 PM EDT Office Visit [facility] OPTOMETRY [address] [place] [address] Rubin, Patti, OD 230 [place] [address] 12/28/2024 4:00 PM EDT Office Visit [facility] MEDICINE [address] [place] [address] Jennie Deleon NP [address] [place] [address] documented as of this encounter Visit Diagnoses Diagnosis Migraine without aura, not refractory documented in this encounter Additional Health Concerns Assessment Noted Time PHQ-9 Depression Total Score: 0 07/20/19 23 2:37 PM EDT documented as of this encounter Care Teams Hand Ii Tube Bender Relationship Specialty Start Date End Date Becki Posadas MD [address] [place] [address] PCP - General Family Medicine 08/30/20 11/10/23 Jennie Deleon NP 230 [place] [address] PCP - General Family Medicine 11/11/23 11/11/23 Jennie Deleon NP [address] [place] [address] PCP - General Family Medicine 11/12/23 documented as of this encounter
--- OUTSIDE RECORDS SUMMARY | 2024-12-02 10:21 | XMS_ITS | Encounter Summary ---
Author Organization [employer] Address [address] [place] [address] 7 [place] [address] Care Team Providers Care Twenty One Dealer Name Role Phone Becki Posadas MD Primary Care Provide r Jennie Deleon NP Primary Care Provider [phone] Jennie Deleon NP Primary Care Provider [phone] Reason for Visit * Reason Onset Date Comments triage 04/05/2022 Encounter Details Date Type Department Care Team (Late st Contact Info) Description 04/05/2022 Telephone [facility] MEDICINE 230 [place], [place] [phone] Becki Posadas MD 230 [place], [place] [phone] triage Social History Tobacco Use Types Packs/Day [...] Telephone Encounter - Ariadne Baker RN - 04/05/2022 3:20 PM EST Triage [...] pt returning call Please contact pt at [phone] * Telephone Encounter - Lakshmi Booth RN - 04/05/2022 1:47 PM EST Call returned to patient for triage. No answer LVM to return call to [facility] triage line. Left [facility] [...] Description 12/16/2024 3:00 PM EDT Office Visit [facility] OPTOMETRY [address] [place] [address] Patti Conklin, OD 230 [place] [address] 12/28/2024 4:00 PM EDT Office Visit [facility] MEDICINE [address] [place] [address] Jennie Deleon NP [address] [place] [address] documented as of this encounter Visit Diagnoses Not on filedocumented in this encounter Care Teams Twenty One Dealer Relationship Specialty Start Date End Date Becki Posadas MD 230 [place] [address] PCP - General Family Medicine 08/30/20 11/10/23 Jennie Deleon NP 230 [place] [address] PCP - General Family Medicine 11/11/23 11/11/23 Jennie Deleon NP [address] [place] [address] PCP - General Family Medicine 11/12/23 documented as of this encounter
--- OUTSIDE RECORDS SUMMARY | 2024-12-02 10:21 | XMS_ITS | Encounter Summary ---
Author Organization [employer] Address 75 [facility] 7t [place] [address] Care Team Providers Care Disbursement Clerk Name Role Phone Adrienne Jennie NIKOLAS Primary Care Provider [phone] Encounter Details Date Type Department Care Team (Late st Contact Info) Description 10/02/2024 Orders Only [facility] 230 [place], [place] [phone] Olegario Marquis MD 230 [place], [place] [phone] Social History Tobacco Use Types Packs/Day Years [...] t he electric, gas, oil or water [employer] in threatened to shut off services in your [...] Description 12/16/2024 3:00 PM EDT Office Visit [facility] OPTOMETRY [address] [place] [address] Rubin, Patti, OD 230 [place] [address] 12/28/2024 4:00 PM EDT Office Visit [facility] MEDICINE [address] [place] [address] Jennie Deleon NP 230 [place] [address] documented as of this encounter Visit Diagnoses Not on filedocumented in this encounter Additional Health Concerns Assessment Noted Time PHQ-9 Depression Total Score: 0 11/13/19 24 3:31 PM EDT documented as of this encounter Care Teams Disbursement Clerk Relationship Specialty Start Date End Date Jennie Deleon NP [address] [place] [address] PCP - General Family Medicine 11/12/23 documented as of this encounter
--- OUTSIDE RECORDS SUMMARY | 2024-12-02 10:21 | XMS_ITS | Encounter Summary ---
Author Organization [employer] Address 75 [facility] 7 [place] [address] Care Team Providers Care Handmade Tile Artist Name Role Phone Becki Posadas MD Primary Care Provide r Jennie Deleon NP Primary Care Provider [phone] Jennie Deleon NP Primary Care Provider [phone] Reason for Visit * Reason Onset Date Comments Med Refill 04/04/2023 Encounter Details Date Type Department Care Team (Late st Contact Info) Description 04/04/2023 Refill [facility] MEDICINE 230 [place], [place] [phone] Susan Lopes MD 230 [place], [place] [phone] Social History Tobacco Use Types Packs/Day Years [...] Description 12/16/2024 3:00 PM EDT Office Visit [facility] OPTOMETRY [address] [place] [address] Rubin, Patti, OD 230 [place] [address] 12/28/2024 4:00 PM EDT Office Visit [facility] MEDICINE 230 [place] [address] Jennie Deleon NP 230 [place] [address] documented as of this encounter Visit Diagnoses Not on filedocumented in this encounter Additional Health Concerns Assessment Noted Time PHQ-9 Depression Total Score: 0 07/20/19 23 2:37 PM EDT documented as of this encounter Care Teams Handmade Tile Artist Relationship Specialty Start Date End Date Becki Posadas MD 230 [place] [address] PCP - General Family Medicine 08/30/20 11/10/23 Jennie Deleon NP 230 [place] [address] PCP - General Family Medicine 11/11/23 11/11/23 Jennie Deleon NP 230 [place] [address] PCP - General Family Medicine 11/12/23 documented as of this encounter
--- OUTSIDE RECORDS SUMMARY | 2024-12-02 10:21 | XMS_ITS | Encounter Summary ---
Author Organization [employer] Address 75 [facility] 7 [place] [address] Care Team Providers Care Peer Tutor Name Role Phone Becki Posadas MD Primary Care Provide r Jennie Deleon NP Primary Care Provider [phone] Jennie Deleon NP Primary Care Provider [phone] Reason for Visit * Reason Comments Med Refill Encounter Details Date Type Department Care Team (Late st Contact Info) Description 04/03/2023 Refill [facility] MEDICINE 230 [place], [place] [phone] Joselyn Wild MD 230 [place], [place] [phone] Social History Tobacco Use Types Packs/Day Years [...] PM EDT Office Visit [facility] OPTOMETRY [address] [place] [address] Rubin, Patti, OD 230 [place] [address] 12/28/2024 4:00 PM EDT Office Visit [facility] MEDICINE 230 [place] [address] Jennie Deleon NP 230 [place] [address] documented as of this encounter Visit Diagnoses Not on filedocumented in this encounter Additional Health Concerns Assessment Noted Time PHQ-9 Depression Total Score: 0 07/20/19 23 2:37 PM EDT documented as of this encounter Care Teams Peer Tutor Relationship Specialty Start Date End Date Becki Posadas MD [address] [place] [address] PCP - General Family Medicine 08/30/20 11/10/23 Jennie Deleon NP 230 [place] [address] PCP - General Family Medicine 11/11/23 11/11/23 Jennie Deleon NP 230 [place] [address] PCP - General Family Medicine 11/12/23 documented as of this encounter
--- OUTSIDE RECORDS SUMMARY | 2024-12-02 10:21 | XMS_ITS | Encounter Summary ---
Author Organization [employer] Address 75 [facility] 7 [place] [address] Care Team Providers Care Landfill Gas Technician Name Role Phone Becki Posadas MD Primary Care Provide r Jennie Deleon NP Primary Care Provider [phone] Jennie Deleon NP Primary Care Provider [phone] Reason for Visit * Reason Onset Date Comments Med Refill 10/20/2023 Encounter Details Date Type Department Care Team (Late st Contact Info) Description 10/20/2023 Refill [facility] [address] [place] [phone] Olegario Marquis MD 230 [place], [place] [phone] Migraine without status migrainosus, not intractable, unspecified [...] the past 12 months, has t he [employer], gas, oil or water company threatened to [...] [facility] OPTOMETRY [address] [place], [place] [phone] Patti Conklin, OD 230 [place] [address] 12/28/2024 4:00 PM EDT Office Visit [facility] MEDICINE 230 [place] [address] Jennie Deleon NP 230 [place] [address] documented as of this encounter Visit Diagnoses Diagnosis Migraine without status migrainosus, not intractable, unspecified migraine type documented in this encounter Additional Health Concerns Assessment Noted Time PHQ-9 Depression Total Score: 0 07/20/19 23 2:37 PM EDT documented as of this encounter Care Teams Landfill Gas Technician Relationship Specialty Start Date End Date Becki Posadas MD 230 [place] [address] PCP - General Family Medicine 08/30/20 11/10/23 Jennie Deleon NP 230 [place] [address] PCP - General Family Medicine 11/11/23 11/11/23 Jennie Deleon NP [address] [place] [address] PCP - General Family Medicine 11/12/23 documented as of this encounter
--- OUTSIDE RECORDS SUMMARY | 2024-12-02 10:21 | XMS_ITS | Encounter Summary ---
Author Organization [employer] Address 75 [facility] 7t [place] [address] Care Team Providers Care Editor Farm Journal Name Role Phone Becki Posadas MD Primary Care Provide r Jennie Deleon NP Primary Care Provider [phone] Jennie Deleon NP Primary Care Provider [phone] Encounter Details Date Type Department Care Team (Late st Contact Info) Description 03/13/2023 Orders Only [facility] MEDICINE 230 [place], [place] [phone] Susan Lopes MD 230 [place], [place] [phone] Social History Tobacco Use Types Packs/Day Years [...] Description 12/16/2024 3:00 PM EDT Office Visit [facility] OPTOMETRY [address] [place] [address] Rubin, Patti, OD 230 [place] [address] 12/28/2024 4:00 PM EDT Office Visit [facility] MEDICINE [address] [place] [address] Jennie Deleon NP [address] [place] [address] documented as of this encounter Visit Diagnoses Not on filedocumented in this encounter Additional Health Concerns Assessment Noted Time PHQ-9 Depression Total Score: 0 07/20/19 23 2:37 PM EDT documented as of this encounter Care Teams Editor Farm Journal Relationship Specialty Start Date End Date Becki Posadas MD [address] [place] [address] PCP - General Family Medicine 08/30/20 11/10/23 Jennie Deleon NP [address] [place] [address] PCP - General Family Medicine 11/11/23 11/11/23 Jennie Deleon NP 230 [place] [address] PCP - General Family Medicine 11/12/23 documented as of this encounter
--- OUTSIDE RECORDS SUMMARY | 2024-12-02 10:21 | XMS_ITS | Encounter Summary ---
Author Organization [employer] Address [address] [place] [address] 7 [place] [address] Care Team Providers Care Bite Block Maker Name Role Phone Becki Posadas MD Primary Care Provide r Jennie Deleon NP Primary Care Provider [phone] Jennie Deleon NP Primary Care Provider [phone] Reason for Visit * Reason Onset Date Comments Med Refill 10/20/2023 Encounter Details Date Type Department Care Team (Late st Contact Info) Description 10/20/2023 Refill [facility] [address] [place], [place] [phone] Becki Posadas MD 230 [place], [place] [phone] Migraine without aura, not refractory; Migraine without [...] Description 12/16/2024 3:00 PM EDT Office Visit [facility] OPTOMETRY [address] [place] [address] Patti Conklin, OD [address] [place] [address] 12/28/2024 4:00 PM EDT Office Visit [facility] MED[facility] [address] [place] [address] Jennie Deleon NP 230 [place] [address] documented as of this encounter Visit Diagnoses [...] documented as of this encounter Care Teams Bite Block Maker Relationship Specialty Start Date End Date Becki Posadas MD 230 [place] [address] PCP - General Family Medicine 08/30/20 11/10/23 Jennie Deleon NP [address] [place] [address] PCP - General Family Medicine 11/11/23 11/11/23 Jennie Deleon NP [address] [place] [address] PCP - General Family Medicine 11/12/23 documented as of this encounter
--- OUTSIDE RECORDS SUMMARY | 2024-12-02 10:21 | XMS_ITS | Encounter Summary ---
Author Organization [employer] Address [address] [facility] 7 [place] [address] Care Team Providers Care Fishing Accessories Maker Name Role Phone Becki Posadas MD Primary Care Provide r Jennie Deleon NP Primary Care Provider [phone] Jennie Deleon NP Primary Care Provider [phone] Reason for Visit * Reason Onset Date Comments Med Refill 10/20/2023 Encounter Details Date Type Department Care Team (Late st Contact Info) Description 10/20/2023 Refill [facility] 230 [place], [place] [phone] Susan Lopes MD 230 [place], [place] [phone] Social History Tobacco Use Types Packs/Day Years [...] Advice - You become worse mark [facility] Clinical Support (supporting Becki Kennedy MD)14 [...] 12/16/2024 3:00 PM EDT Office Visit [facility] OPTOMETRY [address] [place] [address] RubinPatti ramirez, OD 230 [place] [address] 12/28/2024 4:00 PM EDT Office Visit [facility] 230 [place] [address] Jennie Deleon NP 230 [place] [address] documented as of this encounter Visit Diagnoses Not on filedocumented in this encounter Additional Health Concerns Assessment Noted Time PHQ-9 Depression Total Score: 0 07/20/19 23 2:37 PM EDT documented as of this encounter Care Teams Fishing Accessories Maker Relationship Specialty Start Date End Date Becki Posadas MD [address] [place] [address] PCP - General Family Medicine 08/30/20 11/10/23 Jennie Deleon NP [address] [place] [address] PCP - General Family Medicine 11/11/23 11/11/23 Jennie Deleon NP 230 [facility] [place] [address] PCP - General Family Medicine 11/12/23 documented as of this encounter
--- OUTSIDE RECORDS SUMMARY | 2024-12-02 10:21 | XMS_ITS | Encounter Summary ---
Author Organization [employer] Address 75 [facility] 7 [place] [address] Care Team Providers Care Tabulating Machine Mechanic Name Role Phone Becki Posadas MD Primary Care Provide r Jennie Deleon NP Primary Care Provider [phone] Jennie Deleon NP Primary Care Provider [phone] Reason for Visit * Reason Onset Date Comments Med Refill 04/04/2023 Encounter Details Date Type Department Care Team (Late st Contact Info) Description 04/04/2023 Refill [facility] MED[facility] 230 [place], [place] [phone] Marti Alfaro DO 230 [place], [place] [phone] Migraine without aura, not refractory Social History [...] Description 12/16/2024 3:00 PM EDT Office Visit [facility] OPTOMETRY [address] [place] [address] Rubin, Patti, OD 230 [place] [address] 12/28/2024 4:00 PM EDT Office Visit [facility] MED[facility]INE 230 [place] [address] Jennie Deleon NP 230 [place] [address] documented as of this encounter Visit Diagnoses Diagnosis Migraine without aura, not refractory documented in this encounter Additional Health Concerns Assessment Noted Time PHQ-9 Depression Total Score: 0 07/20/19 23 2:37 PM EDT documented as of this encounter Care Teams Tabulating Machine Mechanic Relationship Specialty Start Date End Date Bceki Posadas MD 230 [place] [address] PCP - General Family Medicine 08/30/20 11/10/23 Jennie Deleon NP 230 [place] [address] PCP - General Family Medicine 11/11/23 11/11/23 Jenine Deleon NP 230 [place] [address] PCP - General Family Medicine 11/12/23 documented as of this encounter
--- OUTSIDE RECORDS SUMMARY | 2024-12-02 10:21 | XMS_ITS | Clinical Summary ---
Author Organization [facility] Address [address] [facility] [address] [place] [address] Phone Care Team Providers Care Rig Superintendent Name Role Phone Becki [place] MD Primary [...] file Group ID:Not on file Type:Medicaid Address: [address] [employer] NET PARTIAL Member Subscriber Plan / Payer (Ef fective 2023-Present) Name:Nadia Montenegro Relation to Subscriber:Self Name:Nadia Montenegro Payer ID:Not on file Group ID:Not on file Type:Medicaid Address: [address] [employer]AF[employer] NET PARTIAL Member Subscriber Plan / Payer (Ef fective 2023-Present) Name:Nadia Montenegro Relation to Subscriber:Self Name:Nadia Montenegro Payer ID:Not on file Group ID:Not on file Type:Medicaid Address: [address] [employer] NET PARTIAL Member Subscriber Plan / Payer (Ef fective 2023-Present) Name:Nadia Montenegro Relation to Subscriber:Self Name:Nadia Montenegro Payer ID:Not on file Group ID:Not on file Type:Medicaid Address: [address] C3 ACO [facility] SAFETY NET PARTIAL [facility] C3 ACO Care Teams Rig Superintendent Relationship Specialty Start Date End Date Becki Alexander MD [address] [place] [address] PCP - General Internal Medicine 04/06/23 Additional Source Comments The information contained in this document represents components of the legal health record. It is not the complete legal health record.[facility]
--- OUTSIDE RECORDS SUMMARY | 2024-12-02 10:21 | XMS_ITS | Encounter Summary ---
Author Organization [employer] Address [address] [place] [address] 7 [place] [address] Care Team Providers Care Facility Worker Name Role Phone Becki Posadas MD Primary Care Provide r Jennie Deleon NP Primary Care Provider [phone] Jennie Deleon NP Primary Care Provider [phone] Reason for Visit * Reason Onset Date Comments FYI 11/21/2022 Encounter Details Date Type Department Care Team (Late st Contact Info) Description 11/21/2022 Telephone [facility] MEDICINE 230 [place], [place] [phone] Becki Posadas MD 230 [place], [place] [phone] Social History Tobacco Use Types Packs/Day Years [...] Description 12/16/2024 3:00 PM EDT Office Visit [facility] OPTOMETRY [address] [place] [address] Rubin, Patti, OD 230 [place] [address] 12/28/2024 4:00 PM EDT Office Visit [facility] MEDICINE 230 [place] [address] Jennie Deleon NP 230 [place] [address] documented as of this encounter Visit Diagnoses Not on filedocumented in this encounter Additional Health Concerns Assessment Noted Time PHQ-9 Depression Total Score: 0 07/20/19 23 2:37 PM EDT documented as of this encounter Care Teams Facility Worker Relationship Specialty Start Date End Date Becki Posadas MD 230 [place] [address] PCP - General Family Medicine 08/30/20 11/10/23 Jennie Deleon NP 230 [place] [address] PCP - General Family Medicine 11/11/23 11/11/23 Jennie Deleon NP 230 [place] [address] PCP - General Family Medicine 11/12/23 documented as of this encounter
--- OUTSIDE RECORDS SUMMARY | 2024-12-02 10:22 | XMS_ITS | Clinical Summary ---
Author Organization [employer] Address [address] [facility] 7t [place] [address] Care Team Providers Care Cafe Operator Name Role Phone Jennie Deleon NP Primary Care Provider [phone] Allergies Active Allergy Reactions Criticality Noted Date [...] (Effexor XR) 37.5 MG 24 hr capsuleIndicati ons:MRATINA (generalized anxiety disorder) Take 1 capsule (37.5 [...] Encounters Date Type Department Care Team Description 12/01/2024 Results Follow-Up [facility] MEDICINE [address] [place] [address] Jennie Deleon NP Chlamydia/N. Gonorrhoeae, PCR, Urine, POCT Urine 11/30/2024 11:15 AM EDT Office Visit [facility] MEDICINE [address] [place] [address] Jennie Deleon NP Encounter for IUD insertion (Primary Dx) 11/30/2024 Orders Only GENERIC EXTERNAL DATA DEPARTMENT Provider, Generic External Data 11/30/2024 Telephone [facility] [address] [place] [address] Jennie Deleon NP Results 11/30/[address] [address] Jennie Deleon NP Pelvis US REMINDER 11/30/2024 Travel 11/27/2024 3:45 PM EDT Office Visit [facility] MED[facility]INE [address] [place] [address] Jennie Deleon NP MARTINA (generalized anxiety disorder) (Primary Dx); Encounter for other contraceptive management 11/27/2024 Travel 11/26/2024 Telephone [facility]INE [address] [place] [address] Jennie Deleon, NIKOLAS Chart Prep 11/25/[address] [address] Jennie Deleon NP Nurse Triage 11/24/2024 Travel 11/24/[address] [address] Jeb Self [place] CHARTPREP 11/23/[address] [address] Mirian Arreola NP 11/17/[address] [address] Jennie Deleon NP Nurse Triage 10/26/2024 Telephone [facility] ADULT DENTAL [address] [place] [address] Ramone Louis DDS rs no show appt 10/21/[address] [address] Jennie Deleon NP 10/20/[address] [address] Jennie Deleon NP 10/20/[address] [address] Becki Posadas MD Vitamin D deficiency 10/15/[address] [address] Jennie Deleon NP Care Management (C3CM- initial assessment-lvm case closed) 10/14/2024 Patient Outreach [address] [address] Jennie Deleon NP Care Coordination (C3CM/CHW JOHN Lewis- LVM-Reminder IA Appt with CM Program/Resources) 10/08/2024 Patient Outreach [address] [address] Jennie Deleon NP Care Coordination (C3CM/CHW JOHN Lewis- R/S missed IA-) 10/02/2024 Orders Only [facility] WALK-IN CENTER [address] [place] [address] Olegario Marquis MD 10/02/2024 Telephone [facility] WALK-IN [address] [address] Olegario Marquis MD 09/30/2024 Telephone [facility] WALK-IN [address] [address] Olegario Marquis MD 09/29/2024 11:20 AM EDT [facility] [address] [address] Olegario Marquis MD Essential hypertension in patient (Primary Dx) 09/29/2024 Orders Only GENERIC EXTERNAL DATA DEPARTMENT Provider, Generic External Data 09/29/2024 Travel 09/29/[address] [address] Jennie Deleon NP 09/28/[address] [address] Jennie Deleon NP Care Management (C3CM initial assessment-lvm) 09/25/2024 Patient Outreach [address] [address] Jennie Deleon NP Care Coordination (CM Appt reminder) 09/21/2024 Patient Outreach [facility] [address] [place], [place] [phone] Jennie Deleon NP Transition Of Care (Tcm) (HDF unscheduled. ) 09/18/2024 Patient Outreach [address] [address] Jennie Deleon NP Care Coordination (C3CM/CHJOHN Man- CM Initial Assessment Appt scheduled) 09/07/2024 1:00 PM EDT Office Visit [facility] ADULT DENTAL 230 [place] [address] Shazia Mishra DDS Dental caries (Primary Dx); [...] Description 12/16/2024 3:00 PM EDT Office Visit [facility] OPTOMETRY [address] [place] [address] Rubin, Patti, OD 230 [place] [address] 12/28/2024 4:00 PM EDT Office Visit [facility] MEDICINE 230 [place] [address] Jennie Deleon, NIKOLAS 230 [place] [address] Health Maintenance Due Date Last Done Comments [...] METABOLIC PANEL Routine 11/30/2024 3:04 PM EDT US PELVIS TRANSVAGINAL STAT 11/30/2024 2:35 PM [...] Recently Relevant to Health Maintenance Results * (ABNORMAL) Basic Metabolic Panel (11/30/2024 3:04 PM EDT) Only the most recent of2 resultswithin the time period is included. Sodium 138 135 - 145 mmol/L [facility] Potassium 3.6 3.3 - 5.1 mmol/L [facility] Chloride 103 96 - 108 mmol/L [facility] Carbon Dioxide 28 22 - 29 mmol/L [facility] Anion Gap 11(L) 12 - 20 [facility] Urea Nitrogen (BUN) 11 9 - 16 mg/dL [facility] Creatinine, Serum 0.88 0.5 - 1.4 mg/dL [facility] Estimated Glomerular Filt Rate >60 [facility] Comment:Chronic Kidney Disea se: Estimated GFR < 60 mL/min/1.36x0Pofhtg Kidney Disease: Estimated GFR < 15 mL/min/1.73m2 Glucose 95 60 - 115 mg/dL [facility] Calcium 9.3 8.4 - 10.2 mg/dL [facility] 11/30/2024 3:04 PM EDT 11/30/2024 3:04 PM EDT us Generic External Data Provider LAB BLOOD ORDERAB LES Final Result [facility] [address] [place] [phone] * US Pelvis Transvaginal (11/30/2024 2:35 PM EDT) Anatomical Region Laterality Modality Pelvis Ultrasound 11/30/2024 2:35 PM EDT Narrative 11/30/2024 3:23 PM EDT [address] [address] Ultrasound Report Signed Patient: Nadia Montenegro MR#: [id number] : 1990 Acct:[id number] Age/Sex: 34 / F ADM Date: 11/30/24 Loc: HO.US Attending Dr: Jennie Deleon NP Ordering Physician: Jennie Deleon NP Date of Service: 11/30/24 Procedure(s): US pelvic and transvaginal Accession Number(s): [id number] cc: Jennie Deleon BURNER OPERATOR EXAMINATION: US PELVIS TRANSABDOMINAL AND TRANSVAGINAL HISTORY: [...] Alber Mercer MD 11/30/2024 03:20 PM EDT Dictated By: Alber Mercer MD Signed By: <Electronically signed by Alber Mercer MD in OV> 11/30/24 1520 DD/ 1435 TD/TT: 11/30/24 1445 Digital Project Coordinator: Procedure Note Donotuseinterpreter, Image - 11/30/2024 [place] [address] Ultrasound Report Signed Patient: Nubia Montenegro#: [id number] : 1990Acct:[id number] Age/Sex: 34 / FADM Date: 11/30/24 Loc: HO.US Attending Dr: Jennie Deleon NP Ordering Physician: Jennie Deleon NP Date of Service: 11/30/24 Procedure(s): US pelvic and transvaginal Accession Number(s): [id number] cc: Jennie Deleon BURNER OPERATOR EXAMINATION: US PELVIS TRANSABDOMINAL AND TRANSVAGINAL HISTORY: [...] Alber Mercer MD 11/30/2024 03:20 PM EDT Dictated By: Alber Mercer MD Signed By: <Electronically signed by Alber Mercer MD in OV> 11/30/24 1520 DD/ 1435 TD/TT: 11/30/24 1445 Digital Project Coordinator: us Jennie Deleon BURNER OPERATOR IMG US PROCEDURES Final Result * Chlamydia/N. Gonorrhoeae, PCR, Urine (11/30/2024 12:30 PM EDT) CT PCR, Urine NOT DETECTED Not Detect. [facility] Comment:A not detected test result [...] NG PCR, Urine NOT DETECTED Not Detect. [facility] Comment:A not detected test result [...] 11/30/2024 4:35 PM EDT us Jennie Deleon NP LAB URINE ORDERABLES Final Resul t [facility] [address] [place] [address] [phone] * POCT Urine (11/30/2024 12:27 PM EDT) [facility] Preg Test, Ur Negative Negative, Indeterminate, None Detected, Invalid, Specimen unsatisfactory for evaluation, Weakly Positive, 2+ QC Media Lot # [id number] Lot# Expiration Date ,026 Urine 11/30/2024 12:2 7 PM EDT Jennie Deleon NP POINT OF CARE TEST ENTER/EDIT OR DERABLES Final Result * VITAMIN D 25-OH (D2 AND D3) (09/29/2024 1:33 PM EDT) Vitamin D, 25-OH, D2 8 ng/mL [facility] Comment:This test was develo ped and its analytical performancecharacteristics have been determined by [facility] [place], [place]. It hasnot been cleared or approved by the U.S. Food and DrugAdministration. This assay has been validated pursuantto the CLIA regulations and is used for clinicalpurposes.THIS TEST WAS PERFORMED AT:[employer] [place] [address]EXXSFSRLOUIS MILLER MD,PHD Vitamin D, 25-OH, D3 27 ng/mL [facility] Comment:This test was develo ped and its analytical performancecharacteristics have been determined by [facility] [place], [place]. It hasnot been cleared or approved by the U.S. Food and DrugAdministration. This assay has been validated pursuantto the CLIA regulations and is used for clinicalpurposes. Vitamin D, 25-OH, Total 35 30 - 100 ng/mL [facility] Comment:Vitamin D, 25-Hydrox y reports concentrations [...] = 30 ng/mL.For additional information, please refer tohttp://education.Embly/faq/SBE317(This link is being provided for informational/educational purposes only.) 09/29/2024 1:33 PM EDT 09/29/2024 4:10 PM EDT Generic External Data Provider LAB BLOOD ORDERAB LES Final Result Performing Organization Address [facility] de Phone Number [facility] [address] [place] [address] [phone] * (ABNORMAL) PTH, Intact Without Calcium (09/29/2024 1:33 PM EDT) Parathyroid Hormone, Intact 86.8(H) 8.7 - 77.1 pg/mL [facility] 09/29/2024 1:33 PM EDT 09/29/2024 4:10 PM EDT Generic External Data Provider LAB BLOOD ORDERAB LES Final Result Performing Organization Address [facility] de Phone Number [facility] [address] [place] [address] [phone] * Comprehensive Metabolic Panel (09/29/2024 1:33 PM EDT) Sodium 140 135 - 145 mmol/L [facility] Potassium 3.7 3.3 - 5.1 mmol/L [facility] Chloride 105 96 - 108 mmol/L [facility] Carbon Dioxide 26 22 - 29 mmol/L [facility] Anion Gap 13 12 - 20 [facility] Urea Nitrogen (BUN) 11 9 - 16 mg/dL [facility] Creatinine, Serum 0.71 0.5 - 1.4 mg/dL [facility] Creatinine Clr Calc Pharmacy TNP [facility] Comment:Unable to calculate eCrCL; all parameters not provided. Estimated Glomerular Filt Rate >60 [facility] Comment:Chronic Kidney Disea se: Estimated GFR < 60 mL/min/1.49f3Katwxu Kidney Disease: Estimated GFR < 15 mL/min/1.73m2 Glucose 81 60 - 115 mg/dL [facility] Calcium 9.1 8.4 - 10.2 mg/dL [facility] Bilirubin, Total 0.3 0.0 - 1.0 mg/dL [facility] Aspartate Amino Transferase 22 5 - 31 U/L [facility] Alanine Aminotransferase 17 0 - 31 U/L [facility] Total Protein 7.6 6.5 - 8.0 g/dL [facility] Albumin Level 4.1 3.5 - 5.0 g/dL [facility] Alkaline Phosphatase 63 39 - 117 U/L [facility] Blood Venous blood specimen / Unknown 09/29/2024 1:33 PM EDT 09/30/2024 8:51 AM EDT Olegario Marquis MD LAB BLOOD ORDERABLES Final Resul t [facility] [address] [place] [address] [phone] * HM PAP/HPV (03/11/2024 7:23 PM EST) Toñito Provider HEALTH MAINTENANCE Final Result * (ABNORMAL) Lipid Panel, Standard (08/15/2022 3:21 PM EDT) Cholesterol, Total 212(H) <200 mg/dL [facility] HDL Cholesterol 45(L) > OR = 50 mg/dL [facility] N(i)²t Triglycerides 321(H) <150 mg/dL [facility] Comment: If a non-fasting specimen was collected, consider repeat triglyceride testing on a fasting specimen if clinically indicated. Francisco et al. J. of Clin. Lipidol. 2015;9:129-169. LDL Cholesterol 121(H) mg/dL (calc) [facility] Comment: Reference range: <100 Desirable range <100 mg/dL for primary prevention; <70 mg/dL for patients with CHD or diabetic patients with > or = 2 CHD risk factors. LDL-C is now calculated using the Evan-Driscoll calculation, which is a validated novel method providing better accuracy than the Friedewald equation in the estimation of LDL-C. Evan SS et al. JAMEY. 2013;310(19): 6997-8457 (http://ThoughtLeadr/faq/XXM144) Chol/HDLC Ratio 4.7 <5.0 (calc) [facility] Non-HDL Cholesterol 167(H) <130 mg/dL (calc) [facility] Comment: For patients with diabetes plus 1 major ASCVD risk factor, treating to a non-HDL-C goal of <100 mg/dL (LDL-C of <70 mg/dL) is considered a therapeutic option. Blood Venous blood specimen / Unknown 08/15/2022 3:21 PM EDT 08/15/2022 3:21 PM EDT Narrative [facility] - 08/16/2022 7:06 AM EDT FASTING:NO FASTING: NO Becki Kennedy MD LAB BLOOD ORDERABLES Final Result [facility] [address], [place] [address] [email or web address] [address] [place] [address] * HIV 1/2 ANTIGEN/ANTIBODY,FOURTH GENERATION W/RFL (09/06/2020 2:34 PM EDT) [facility] HIV-1/2 ANTIGEN AND ANTIBODIES, 4TH GENERATION W/ REFLEX NON-REACT KAYLIE NON-REACT KAYLIE [facility] Comment: HIV-1 antigen and HIV-1/HIV-2 [...] purpose. For additional information please refer to http://Prescient.JumpSeat/faq/CWI285 (This link is being provided for informational/ educational purposes only.) The performance of this assay has not been clinically validated in patients less than 2 years old. 09/06/2020 2:34 PM EDT Becki Kennedy MD LAB BLOOD ORDERABLES Final Result [facility] [address] from Last 3 Months or Most Recently Relevant to Health Maintenance [place] [address] [place] [address] C3 [facility] MEDICAID STAND ADULT Care Teams Cafe Operator Relationship Specialty Start Date End Date Jennie Deleon NP [address] [place] [phone] PCP - General Family Medicine 11/12/23
--- OUTSIDE RECORDS SUMMARY | 2024-12-02 10:22 | XMS_ITS | Encounter Summary ---
Author Organization [employer] Address [address] [facility] 7t [place] [address] Care Team Providers Care Professor Of Anthropology Name Role Phone Adrienne Jennie NIKOLAS Primary Care Provider [phone] Reason for Visit * Reason Onset Date Comments rs no show appt 10/26/2024 Encounter Details Date Type Department Care Team ([facility] st Contact Info) Description 10/26/2024 Telephone [facility] [address] [place], [place] [phone] Ramone Louis DDS [address] [place], [place] [phone] rs no show appt Social History Tobacco [...] Description 12/16/2024 3:00 PM EDT Office Visit [facility] OPTOMETRY [address] [place] [address] Patti Conklin, OD [address] [place] [address] 12/28/2024 4:00 PM EDT Office Visit [facility] MEDICINE [address] [place] [address] Jennie Deleon NP [address] [place] [address] documented as of this encounter Visit Diagnoses Not on filedocumented in this encounter Additional Health Concerns Assessment Noted Time PHQ-9 Depression Total Score: 0 11/13/19 24 3:31 PM EDT documented as of this encounter Care Teams Professor Of Anthropology Relationship Specialty Start Date End Date Jennie Deleon NP [address] [place] [address] PCP - General Family Medicine 11/12/23 documented as of this encounter
--- OUTSIDE RECORDS SUMMARY | 2024-12-02 10:22 | XMS_ITS | Encounter Summary ---
Author Organization [employer] Address [address] [facility] [address] [place] [address] Care Team Providers Care Maintenance Supervisor Electrical Name Role Phone Adrienne Jennie NIKOLAS Primary Care Provider Encounter Details Date Type [...] 3:00 PM EDT Office Visit [facility] OPTOMETRY [address] [place] [address] Rubin, Patti, OD [address] [place] [address] 12/28/2024 4:00 PM EDT Office Visit [facility] MEDICINE [address] [place] [address] Jennie Deleon NP [address] [place] [address] documented as of this encounter Visit Diagnoses Not on filedocumented in this encounter Additional Health Concerns Assessment Noted Time PHQ-9 Depression Total Score: 10 025 4:36 PM EDT documented as of this encounter Care Teams Maintenance Supervisor Electrical Relationship Specialty Start Date End Date Jennie Deleon NP [address] [place] [address] PCP - General Family Medicine 11/12/23 documented as of this encounter
--- OUTSIDE RECORDS SUMMARY | 2024-12-02 10:22 | XMS_ITS | Encounter Summary ---
Author Organization [employer] Address [address] [facility] 7[address] [place] [address] Care Team Providers Care Senior Premium Auditor Name Role Phone Adrienne Jennie NIKOLAS Primary Care Provider [phone] Encounter Details Date Type Department Care Team [...] 3:00 PM EDT Office Visit [facility] OPTOMETRY [address] [place] [address] Patti Conklin, OD [address] [place] [address] 12/28/2024 4:00 PM EDT Office Visit [facility] MEDICINE [address] [place] [address] Jennie Deleon NP [address] [place] [address] documented as of this encounter Visit Diagnoses Not on filedocumented in this encounter Additional Health Concerns Assessment Noted Time PHQ-9 Depression Total Score: 10 025 4:36 PM EDT documented as of this encounter Care Teams Senior Premium Auditor Relationship Specialty Start Date End Date Jennie Deleon NP [address] [place] [address] PCP - General Family Medicine 11/12/23 documented as of this encounter
--- OUTSIDE RECORDS SUMMARY | 2024-12-02 10:22 | XMS_ITS | Encounter Summary ---
Author Organization [employer] Address [address] [facility] 7 [place] [address] Care Team Providers Care Critical Care Rn Name Role Phone Jennie Deleon NP Primary Care Provider [phone] Reason for Visit * Reason Onset Date Comments Pelvis US REMINDER 11/30/2024 Encounter Details Date Type Department Care Team ([facility] Contact Info) Description 11/30/2024 Telephone [facility] MEDICINE [address] [place], [place] [phone] Jennie Deleon NP [address] [place] [address] Pelvis US REMINDER Social History Tobacco Use [...] remind pelvis US appt for today at [facility]. Pt stated that she was already at [facility]. documented in this encounter Plan of Treatment Upcoming Encounters Date Type Department Care Team (Late st Contact Info) Description 12/16/2024 3:00 PM EDT Office Visit [facility] OPTOMETRY [address] [place] [address] Patti Conklin, OD [address] [place] [address] 12/28/2024 4:00 PM EDT Office Visit [facility] MEDICINE [address] [place], [place] [phone] Jennie Deleon NP [address] [place] [address] documented as of this encounter Visit Diagnoses Not on filedocumented in this encounter Additional Health Concerns Assessment Noted Time PHQ-9 Depression Total Score: 10 025 4:36 PM EDT documented as of this encounter Care Teams Critical Care Rn Relationship Specialty Start Date End Date Jennie Deleon NP [address] [place] [address] PCP - General Family Medicine 11/12/23 documented as of this encounter
--- OUTSIDE RECORDS SUMMARY | 2024-12-02 10:22 | XMS_ITS | Encounter Summary ---
Author Organization [employer] Address [address] [facility] 7 [place] [address] Care Team Providers Care Scratch Finisher Name Role Phone Jennie Deleon NP Primary Care Provider [phone] Reason for Visit * Reason Onset Date Comments Results 11/30/2024 Encounter Details Date Type Department Care Team ([facility] st Contact Info) Description 11/30/2024 Telephone [facility] MEDICINE [address] [place], [place] [phone] Jennie Deleon NP [address] [place] [address] Results Social History Tobacco Use Types Packs/Day [...] Description 12/16/2024 3:00 PM EDT Office Visit [facility] OPTOMETRY [address] [place] [address] Patti Conklin, OD [address] [place] [address] 12/28/2024 4:00 PM EDT Office Visit [facility] MEDICINE [address] [place] [address] Jennie Deleon NP [address] [place] [address] documented as of this encounter Visit Diagnoses Not on filedocumented in this encounter Additional Health Concerns Assessment Noted Time PHQ-9 Depression Total Score: 10 025 4:36 PM EDT documented as of this encounter Care Teams Scratch Finisher Relationship Specialty Start Date End Date Jennie Deleon NP [address] [place] [address] PCP - General Family Medicine 11/12/23 documented as of this encounter
[2024-12-02 11:12] LABS: MANUAL DIFF FLAG NO
[2024-12-02 11:16] LABS: Hematocrit 39.8 % (37.0-47.0); Hemoglobin 13.7 g/dl (12.0-16.0); Imm Gran Abs Auto 0.04 X10*3/uL (0.00-0.03); Imm Gran Pct Auto 0.6 % (0.0-0.4); Lymphocytes Absolute Auto 2.2 X10*3/uL (1.2-4.9); Mean Corpuscular HGB Conc 34.4 g/dl (31.0-35.0); Mean Corpuscular Hemoglobin 30.6 pg (27.0-33.0); Mean Corpuscular Volume 88.8 fL (80.0-98.0); NRBC Abs Auto 0.000 X10*3/uL (0.0-0.012); NRBC Pct Auto 0.0 /100WBC (0.0-0.2); Platelet Count 320 X10*3/uL (160-400); Red Blood Count 4.48 X10*6/uL (4.20-5.50); White Blood Count 7.2 X10*3/uL (4.8-10.8)
== END 2024-12-02 09:42 | disposition home or self-care (01) ==
LOC: HO.HHCL 09:41
PROVIDERS: PCP Nurse Practitioner Family; Visit Provider Nurse Practitioner Family
DX: Z30.430 Encounter for insertion of intrauterine contraceptive device (principal)
CPT/HCPCS: 36415; 85025

== ENCOUNTER 2025-01-14 13:35 | Emergency (ER) | payer MEDICAID, SELFPAY ==
--- NOTE | ~2025-01-14 | XR_ITS ---
EXAMINATION: XR LUMBAR SPINE 2-3 VIEWS HISTORY: acute on chronic pain 2 wks COMPARISON: Comparison is made with the prior examination dated 12/22/2019. FINDINGS: AP, lateral, and coned down views of the lumbar spine are submitted. Osseous mineralization is normal. Five nonrib-bearing lumbar vertebral bodies are identified, maintaining normal height and alignment without evidence of fracture or spondylolisthesis. The intervertebral disc spaces are preserved. The posterior elements are intact. An IUD is seen in the pelvis. XR/XR lumbar spine 2-3V IMPRESSION: Unremarkable examination of the lumbar spine. Electronically signed by: Alber Mercer MD 01/14/2025 02:32 PM EDT
[2025-01-14 13:52] VITALS: BP 155/93; PULSE 90; RESP 20; TEMP 37.2; O2SAT 98; BMI 36.6
--- NOTE | 2025-01-14 13:54 | ED.GENADULT ---
HPI - General Adult General Chief complaint: Back Pain/Injury Stated complaint: Lower back pain Time Seen by Provider: 01/14/25 14:49 Source: patient, RN notes reviewed and old records reviewed Mode of arrival: ambulatory Limitations: no limitations History of Present Illness ED Provider: Danay HPI narrative: Patient is a 34 year-old female with chronic lower back pain presenting with acute exacerbation for the past 2 weeks after cleaning her house. Seen at [facility] on 12/31, prescribed prednisone and flexeril, no improvement, reports difficulty getting around. Denies saddle anesthesia, bowel or bladder incontinence. No radiation to lower extremities. Denies fevers, history of cancer or IV drug use. MD complaint: back pain Onset (ago): week(s) Related Data Home Medications ?Medication ?Instructions ?Recorded ?Confirmed vits no.130-ferrous fum 1 tab PO DAILY 02/17/24 10/01/24 27 mg iron-folic acid 800 mcg tablet ( Vitamin) ferrous sulfate 324 mg (65 mg 324 mg PO BID 10/01/24 10/01/24 iron) tablet,delayed release Previous Rx's ?Medication ?Instructions ?Recorded nifedipine 30 mg tablet,extended 30 mg PO DAILY #90 tabs 10/01/24 release lidocaine 5 % topical patch 1 patch topical DAILY #15 ea 01/14/25 methocarbamol 1,000 mg tablet 1,000 mg PO QID 5 days #20 tabs 01/14/25 Allergies Allergy/AdvReac Type Severity Reaction Status Date / Time minocycline (MINOCYCLINE) Allergy Intermediate INTERCRANIAL Verified 01/14/25 13:55 HTN Review of Systems Review of Systems: As per HPI Yes all other systems are reviewed and are negative Constitutional: Constitutional: Reports as per HPI [facility] Past Medical History Medical History (Updated 01/14/25 @ 15:19 by Sima Jon NP) Lumbar radiculopathy Sacroiliac joint dysfunction of right side Disc degeneration, lumbar Spondylosis without myelopathy or radiculopathy, lumbar region HTN (hypertension) Migraines Bulging disc Social History Social History Alcohol intake: never Advance Directives: No Advance Directives Information Provided: Yes Do you have a plan to hurt others: No Plan Physical Exam ED Vital Signs: Vital Signs - 24 hr 01/14/25 13:52 01/14/25 15:28 Temperature 98.9 F 98.9 F Pulse Rate 90 90 Respiratory Rate 20 20 Blood Pressure 155/93 H 155/93 H Pulse Oximetry 98 98 Oxygen Delivery Method Room Air Room Air BMI result Body Mass Index 36.6 Vital signs have been reviewed and appear to be correct. Blood pressure normal. Heart rate normal. Respiratory rate normal. Temperature normal. Oxygen saturation normal. Const General: cooperative, healthy appearing and no acute distress Orientation/consciousness: oriented to person, oriented to place, oriented to time and patient oriented x3 Limitations: no limitations HENGA Head: Yes normocephalic and Yes atraumatic Ears: external ears normal General nose exam: Normal external nose present Face and sinus: Yes face symmetric Mouth: oropharynx normal and moist mucous membranes Throat: Yes uvula midline Eyes Pupils: Equal, round and reactive pupils present Neck Neck: Yes normal visual inspection and Yes supple Resp Effort & Inspection: normal respiratory effort and able to speak in complete sentences Auscultation: clear to auscultation bilaterally Cardio Rate: regular rate Rhythm: regular rhythm Heart sounds: S1 normal heart sound present and S2 normal heart sound present GI Palpation (GI): Soft to palpation and nontender Auscultation: normoactive bowel sounds General: Yes no CVA tenderness Back/Spine/Pelvis Back: no CVA tenderness Thoracic/Lumbar Spine: thoracic and lumbar spine normal to inspection, thoraco-lumbar ROM normal, straight leg raise negative bilaterally, pain with thoraco-lumbar ROM, No paraspinal muscle tenderness, No thoracic spinal tenderness and No lumbar spinal tenderness Pelvis: no pain with anterior-posterior compression and no pain with lateral compression Sacroiliac joints: bilaterally nontender Skin General skin exam: elasticity normal and turgor normal Neuro General: oriented to person, oriented to place, oriented to time, patient oriented x3, gait normal, tone normal, moves all extremities, Normal light touch and pain sensation, no focal motor deficits, CN's II-XI intact bilaterally and deep tendon reflexes 2+ bilaterally Cranial nerves: Yes Equal, round and reactive pupils present Cognition (Neuro): normal cognition Motor exam (neuro): 5/5 motor strength present throughout, Normal motor muscle tone present throughout and Motor abnormalities not present Extrem General: Yes full ROM, Yes no pedal edema and Yes no calf tenderness Psych Mental Status: mental status grossly normal Affect: normal affect Thought process: Normal thought process present Course Course Course Narrative: This is a rapid medical exam performed by Juliocesar Jon NP: Additional HPI, ROS, PE not included below will be deferred to primary provider. Patient is a 34y/o F with chronic lower back pain presenting with acute exacerbation for the past 2 weeks after cleaning her house. Seen at urgent care, prescribed prednisone, no improvement, difficulty getting around. Denies saddle anesthesia, b/b incontinence. No radiation to lower extremities. Plan: xray Medications Administered Discontinued Medications Generic Name Dose Route Start Last Admin Trade Name Freq PRN Reason Stop Dose Admin Ketorolac Tromethamine 30 mg 01/14/25 15:06 01/14/25 15:14 Ketorolac Tromethamine 30 Mg/Ml Vial IM 01/14/25 15:07 30 mg ONCE ONE Administration Medical Decision Making Medical Decision Making [facility] Narrative: Patient is a 34 year-old female with chronic lower back pain presenting with acute exacerbation for the past 2 weeks after cleaning her house. On exam patient is awake, A+Ox3, VS WNL, afebrile, normal neurological exam without focal deficits, physical exam findings as above. Given reported symptoms and physical exam findings, initial differential includes but is not limited to initial differential includes lumbar strain, lumbar radiculopathy, degenerative disc disease, disc herniation, spinal stenosis, spondylosis. Less likely vertebral fracture. Do not suspect malignancy/mass, SEA, cauda equina/cord compression. X-ray notable for no evidence of acute fracture or subluxation. My interpretation is in agreement with the radiologist's interpretation. No neurological deficits on exam, strength 5/5. Documented misuse of opioid pain medication by Dr. Thurston. Also recently prescribed oxycodone on 01/05 per review of [facility]. Discussed treatment options with patient, will try a different type of muscle relaxer then Flexeril. Medicated with Toradol in the ED. Will also send prescription for lidocaine patches. Advised follow up with PCP. Return precautions discussed. Patient verbalized understanding of and agreement with plan. Differential Diagnosis Differential Diagnoses: The differential diagnosis associated with the presentation includes as per [facility] Admission/Observation Consideration of admission/observation: Escalation of care including admission/observation considered Patient would have been admitted to the hospital and transferred to appropriate facility had their clinical presentation warranted hospital admission. Independent Interpretation I performed an independent interpretation of an: Plain X-Ray Interpretation: Lumbar x-ray without evidence of acute fracture subluxation. Radiology Impression Discussion of test interpretation with radiology: I have reviewed the radiologist's reading. Radiologist Impression: XR/XR lumbar spine 2-3V IMPRESSION: Unremarkable examination of the lumbar spine. External Record Review External record reviewed: Inpatient record, Office record and Outpatient record Prescription Management I considered prescription management with: Pain Medication and Other Discharge Plan Discharge Clinical Impression: Lumbar radiculopathy Patient Disposition: Home, Self-Care Instructions: Lumbar Radiculopathy (ED) Additional Instructions: You were evaluated in the emergency department today for lower back pain. This is likely due to an inflammation of a nerve in your back. You have been prescribed 5% topical lidocaine patches which you can wear for up to 12 hours in a 24 hour period. Do not apply heat directly over the patches. You have also been prescribed methocarbamol which is a muscle relaxer you can take 4 times daily as needed for pain. Use all medications as prescribed. Please schedule an appointment for follow-up with your primary care physician this week for further evaluation of your symptoms. Return to the emergency department if you experience worsening back pain, difficulty walking, fevers, numbness, tingling, incontinence, groin numbness or tingling, or any other concerning symptoms. Prescriptions: New lidocaine 5 % adhesive patch,medicated 1 patch topical DAILY Qty: 15 0RF Rx Instructions: leave on most painful area for up to 12 hrs methocarbamol 1,000 mg tablet 1,000 mg PO QID 5 Days Qty: 20 0RF No Action Vitamin 27 mg iron- 800 mcg tablet 1 tab PO DAILY ferrous sulfate 324 mg (65 mg iron) tablet,delayed release (DR/EC) 324 mg PO BID nifedipine 30 mg tablet extended release 30 mg PO DAILY Qty: 90 0RF Interventions: ED Discharge Assessment Last Done: 01/14/25 15:28 Discharge Date/Time: 01/14/25 15:28 Print Language: Persian
[2025-01-14 15:28] VITALS: BP 155/93; PULSE 90; RESP 20; TEMP 37.2; O2SAT 98
== END 2025-01-14 15:28 | disposition home or self-care (01) ==
PROVIDERS: Emergency Provider Emergency Medicine; PCP Nurse Practitioner Family
DX: M54.16 Radiculopathy, lumbar region (principal); I10 Essential (primary) hypertension
CPT/HCPCS: 72100; 96372; 99283; 99284; J1885

== ENCOUNTER → 2025-01-14 13:55 | Outpatient (BNV) | payer MEDICAID, SELFPAY | PROVIDERS: Emergency Provider Emergency Medicine; PCP Nurse Practitioner Family; Visit Provider Radiology Diagnostic Radiology | DX: M54.50 Low back pain, unspecified (principal) | CPT/HCPCS: 72100 ==

== ENCOUNTER 2025-02-10 15:46 | Outpatient (REF) | payer MEDICAID, SELFPAY ==
--- OUTSIDE RECORDS SUMMARY | 2025-02-09 16:00 | XMS_ITS | Encounter Summary ---
Author Organization [employer] Address [address] [facility] 7 [place] [address] Care Team Providers Care Polytechnic Teacher Name Role Phone Jennie Deleon NP Primary Care Provider [phone] Encounter Details Date Type Department Care Team (Late st Contact Info) Description 02/09/2025 4:00 PM EST Office Visit [facility] MEDICINE [address] [place], [place] [phone] Jennie Deleon NP [address] [place], [place] [phone] Hypertension, unspecified type (Primary Dx); Lumbar spine pain Social History Tobacco Use Types Packs/Day Years [...] Sign Reading Time Taken Comments Blood Pressure 162/100 02/09/2025 4:04 PM EST Pulse 116 02/09/2025 4:04 PM EST Temperature 37.2 C (98.9 F) 02/09/2025 4:04 PM EST Respiratory Rate 20 02/09/2025 4:04 PM EST Oxygen Saturation 99% 02/09/2025 4:04 PM EST Inhaled Oxygen Concentration - - Weight - - Height 157.5 cm (5' 2 ) 02/09/2025 4:04 PM EST Body Mass Index - - documented in this encounter Miscellaneous Notes * Assessment & Plan Note - Jennie Deleon NP - 02/09/2025 4:00 PM ESTAssociated Problem(s): HTN (hypertension) Orders: CBC auto differential; Future Sed Rate by Modified Westergren; Future C-reactive Protein; Future Comprehensive Metabolic Panel; Future * Assessment & Plan Note - Jennie Deleon NP - 02/09/2025 4:00 PM ESTAssociated Problem(s): Lumbar spine pain Orders: oxyCODONE (Roxicodone) 5 MG immediate release tablet; Take 1 tablet (5 mg) by mouth every 6 (six) hours if needed for severe pain for up to 5 days. Comprehensive Metabolic Panel; Future documented in this encounter Plan of Treatment Not on file documented as of this encounter Procedures Procedure Name Priority Date/Time Associated Diagnosis Comments CBC WITH AUTO DIFFERENTIAL Routine 02/10/2025 3:49 PM EST Hypertension, unspecified type SED RATE BY MODIFIED WESTERGREN Routine 02/10/2025 3:49 PM EST Hypertension, unspecified type C-REACTIVE PROTEIN Routine 02/10/2025 3: 49 PM EST Hypertension, unspecified type COMPREHENSIVE METABOLIC PANEL Routine 02/10/2025 3:49 PM EST Hypertension, unspecified type Lumbar spine pain documented in this encounter Results * Comprehensive Metabolic Panel (02/10/2025 3:49 PM EST) Sodium 140 135 - 145 mmol/L [facility] Potassium 3.7 3.3 - 5.1 mmol/L [facility] Chloride 104 96 - 108 mmol/L [facility] Carbon Dioxide 28 22 - 29 mmol/L [facility] Anion Gap 12 12 - 20 [facility] Urea Nitrogen (BUN) 9 9 - 16 mg/dL [facility] Creatinine, Serum 0.71 0.5 - 1.4 mg/dL [facility] Estimated Glomerular Filt Rate >60 [facility] Comment:Chronic Kidney Disea se: Estimated GFR < 60 mL/min/[id number] Kidney Disease: Estimated GFR < 15 mL/min/1.73m2 Glucose 89 60 - 115 mg/dL [facility] Calcium 9.2 8.4 - 10.2 mg/dL [facility] Bilirubin, Total 0.4 0.0 - 1.0 mg/dL [facility] Aspartate Amino Transferase 24 5 - 31 U/L [facility] Alanine Aminotransferase 18 0 - 31 U/L [facility] Total Protein 8.0 6.5 - 8.0 g/dL [facility] Albumin Level 4.5 3.5 - 5.0 g/dL [facility] Alkaline Phosphatase 63 39 - 117 U/L [facility] Blood Venous blood specimen / Unknown 02/10/2025 3:49 PM EST 02/10/2025 5:12 PM EST Jennie Deleon PUBLICATIONS EDITOR LAB BLOOD ORDERABLES Final Resul t Performing Organization Address [facility] Co de Phone Number [facility] [address] [place] [phone] * (ABNORMAL) C-reactive Protein (02/10/2025 3:49 PM EST) C Reactive Protein 10.06(H) < or = 0.50 mg/dL [facility] Blood Venous blood specimen / Unknown 02/10/2025 3:49 PM EST 02/10/2025 5:12 PM EST Jennie Deleon PUBLICATIONS EDITOR LAB BLOOD ORDERABLES Final Resul t Performing Organization Address [facility] Co de Phone Number [facility] [address] [place] [phone] * (ABNORMAL) Sed Rate by Jamee Laureano (02/10/2025 3:49 PM EST) Erythrocyte Sedimentation Rate 66(H) 0 - 20 MM/HR [facility] Comment:Patients with polycy themia and many hemoglobin abnormalitiesmay have depressed sed rates whereas patients with anemiamay have elevated sed rates. Blood Venous blood specimen / Unknown 02/10/2025 3:49 PM EST 02/10/2025 5:12 PM EST us Jennie Deleon NP LAB BLOOD ORDERABLES Final Resul t [facility] [address] [place] [phone] * (ABNORMAL) CBC auto differential (02/10/2025 3:49 PM EST) White Blood Count 10.6 4.8 - 10.8 X10*3/uL [facility] Red Blood Count 4.39 4.20 - 5.50 X10*6/uL [facility] Hemoglobin 13.2 12.0 - 16.0 g/dl [facility] Hematocrit 39.1 37.0 - 47.0 % [facility] Mean Corpuscular Volume 89.1 80.0 - 98.0 fL [facility] Mean Corpuscular Hemoglobin 30.1 27.0 - 33.0 pg [facility] Mean Corpuscular HGB Conc 33.8 31.0 - 35.0 g/dl [facility] Red Cell Distribution Width 13.3 11.0 - 16.0 % [facility] Platelet Count 324 160 - 400 X10*3/uL [facility] Mean Platelet Volume 9.7 9.4 - 12.3 fL [facility] Neutrophils Percent Auto 68.7 45 - 73 % [facility] Imm Gran Pct Auto 0.5(H) 0.0 - 0.4 % [facility] Lymphocytes Percent Auto 20.5 20 - 40 % [facility] Monocytes Percent Auto 8.7 2 - 11 % [facility] Eosinophils Percent Auto 1.2 0 - 4 % [facility] Basophils Percent Auto 0.4 0 - 2 % [facility] NRBC Pct Auto 0.0 0.0 - 0.2 /100WBC [facility] Neutrophils Absolute Auto 7.3 2.0 - 8.3 x10*3/uL [facility] Imm Gran Abs Auto 0.05(H) 0.00 - 0.03 X10*3/uL [facility] Lymphocytes Absolute Auto 2.2 1.2 - 4.9 X10*3/uL [facility] Monocytes Absolute Auto 0.9 0.1 - 1.2 X10*3/uL [facility] Eosinophils Absolute Auto 0.1 0.0 - 0.4 X10*3/uL [facility] Basophils Absolute Auto 0.0 0.0 - 0.2 X10*3/uL [facility] NRBC Abs Auto 0.000 0.0 - 0.012 X10*3/uL [facility] Blood Venous blood specimen / Unknown 02/10/2025 3:49 PM EST 02/10/2025 5:12 PM EST us Jennie Deleon PUBLICATIONS EDITOR LAB BLOOD ORDERABLES Final Resul t Performing Organization Address City/State/[facility] Co de Phone Number [facility] [address] [place] [address] [phone] documented in this encounter Visit Diagnoses Diagnosis Hypertension, unspecified type- Primary Lumbar spine pain documented in this encounter Additional Health Concerns Assessment Noted Time PHQ-9 Depression Total Score: 10 11/27/ 025 4:36 PM EDT documented as of this encounter Care Teams Polytechnic Teacher Relationship Specialty Start Date End Date Jennie Deleon NP [address] [place] [address] PCP - General Family Medicine 11/12/23 documented as of this encounter
[2025-02-10 17:14] LABS: MANUAL DIFF FLAG NO
[2025-02-10 17:20] LABS: Hematocrit 39.1 % (37.0-47.0); Hemoglobin 13.2 g/dl (12.0-16.0); Imm Gran Abs Auto 0.05 X10*3/uL (0.00-0.03); Imm Gran Pct Auto 0.5 % (0.0-0.4); Lymphocytes Absolute Auto 2.2 X10*3/uL (1.2-4.9); Mean Corpuscular HGB Conc 33.8 g/dl (31.0-35.0); Mean Corpuscular Hemoglobin 30.1 pg (27.0-33.0); Mean Corpuscular Volume 89.1 fL (80.0-98.0); NRBC Abs Auto 0.000 X10*3/uL (0.0-0.012); NRBC Pct Auto 0.0 /100WBC (0.0-0.2); Platelet Count 324 X10*3/uL (160-400); Red Blood Count 4.39 X10*6/uL (4.20-5.50); White Blood Count 10.6 X10*3/uL (4.8-10.8)
[2025-02-10 17:29] LABS: Alanine Aminotransferase 18 U/L (0-31); Albumin Level 4.5 g/dL (3.5-5.0); Alkaline Phosphatase 63 U/L (39-117); Anion Gap 12 (12-20); Aspartate Amino Transferase 24 U/L (5-31); Blood Urea Nitrogen 9 mg/dL (9-16); Calcium 9.2 mg/dL (8.4-10.2); Carbon Dioxide 28 mmol/L (22-29); Chloride 104 mmol/L (96-108); Estimated Glomerular Filt Rate > 60; Potassium 3.7 mmol/L (3.3-5.1); Sodium 140 mmol/L (135-145); Total Protein 8.0 g/dL (6.5-8.0)
[2025-02-10 18:00] LABS: Erythrocyte Sedimentation Rate 66 MM/HR (0-20)
--- OUTSIDE RECORDS SUMMARY | 2025-02-10 18:31 | XMS_ITS | Encounter Summary ---
Author Organization [employer] Address 75 [facility] 7 [place] [address] Care Team Providers Care Electronic Commerce Specialist Name Role Phone Becki Posadas MD Primary Care Provide r Jennie Deleon NP Primary Care Provider [phone] Jennie Deleon NP Primary Care Provider [phone] Reason for Visit * Reason Comments Med Refill Encounter Details Date Type Department Care Team (Late st Contact Info) Description 03/13/2023 Refill [facility] [address] [place], [place] [phone] Becki Posadas MD [address] [place], [place] [phone] Social History Tobacco Use Types Packs/Day Years [...] on file documented as of this encounter Visit Diagnoses Not on filedocumented in this encounter Additional Health Concerns Assessment Noted Time PHQ-9 Depression Total Score: 0 07/20/19 23 2:37 PM EDT documented as of this encounter Care Teams Electronic Commerce Specialist Relationship Specialty Start Date End Date Becki Posadas MD [address] [place] [address] PCP - General Family Medicine 08/30/20 11/10/23 Jennie Deleon NP [address] [place] [address] PCP - General Family Medicine 11/11/23 11/11/23 Jennie Deleon NP [address] [place] [phone] PCP - General Family Medicine 11/12/23 documented as of this encounter
--- OUTSIDE RECORDS SUMMARY | 2025-02-10 18:31 | XMS_ITS | Encounter Summary ---
Author Organization [employer] Address 75 [facility] 7 [place] [address] Care Team Providers Care Bellows Tester Name Role Phone Becki Posadas MD Primary Care Provide r Jennie Deleon NP Primary Care Provider [phone] Jennie Deleon NP Primary Care Provider [phone] Reason for Visit * Reason Comments Med Refill Encounter Details Date Type Department Care Team (Late st Contact Info) Description 12/28/2022 Refill [facility] [address] [place] [address] [phone] Olegario Marquis MD [address] [place], [place] [phone] Social History Tobacco Use Types Packs/Day Years [...] as of this encounter Plan of Treatment Not on file documented as of this encounter Visit Diagnoses Not on filedocumented in this encounter Additional Health Concerns Assessment Noted Time PHQ-9 Depression Total Score: 0 07/20/19 23 2:37 PM EDT documented as of this encounter Care Teams Bellows Tester Relationship Specialty Start Date End Date Becki Posadas MD [address] [place] [address] PCP - General Family Medicine 08/30/20 11/10/23 Jennie Deleon NP [address] [place] [address] PCP - General Family Medicine 11/11/23 11/11/23 Jennie Deleon NP [address] [place] [address] PCP - General Family Medicine 11/12/23 documented as of this encounter
--- OUTSIDE RECORDS SUMMARY | 2025-02-10 18:31 | XMS_ITS | Encounter Summary ---
Author Organization [employer] Address [address] [place] [address] [address] [place] [address] Care Team Providers Care Gasoline Locomotive Crane Operator Name Role Phone Becki Posadas MD Primary Care Provide r Jennie Deleon NP Primary Care Provider [phone] Jennie Deleon NP Primary Care Provider [phone] Reason for Visit * Reason Onset Date Comments ER Follow-up 12/17/2022 Encounter Details Date Type Department Care Team (Late st Contact Info) Description 12/17/2022 Telephone [facility]INE [address] [place], [place] [phone] Becki Posadas MD [address] [place], [place] [phone] ER Follow-up Social History Tobacco Use Types [...] no answer, LVM to return call to [facility] triage. LVM with [facility] operating hours.Per ER report seen at [facility] ED on 12/16 due to back pain /lightheadedness following cortisone injection at [facility] Pain management. Pt advised to follow up with pain management and PCP. No meds started. * Telephone Encounter - Tracy Palafox - 12/17/2022 2:52 PM EDT Patient calling to report ED visit on 12/16/22 at [facility]. Seen for back pain, (cortisone injection sideaffects) [...] documented as of this encounter Care Teams Gasoline Locomotive Crane Operator Relationship Specialty Start Date End Date Becki Posadas MD [address] [place] [address] PCP - General Family Medicine 08/30/20 11/10/23 Jennie Deleon NP [address] [place] [address] PCP - General Family Medicine 11/11/23 11/11/23 Jennie Deleon NP [address] [place] [address] PCP - General Family Medicine 11/12/23 documented as of this encounter
--- OUTSIDE RECORDS SUMMARY | 2025-02-10 18:31 | XMS_ITS | Encounter Summary ---
Author Organization [employer] Address 75 [facility] 7 [place] [address] Care Team Providers Care Breaker Boss Name Role Phone Becki Posadas MD Primary Care Provide r Jennie Deleon NP Primary Care Provider [phone] Jennie Deleon NP Primary Care Provider [phone] Reason for Visit * Reason Comments Med Refill Encounter Details Date Type Department Care Team (Late st Contact Info) Description 04/03/2023 Refill [facility] [address] [place], [place] [phone] Joselyn Wild MD [address] [place], [place] [phone] Social History Tobacco Use Types Packs/Day Years [...] documented as of this encounter Care Teams Breaker Boss Relationship Specialty Start Date End Date Becki Posadas MD [address] [place] [address] PCP - General Family Medicine 08/30/20 11/10/23 Jennie Deleon NP [address] [place] [address] PCP - General Family Medicine 11/11/23 11/11/23 Jennie Deleon NP [address] [place] [address] PCP - General Family Medicine 11/12/23 documented as of this encounter
--- OUTSIDE RECORDS SUMMARY | 2025-02-10 18:31 | XMS_ITS | Encounter Summary ---
Author Organization [employer] Address 75 [facility] 7 [place] [address] Care Team Providers Care Commissary Officer Name Role Phone Becki Posadas MD Primary Care Provide r Jennie Deleon NP Primary Care Provider [phone] Jennie Deleon NP Primary Care Provider [phone] Reason for Visit * Reason Onset Date Comments Med Refill 04/04/2023 Encounter Details Date Type Department Care Team (Late st Contact Info) Description 04/04/2023 Refill [facility]INE [address] [place], [place] [phone] Susan Lopes MD [address] [place], [place] [phone] Social History Tobacco Use Types Packs/Day Years [...] documented as of this encounter Care Teams Commissary Officer Relationship Specialty Start Date End Date Becki Posadas MD [address] [place] [address] PCP - General Family Medicine 08/30/20 11/10/23 Jennie Deleon NP [address] [place] [address] PCP - General Family Medicine 11/11/23 11/11/23 Jennie Deleon NP [address] [place] [address] PCP - General Family Medicine 11/12/23 documented as of this encounter
--- OUTSIDE RECORDS SUMMARY | 2025-02-10 18:31 | XMS_ITS | Encounter Summary ---
Author Organization [email or web address] Address 75 [facility] 7 [place] [address] Care Team Providers Care Oil Deliverer Name Role Phone Becki Posadas MD Primary Care Provide r Jennie Deleon NP Primary Care Provider Jennie Deleon NP Primary Care Provider [phone] Encounter Details Date Type Department Care Team (Late st Contact Info) Description 03/13/2023 Orders Only [facility] MEDICINE [address] [place], [place] [phone] Susan Lopes MD [address] [place], [place] [phone] Social History Tobacco Use Types Packs/Day Years [...] documented as of this encounter Care Teams Oil Deliverer Relationship Specialty Start Date End Date Becki Posadas MD [address] [place] [address] PCP - General Family Medicine 08/30/20 11/10/23 Jennie Deleon NP [address] [place] [address] PCP - General Family Medicine 11/11/23 11/11/23 Jennie Deleon NP [address] [place] [address] PCP - General Family Medicine 11/12/23 documented as of this encounter
--- OUTSIDE RECORDS SUMMARY | 2025-02-10 18:31 | XMS_ITS | Encounter Summary ---
Author Organization [employer] Address 75 [facility] 7 [place] [address] Care Team Providers Care External Grinder Tool Name Role Phone Becki Posadas MD Primary Care Provide r Jennie Deleon NP Primary Care Provider [phone] Jennie Deleon NP Primary Care Provider [phone] Reason for Visit * Reason Onset Date Comments Med Refill 10/20/2023 Encounter Details Date Type Department Care Team (Late st Contact Info) Description 10/20/2023 Refill [facility] [address] [place] [address] [phone] Olegario Marquis MD 230 [place], [place] [phone] Migraine without status migrainosus, not intractable, unspecified [...] the past 12 months, has t he [employer], gas, oil or water company threatened to [...] documented as of this encounter Care Teams External Grinder Tool Relationship Specialty Start Date End Date Becki Posadas MD [address] [place] [address] PCP - General Family Medicine 08/30/20 11/10/23 Jennie Deleon NP [address] [place] [address] PCP - General Family Medicine 11/11/23 11/11/23 Jennie Deleon NP [address] [place] [address] PCP - General Family Medicine 11/12/23 documented as of this encounter
--- OUTSIDE RECORDS SUMMARY | 2025-02-10 18:31 | XMS_ITS | Encounter Summary ---
Author Organization [employer] Address [address] [place] [address] 7 [place] [address] Care Team Providers Care Justice Of The Peace Name Role Phone Becki Posadas MD Primary Care Provide r Jennie Deleon NP Primary Care Provider [phone] Jennie Deleon NP Primary Care Provider [phone] Reason for Visit * Reason Comments Med Refill Encounter Details Date Type Department Care Team (Late st Contact Info) Description 10/21/2022 Refill [facility] MEDICINE [address] [place], [place] [phone] Qian Jacques MD [address] [place], [place] [phone] Migraine without aura, not refractory Social History [...] documented as of this encounter Care Teams Justice Of The Peace Relationship Specialty Start Date End Date Becki Posadas MD [address] [place] [address] PCP - General Family Medicine 08/30/20 11/10/23 Jennie Deleon NP [address] [place] [address] PCP - General Family Medicine 11/11/23 11/11/23 Jennie Deleon NP [address] [place] [address] PCP - General Family Medicine 11/12/23 documented as of this encounter
--- OUTSIDE RECORDS SUMMARY | 2025-02-10 18:31 | XMS_ITS | Encounter Summary ---
Author Organization [employer] Address [address] [facility] 7 [place] [address] Care Team Providers Care Tester [employer]iconductor Packages Name Role Phone DanitzaJennie govea NIKOLAS Primary Care Provider [phone] Reason for Visit * Reason Onset Date Comments Med Refill 11/28/2023 Encounter Details Date Type Department Care Team (Late st Contact Info) Description 11/28/2023 Refill [facility] MEDICINE [address] [place], [place] [phone] Becki Posadas MD [address] [place], [place] [phone] Chronic hypertension; Class 3 severe obesity due [...] (BMI) of 40.0 to 44.9 in adult (HCC) Vitamin D deficiency Chronic bilateral low back pain, unspecified whether sciatica present Anxiety Anxiety state, unspecified Migraine without aura, not refractory Migraine without aura and with status migrainosus, not intractable documented in this encounter Additional Health Concerns Assessment Noted Time PHQ-9 Depression Total Score: 0 11/13/19 24 3:31 PM EDT documented as of this encounter Care Teams Tester [employer]iconductor Packages Relationship Specialty Start Date End Date Jennie Deleon NP [address] [place] [address] PCP - General Family Medicine 11/12/23 documented as of this encounter
--- OUTSIDE RECORDS SUMMARY | 2025-02-10 18:31 | XMS_ITS | Encounter Summary ---
Author Organization [employer] Address [address] [facility] 7t [place] [address] Care Team Providers Care Mailroom Personnel Name Role Phone Adrienne Jennie NIKOLAS Primary Care Provider Encounter Details Date Type Department Care Team (Latest Contact Info) Description 02/09/2025 Travel Social History Tobacco Use Types Packs/Day [...] documented as of this encounter Care Teams Mailroom Personnel Relationship Specialty Start Date End Date Jennie Deleon NP [address] [place] [address] PCP - General Family Medicine 11/12/23 documented as of this encounter
--- OUTSIDE RECORDS SUMMARY | 2025-02-10 18:31 | XMS_ITS | Encounter Summary ---
Author Organization [employer] Address [address] [facility] 7 [place] [address] Care Team Providers Care Network Systems Integrator Name Role Phone Becki Posadas MD Primary Care Provide r Jennie Deleon NP Primary Care Provider [phone] Jennie Deleon NP Primary Care Provider [phone] Reason for Visit * Reason Onset Date Comments Med Refill 10/20/2023 Encounter Details Date Type Department Care Team (Late st Contact Info) Description 10/20/[address] [facility] MEDICINE [address] [place], [place] [phone] Susan Lopes MD [address] [place], [place] [phone] Social History Tobacco Use Types Packs/Day Years [...] Advice - You become worse mark Felix [facility] Clinical Support (supporting Becki Kennedy MD)14 hours [...] documented as of this encounter Care Teams Network Systems Integrator Relationship Specialty Start Date End Date Becki Posadas MD [address] [place] [address] PCP - General Family Medicine 08/30/20 11/10/23 Jennie Deleon NP [address] [place] [address] PCP - General Family Medicine 11/11/23 11/11/23 Jennie Deleon NP [address] [place] [address] PCP - General Family Medicine 11/12/23 documented as of this encounter
--- OUTSIDE RECORDS SUMMARY | 2025-02-10 18:31 | XMS_ITS | Encounter Summary ---
Author Organization [employer] Address [address] [place] [address] 7 [place] [address] Care Team Providers Care Electrotype Caster Name Role Phone Becki Posadas MD Primary Care Provide r Jennie Deleon NP Primary Care Provider [phone] Jennie Deleon NP Primary Care Provider [phone] Reason for Visit * Reason Onset Date Comments FYI 11/21/2022 Encounter Details Date Type Department Care Team (Late st Contact Info) Description 11/21/2022 Telephone [facility] MEDICINE 230 [place], [place] [phone] Becki Posadas MD [address] [place], [place] [phone] I Social History Tobacco Use Types Packs/Day Years [...] documented as of this encounter Care Teams Electrotype Caster Relationship Specialty Start Date End Date Becki Posadas MD [address] [place] [address] PCP - General Family Medicine 08/30/20 11/10/23 Jennie Deleon NP [address] [place] [address] PCP - General Family Medicine 11/11/23 11/11/23 Jennie Deleon NP [address] [place] [address] PCP - General Family Medicine 11/12/23 documented as of this encounter
--- OUTSIDE RECORDS SUMMARY | 2025-02-10 18:31 | XMS_ITS | Encounter Summary ---
Author Organization [employer] Address [address] [facility] 7 [place] [address] Care Team Providers Care House Wrecker Name Role Phone Jennie Deleon NP Primary Care Provider [phone] Reason for Visit * Reason Comments Med Refill Encounter Details Date Type Department Care Team ([facility] st Contact Info) Description 02/09/[address] [facility] MEDICINE 230 [place], [place] [phone] Jennie Deleon NP [address] [place], [place] [phone] Social History Tobacco Use Types Packs/Day Years [...] documented as of this encounter Care Teams House Wrecker Relationship Specialty Start Date End Date Jennie Deleon NP [address] [place] [address] PCP - General Family Medicine 11/12/23 documented as of this encounter
--- OUTSIDE RECORDS SUMMARY | 2025-02-10 18:31 | XMS_ITS | Encounter Summary ---
Author Organization [employer] Address [address] [facility] 7 [place] [address] Care Team Providers Care Microbiology Laboratory Manager Name Role Phone Becki Posadas MD Primary Care Provide r Jennie Deleon NP Primary Care Provider [phone] Jennie Deleon NP Primary Care Provider [phone] Reason for Visit * Reason Onset Date Comments Med Refill 04/04/2023 Encounter Details Date Type Department Care Team (Late st Contact Info) Description 04/04/2023 Refill [facility] MEDICINE 230 [place], [place] [phone] Marti Alfaro DO 230 [place], [place] [phone] Migraine without aura, not refractory Social History [...] documented as of this encounter Care Teams Microbiology Laboratory Manager Relationship Specialty Start Date End Date Becki Posadas MD [address] [place] [address] PCP - General Family Medicine 08/30/20 11/10/23 Jennie Deleon NP [address] [place] [address] PCP - General Family Medicine 11/11/23 11/11/23 Jennie Deleon NP [address] [place] [address] PCP - General Family Medicine 11/12/23 documented as of this encounter
--- OUTSIDE RECORDS SUMMARY | 2025-02-10 18:31 | XMS_ITS | Encounter Summary ---
Author Organization [employer] Address [address] [place] [address] 7 [place] [address] Care Team Providers Care Advertising Copy Writer Name Role Phone Becki Posadas MD Primary Care Provide r Jennie Deleon NP Primary Care Provider [phone] Jennie Deleon NP Primary Care Provider [phone] Reason for Visit * Reason Onset Date Comments Med Refill 10/20/2023 Encounter Details Date Type Department Care Team (Late st Contact Info) Description 10/20/2023 Refill [facility] MEDICINE 230 [place], [place] [phone] Becki Posadas MD [address] [place], [place] [phone] Migraine without aura, not refractory; Migraine without [...] of 40.0 to 44.9 in adult (HCC) Anxiety Anxiety state, unspecified Migraine without status migrainosus, not intractable, unspecified migraine type documented in this encounter Additional Health Concerns Assessment Noted Time PHQ-9 Depression Total Score: 0 07/20/19 23 2:37 PM EDT documented as of this encounter Care Teams Advertising Copy Writer Relationship Specialty Start Date End Date Becki Posadas MD [address] [place] [address] PCP - General Family Medicine 08/30/20 11/10/23 Jennie Deleon NP [address] [place] [address] PCP - General Family Medicine 11/11/23 11/11/23 Jennie Deleon NP [address] [place] [address] PCP - General Family Medicine 11/12/23 documented as of this encounter
--- OUTSIDE RECORDS SUMMARY | 2025-02-10 18:32 | XMS_ITS | Patient Health Record ---
Author Organization [facility] [address] Address [address] [place] [address] Care Team Providers Care Flame Cutting Supervisor Name Role Phone BONILLA ZHOU Unavailable [phone] Allergies Allergen (clinical drug ingredient) Drug/Non Drug Allergy documented on EMR Reaction Allergy Type Onset Date Status Minocycline HCl Unknown Drug Allergy A ctive Reason For Referral No Information Medications Medication [...] Notes Are you a nonsmoker Section Notes: health services manager health services manager Problems Problem Type SNOMED Code ICD Code Onset Dates Problem Status W/U Status Risk Notes Problem Obesity (030544960) Other obesity (E66.8) Active confirmed Problem Vitamin D deficiency (71798024) Vitamin D deficiency (E55.9) Active confirmed Problem Refractory migraine (919277219) Intractable migraine without status migrainosus, unspecified migraine type (G43.919) Active confirmed Problem Body mass index 40+ - severely obese (833816721) Body mass index (BMI) of 40.1 to 44.9 in adult (Z68.41) Active confirmed Plan Of Treatment No Information Insurance Providers Payer Name Payer Address Payer Phone Subscriber Number Group Number Insured Name Patient Relationship to Insured Coverage Start Date Coverage End Date [facility] [address] [place] [address] [id number] Nadia Guadarrama Self - patient is the insured Medications Administered Medication Instructions Date of Administration Dosage Notes MICC B12 INJECTION 01/29/2022 1 mL Lot #: [id number] [facility] [place] [place] 02/22/2022 1 mL Lot # [id number] Medical (General) History Medical History History ICD Code migraines pseudo-tumor 2011 history of HTN prior to , not t reated seasonal allergies
--- OUTSIDE RECORDS SUMMARY | 2025-02-10 18:32 | XMS_ITS | Encounter Summary ---
Author Organization [employer] Address [address] [facility] 7 [place] [address] Care Team Providers Care Gun Stock Maker Name Role Phone Jennie Deleon NP Primary Care Provider [phone] Reason for Visit * Reason Onset Date Comments Med Refill 10/20/2024 Encounter Details Date Type Department Care Team (Late st Contact Info) Description 10/20/2024 Refill [facility] 230 [place], [place] [phone] Jennie Deleon NP 230 [place], [place] [phone] Social History Tobacco Use Types Packs/Day Years [...] documented as of this encounter Care Teams Gun Stock Maker Relationship Specialty Start Date End Date Jennie Deleon NP [address] [place] [address] PCP - General Family Medicine 11/12/23 documented as of this encounter
--- OUTSIDE RECORDS SUMMARY | 2025-02-10 18:32 | XMS_ITS | Encounter Summary ---
Author Organization [employer] Address [address] [facility] 7 [place] [address] Care Team Providers Care Water Pipe Installer Name Role Phone Jennie Deleon NP Primary Care Provider [phone] Reason for Visit * Reason Comments Med Refill Encounter Details Date Type Department Care Team (Late st Contact Info) Description 02/01/2025 Refill [facility] MEDICINE 230 [place], [place] [phone] Jennie Deleon NP 230 [place], [place] 3000240 Lumbar spine pain Social History Tobacco Use [...] Telephone Encounter - Jennie Deleon NP - 02/05/2025 10:27 AM EDT I am sending last limited refill and told pt she needs visit and to see physiatry moving forward taylor at this time. Thank you documented in this encounter Plan of Treatment Not on file documented as of this encounter Visit Diagnoses Diagnosis Lumbar spine pain documented in this encounter Additional Health Concerns Assessment Noted Time PHQ-9 Depression Total Score: 10 025 4:36 PM EDT documented as of this encounter Care Teams Water Pipe Installer Relationship Specialty Start Date End Date Jennie Deleon NP 230 [place] [address] PCP - General Family Medicine 11/12/23 documented as of this encounter
--- OUTSIDE RECORDS SUMMARY | 2025-02-10 18:32 | XMS_ITS | Clinical Summary ---
Author Organization [employer] Address [address] [facility] 7[address] [place] [address] Care Team Providers Care Biopharmaceutical Rep Name Role Phone Adrienne Jennie CONNOR Primary Care Provider [phone] Allergies Active Allergy Reactions Criticality Noted Date [...] monitoring). 1 each 1 01/15/20 24 Active cholecalcifero l (Vitamin D-3) 25 MCG (1000 UT) tabletIndicati ons:Vitamin D deficiency Take 1 tablet (25 mcg) by mouth Once per day. 90 tablet 10/22/19 25 Active traZODone (Desyrel) 50 MG tablet Take 1 tablet (50 mg) by mouth if needed at bedtime for sleep. 30 tablet 11/28/19 25 Active venlafaxine XR (Effexor XR) 37.5 MG 24 hr capsule Take 1 capsule (37.5 mg) by mouth Once per day. Do not crush or chew. 90 capsule 2 01/06/20 25 025 Active gabapentin (Neurontin) 100 MG capsuleIndicat ions:Lumbar spine pain Take 1 capsule (100 mg) by mouth at bedtime for 2 days, THEN 2 capsules (200 mg) at bedtime for 2 days, THEN 3 capsules (300 mg) at bedtime for 26 days. 84 capsule 01/20/20 25 Active rizatriptan (Maxalt) 10 MG tablet TAKE 1 TABLET BY MOUTH AT ONSET OF MIGRAINE. MAY REPEAT ONCE AFTER 2 HOURS IF NEEDED DO NOT EXCEED 3 TABLETS IN 24 HOUR 9 tablet 02/11/20 Active NIFEdipine XL (Procardia XL) 30 MG 24 hr tablet Take 1 tablet (30 mg) by mouth Once per day. Do not crush, chew, or split. 30 tablet 2 02/10/20 25 Active oxyCODONE (Roxicodone) 5 MG immediate release tabletIndicati ons:Lumbar spine pain Take 1 tablet (5 mg) by mouth every 6 (six) hours if needed for severe pain for up to 5 days. 20 tablet 02/10/20 25 Active NIFEdipine XL (Procardia XL) 30 MG 24 hr tablet Take by mouth Once per day. Do not crush, chew, or split. Discontinued(Re order (will not trigger notification to Pharmacy)) rizatriptan (Maxalt) 10 MG tablet TAKE 1 TABLET BY MOUTH 1 TIME NEEDED FOR MIGRAINE. MAY REPEAT IN 2 HOURS IF UNRESOLVED. DO NOT EXCEED 30 MG IN 24 HOURS. 9 tablet 01/02/20 25 Discontinued oxyCODONE (Roxicodone) 5 MG immediate release tabletIndicati ons:Lumbar spine pain Take 1 tablet (5 mg) by mouth every 6 (six) hours if needed for severe pain for up to 5 days. 15 tablet 01/20/20 25 Discontinued oxyCODONE (Roxicodone) 5 MG immediate release tabletIndicati ons:Lumbar spine pain Take 1 tablet (5 mg) by mouth every 6 (six) hours if needed for severe pain for up to 3 days. 10 tablet 02/06/20 25 025 Discontinued(Re order (will not trigger notification to Pharmacy)) Active Problems Problem Noted Date Diagnosed Date Family history of ankylosing spondylitis 11/04/2 025 Lumbar spine pain 01/18/2025 Assessment & Plan (02/09/2025 4:35 PM EST): Orders: oxyCODONE (Roxicodone) 5 MG immediate release tablet; Take 1 tablet (5 mg) by mouth every 6 (six) hours if needed for severe pain for up to 5 days. Comprehensive Metabolic Panel; Future Acute low back pain 01/05/2025 Assessment & Plan (01/11/2025 4:21 PM EDT): Orders: oxyCODONE (Roxicodone) 5 MG immediate release tablet; Take 1 tablet (5 mg) by mouth every 6 (six) hours if needed for severe pain for up to 5 days. Referral to Pain Medicine; Future Encounter for IUD insertion 11/30/2024 Assessment & Plan (01/13/2025 11:30 AM EDT): Iud placed, after placement cervical bleeding occurred, stat ultrasound and cbc wnl with no pelvic fluid with IUD placed correctly No further pain MARTINA (generalized anxiety disorder) 11/27/2024 Assessment & Plan (01/11/2025 4:21 PM EDT): Assessment & Plan (11/27/2024 6:34 PM EDT): [...] requested HTN (hypertension) 03/06/2022 Assessment & Plan (02/09/2025 4:35 PM EST): Orders: CBC auto differential; Future Sed Rate by Modified Westergren; Future C-reactive Protein; Future Comprehensive Metabolic Panel; Future Assessment & Plan (11/12/2023 12:30 PM EDT): [...] or prn ANDERSON and keep sxs dairy. JENNIFER w RN in 2w, then w PCP or me in 4w. Order labs Counseled re weight reduction, low salt intake. Presence of intrauterine contraceptive device 06/27/19 18 11/12/2023 Encounters Date Type Department Care Team Description 02/09/2025 4:00 PM EST Office Visit [facility] [address] [place] [address] [phone] Jennie Deleon NP Hypertension, unspecified type (Primary Dx); Lumbar spine pain 02/09/2025 Travel 02/09/[address] [facility] [address] [place] [address] Jennie Deleon NP 02/06/2025 Travel 02/01/[address] [facility] [address] [place], [place] [phone] Jennie Deleon NP Lumbar spine pain 01/19/2025 Telephone [facility] [address] [place], [place] [phone] Jennie Deleon NP 01/18/[address] [facility] [address] [place], [place] [phone] Jennie Deleon NP 01/18/2025 Results Follow-Up [facility] [address] [place] [phone] Jennie Deleon NP XR Lumbar Spine 2-3 Views 01/14/2025 Orders Only [facility] External Provider, [facility] 01/05/2025 4:00 PM EDT Office Visit [facility] [address] [place] [phone] Jennie Deleon NP Acute low back pain, unspecified back pain laterality, unspecified whether sciatica present (Primary Dx); MARTINA (generalized anxiety disorder) 01/05/2025 Travel 01/01/2025 Travel 12/31/[address] [address] Jennie Deleon NP 12/25/[address] [address] Jennie Deleon NP Chart Prep 12/16/[address] [facility] OPTOMETRY [address] [place] [phone] Rubin, Patti, OD 12/02/[address] [facility] [address] [place] [phone] Jennie Deleon NP 12/01/2024 Results Follow-Up [address] [address] Jennie Deleon NP Chlamydia/N. Gonorrhoeae, PCR, Urine, POCT Urine 11/30/2024 11:15 AM EDT Office Visit [address] [address] Jennie Deleon NP Encounter for IUD insertion (Primary Dx) 11/30/2024 Orders Only GENERIC EXTERNAL DATA DEPARTMENT Provider, Generic External Data 11/30/[address] [facility] [address] [place] [phone] Jennie Deleon NP Results 11/30/[address] [address] Jennie Deleon NP Pelvis US REMINDER 11/30/2024 Travel 11/27/2024 3:45 PM EDT Office Visit [address] [address] Jennie Deleon NP MARTINA (generalized anxiety disorder) (Primary Dx); Encounter for other contraceptive management 11/27/2024 Travel 11/26/[address] [address] Jennie Deleon, NIKOLAS Chart Prep 11/25/[address] [address] Jennie Deleon NP Nurse Triage 11/24/2024 Travel 11/24/[address] [address] Jeb Self MI CHARTPREP 11/23/[address] [address] Mirian Arreola NP 11/17/[address] [address] Jennie Deleon NP Nurse Triage from Last 3 Months Immunizations Immunization Administration [...] seasonal, injecta ble, preservative free 01/07/2024 MMR 09/18/2024, 2,09/13/2021,06/22,05/12/1992 Meningococcal MCV4P ACYW-135 06/18/2006 Meningococcal MPSV4 06/18/2006 Moderna Covid-19 Vaccine 12+ 02/17/2021,04/28/19,03/31/2020 Moderna Covid-19 Vaccine 6+ Bivalent 03/27/2022 Pneumococcal Polysaccharide PPSV23 06/04/2010 TD (adult), 2 Lf tetanus tox oid, preservative free, adsorbed 06/10/2002 Td (adult) 06/10/2002 Tdap 07/06/2024,06/26/2021,04/06/2016 Varicella 05/18/2008,04/09/2002 Family History Medical History Relation [...] EST Inhaled Oxygen Concentration - - Weight 102 kg (224 lb 9.6 oz) 01/05/2025 4:25 PM EDT Height 157.5 cm (5' 2 ) 02/09/2025 4:04 PM EST Body Mass Index 41.08 01/05/2025 4:25 PM EDT Plan of Treatment Health Maintenance Due Date Last Done Comments Dental Oral Exam 1991 Dental Prophylaxis 1991 Dental X-Ray: Full Mouth 1991 Family Planning (PISQ) 2006 Hepatitis C Screening 2009 COVID-19 Vaccine ( season) 2024 03/27/2022, 02/17/2021, 04/28/2020, Additional history exists Influenza Vaccine (#1) 2024 , 02/02/2023, 12/21/2021, Additional history exists Depression Monitoring 05/30/2025 11/27/2024, 025 Dental X-Ray: Bitewings 09/08/2025 09/07/2024 Disability Screening 11/24/2025 11/24/2024 SDOH Screening 11/27/2025 11/27/2024 Alcohol/Substance Use Screening 02/09/2026 02/09/2025 Tobacco Screening 02/09/2026 02/09/2025 Lipid Panel 08/16/2027 08/15/2022, 08/06, 08/15/2022, Additional [...] Procedure Name Priority Date/Time Associated Diagnosis Comments COMPREHENSIVE METABOLIC PANEL Routine 02/10/2025 3:49 PM EST Hypertension, unspecified type Lumbar spine pain C-REACTIVE PROTEIN Routine 02/10/2025 3: 49 PM EST Hypertension, unspecified type SED RATE BY MODIFIED WESTERGREN Routine 02/10/2025 3:49 PM EST Hypertension, unspecified type CBC WITH AUTO DIFFERENTIAL Routine 02/10/2025 3:49 PM EST Hypertension, unspecified type MR LUMBAR SPINE WO CONTRAST Urgent 01/22/2025 Lumbar spine pain XR LUMBAR SPINE 2-3 VIEWS Routine 01/14/2025 2:20 PM EDT CBC WITH AUTO DIFFERENTIAL Routine 12/02/2024 9:58 AM EDT Encounter for IUD insertion BASIC METABOLIC PANEL Routine 11/30/2024 3:04 PM EDT US PELVIS TRANSVAGINAL STAT 11/30/2024 2:35 PM EDT Encounter for IUD insertion CHLAMYDIA/TRICHOMONAS /NEISSERIA GONORRHOEAE, PCR, URINE Routine 11/30/2024 12:30 PM EDT Encounter for IUD insertion POCT , URINE Routine 11/30/2024 12:27 PM EDT Encounter for IUD insertion WA INSERTION INTRAUTERINE DEVICE IUD Routine 11/30/2024 11:15 AM EDT Encounter for IUD insertion BITEWING - SINGLE RADIOGRAPHIC IMAGE Routine 09/07/2024 1:00 PM EDT Dental caries Dental caries into pulp HM PAP/HPV Routine 03/11/2024 7:23 PM EST LIPID PANEL, STANDARD Routine 08/15/2022 3:21 PM EDT Primary hypertension HIV 1/2 ANTIGEN/ANTIBODY, FOURTH GENERATION W/RFL Routine 09/06/2020 2:34 PM EDT from Last 3 Months or Most Recently Relevant to Health Maintenance Results * (ABNORMAL) CBC auto differential (02/10/2025 3:49 PM EST) Only the most recent of2 resultswithin the time period is included. White Blood Count 10.6 4.8 - 10.8 X10*3/uL [facility] Red Blood Count 4.39 4.20 - 5.50 X10*6/uL [facility] Hemoglobin 13.2 12.0 - 16.0 g/dl [facility] Hematocrit 39.1 37.0 - 47.0 % [facility] Mean Corpuscular Volume 89.1 80.0 - 98.0 fL [facility] Mean Corpuscular Hemoglobin 30.1 27.0 - 33.0 pg [facility] Mean Corpuscular HGB Conc 33.8 31.0 - 35.0 g/dl [facility] Red Cell Distribution Width 13.3 11.0 - 16.0 % [facility] Platelet Count 324 160 - 400 X10*3/uL [facility] Mean Platelet Volume 9.7 9.4 - 12.3 fL [facility] Neutrophils Percent Auto 68.7 45 - 73 % [facility] Imm Gran Pct Auto 0.5(H) 0.0 - 0.4 % [facility] Lymphocytes Percent Auto 20.5 20 - 40 % [facility] Monocytes Percent Auto 8.7 2 - 11 % [facility] Eosinophils Percent Auto 1.2 0 - 4 % [facility] Basophils Percent Auto 0.4 0 - 2 % [facility] NRBC Pct Auto 0.0 0.0 - 0.2 /100WBC [facility] Neutrophils Absolute Auto 7.3 2.0 - 8.3 x10*3/uL [facility] Imm Gran Abs Auto 0.05(H) 0.00 - 0.03 X10*3/uL [facility] Lymphocytes Absolute Auto 2.2 1.2 - 4.9 X10*3/uL [facility] Monocytes Absolute Auto 0.9 0.1 - 1.2 X10*3/uL [facility] Eosinophils Absolute Auto 0.1 0.0 - 0.4 X10*3/uL [facility] Basophils Absolute Auto 0.0 0.0 - 0.2 X10*3/uL [facility] NRBC Abs Auto 0.000 0.0 - 0.012 X10*3/uL [facility] Blood Venous blood specimen / Unknown 02/10/2025 3:49 PM EST 02/10/2025 5:12 PM EST us Jennie Deleon BIOLOGICAL SCIENCES PROFESSOR LAB BLOOD ORDERABLES Final Resul t Performing Organization Address [facility] Co de Phone Number [facility] [address] [place] [phone] * (ABNORMAL) Sed Rate by Modified Georgi (02/10/2025 3:49 PM EST) Erythrocyte Sedimentation Rate 66(H) 0 - 20 MM/HR [facility] Comment:Patients with polycy themia and many hemoglobin abnormalitiesmay have depressed sed rates whereas patients with anemiamay have elevated sed rates. Blood Venous blood specimen / Unknown 02/10/2025 3:49 PM EST 02/10/2025 5:12 PM EST us Jennie Deleon BIOLOGICAL SCIENCES PROFESSOR LAB BLOOD ORDERABLES Final Resul t Performing Organization Address [facility]/ZIP Co de Phone Number [facility] [address] [place] [phone] * (ABNORMAL) C-reactive Protein (02/10/2025 3:49 PM EST) C Reactive Protein 10.06(H) < or = 0.50 mg/dL [facility] Blood Venous blood specimen / Unknown 02/10/2025 3:49 PM EST 02/10/2025 5:12 PM EST us Jennie Deleon BIOLOGICAL SCIENCES PROFESSOR LAB BLOOD ORDERABLES Final Resul t [facility] [address] [place] [phone] * Comprehensive Metabolic Panel (02/10/2025 3:49 PM EST) Sodium 140 135 - 145 mmol/L [facility] Potassium 3.7 3.3 - 5.1 mmol/L [facility] Chloride 104 96 - 108 mmol/L [facility] Carbon Dioxide 28 22 - 29 mmol/L [facility] Anion Gap 12 12 - 20 [facility] Urea Nitrogen (BUN) 9 9 - 16 mg/dL [facility] Creatinine, Serum 0.71 0.5 - 1.4 mg/dL [facility] Estimated Glomerular Filt Rate >60 [facility] Comment:Chronic Kidney Disea se: Estimated GFR < 60 mL/min/[id number] Kidney Disease: Estimated GFR < 15 mL/min/1.73m2 Glucose 89 60 - 115 mg/dL [facility] Calcium 9.2 8.4 - 10.2 mg/dL [facility] Bilirubin, Total 0.4 0.0 - 1.0 mg/dL [facility] Aspartate Amino Transferase 24 5 - 31 U/L [facility] Alanine Aminotransferase 18 0 - 31 U/L [facility] Total Protein 8.0 6.5 - 8.0 g/dL [facility] Albumin Level 4.5 3.5 - 5.0 g/dL [facility] Alkaline Phosphatase 63 39 - 117 U/L [facility] Blood Venous blood specimen / Unknown 02/10/2025 3:49 PM EST 02/10/2025 5:12 PM EST Jennie Deleon NP LAB BLOOD ORDERABLES Final Resul t [facility] [address] [place] [phone] * MR Lumbar Spine w/o Contrast (01/22/2025) Anatomical Region Laterality Modality Spine, L-spine Magnetic Resonan ce us Jennie Deleon NP IMG MRI PROCEDURES Final Result * XR Lumbar Spine 2-3 Views (01/14/2025 2:20 PM EDT) Anatomical Region Laterality Modality Spine, L-spine Radiographic Maggy ging 01/14/2025 2:20 PM EDT Narrative 01/14/2025 2:35 PM EDT [address] [address] XRay Report Signed Patient: Nadia Montenegro MR#: [id number] [id number] : 1990 Acct:[id number] Age/Sex: 34 / F ADM Date: 01/14/25 Loc: .ED Attending Dr: Ordering Physician: Sima Jon NP Date of Service: 01/14/25 Procedure(s): XR lumbar spine 2-3V Accession Number(s): [id number] cc: Jennie Deleon BIOLOGICAL SCIENCES PROFESSOR; Sima Jon NP Reason for Exam: acute on chronic pain 2 wks EXAMINATION: XR LUMBAR SPINE 2-3 VIEWS HISTORY: acute on chronic pain 2 wks COMPARISON: Comparison is made with the prior examination dated 12/22/2019. FINDINGS: AP, lateral, and coned down views of the lumbar spine are submitted. Osseous mineralization is normal. Five nonrib-bearing lumbar vertebral bodies are identified, maintaining normal height and alignment without evidence of fracture or spondylolisthesis. The intervertebral disc spaces are preserved. The posterior elements are intact. An IUD is seen in the pelvis. XR/XR lumbar spine 2-3V IMPRESSION: Unremarkable examination of the lumbar spine. Electronically signed by: Alber Mercer MD 01/14/2025 02:32 PM EDT RP Dictated By: Alber Mercer MD Signed By: <Electronically signed by Alber Mercer MD in OV> 01/14/25 1432 DD/ 1420 TD/TT: 01/14/25 1424 Process Stripper: Procedure Note Donotuseinterpreter, Image - 01/14/[address] [address] XRay Report Signed Patient: Nubia Montenegro#: [id number] : 1990Acct:[id number] Age/Sex: 34 / FADM Date: 01/14/25 Loc: HO.ED Attending Dr: Ordering Physician: Sima Jon NP Date of Service: 01/14/25 Procedure(s): XR lumbar spine 2-3V Accession Number(s): [id number] cc: Jennie Deleon BIOLOGICAL SCIENCES PROFESSOR; Sima Jon NP Reason for Exam: acute on chronic pain 2 wks EXAMINATION: XR LUMBAR SPINE 2-3 VIEWS HISTORY: acute on chronic pain 2 wks COMPARISON: Comparison is made with the prior examination dated 12/22/2019. FINDINGS: AP, lateral, and coned down views of the lumbar spine are submitted. Osseous mineralization is normal. Five nonrib-bearing lumbar vertebral bodies are identified, maintaining normal height and alignment without evidence of fracture or spondylolisthesis. The intervertebral disc spaces are preserved. The posterior elements are intact. An IUD is seen in the pelvis. XR/XR lumbar spine 2-3V IMPRESSION: Unremarkable examination of the lumbar spine. Electronically signed by: Alber Mercer MD 01/14/2025 02:32 PM EDT RP Dictated By: Alber Mercer MD Signed By: <Electronically signed by Alber Mercer MD in OV> 01/14/25 1432 DD/ 1420 TD/TT: 01/14/25 1424 Process Stripper: us [facility] External Provider IMG XR PROCEDURES Final Result * (ABNORMAL) Basic Metabolic Panel (11/30/2024 3:04 PM EDT) Sodium 138 135 - 145 mmol/L [facility] Potassium 3.6 3.3 - 5.1 mmol/L [facility] Chloride 103 96 - 108 mmol/L [facility] Carbon Dioxide 28 22 - 29 mmol/L [facility] Anion Gap 11(L) 12 - 20 [facility] Urea Nitrogen (BUN) 11 9 - 16 mg/dL [facility] Creatinine, Serum 0.88 0.5 - 1.4 mg/dL [facility] Estimated Glomerular Filt Rate >60 [facility] Comment:Chronic Kidney Disea se: Estimated GFR < 60 mL/min/1.76t5Obykqp Kidney Disease: Estimated GFR < 15 mL/min/1.73m2 Glucose 95 60 - 115 mg/dL [facility] Calcium 9.3 8.4 - 10.2 mg/dL [facility] 11/30/2024 3:04 PM EDT 11/30/2024 3:04 PM EDT Generic External Data Provider LAB BLOOD ORDERAB LES Final Result Performing Organization Address City/State/[facility] Co de Phone Number [facility] [address] [place] [phone] * US Pelvis Transvaginal (11/30/2024 2:35 PM EDT) Anatomical Region Laterality Modality Pelvis Ultrasound 11/30/2024 2:35 PM EDT Narrative 11/30/2024 3:23 PM EDT [address] [address] Ultrasound Report Signed Patient: Nadia Montenegro MR#: [id number] 817 : 1990 Acct:[id number] Age/Sex: 34 / F ADM Date: 11/30/24 Loc: HO.US Attending Dr: Jennie Deleon NP Ordering Physician: Jennie Deleon NP Date of Service: 11/30/24 Procedure(s): US pelvic and transvaginal Accession Number(s): [id number] cc: Jennie Deleon BIOLOGICAL SCIENCES PROFESSOR EXAMINATION: US PELVIS TRANSABDOMINAL AND TRANSVAGINAL HISTORY: [...] 11/30/24 1520 DD/ 1435 TD/TT: 11/30/24 1445 Process Stripper: Procedure Note Donotuseinterpreter, Image - 11/30/2024 [place] [address] Ultrasound Report Signed Patient: Nubia Montenegro#: [id number] : 1990Acct:[id number] Age/Sex: 34 / FADM Date: 11/30/24 Loc: HO.US Attending Dr: Jennie Deleon NP Ordering Physician: Jennie Deleon NP Date of Service: 11/30/24 Procedure(s): US pelvic and transvaginal Accession Number(s): [id number] cc: Jennie Deleon BIOLOGICAL SCIENCES PROFESSOR EXAMINATION: US PELVIS TRANSABDOMINAL AND TRANSVAGINAL HISTORY: [...] 11/30/24 1520 DD/ 1435 TD/TT: 11/30/24 1445 Process Stripper: us Jennie Deleon BIOLOGICAL SCIENCES PROFESSOR IMG US PROCEDURES Final Result * Chlamydia/N. Gonorrhoeae, PCR, Urine (11/30/2024 12:30 PM EDT) CT PCR, Urine NOT DETECTED Not Detect. [facility] Comment:A not detected test result [...] NG PCR, Urine NOT DETECTED Not Detect. [facility] Comment:A not detected test result [...] 12:30 PM EDT 11/30/2024 4:35 PM EDT Jennie Deleon NP LAB URINE ORDERABLES Final Resul t [facility] [address] [place] [phone] * POCT Urine (11/30/2024 12:27 PM EDT) Preg Test, Ur Negative Negative, Indeterminate, None Detected, Invalid, Specimen unsatisfactory for evaluation, Weakly Positive, 2+ QC Media Lot # [id number] Lot# Expiration Date 9,026 Urine 11/30/2024 12:2 7 PM EDT Jennie Deleon NP POINT OF CARE TEST ENTER/EDIT OR DERABLES Final Result * WA INSERTION INTRAUTERINE DEVICE IUD (11/30/2024 11:15 AM EDT) Narrative Jennie Deleon NP - 11/30/2024 11:15 AM EDT Jennie Deleon NP 01/13/2025 11:31 AM IUD Management Performed by: Jennie Deleon NP Authorized by: Jennie Deleon NP Procedure: IUD insertion risk: reasonably certain the patient is not Pre-Medications: Ibuprofen Date/Time of Insertion: 11/30/2024 11:39 AM Pelvic exam performed: yes Speculum placed in vagina: yes Cervix cleaned and prepped: yes Tenaculum/Allis/Ring Forceps applied to cervix: yes Anesthesia used: no Uterus sound depth (cm): 9 (approximately, iodine noted on sound) Cervix manually dilated: no IUD inserted without complications: yes (cervical bleeding noted) OSM: 20.1 mcg/day Levonorgestrel 20.1 MCG/DAY Strings trimmed to (cm): 4 Patient tolerated procedure well: yes Inserted with ultrasound guidance: no Transvaginal sono confirmed fundal placement: no Estimated blood loss (mL): 180 Intended removal date: 5 years Insertion comments: Cervical bleeding noted, STAT ultrasound ordered. No abdominal pain. Result [facility] Jennie Deleon NP IN CLINIC/BEDSIDE ORDERABLES Fin al Result * HM PAP/HPV (03/11/2024 7:23 PM EST) Historical Provider HEALTH MAINTENANCE Final Result * (ABNORMAL) Lipid Panel, Standard (08/15/2022 3:21 PM EDT) Cholesterol, Total 212(H) <200 mg/dL [facility] [place] [facility] HDL Cholesterol 45(L) > OR = 50 mg/dL [facility] [place] [facility] Triglycerides 321(H) <150 mg/dL [facility] Comment: If a non-fasting specimen was collected, consider repeat triglyceride testing on a fasting specimen if clinically indicated. Francisco et al. J. of Clin. Lipidol. 2015;9:129-169. LDL Cholesterol 121(H) mg/dL (calc) [facility] Comment: Reference range: <100 Desirable range <100 mg/dL for primary prevention; <70 mg/dL for patients with CHD or diabetic patients with > or = 2 CHD risk factors. LDL-C is now calculated using the Kishor calculation, which is a validated novel method providing better accuracy than the Friedewald equation in the estimation of LDL-C. Evan SS et al. JAMEY. 2013;310(19): 1269-7024 (http://Major Aide.BiolineRx/faq/DUU695) Chol/HDLC Ratio 4.7 <5.0 (calc) [facility] Non-HDL Cholesterol 167(H) <130 mg/dL (calc) [facility] Comment: For patients with diabetes plus 1 major ASCVD risk factor, treating to a non-HDL-C goal of <100 mg/dL (LDL-C of <70 mg/dL) is considered a therapeutic option. Blood Venous blood specimen / Unknown 08/15/2022 3:21 PM EDT 08/15/2022 3:21 PM EDT Narrative [facility] - 08/16/2022 7:06 AM EDT FASTING:NO FASTING: NO Becki Kennedy MD LAB BLOOD ORDERABLES Final Result [facility] [address], [place] [phone] [facility] [place] [facility] [address] [place] [phone] * HIV 1/2 ANTIGEN/ANTIBODY,FOURTH GENERATION W/RFL (09/06/2020 2:34 PM EDT) [facility] HIV-1/2 ANTIGEN AND ANTIBODIES, 4TH GENERATION W/ [...] purpose. For additional information please refer to http://education.Wingu/faq/QOT160 (This link is being provided for informational/ educational purposes only.) The performance of this assay has not been clinically validated in patients less than 2 years old. 09/06/2020 2:34 PM EDT Becki Kennedy MD LAB BLOOD ORDERABLES Final Result Performing Organization Address City/State/[facility] Co de Phone Number [facility] Critical access hospital Anywhere [address] from Last 3 Months or Most Recently Relevant to Health Maintenance [place] [place] [address] C[place] AD[place] Care Teams Biopharmaceutical Rep Relationship Specialty Start Date End Date Jennie Deleon NP [address] [place] [phone] PCP - General Family Medicine 11/12/23
--- OUTSIDE RECORDS SUMMARY | 2025-02-10 18:32 | XMS_ITS | Encounter Summary ---
Author Organization [employer] Address 75 [facility] 7 [place] [address] Care Team Providers Care City Comptroller Name Role Phone Adrienne Jennie NIKOLAS Primary Care Provider [phone] Reason for Visit * Reason Onset Date Comments rs no show appt 10/26/2024 Encounter Details Date Type Department Care Team ([facility] st Contact Info) Description 10/26/2024 Telephone [facility] [address] [place], [place] [phone] Ramone Louis DDS [address] [place], [place] [phone] rs no show appt Social History Tobacco [...] documented as of this encounter Care Teams City Comptroller Relationship Specialty Start Date End Date Jennie Deleon NP [address] [place] [address] PCP - General Family Medicine 11/12/23 documented as of this encounter
--- OUTSIDE RECORDS SUMMARY | 2025-02-10 18:32 | XMS_ITS | Encounter Summary ---
Author Organization [employer] Address [address] [facility] 7t [place] [address] Care Team Providers Care Research Physiologist Name Role Phone Adrienne Jennie NIKOLAS Primary Care Provider [phone] Encounter Details Date Type Department Care Team (Latest Contact Info) Description 02/06/2025 Travel Social History Tobacco Use Types Packs/Day [...] documented as of this encounter Care Teams Research Physiologist Relationship Specialty Start Date End Date Jennie Deleon NP [address] [place] [address] PCP - General Family Medicine 11/12/23 documented as of this encounter
--- OUTSIDE RECORDS SUMMARY | 2025-02-10 18:32 | XMS_ITS | Clinical Summary ---
Author Organization [facility] Address [address] [facility] [address] [place] [address] Phone Care Team Providers Care Creative Perfumer Name Role Phone Becki Alexander MD Primary [...] SCREENING (18-65 YEARS) 2009 PAP SMEAR 02/25/2012 INFLUENZA VACCINE (#1) 2024 , 02/02/2023, 12/21/2021 COVID-19 VACCINE (2024- season) 2024 03/27/2022, 02/17/2021, 04/28/2020, Additional history exists Adult Td,Tdap Booster 06/27/2031 06/26/2021, 016 MENINGOCOCCAL [...] Insurance HEALTH SAFETY NET PARTIAL [employer] Member Subscriber Plan / Payer (Ef fective 2023-Present) Name:Nadia Montenegro Relation to Subscriber:Self Name:LanNadia Payer ID:[id number] Group ID:Not on file Type:Medicaid Address: [address] [address] HEALTH SAFETY NET PARTIAL Member Subscriber Plan / Payer (Ef fective 2023-Present) Name:Lan Nadia Relation to Subscriber:Self Name:Nadia Montenegro Payer ID:Not on file Group ID:Not on file Type:Medicaid Address: [address] C3 [employer] Member Subscriber Plan / Payer (Ef fective 2023-Present) Name:Lan Nadia Relation to Subscriber:Self Name:Nadia Montenegro Payer ID:[id number] Group ID:Not on file Type:Medicaid Address: [address] [address] SAFETY NET PARTIAL Member Subscriber Plan / Payer (Ef fective 2023-Present) Name:Nadia Montenegro Relation to Subscriber:Self Name:Nadia Montenegro Payer ID:Not on file Group ID:Not on file Type:Medicaid Address: [address] [employer] Member Subscriber Plan / Payer (Ef fective 2023-Present) Name:Nadia Montenegro Relation to Subscriber:Self Name:Nadia Montenegro Payer ID:[id number] Group ID:Not on file Type:Medicaid Address: [address] [address] HEALTH SAFETY NET PARTIAL Member Subscriber Plan / Payer (Ef fective 2023-Present) Name:Nadia Montenegro Relation to Subscriber:Self Name:Nadia Montenegro Payer ID:Not on file Group ID:Not on file Type:Medicaid Address: [address] C[employer] Member Subscriber Plan / Payer (Ef fective 2023-Present) Name:Nadia Montenegro Relation to Subscriber:Self Name:Nadia Montenegro Payer ID:[id number] Group ID:Not on file Type:Medicaid Address: [address] [address] SAFETY NET PARTIAL Member Subscriber Plan / Payer (Ef fective 2023-Present) Name:Nadia Montenegro Relation to Subscriber:Self Name:Nadia Montenegro Payer ID:Not on file Group ID:Not on file Type:Medicaid Address: [address] C3 ACO [facility] SAFETY NET PARTIAL [facility] C3 ACO Care Teams Creative Perfumer Relationship Specialty Start Date End Date Becki Alexander MD [address] [place] [address] PCP - General Internal Medicine 04/06/23 Additional Source Comments The information contained in this document represents components of the legal health record. It is not the complete legal health record.[facility]
--- OUTSIDE RECORDS SUMMARY | 2025-02-10 18:32 | XMS_ITS | Encounter Summary ---
Author Organization [email or web address] Address 75 [facility] 7t [place] [address] Care Team Providers Care Beet Worker Name Role Phone Adrienne Jennie NIKOLAS Primary Care Provider [phone] Encounter Details Date Type Department Care Team (Late st Contact Info) Description 10/02/2024 Orders [address] [facility] 230 [place], [place] [phone] Olegario Marquis MD 230 [place], [place] [phone] Social History Tobacco Use Types Packs/Day Years [...] documented as of this encounter Care Teams Beet Worker Relationship Specialty Start Date End Date Jennie Deleon NP [address] [place] [address] PCP - General Family Medicine 11/12/23 documented as of this encounter
--- OUTSIDE RECORDS SUMMARY | 2025-02-10 18:32 | XMS_ITS | Encounter Summary ---
Author Organization [employer] Address 75 [facility] 7t [place] [address] Care Team Providers Care Diaphragm Builder Name Role Phone Jennie Deleon NP Primary Care Provider [phone] Encounter Details Date Type Department Care Team (Late st Contact Info) Description 05/17/[address] [facility] 230 [place] [address] Provider, MD Toñito Social History Tobacco Use [...] documented as of this encounter Care Teams Diaphragm Builder Relationship Specialty Start Date End Date Jennie Deleon NP [address] [place] [address] PCP - General Family Medicine 11/12/23 documented as of this encounter
--- OUTSIDE RECORDS SUMMARY | 2025-02-10 18:32 | XMS_ITS | Encounter Summary ---
Author Organization [employer] Address [address] [place] [address] 7 [place] [address] Care Team Providers Care Systems Software Specialist Name Role Phone Becki Posadas MD Primary Care Provide r Jennie Deleon NP Primary Care Provider [phone] Jennie Deleon NP Primary Care Provider [phone] Reason for Visit * Reason Onset Date Comments triage 04/05/2022 Encounter Details Date Type Department Care Team (Late st Contact Info) Description 04/05/2022 Telephone [facility] MEDICINE 230 [place], [place] [phone] Becki Posadas MD 230 [place], [place] [phone] triage Social History Tobacco Use Types Packs/Day [...] possibly change med. Advised pt to seek evaluation at ED if BP is high and becomes symptomatic before apt and Pt agreed. Pt agreed with disposition andhome care reviewed. appt with Dr. Jacques 04/11 [...] pt returning call Please contact pt at [phone] * Telephone Encounter - Lakshmi Booth RN - 04/05/2022 1:47 PM EST Call returned to patient for triage. No answer LVM to return call to [facility] triage line. Left [facility] operating hours for today and tomorrow as well. * Telephone Encounter - Gretta Alisha - 04/05/2022 1:14 PM EST Symptom: High Blood Pressure - Caller Reports Outcome: Talk to a nurse or provider within 15 minutes Reason: Severe headache The caller accepted this outcome documented in this encounter Plan of Treatment Not on file documented as of this encounter Visit Diagnoses Not on filedocumented in this encounter Care Teams Systems Software Specialist Relationship Specialty Start Date End Date Becki Posadas MD 230 [place] [address] PCP - General Family Medicine 08/30/20 11/10/23 Jennie Deleon NP [address] [place] [address] PCP - General Family Medicine 11/11/23 11/11/23 Jennie Deleon NP [address] [place] [address] PCP - General Family Medicine 11/12/23 documented as of this encounter
--- OUTSIDE RECORDS SUMMARY | 2025-02-10 18:32 | XMS_ITS | Encounter Summary ---
Author Organization [employer] Address 75 [facility] 7 [place] [address] Care Team Providers Care Paper Twister Name Role Phone DanitzaJennie govea NIKOLAS Primary Care Provider [phone] Encounter Details Date Type Department Care Team ([facility] st Contact Info) Description 05/27/2024 Orders Only [facility] MEDICINE 230 [place] [address] Becki Posadas MD 230 [place], [place] [phone] Social History Tobacco Use Types Packs/Day Years [...] documented as of this encounter Care Teams Paper Twister Relationship Specialty Start Date End Date Jennie Deleon NP [address] [place] [address] PCP - General Family Medicine 11/12/23 documented as of this encounter
== END 2025-02-10 15:47 | disposition home or self-care (01) ==
LOC: HO.HHCL 15:46
PROVIDERS: PCP Nurse Practitioner Family; Visit Provider Nurse Practitioner Family
DX: Z13.89 Encounter for screening for other disorder (principal)
CPT/HCPCS: 36415; 80053; 85025; 85652; 86140

== ENCOUNTER 2025-02-12 12:09 | Outpatient (REF) | payer MEDICAID, SELFPAY ==
--- OUTSIDE RECORDS SUMMARY | 2025-02-09 16:00 | XMS_ITS | Encounter Summary ---
Author Organization [employer] Address 75 [facility] 7 [place] [address] Care Team Providers Care Hand Molder Meat Name Role Phone Jennie Deleon NP Primary Care Provider [phone] Encounter Details Date Type Department Care Team (Late st Contact Info) Description 02/09/2025 4:00 PM EST Office Visit [facility] [address] [place], [place] [phone] Jennie Deleon NP [address] [place], [place] [phone] Hypertension, unspecified type (Primary Dx); Lumbar spine [...] Index - - documented in this encounter Progress Notes * Jennie Deleon NP - 02/09/2025 4:00 PM EST Nadia Mays is a 34 y.o. female who presents to the office for No chief complaint on file. Problem List[1] Medical History[2] Allergies[3] Nadia Watsonnan, 34-year-old female - Sudden onset of deep, localized pain in left buttock and low back after cleaning and decorating, unable to walk or move the next morning - Pain described as deep inside, constant, worsened by certain movements and prolonged sitting - No pain elicited by touch, pain does not radiate - Previous similar episodes of back pain managed with ER visits and prednisone, which previously relieved symptoms; current episode did not improve with prednisone - Prior nerve burning procedure for pain management provided temporary relief but pain recurred; current pain feels different and more severe than prior episodes - Denies abdominal pain, lightheadedness, dizziness, vaginal bleeding, vaginal discharge, urinary symptoms, numbness in legs, weakness in arms, vision changes, rashes, psoriasis - Normal menstrual period lasting 2 days - Reports elevated blood pressure during severe pain - Requires assistance from to stand up from seated position due to pain - Family history of scoliosis and possible ankylosing spondylitis in mother; father and sister withback deterioration Review of Systems Constitutional: Negative for activity change and appetite change. Genitourinary: Negative for dysuria, enuresis, flank pain and pelvic pain. BP (!) 162/100 (BP Location: Left arm, Patient Position: Sitting, BP Cuff Size: Large adult) Pulse (!) 116 Temp 98.9 ??F (37.2 ??C) (Oral) Resp 20 Ht 5' 2 (1.575 m) LMP 01/29/2025 (Approximate) SpO2 99% BMI 41.08 kg/m?? Physical Exam Vitals reviewed. Constitutional: Appearance: She is obese. HENT: Head: Normocephalic and atraumatic. Nose: Nose normal. Eyes: Conjunctiva/sclera: Conjunctivae normal. Cardiovascular: Rate and Rhythm: Normal rate and regular rhythm. Pulmonary: Effort: Pulmonary effort is normal. Breath sounds: Normal breath sounds. Musculoskeletal: General: Tenderness present. Cervical back: Normal range of motion and neck supple. Lumbar back: Tenderness present. Right lower leg: No edema. Left lower leg: No edema. Neurological: General: No focal deficit present. Mental Status: She is alert. - CARDIOVASCULAR: Hypertension observed. - ABDOMEN: Nontender abdomen. - MUSCULOSKELETAL: Low back pain upon movement; no numbness in legs; pain localized to the left gluteal region. MRI showed no change Assessment & Plan Hypertension, unspecified type Orders: CBC auto differential; Future Sed Rate by Modified Westergren; Future C-reactive Protein; Future Comprehensive Metabolic Panel; Future Lumbar spine pain Orders: oxyCODONE (Roxicodone) 5 MG immediate release tablet; Take 1 tablet (5 mg) by mouth every 6 (six) hours if needed for severe pain for up to 5 days. Comprehensive Metabolic Panel; Future Assessment & Plan Hypertension, unspecified type: - Hypertension noted, blood pressure elevated during pain episodes. - Renewed nifedipine 30 mg prescription for blood pressure control. Advised to use medication as needed, especially during episodes of severe pain. Lumbar spine pain: - Lumbar spine pain of increased intensity, localized to the left buttock and low back, not responsive to previous prednisone course. Differential diagnosis includes sacroiliac joint pathology and possible ankylosing spondylitis, given ? Of family history and symptom location. MRI previously performed was normal for ankylosing spondylitis, but concern remains due to symptom severity and family history. - Ordered laboratory tests including CRP, ESR, CBC, and CMP to evaluate for inflammatory or other systemic causes. Will consider genetic testing for ankylosing spondylitis if inflammatory markers areelevated. Provided additional pain medication for 5 days until physiatry evaluation scheduled for Saturday, February 12, 2025. Recommended follow-up with pain management on February 19, 2025. Requested patient to provide further family medical documentation if available. Prescription - Nifedipine 30 mg daily, 5-day supply; avoid dose increase to 60 mg due to risk of leg swelling Current Medications[4] Based on our discussion, I have outlined the following instructions for you: - Take nifedipine 30 mg for blood pressure control when you have severe pain, as needed. - Go to the lab to get the following blood tests: C-reactive protein, erythrocyte sedimentation rate, complete blood count, and comprehensive metabolic panel. - If your blood tests show inflammation, genetic testing for ankylosing spondylitis may be done. - Use the pain medication provided for the next 5 days until your appointment with the physical medicine and security assurance specialist on Saturday, February 12, 2025. - Attend your follow-up appointment with the pain management team on February 19, 2025. - If you have any family medical records related to your condition, please bring them to your next appointment. Thank you again for your visit, and we look forward to supporting you in your journey to better health. This note was drafted using Ambient (AI) technology. The patient/patient's guardian has been informed and has consented to the use of this technology: Yes [1] Patient Active Problem List Diagnosis Acne [...] index (BMI) of40.0 to 44.9 in adult (HCC) Syncope Pseudotumor cerebri Disorder of intervertebral disc of lumbar spine Constipation History of pre-eclampsia Anxiety Vertigo Rash and nonspecific skin eruption Chronic fatigue Vitamin D deficiency BRBPR (bright red blood per rectum) Acute vaginitis Peripheral neuropathy Sacroiliac joint dysfunction of both sides Facet arthropathy, lumbosacral Obesity 8 weeks gestation of Elevated parathyroid hormone MARTINA (generalized anxiety disorder) Encounter for other contraceptive management Encounter for IUD insertion Acute low back pain Lumbar spine pain Family history of ankylosing spondylitis [2] Past Medical History: Diagnosis Date COVID 02/16/2022 Disorder of intervertebral disc of lumbar spine 03/12/2022 HTN (hypertension) 03/06/2022 Hypertension Intervertebral disc disease Migraines Peripheral neuropathy 01/14/2024 Pseudotumor cerebri 2013 secondary to Minocycline use, treated with orals and lumbar puncture, resolved Spondylosis without myelopathy 03/06/2022 Transaminasemia 06/05/2017 Vertigo 01/01/2023 [3] Allergies Allergen Reactions Minocycline Other Pseudotumor cerebri [4] Current Outpatient Medications: Blood Pressure Monitoring (Blood Pressure Cuff) misc, 1 kit if needed each day (headache, bp monitoring)., Disp: 1 each, Rfl: 1 cholecalciferol (Vitamin D-3) 25 MCG (1000 UT) tablet, Take 1 tablet (25 mcg) by mouth Once per day., Disp: 90 tablet, Rfl: 0 gabapentin (Neurontin) 100 MG capsule, Take 1 capsule (100 mg) by mouth at bedtime for 2 days, THEN2 capsules (200 mg) at bedtime for 2 days, THEN 3 capsules (300 mg) at bedtime for 26 days., Disp: 84 capsule, Rfl: 0 pyridoxine (Vitamin B-6) 25 MG tablet, take one every 6 hrs as needed, Disp: , Rfl: rizatriptan (Maxalt) 10 MG tablet, TAKE 1 TABLET BY MOUTH 1 TIME NEEDED FOR MIGRAINE. MAY REPEATIN 2 HOURS IF UNRESOLVED. DO NOT EXCEED 30 MG IN 24 HOURS., Disp: 9 tablet, Rfl: 0 venlafaxine XR (Effexor XR) 37.5 MG 24 hr capsule, Take 1 capsule (37.5 mg) by mouth Once per day. Do not crush or chew., Disp: 90 capsule, Rfl: 2 albuterol 108 (90 Base) MCG/ACT inhaler, Inhale 2 puffs every 4 (four) hours if needed for wheezingor shortness of breath., Disp: 18 g, Rfl: 1 NIFEdipine XL (Procardia XL) 30 MG 24 hr tablet, Take 1 tablet (30 mg) by mouth Once per day. Do not crush, chew, or split., Disp: 30 tablet, Rfl: 2 oxyCODONE (Roxicodone) 5 MG immediate release tablet, Take 1 tablet (5 mg) by mouth every 6 (six) hours if needed for severe pain for up to 5 days., Disp: 20 tablet, Rfl: 0 traZODone (Desyrel) 50 MG tablet, Take 1 tablet (50 mg) by mouth if needed at bedtime for sleep., Disp: 30 tablet, Rfl: 0 documented in this encounter Miscellaneous Notes * [...] documented in this encounter Plan of Treatment Scheduled Orders Name Type Priority Associated Diagnoses Orde r Schedule JUAN Screen,IFA, with Reflex to Titer and Pattern Lab Routine Lumbar spine pain Expected: 02/12/2025 (Approximate), Expires: 02/12/2026 Cyclic Citrullinated Peptide (CCP) Antibody (IgG) Lab Routine Lumbar spine pain Expected: 02/12/2025 (Approximate), Expires: 02/12/2026 documented as of this encounter Procedures Procedure Name Priority Date/Time Associated Diagnosis Comments RHEUMATOID FACTOR Routine 02/12/2025 12: 20 PM EST Lumbar spine pain CBC WITH AUTO DIFFERENTIAL Routine 02/10/2025 3:49 PM EST Hypertension, unspecified type SED RATE BY MODIFIED WESTERGREN Routine 02/10/2025 3:49 PM EST Hypertension, unspecified type C-REACTIVE PROTEIN Routine 02/10/2025 3: 49 PM EST Hypertension, unspecified type COMPREHENSIVE METABOLIC PANEL Routine 02/10/2025 3:49 PM EST Hypertension, unspecified type Lumbar spine pain documented in this encounter Results * Rheumatoid Factor (02/12/2025 12:20 PM EST) Rheumatoid Factor <13.0 <15.0 IU/mL [facility] Blood Venous blood specimen / Unknown 02/12/2025 12:20 PM EST 02/12/2025 1:07 PM EST us Jennie Deleon NP LAB BLOOD ORDERABLES Final Resul t [facility] [address] [place] [phone] * Comprehensive Metabolic Panel (02/10/2025 3:49 PM EST) Sodium 140 135 - 145 mmol/L [facility] Potassium 3.7 3.3 - 5.1 mmol/L [facility] Chloride 104 96 - 108 mmol/L [facility] Carbon Dioxide 28 22 - 29 mmol/L [facility] Anion Gap 12 12 - 20 [facility] Urea Nitrogen (BUN) 9 9 - 16 mg/dL [facility] Creatinine, Serum 0.71 0.5 - 1.4 mg/dL [facility] Estimated Glomerular Filt Rate >60 [facility] Comment:Chronic Kidney Disea se: Estimated GFR < 60 mL/min/1.37y6Nsubgo Kidney Disease: Estimated GFR < 15 mL/min/1.73m2 Glucose 89 60 - 115 mg/dL [facility] Calcium 9.2 8.4 - 10.2 mg/dL [facility] Bilirubin, Total 0.4 0.0 - 1.0 mg/dL [facility] Aspartate Amino Transferase 24 5 - 31 U/L [facility] Alanine Aminotransferase 18 0 - 31 U/L [facility] Total Protein 8.0 6.5 - 8.0 g/dL [facility] Albumin Level 4.5 3.5 - 5.0 g/dL [facility] Alkaline Phosphatase 63 39 - 117 U/L [facility] Blood Venous blood specimen / Unknown 02/10/2025 3:49 PM EST 02/10/2025 5:12 PM EST us Jennie Deleon DIRECTOR OF PERSONNEL LAB BLOOD ORDERABLES Final Resul t [facility] [address] [place] [phone] * (ABNORMAL) C-reactive Protein (02/10/2025 3:49 PM EST) C Reactive Protein 10.06(H) < or = 0.50 mg/dL [facility] Blood Venous blood specimen / Unknown 02/10/2025 3:49 PM EST 02/10/2025 5:12 PM EST us Jennie Graef DIRECTOR OF PERSONNEL LAB BLOOD ORDERABLES Final Resul t Performing Organization Address City/[facility]/ZIP Co de Phone Number [facility] [address] [place] [phone] [phone] * (ABNORMAL) Sed Rate by Modified Vilmaren (02/10/2025 3:49 PM EST) Erythrocyte Sedimentation Rate 66(H) 0 - 20 MM/HR [facility] Comment:Patients with polycy themia and many hemoglobin abnormalitiesmay have depressed sed rates whereas patients with anemiamay have elevated sed rates. Blood Venous blood specimen / Unknown 02/10/2025 3:49 PM EST 02/10/2025 5:12 PM EST us Jennie Deleon DIRECTOR OF PERSONNEL LAB BLOOD ORDERABLES Final Resul t Performing Organization Address [facility] Co de Phone Number [facility] [address] [place] [address] [phone] * (ABNORMAL) CBC auto differential (02/10/2025 3:49 PM EST) White Blood Count 10.6 4.8 - 10.8 X10*3/uL [facility] Red Blood Count 4.39 4.20 - 5.50 X10*6/uL [facility] Hemoglobin 13.2 12.0 - 16.0 g/dl [facility] Hematocrit 39.1 37.0 - 47.0 % [facility] Mean Corpuscular Volume 89.1 80.0 - 98.0 fL [facility] Mean Corpuscular Hemoglobin 30.1 27.0 - 33.0 pg [facility] Mean Corpuscular HGB Conc 33.8 31.0 - 35.0 g/dl [facility] Red Cell Distribution Width 13.3 11.0 - 16.0 % [facility] Platelet Count 324 160 - 400 X10*3/uL [facility] Mean Platelet Volume 9.7 9.4 - 12.3 fL [facility] Neutrophils Percent Auto 68.7 45 - 73 % [facility] Imm Gran Pct Auto 0.5(H) 0.0 - 0.4 % [facility] Lymphocytes Percent Auto 20.5 20 - 40 % [facility] Monocytes Percent Auto 8.7 2 - 11 % [facility] Eosinophils Percent Auto 1.2 0 - 4 % [facility] Basophils Percent Auto 0.4 0 - 2 % [facility] NRBC Pct Auto 0.0 0.0 - 0.2 /100WBC [facility] Neutrophils Absolute Auto 7.3 2.0 - 8.3 x10*3/uL [facility] Imm Gran Abs Auto 0.05(H) 0.00 - 0.03 X10*3/uL [facility] Lymphocytes Absolute Auto 2.2 1.2 - 4.9 X10*3/uL [facility] Monocytes Absolute Auto 0.9 0.1 - 1.2 X10*3/uL [facility] Eosinophils Absolute Auto 0.1 0.0 - 0.4 X10*3/uL [facility] Basophils Absolute Auto 0.0 0.0 - 0.2 X10*3/uL [facility] NRBC Abs Auto 0.000 0.0 - 0.012 X10*3/uL [facility] Blood Venous blood specimen / Unknown 02/10/2025 3:49 PM EST 02/10/2025 5:12 PM EST Jennie Deleon NP LAB BLOOD ORDERABLES Final Resul t [facility] [address] [place] [address] [phone] documented in this encounter Visit Diagnoses Diagnosis Hypertension, unspecified type- Primary Lumbar spine pain documented in this encounter Additional Health Concerns Assessment Noted Time PHQ-9 Depression Total Score: 10 11/27/2 025 4:36 PM EDT documented as of this encounter Care Teams Hand Molder Meat Relationship Specialty Start Date End Date Jennie Deleon NP [address] [place] [phone] PCP - General Family Medicine 11/12/23 documented as of this encounter
--- OUTSIDE RECORDS SUMMARY | 2025-02-11 16:40 | XMS_ITS | Encounter Summary ---
Author Organization [facility] Address [address] [facility] [address] [place] [address] Phone Care Team Providers Care Chief Gauger Name Role Phone Becki Alexander MD Primary Care Provider Reason for Visit * Reason Comments Ear Pain Right ear pain/heari ng blockage noted today. Fever of 101.0 yesterday. Sore throat is noted when swallowing. No congestion and no cough. Encounter Details Date Type Department Care Team (Late st Contact Info) Description 02/11/2025 4:40 PM EST Office Visit [facility] at [address] [address] Dawna Freeman, JOAN [address] [facility], [address] [place] [address] [email or web address] Right otitis media, unspecified otitis media type (Primary Dx) Social History Tobacco Use Types [...] on file Sexual Orientation Not on file documented as of this encounter Last Filed Vital Signs Vital Sign Reading Time Taken Comments Blood Pressure 132/90 02/11/2025 4:25 PM EST Pulse 89 02/11/2025 4:25 PM EST Temperature 36.8 C (98.2 F) 02/11/2025 4:25 PM EST Respiratory Rate 18 02/11/2025 4:25 PM EST Oxygen Saturation 97% 02/11/2025 4:25 PM EST Inhaled Oxygen Concentration - - Weight 95.3 kg (210 lb) 02/11/2025 4:25 PM EST Height 160 cm (5' 3 ) 02/11/2025 4:25 PM EST Body Mass Index 37.2 02/11/2025 4:25 PM EST documented in this encounter Patient Instructions * Patient Instructions* Dawna Freeman PA-C - 02/11/2025 4:40 PM EST 1) Follow up with your PCP as needed or here as needed if your PCP is unavailable. 2) Fill the antibiotic prescription you were given and take as directed and finish full course to minimize the risk of relapse and resistant bacteria. Take with food. 3) You may take OTC Motrin or Tylenol as needed for pain. 4) Use nasal saline or nasal washing with distilled water twice daily as needed. 5) Take a probiotic daily and for a few weeks after you complete the course of antibiotics. documented in this encounter Progress Notes * Dawna Freeman PA-C - 02/11/2025 4:40 PM EST Images from the original note were not included. Subjective: Patient ID: Nadia Montenegro is a 34 y.o. female. HPI History of Present Illness The patient presents for evaluation of right ear pain. She experienced a sore throat yesterday, which resolved by noon today. However, she developed an itch in her right ear, and after scratching the external part of her ear, she experienced a sudden loss of hearing in the same ear. She reports no nasal congestion or runny nose but describes a scratchysensation in her throat accompanied by mild pain. She had a fever yesterday, but it has since subsided. Her left ear is unaffected. She is not currently . She is not experiencing any cough or shortness of breath. She has a past medical history of ear infections during her youth. She iscurrently on antihypertensive medication. ALLERGIES She is allergic to MINOCYCLINE. Review of Systems Constitutional: Positive for chills and fever. HENT: Positive for ear pain, changes in hearing, sore throat and trouble swallowing. Negative for congestion and ear discharge. Vitals: 02/11/25 1625 BP: (!) 132/90 BP Location: Left arm Patient Position: Sitting Cuff Size: Medium Pulse: 89 Resp: 18 Temp: 36.8 ??C (98.2 ??F) TempSrc: Oral SpO2: 97% Weight: 95.3 kg (210 lb) Height: 160 cm (5' 3 ) Objective: Physical Exam Vitals and nursing note reviewed. Constitutional: Appearance: Normal appearance. HENT: Head: Normocephalic and atraumatic. Right Ear: Hearing, ear canal and external ear normal. A middle ear effusion is present. Tympanic membrane is erythematous. Left Ear: Hearing, tympanic membrane, ear canal and external ear normal. Nose: Congestion present. Mouth/Throat: Mouth: Mucous membranes are moist. Pharynx: Posterior oropharyngeal erythema present. No oropharyngeal exudate. Tonsils: No tonsillar exudate or tonsillar abscesses. Eyes: Extraocular Movements: Extraocular movements intact. Pupils: Pupils are equal, round, and reactive to light. Cardiovascular: Rate and Rhythm: Normal rate and regular rhythm. Heart sounds: No murmur heard. No friction rub. No gallop. Pulmonary: Effort: Pulmonary effort is normal. No respiratory distress. Breath sounds: No stridor. No wheezing, rhonchi or rales. Musculoskeletal: General: Normal range of motion. Cervical back: Normal range of motion. Lymphadenopathy: Cervical: Cervical adenopathy present. Skin: General: Skin is warm and dry. Neurological: General: No focal deficit present. Mental Status: She is alert and oriented to person, place, and time. Psychiatric: Mood and Affect: Mood normal. Behavior: Behavior normal. Thought Content: Thought content normal. Judgment: Judgment normal. Results for orders placed or performed in visit on 02/11/25 POCT Group A Streptococcus, PCR Result Value Ref Range Strep A, PCR Not Detected Not Detected POCT SARS-CoV-2, Influenza A/B, RSV, PCR Result Value Ref Range SARS-Cov-2 PCR Negative Negative POC Influenza A Negative Negative POC Influenza B Negative Negative RSV PCR Negative Negative Procedure: Procedures Assessment/Plan: Diagnosis Plan 1. Right otitis media, unspecified otitis media type [facility] Assessment & Plan 1. Right otitis media. The patient reports sudden hearing loss in the right ear following itching and scratching. Examination reveals redness, fluid behind the ear, and infection. A 10-day course of Augmentin will be prescribed to cover both the ear infection and potential strep throat. She is advised to take ibuprofen to help with swelling and ear pain. Saline nasal sprays or rinses are recommended to address potential postnasal drip. A couple of spoonfuls of honey daily may help with throat inflammation. 2. Pharyngitis. The patient reports a scratchy and slightly painful throat with white spots on the tonsils. Despitenegative results for strep, COVID-19, influenza, and RSV, a 10-day course of Augmentin will be prescribed to cover potential strep throat. She is advised to take ibuprofen to help with throat inflammation. Saline nasal sprays or rinses are recommended to address potential postnasal drip. A couple of spoonfuls of honey daily may help with throat inflammation. I obtained verbal consent from the patient or their proxy to record this visit for purposes of producing a draft of the encounter documentation. documented in this encounter Plan of Treatment Not on file documented as of this encounter Procedures Procedure Name Priority Date/Time Associated Diagnosis Comments POCT GROUP A STREPTOCOCCUS, PCR Routine 02/11/2025 3:16 PM EST POCT SARS-COV-2, INFLUENZA A/B, RSV, PCR Routine 02/11/2025 3:14 PM EST documented in this encounter Results * POCT Group A Streptococcus, PCR (02/11/2025 3:16 PM EST) Strep A, PCR Not Detected Not Detected 11/06/20 25 3:42 PM EST [facility] Swab (Throat) 02/11/2025 3:1 6 PM EST 02/11/2025 3:42 PM EST Dawna CARTY-C LAB POCT DOCKED DEVICE UNSOL ICTED RESULTS Final Result Performing Organization Address [facility] Co de Phone Number [facility] [id number] [place] [address] * POCT SARS-CoV-2, Influenza A/B, RSV, PCR (02/11/2025 3:14 PM EST) [facility] SARS-Cov-2 PCR Negative Negative 02/11/2025 3:53 PM EST [facility] POC Influenza A Negative Negative 02/11/2025 3:53 PM EST [facility] POC Influenza B Negative Negative 02/11/2025 3:53 PM EST [facility] RSV PCR Negative Negative 02/11/2025 3:53 PM EST [facility] Swab 02/11/2025 3:14 PM EST 02/11/2025 3:53 PM EST Dawna CARTY-C LAB POCT DOCKED DEVICE UNSOL ICTED RESULTS Final Result Performing Organization Address [facility] Co de Phone Number [facility] [phone] [place] [address] documented in this encounter Visit Diagnoses Diagnosis Right otitis media, unspecified otitis media type- Primary documented in this encounter Additional Health Concerns Infection Onset Date Last Indicated Resolved Time Resp-Risk 02/11/2025 02/11/2025 documented as of this encounter Care Teams Chief Gauger Relationship Specialty Start Date End Date Becki Alexander MD [address] [place] [address] PCP - General Internal Medicine 04/06/23 documented as of this encounter Additional Source Comments The information contained in this document represents components of the legal health record. It is not the complete legal health record.[facility]
--- OUTSIDE RECORDS SUMMARY | 2025-02-12 14:29 | XMS_ITS | Encounter Summary ---
Author Organization [employer] Address [address] [facility] 7 [place] [address] Care Team Providers Care Hose Finisher Name Role Phone DanitzaJennie govea NIKOLAS Primary Care Provider [phone] Encounter Details Date Type Department Care Team ([facility] st Contact Info) Description 05/27/2024 Orders Only [facility] MEDICINE [address] [place] [address] Becki Posadas MD 230 [place], [place] [phone] Social History Tobacco Use Types Packs/Day Years [...] documented as of this encounter Care Teams Hose Finisher Relationship Specialty Start Date End Date Jennie Deleon NP [address] [place] [address] PCP - General Family Medicine 11/12/23 documented as of this encounter
--- OUTSIDE RECORDS SUMMARY | 2025-02-12 14:29 | XMS_ITS | Encounter Summary ---
Author Organization [employer] Address [address] [facility] 7 [place] [address] Care Team Providers Care Fourdrinier Wire Weaver Name Role Phone Becki Posadas MD Primary Care Provide r Jennie Deleon NP Primary Care Provider [phone] Jennie Deleon NP Primary Care Provider [phone] Reason for Visit * Reason Onset Date Comments Med Refill 04/04/2023 Encounter Details Date Type Department Care Team (Late st Contact Info) Description 04/04/2023 Refill [facility] MEDICINE 230 [place], [place] [phone] Marti Alfaro DO 230 [place], [place] [phone] Migraine without aura, not refractory Social History [...] documented as of this encounter Care Teams Fourdrinier Wire Weaver Relationship Specialty Start Date End Date Becki Posadas MD [address] [place] [address] PCP - General Family Medicine 08/30/20 11/10/23 Jennie eDleon NP 230 [place] [address] PCP - General Family Medicine 11/11/23 11/11/23 Jennie Deleon NP 230 [place] [address] PCP - General Family Medicine 11/12/23 documented as of this encounter
--- OUTSIDE RECORDS SUMMARY | 2025-02-12 14:29 | XMS_ITS | Encounter Summary ---
Author Organization [employer] Address [address] [facility] 7 [place] [address] Care Team Providers Care Electroplating Technician Name Role Phone Becki Posadas MD Primary Care Provide r Jennie Deleon NP Primary Care Provider [phone] Jennie Deleon NP Primary Care Provider [phone] Reason for Visit * Reason Comments Med Refill Encounter Details Date Type Department Care Team (Late st Contact Info) Description 04/03/2023 Refill [facility] MEDICINE 230 [place], [place] [phone] Joselyn Wild MD 230 [place], [place] [phone] Social History Tobacco Use Types Packs/Day Years [...] documented as of this encounter Care Teams Electroplating Technician Relationship Specialty Start Date End Date Becki Posadas MD 230 [place] [address] PCP - General Family Medicine 08/30/20 11/10/23 Jennie Deleon NP 230 [place] [address] PCP - General Family Medicine 11/11/23 11/11/23 Jennie Deleon NP 230 [place] [address] PCP - General Family Medicine 11/12/23 documented as of this encounter
--- OUTSIDE RECORDS SUMMARY | 2025-02-12 14:29 | XMS_ITS | Encounter Summary ---
Author Organization [employer] Address [address] [facility] 7 [place] [address] Care Team Providers Care Tax Expert Name Role Phone Becki Posadas MD Primary Care Provide r Jennie Deleon NP Primary Care Provider [phone] Jennie Deleon NP Primary Care Provider [phone] Reason for Visit * Reason Comments Med Refill Encounter Details Date Type Department Care Team (Late st Contact Info) Description 03/13/2023 Refill [facility] MEDICINE 230 [place], [place] [phone] Becki Posadas MD 230 [place], [place] [phone] Social History Tobacco Use Types Packs/Day Years [...] documented as of this encounter Care Teams Tax Expert Relationship Specialty Start Date End Date Becki Posadas MD 230 [place] [address] PCP - General Family Medicine 08/30/20 11/10/23 Jennie Deleon NP 230 [place] [address] PCP - General Family Medicine 11/11/23 11/11/23 Jennie Deleon NP [address] [place] [address] PCP - General Family Medicine 11/12/23 documented as of this encounter
--- OUTSIDE RECORDS SUMMARY | 2025-02-12 14:29 | XMS_ITS | Encounter Summary ---
Author Organization [employer] Address 75 [facility] 7 [place] [address] Care Team Providers Care Liquid Waste Treatment Plant Operator Name Role Phone Becki Posadas MD Primary Care Provide r Jennie Deleon NP Primary Care Provider [phone] Jennie Deleon NP Primary Care Provider [phone] Reason for Visit * Reason Comments Med Refill Encounter Details Date Type Department Care Team (Late st Contact Info) Description 12/28/2022 Refill [facility] [address] [place] [phone] Olegario Marquis MD 230 [place], [place] [phone] Social History Tobacco Use Types Packs/Day Years [...] documented as of this encounter Care Teams Liquid Waste Treatment Plant Operator Relationship Specialty Start Date End Date Becki Posadas MD 230 [place] [address] PCP - General Family Medicine 08/30/20 11/10/23 Jennie Deleon NP 230 [place] [address] PCP - General Family Medicine 11/11/23 11/11/23 Jennie Deleon NP 230 [place] [address] PCP - General Family Medicine 11/12/23 documented as of this encounter
--- OUTSIDE RECORDS SUMMARY | 2025-02-12 14:29 | XMS_ITS | Clinical Summary ---
Author Organization [facility] Address [address] [facility] [address] [place] [address] Phone Care Team Providers Care Health Aid Name Role Phone Becki Alexander MD Primary [...] Active Additional Information Patient not taking.Reported on 02/11/2025 cholecalciferol (VITAMIN D3) 25 MCG (1,000 unit) [...] Active Additional Information Patient not taking.Reported on 02/11/2025 NIFEdipine (ADALAT CC) 30 MG 24 hr tablet Take 30 mg by mouth. 11/20/19 25 Active amoxicillin-clavul anate (AUGMENTIN) 875-125 mg per tablet Take 1 tablet (875 mg of amoxicillin total) by mouth 2 (two) times a day for 10 days. 20 tablet 02/12/20 25 025 Active Active Problems No known active problems Encounters Date Type Department Care Team Description 02/11/2025 4:40 PM EST Office Visit [facility] [address] [address] Dawna Freeman, JOAN Right otitis media, unspecified otitis media type (Primary Dx) from Last 3 Months Immunizations Immunization Administration Dates Next Due COVID-19 (Pre-01/28) Moderna Vaccine, Bivalent 6mo+ 03/27/2022 COVID-19 (Pre-01/28) Moderna Vaccine, mRNA, PF 02/17/2021,04/28/2020,03/31/2020 Hepatitis B [...] Mass Index 37.2 02/11/2025 4:25 PM EST Plan of Treatment Health Maintenance Due Date Last Done Comments DEPRESSION SCREENING 2003 HEPATITIS C SCREENING 2009 HIV ONE-TIME SCREENING (18-65 YEARS) 2009 PAP SMEAR 02/25/2012 INFLUENZA VACCINE (#1) 2024 , 02/02/2023, 12/21/2021, Additional history exists COVID-19 VACCINE ( season) 2024 03/27/2022, 02/17/2021, 04/28/2020, Additional history exists Adult Td,Tdap Booster 07/06/2034 07/06/2024 , 06/26/2021, 04/06/2016, Additional history exists HIB VACCINES Completed 05/12/1992, 09/06, 1991, Additional history exists IPV VACCINES Completed 05/23/1995, 06/06, 1991, Additional history exists MENINGOCOCCAL VACCINES (ACWY) Aged Out 06/18/2006 No longer eligible based on patient's age to complete this topic PNEUMOCOCCAL VACCINES (0-49 years) Aged Out 06/04/2010 No longer eligible based on patient's age to complete this topic HEPATITIS A VACCINES Aged Out 02/14/2018, 06/27/19 18 No longer eligible based on patient's age to complete this topic SMOKING STATUS SCREENING (Once After 26 Yrs) Completed 02/11/2025 MENINGOCOCCAL VACCINES (B) Aged Out N o longer eligible based on patient's age to complete this topic Medical Devices Not on file Procedures Procedure Name Priority Date/Time Associated Diagnosis Comments POCT GROUP A STREPTOCOCCUS, PCR Routine 02/11/2025 3:16 PM EST POCT SARS-COV-2, INFLUENZA A/B, RSV, PCR Routine 02/11/2025 3:14 PM EST from Last 3 Months Results * POCT Group A Streptococcus, PCR (02/11/2025 3:16 PM EST) [facility] Strep A, PCR Not Detected Not Detected 02/12/20 3:42 PM EST [facility] Swab (Throat) 02/11/2025 3:1 6 PM EST 02/11/2025 3:42 PM EST us Dawna CARTY-C LAB POCT DOCKED DEVICE UNSOL ICTED RESULTS Final Result [facility] [address] [address], [facility] [phone] * POCT SARS-CoV-2, Influenza A/B, RSV, PCR (02/11/2025 3:14 PM EST) [facility] SARS-Cov-2 PCR Negative Negative 02/11/2025 3:53 PM EST [facility] POC Influenza A Negative Negative 02/11/2025 3:53 PM EST [facility] Influenza B Negative Negative 02/11/2025 3:53 PM EST [facility] RSV PCR Negative Negative 02/11/2025 3:53 PM EST [facility] Swab 02/11/2025 3:14 PM EST 02/11/2025 3:53 PM EST us Dawna C Pete PA-C LAB POCT DOCKED DEVICE UNSOL ICTED RESULTS Final Result Performing Organization Address City/State/[facility] Co de Phone Number [facility] [address] [address], [facility] [phone] from Last 3 Months Additional Health Concerns Infection Onset Date Last Indicated Resp-Risk 02/11/2025 02/11/2025 Insurance SAFETY NET PARTIAL Member Subscriber Plan / Payer (Ef fective 2023-Present) Name:Nadia Montenegro Relation to Subscriber:Self Name:Nadia Montenegro Payer ID:Not on file Group ID:Not on file Type:Medicaid Address: [address] [place] [address] SAFETY NET PARTIAL Member Subscriber Plan / Payer (Ef fective 2023-Present) Name:Nadia Montenegro Relation to Subscriber:Self Name:Nadia Montenegro Payer ID:Not on file Group ID:Not on file Type:Medicaid Address: [address] [employer] SAFETY NET PARTIAL Member Subscriber Plan / Payer (Ef fective 2023-Present) Name:Lan Nadia Relation to Subscriber:Self Name:Lan Nadia Payer ID:Not on file Group ID:Not on file Type:Medicaid Address: [address] [employer] SAFETY NET PARTIAL Member Subscriber Plan / Payer (Ef fective 2023-Present) Name:Nadia Montenegro Relation to Subscriber:Self Name:Nadia Montenegro Payer ID:Not on file Group ID:Not on file Type:Medicaid Address: [address] [employer] SAF[employer] NET PARTIAL Member Subscriber Plan / Payer (Ef fective 2023-Present) Name:Nadia Montenegro Relation to Subscriber:Self Name:Nadia Montenegro Payer ID:Not on file Group ID:Not on file Type:Medicaid Address: [address] [employer] NET PARTIAL Member Subscriber Plan / Payer (Ef fective 2023-Present) Name:Nadia Montenegro Relation to Subscriber:Self Name:Nadia Montenegro Payer ID:Not on file Group ID:Not on file Type:Medicaid Address: [address] [employer] Care Teams Health Aid Relationship Specialty Start Date End Date Becki Alexander MD [address] [place] [address] PCP - General Internal Medicine 04/06/23 Additional Source Comments The information contained in this document represents components of the legal health record. It is not the complete legal health record.[facility]
--- OUTSIDE RECORDS SUMMARY | 2025-02-12 14:29 | XMS_ITS | Encounter Summary ---
Author Organization [employer] Address [address] [place] [address] [address] [address] Care Team Providers Care Assistant Plant Manager Name Role Phone Becki Posadas MD Primary Care Provide r Jennie Deleon NP Primary Care Provider [phone] Jennie Deleon NP Primary Care Provider [phone] Reason for Visit * Reason Onset Date Comments ER Follow-up 12/17/2022 Encounter Details Date Type Department Care Team (Late st Contact Info) Description 12/17/2022 Telephone [facility] MEDICINE [address] [place], [place] [phone] Becki Posadas MD [address] [place], [place] [phone] ER Follow-up Social History Tobacco Use Types [...] no answer, LVM to return call to [facility] triage. LVM with [facility] operating hours.Per ER report seen at [facility] ED on 12/16 due to back pain /lightheadedness following cortisone injection at [facility] Pain management. Pt advised to follow up with pain management and PCP. No meds started. * Telephone Encounter - Tracy Palafox - 12/17/2022 2:52 PM EDT Patient calling to report ED visit on 12/16/22 at [facility]. Seen for back pain, (cortisone injection sideaffects) [...] as of this encounter Care Teams Assistant Plant Manager Relationship Specialty Start Date End Date Becki Posadas MD [address] [place] [address] PCP - General Family Medicine 08/30/20 11/10/23 Jennie Deleon NP [address] [place] [address] PCP - General Family Medicine 11/11/23 11/11/23 Jennie Deleon NP [address] [place] [address] PCP - General Family Medicine 11/12/23 documented as of this encounter
--- OUTSIDE RECORDS SUMMARY | 2025-02-12 14:29 | XMS_ITS | Encounter Summary ---
Author Organization [employer] Address [address] [facility] 7t [place] [address] Care Team Providers Care Blockmason Name Role Phone Jennie Deleon NP Primary Care Provider [phone] Encounter Details Date Type Department Care Team (Late st Contact Info) Description 05/17/2024 Orders Only [facility] MEDICINE 230 [place] [address] Provider, MD Toñito Social History Tobacco Use [...] documented as of this encounter Care Teams Blockmason Relationship Specialty Start Date End Date Jennie Deleon NP [address] [place] [address] PCP - General Family Medicine 11/12/23 documented as of this encounter
--- OUTSIDE RECORDS SUMMARY | 2025-02-12 14:29 | XMS_ITS | Encounter Summary ---
Author Organization [employer] Address [address] [facility] 7 [place] [address] Care Team Providers Care Quirk Sander Name Role Phone Jennie Deleon NP Primary Care Provider [phone] Reason for Visit * Reason Comments Med Refill Encounter Details Date Type Department Care Team ([facility] st Contact Info) Description 02/09/2025 Refill [facility] MED[facility]INE [address] [place], [place] [phone] Jennie Deleon NP 230 [place], [place] [phone] Social History Tobacco Use Types Packs/Day Years [...] documented as of this encounter Care Teams Quirk Sander Relationship Specialty Start Date End Date Jennie Deleon NP [address] [place] [address] PCP - General Family Medicine 11/12/23 documented as of this encounter
--- OUTSIDE RECORDS SUMMARY | 2025-02-12 14:29 | XMS_ITS | Encounter Summary ---
Author Organization [employer] Address [address] [facility] 7 [place] [address] Care Team Providers Care Acid Condenser Name Role Phone Becki Posadas MD Primary Care Provide r Jennie Deleon NP Primary Care Provider [phone] Jennie Deleon NP Primary Care Provider [phone] Encounter Details Date Type Department Care Team (Late st Contact Info) Description 03/13/2023 Orders Only [facility] MEDICINE 230 [place], [place] [phone] Susan Lopes MD 230 [place], [place] [phone] Social History Tobacco Use Types Packs/Day Years [...] documented as of this encounter Care Teams Acid Condenser Relationship Specialty Start Date End Date Becki Posadas MD 230 [place] [address] PCP - General Family Medicine 08/30/20 11/10/23 Jennie Deleon NP 230 [place] [address] PCP - General Family Medicine 11/11/23 11/11/23 Jennie Deleon NP [address] [place] [address] PCP - General Family Medicine 11/12/23 documented as of this encounter
--- OUTSIDE RECORDS SUMMARY | 2025-02-12 14:29 | XMS_ITS | Encounter Summary ---
Author Organization [employer] Address [address] [place] [address] 7 [place] [address] Care Team Providers Care Application Assistant Name Role Phone Becki Posadas MD Primary Care Provide r Jennie Deleon NP Primary Care Provider Jennie Deleon NP Primary Care Provider [phone] Reason for Visit * Reason Comments Med Refill Encounter Details Date Type Department Care Team (Late st Contact Info) Description 10/21/2022 Refill [facility] 230 [place], [place] [phone] Qian Jacques MD 230 [place], [place] [phone] Migraine without aura, not refractory Social History [...] documented as of this encounter Care Teams Application Assistant Relationship Specialty Start Date End Date Becki Posadas MD 230 [place] [address] PCP - General Family Medicine 08/30/20 11/10/23 Jennie Deleon NP 230 [place] [address] PCP - General Family Medicine 11/11/23 11/11/23 Jennie Deleon NP [address] [place] [address] PCP - General Family Medicine 11/12/23 documented as of this encounter
--- OUTSIDE RECORDS SUMMARY | 2025-02-12 14:29 | XMS_ITS | Encounter Summary ---
Author Organization [employer] Address [address] [place] [address] 7 [place] [address] Care Team Providers Care Material Control Specialist Name Role Phone Becki Posadas MD Primary Care Provide r Jennie Deleon NP Primary Care Provider [phone] Jennie Deleon NP Primary Care Provider [phone] Reason for Visit * Reason Onset Date Comments FYI 11/21/2022 Encounter Details Date Type Department Care Team (Late st Contact Info) Description 11/21/2022 Telephone [facility] MEDICINE 230 [place], [place] [phone] Becki Posadas MD 230 [place], [place] [phone] I Social History Tobacco Use Types Packs/Day [...] documented as of this encounter Care Teams Material Control Specialist Relationship Specialty Start Date End Date Becki Posadas MD [address] [place] [address] PCP - General Family Medicine 08/30/20 11/10/23 Jennie Deleon NP 230 [place] [address] PCP - General Family Medicine 11/11/23 11/11/23 Jennie Deleon NP 230 [place] [address] PCP - General Family Medicine 11/12/23 documented as of this encounter
--- OUTSIDE RECORDS SUMMARY | 2025-02-12 14:29 | XMS_ITS | Encounter Summary ---
Author Organization [employer] Address [address] [place] [address] 7 [place] [address] Care Team Providers Care Hat Sprayer Name Role Phone Becki Posadas MD Primary Care Provide r Jennie Deleon NP Primary Care Provider [phone] Jennie Deleon NP Primary Care Provider [phone] Reason for Visit * Reason Onset Date Comments Med Refill 10/20/2023 Encounter Details Date Type Department Care Team (Late st Contact Info) Description 10/20/2023 Refill [facility] MEDICINE 230 [place], [place] [phone] Becki Posadas MD 230 [place], [place] [phone] Migraine without aura, not refractory; Migraine without [...] documented as of this encounter Care Teams Hat Sprayer Relationship Specialty Start Date End Date Becki Posadas MD 230 [place] [address] PCP - General Family Medicine 08/30/20 11/10/23 Jennie Deleon NP 230 [place] [address] PCP - General Family Medicine 11/11/23 11/11/23 Jennie Deleon NP [address] [place] [address] PCP - General Family Medicine 11/12/23 documented as of this encounter
--- OUTSIDE RECORDS SUMMARY | 2025-02-12 14:29 | XMS_ITS | Encounter Summary ---
Author Organization [employer] Address [address] [facility] 7t [place] [address] Care Team Providers Care Slubber Runner Name Role Phone Adrienne Jennie NIKOLAS Primary Care Provider [phone] Encounter Details Date Type Department Care Team [...] documented as of this encounter Care Teams Slubber Runner Relationship Specialty Start Date End Date Jennie Deleon NP [address] [place] [address] PCP - General Family Medicine 11/12/23 documented as of this encounter
--- OUTSIDE RECORDS SUMMARY | 2025-02-12 14:29 | XMS_ITS | Encounter Summary ---
Author Organization [employer] Address [address] [facility] 7 [place] [address] Care Team Providers Care Finishing Machine Tender Name Role Phone Becki Posadas MD Primary Care Provide r Jennie Deleon NP Primary Care Provider [phone] Jennie Deleon NP Primary Care Provider [phone] Reason for Visit * Reason Onset Date Comments Med Refill 04/04/2023 Encounter Details Date Type Department Care Team (Late st Contact Info) Description 04/04/2023 Refill [facility] MEDICINE 230 [place], [place] [phone] Susan Lopes MD 230 [place], [place] [phone] Social History Tobacco Use Types Packs/Day Years [...] documented as of this encounter Care Teams Finishing Machine Tender Relationship Specialty Start Date End Date Becki Posadas MD 230 [place] [address] PCP - General Family Medicine 08/30/20 11/10/23 Jennie Deleon NP [address] [place] [address] PCP - General Family Medicine 11/11/23 11/11/23 Jennie Deleon NP [address] [place] [address] PCP - General Family Medicine 11/12/23 documented as of this encounter
--- OUTSIDE RECORDS SUMMARY | 2025-02-12 14:29 | XMS_ITS | Encounter Summary ---
Author Organization [employer] Address [address] [facility] 7 [place] [address] Care Team Providers Care Loose Hand Packer Name Role Phone Jennie Deleon NP Primary Care Provider [phone] Encounter Details Date Type Department Care Team (Latest Contact Info) Description 02/12/2025 Results Follow-Up [facility] MEDICINE 230 [place] [address] Elaine Badillo, IGOR CBC auto differential, Sed Rate by Modified [place], C-reactive Protein, Comprehensive Metabolic Panel Social History Tobacco Use Types Packs/Day Years [...] the past 12 months, has t he [employer], gas, oil or water [employer] threatened to shut off services in your [...] encounter Miscellaneous Notes * Telephone Encounter - Elaine Badillo RN - 02/12/2025 1:05 PM EST Per PCP Please let pt know new labs were added but she does need to return to [facility] for another drawthank you . Police Inspector spoke with [facility] lab who reports pt is here but they do not have the lab requisition of recent lab orders. Police Inspector printed the lab order requisitions and brought them to [facility] lab. No further questions or concerns at this time. * Telephone Encounter - Elaine Badillo RN - 02/12/2025 1:05 PM EST ----- Message from Jennie Deleon sent at 02/12/2025 9:48 AM EST ----- Please let pt know new labs were added but she does need to return to [facility] for another draw thank you ----- Message ----- From: Interface, Lab Results In Sent: 02/10/2025 5:21 PM EST To: Jennie Deleon NP documented in this encounter Plan of Treatment Not on file documented as of this encounter Visit Diagnoses Not on filedocumented in this encounter Additional Health Concerns Assessment Noted Time PHQ-9 Depression Total Score: 10 025 4:36 PM EDT documented as of this encounter Care Teams Loose Hand Packer Relationship Specialty Start Date End Date Jennie Deleon NP 230 [place] [address] PCP - General Family Medicine 11/12/23 documented as of this encounter
--- OUTSIDE RECORDS SUMMARY | 2025-02-12 14:29 | XMS_ITS | Encounter Summary ---
Author Organization [employer] Address [address] [facility] 7 [place] [address] Care Team Providers Care Merchandising Intern Name Role Phone DanitzaJennie govea NIKOLAS Primary Care Provider [phone] Reason for Visit * Reason Onset Date Comments Med Refill 11/28/2023 Encounter Details Date Type Department Care Team (Late st Contact Info) Description 11/28/2023 Refill [facility] MEDICINE 230 [place], [place] [phone] Becki Posadas MD 230 [place], [place] [phone] Chronic hypertension; Class 3 severe obesity due [...] documented as of this encounter Care Teams Merchandising Intern Relationship Specialty Start Date End Date Jennie Deleon NP 230 [place] [address] PCP - General Family Medicine 11/12/23 documented as of this encounter
--- OUTSIDE RECORDS SUMMARY | 2025-02-12 14:29 | XMS_ITS | Encounter Summary ---
Author Organization [employer] Address [address] [facility] 7 [place] [address] Care Team Providers Care Plate Setter Name Role Phone Becki Posadas MD Primary Care Provide r Jennie Deleon NP Primary Care Provider [phone] Jennie Deleon NP Primary Care Provider [phone] Reason for Visit * Reason Onset Date Comments Med Refill 10/20/2023 Encounter Details Date Type Department Care Team (Late st Contact Info) Description 10/20/2023 Refill [facility] MEDICINE 230 [place], [place] [phone] Susan Lopes MD 230 [place], [place] [phone] Social History Tobacco Use Types Packs/Day Years [...] Advice - You become worse [facility] Clinical Support (supporting Becki Kennedy MD)14 hours [...] documented as of this encounter Care Teams Plate Setter Relationship Specialty Start Date End Date Becki Posadas MD [address] [place] [address] PCP - General Family Medicine 08/30/20 11/10/23 Jennie Deleon NP 230 [place] [address] PCP - General Family Medicine 11/11/23 11/11/23 Jennie Deleon NP [address] [place] [address] PCP - General Family Medicine 11/12/23 documented as of this encounter
--- OUTSIDE RECORDS SUMMARY | 2025-02-12 14:29 | XMS_ITS | Encounter Summary ---
Author Organization [employer] Address 75 [facility] 7 [place] [address] Care Team Providers Care Group Home Counselor Name Role Phone Becki Posadas MD Primary Care Provide r Jennie Deleon NP Primary Care Provider [phone] Jennie Deleon NP Primary Care Provider [phone] Reason for Visit * Reason Onset Date Comments Med Refill 10/20/2023 Encounter Details Date Type Department Care Team (Late st Contact Info) Description 10/20/2023 Refill [facility] [address] [place] [phone] Olegario Marquis MD 230 [place], [place] [phone] Migraine without status migrainosus, not intractable, unspecified [...] the past 12 months, has t he [employer], gas, oil or water company threatened to [...] documented as of this encounter Care Teams Group Home Counselor Relationship Specialty Start Date End Date Becki Posadas MD [address] [place] [address] PCP - General Family Medicine 08/30/20 11/10/23 Jennie Deleon NP 230 [place] [address] PCP - General Family Medicine 11/11/23 11/11/23 Jennie Deleon NP [address] [place] [address] PCP - General Family Medicine 11/12/23 documented as of this encounter
--- OUTSIDE RECORDS SUMMARY | 2025-02-12 14:30 | XMS_ITS | Encounter Summary ---
Author Organization [employer] Address 75 [facility] 7t [place] [address] Care Team Providers Care Supervisor Toy Assembly Name Role Phone Adrienne Jennie NIKOLAS Primary Care Provider [phone] Encounter Details Date Type Department Care Team (Late st Contact Info) Description 10/02/[address] [facility] 230 [place], [place] [phone] Olegario Marquis MD 230 [place], [place] [phone] Social History Tobacco Use Types Packs/Day Years [...] documented as of this encounter Care Teams Supervisor Toy Assembly Relationship Specialty Start Date End Date Jennie Deleon NP [address] [place] [address] PCP - General Family Medicine 11/12/23 documented as of this encounter
--- OUTSIDE RECORDS SUMMARY | 2025-02-12 14:30 | XMS_ITS | Patient Health Record ---
Author Organization [facility] Address [address] [place] [address] Care Team Providers Care Weighmaster Lead Name Role Phone BONILLA ZHOU Unavailable [phone] Allergies Allergen (clinical drug ingredient) Drug/Non Drug [...] Notes Are you a nonsmoker Section Notes: shopper insights manager shopper insights manager Problems Problem Type SNOMED Code ICD Code Onset Dates Problem Status W/U Status Risk Notes Problem Obesity (435811816) Other obesity (E66.8) Active confirmed Problem Vitamin D deficiency (91388255) Vitamin D deficiency (E55.9) Active confirmed Problem Refractory migraine (351896299) Intractable migraine without status migrainosus, unspecified migraine type (G43.919) Active confirmed Problem Body mass index 40+ - severely obese (055562555) Body mass index (BMI) of 40.1 to 44.9 in adult (Z68.41) Active confirmed Plan Of Treatment No Information Insurance Providers Payer Name Payer Address Payer Phone Subscriber Number Group Number Insured Name Patient Relationship to Insured Coverage Start Date Coverage End Date [facility] [address] [place] [address] [phone] [id number] Nadia Guadarrama Self - patient is the insured Medications Administered Medication Instructions Date of Administration Dosage Notes MICC B12 INJECTION 01/29/2022 1 mL Lot #: [id number] [facility] 02/22/2022 1 mL Lot # [id number] Medical (General) History Medical History History ICD Code migraines pseudo-tumor 2011 history of HTN prior to , not t reated seasonal allergies
--- OUTSIDE RECORDS SUMMARY | 2025-02-12 14:30 | XMS_ITS | Encounter Summary ---
Author Organization [employer] Address [address] [facility] 7 [place] [address] Care Team Providers Care Armhole Sewer Name Role Phone Adrienne Jennie NIKOLAS Primary Care Provider [phone] Reason for Visit * Reason Onset Date Comments rs no show appt 10/26/2024 Encounter Details Date Type Department Care Team ([facility] st Contact Info) Description 10/26/2024 Telephone [facility] ADULT DENTAL [address] [place], [place] [phone] Ramone Louis DDS [address] [place], [place] [phone] rs no show appt Social History Tobacco [...] documented as of this encounter Care Teams Armhole Sewer Relationship Specialty Start Date End Date Jennie Deleon NP [address] [place] [phone] PCP - General Family Medicine 11/12/23 documented as of this encounter
--- OUTSIDE RECORDS SUMMARY | 2025-02-12 14:30 | XMS_ITS | Encounter Summary ---
Author Organization [employer] Address 75 [facility] 7 [place] [address] Care Team Providers Care Cook Chili Name Role Phone Jennie Deleon NP Primary Care Provider [phone] Reason for Visit * Reason Onset Date Comments Med Refill 10/20/2024 Encounter Details Date Type Department Care Team (Late st Contact Info) Description 10/20/2024 Refill [facility] MEDICINE [address] [place], [place] [phone] Jennie Deleon NP [address] [place], [place] [phone] Social History Tobacco Use Types Packs/Day Years [...] documented as of this encounter Care Teams Cook Chili Relationship Specialty Start Date End Date Jennie Deleon NP [address] [place] [phone] PCP - General Family Medicine 11/12/23 documented as of this encounter
--- OUTSIDE RECORDS SUMMARY | 2025-02-12 14:30 | XMS_ITS | Clinical Summary ---
Author Organization [employer] Address 75 [facility] 7t [place] [address] Care Team Providers Care Manager Client Support Name Role Phone Adrienne Jennie CONNOR Primary Care Provider [phone] Allergies Active Allergy Reactions Criticality Noted Date [...] Encounters Date Type Department Care Team Description 02/12/2025 Results Follow-Up [facility] MEDICINE [address] [place] [address] [phone] Elaine Badillo, IGOR CBC auto differential, Sed Rate by Modified Westergren, C-reactive Protein, Comprehensive Metabolic Panel 02/09/2025 4:00 PM EST Office Visit [facility] MEDICINE [address] [place] [address] Jennie Deleon NP Hypertension, unspecified type (Primary Dx); Lumbar spine pain 02/09/2025 Travel 02/09/2025 Refill [facility] MEDICINE [address] [place] [address] [phone] Jennie Deleon NP 02/06/2025 Travel 02/01/2025 Refill [facility] MEDICINE [address] [place] [address] [phone] Jennie Deleon NP Lumbar spine pain 01/19/2025 Telephone [facility] [address] [place] [address] Jennie Deleon NP 01/18/2025 Telephone [facility] MEDICINE [address] [place] [address] Jennie Deleon NP 01/18/2025 Results Follow-Up [facility] MEDICINE [address] [place] [address] Jennie Deleon NP XR Lumbar Spine 2-3 Views 01/14/2025 Orders Only [facility] External Provider, [facility] 01/05/2025 4:00 PM EDT Office Visit [facility] MEDICINE [address] [place] [phone] Jennie Deleon NP Acute low back pain, unspecified back pain laterality, unspecified whether sciatica present (Primary Dx); MARTINA (generalized anxiety disorder) 01/05/2025 Travel 01/01/2025 Travel 12/31/[address] [address] Jennie Deleon NP 12/25/2024 Telephone [facility] MEDICINE [address] [place] [address] Jennie Deleon NP Chart Prep 12/16/2024 Telephone [facility] OPTOMETRY [address] [place] [phone] Rubin, Patti, OD 12/02/[address] [address] Jennie Deleon NP 12/01/2024 Results Follow-Up [address] [address] Jennie Deleon NP Chlamydia/N. Gonorrhoeae, PCR, Urine, POCT Urine 11/30/2024 11:15 AM EDT Office Visit [address] [address] Jennie Deleon NP Encounter for IUD insertion (Primary Dx) 11/30/2024 Orders Only GENERIC EXTERNAL DATA DEPARTMENT Provider, Generic External Data 11/30/2024 Telephone [facility] MEDICINE [address] [place] [address] Jennie Deleon NP Results 11/30/[address] [address] Jennie Deleon NP Pelvis US REMINDER 11/30/2024 Travel 11/27/2024 3:45 PM EDT Office Visit [address] [address] Jennie Deleon NP MARTINA (generalized anxiety disorder) (Primary Dx); Encounter for other contraceptive management 11/27/2024 Travel 11/26/[address] [address] Jennie Deleon NP Chart Prep 11/25/[address] [address] Jennie Deleon NP Nurse Triage 11/24/2024 Travel 11/24/[address] [address] Jeb Self [place] CHARTPREP 11/23/[address] [address] Mirian Arreola NP 11/17/[address] [address] Jennie Deleon NP Nurse Triage from Last [...] 12: 20 PM EST Lumbar spine pain COMPREHENSIVE METABOLIC PANEL Routine 02/10/2025 3:49 PM [...] 12:27 PM EDT Encounter for IUD insertion IN INSERTION INTRAUTERINE DEVICE IUD Routine 11/30/2024 11:15 [...] Recently Relevant to Health Maintenance Results * Rheumatoid Factor (02/12/2025 12:20 PM EST) Rheumatoid Factor <13.0 <15.0 IU/mL [facility] Blood Venous blood specimen / Unknown 02/12/2025 12:20 PM EST 02/12/2025 1:07 PM EST us Jennie Deleon NP LAB BLOOD ORDERABLES Final Resul t [facility] [address] [place] [phone] * (ABNORMAL) CBC auto differential (02/10/2025 3:49 PM EST) Only the most recent of2 resultswithin the time period is included. White Blood Count 10.6 4.8 - 10.8 X10*3/uL [facility] Red Blood Count 4.39 4.20 - 5.50 X10*6/uL [facility] Hemoglobin 13.2 12.0 - 16.0 g/dl [facility] Hematocrit 39.1 37.0 - 47.0 % [facility] Mean Corpuscular Volume 89.1 80.0 - 98.0 fL [facility] Mean Corpuscular Hemoglobin 30.1 27.0 - 33.0 pg [facility] Mean Corpuscular HGB Conc 33.8 31.0 - 35.0 g/dl [facility] Red Cell Distribution Width 13.3 11.0 - 16.0 % [facility] Platelet Count 324 160 - 400 X10*3/uL [facility] Mean Platelet Volume 9.7 9.4 - 12.3 fL [facility] Neutrophils Percent Auto 68.7 45 - 73 % [facility] Imm Gran Pct Auto 0.5(H) 0.0 - 0.4 % [facility] Lymphocytes Percent Auto 20.5 20 - 40 % [facility] Monocytes Percent Auto 8.7 2 - 11 % [facility] Eosinophils Percent Auto 1.2 0 - 4 % [facility] Basophils Percent Auto 0.4 0 - 2 % [facility] NRBC Pct Auto 0.0 0.0 - 0.2 /100WBC [facility] Neutrophils Absolute Auto 7.3 2.0 - 8.3 x10*3/uL [facility] Imm Gran Abs Auto 0.05(H) 0.00 - 0.03 X10*3/uL [facility] Lymphocytes Absolute Auto 2.2 1.2 - 4.9 X10*3/uL [facility] Monocytes Absolute Auto 0.9 0.1 - 1.2 X10*3/uL [facility] Eosinophils Absolute Auto 0.1 0.0 - 0.4 X10*3/uL [facility] Basophils Absolute Auto 0.0 0.0 - 0.2 X10*3/uL [facility] NRBC Abs Auto 0.000 0.0 - 0.012 X10*3/uL [facility] Blood Venous blood specimen / Unknown 02/10/2025 3:49 PM EST 02/10/2025 5:12 PM EST us Jennie Graef SHOWPLACE MANAGER LAB BLOOD ORDERABLES Final Resul t Performing Organization Address [facility] Co de Phone Number [facility] [address] [place] [phone] * (ABNORMAL) Sed Rate by Modified Vilmaren (02/10/2025 3:49 PM EST) Erythrocyte Sedimentation Rate 66(H) 0 - 20 MM/HR [facility] Comment:Patients with polycy themia and many hemoglobin abnormalitiesmay have depressed sed rates whereas patients with anemiamay have elevated sed rates. Blood Venous blood specimen / Unknown 02/10/2025 3:49 PM EST 02/10/2025 5:12 PM EST us Jennie Deleon SHOWPLACE MANAGER LAB BLOOD ORDERABLES Final Resul t Performing Organization Address [facility] Phone Number [facility] [address] [place] [phone] * (ABNORMAL) C-reactive Protein (02/10/2025 3:49 PM EST) C Reactive Protein 10.06(H) < or = 0.50 mg/dL [facility] Blood Venous blood specimen / Unknown 02/10/2025 3:49 PM EST 02/10/2025 5:12 PM EST us Jennie Deleon SHOWPLACE MANAGER LAB BLOOD ORDERABLES Final Resul t Performing Organization Address [facility] Co de Phone Number [facility] [address] [place] [phone] * Comprehensive Metabolic Panel (02/10/2025 3:49 PM EST) Sodium 140 135 - 145 mmol/L [facility] Potassium 3.7 3.3 - 5.1 mmol/L [facility] Chloride 104 96 - 108 mmol/L [facility] Carbon Dioxide 28 22 - 29 mmol/L [facility] Anion Gap 12 12 - 20 [facility] Urea Nitrogen (BUN) 9 9 - 16 mg/dL [facility] Creatinine, Serum 0.71 0.5 - 1.4 mg/dL [facility] Estimated Glomerular Filt Rate >60 [facility] Comment:Chronic Kidney Disea se: Estimated GFR < 60 mL/min/1.47m9Jmrgrh Kidney Disease: Estimated GFR < 15 mL/min/1.73m2 Glucose 89 60 - 115 mg/dL [facility] Calcium 9.2 8.4 - 10.2 mg/dL [facility] Bilirubin, Total 0.4 0.0 - 1.0 mg/dL [facility] Aspartate Amino Transferase 24 5 - 31 U/L [facility] Alanine Aminotransferase 18 0 - 31 U/L [facility] Total Protein 8.0 6.5 - 8.0 g/dL [facility] Albumin Level 4.5 3.5 - 5.0 g/dL [facility] Alkaline Phosphatase 63 39 - 117 U/L [facility] Blood Venous blood specimen / Unknown 02/10/2025 3:49 PM EST 02/10/2025 5:12 PM EST us Jennie Deleon NP LAB BLOOD ORDERABLES Final Resul t [facility] [address] [place] [phone] * MR Lumbar Spine w/o Contrast (01/22/2025) Anatomical Region Laterality Modality Spine, L-spine Magnetic Resonan ce us Jennie Deleon NP IMG MRI PROCEDURES Final Result * XR Lumbar Spine 2-3 Views (01/14/2025 2:20 PM EDT) Anatomical Region Laterality Modality Spine, L-spine Radiographic Maggy ging 01/14/2025 2:20 PM EDT Narrative 01/14/2025 2:35 PM EDT [address] [address] XRay Report Signed Patient: Nadia Montenegro MR#: [id number] 817 : 1990 Acct:[id number] Age/Sex: 34 / F ADM Date: 01/14/25 Loc: HO.ED Attending Dr: Ordering Physician: Sima Jon NP Date of Service: 01/14/25 Procedure(s): XR lumbar spine 2-3V Accession Number(s): [id number] cc: Jennie Deleon SHOWPLACE MANAGER; Sima Jon NP Reason for Exam: acute [...] Alber Mercer MD 01/14/2025 02:32 PM EDT Dictated By: Alber Mercer MD Signed By: <Electronically signed by Alber Mercer MD in OV> 01/14/25 1432 DD/ 1420 TD/TT: 01/14/25 1424 Buffing And Polishing Wheel Repairer: Procedure Note Donotuseinterpreter, Image - 01/14/[address] [address] XRay Report Signed Patient: Nadia MontenegroMR#: [id number] : 1990Acct:[id number] Age/Sex: 34 / FADM Date: 01/14/25 Loc: HO.ED Attending Dr: Ordering Physician: Sima Jon NP Date of Service: 01/14/25 Procedure(s): XR lumbar spine 2-3V Accession Number(s): [id number] cc: Jennie Deleon SHOWPLACE MANAGER; Sima Jon NP Reason for Exam: acute [...] 01/14/25 1432 DD/ 1420 TD/TT: 01/14/25 1424 Buffing And Polishing Wheel Repairer: [facility] External Provider IMG XR PROCEDURES Final Result * (ABNORMAL) Basic Metabolic Panel (11/30/2024 3:04 PM EDT) Sodium 138 135 - 145 mmol/L [facility] Potassium 3.6 3.3 - 5.1 mmol/L [facility] Chloride 103 96 - 108 mmol/L [facility] Carbon Dioxide 28 22 - 29 mmol/L [facility] Anion Gap 11(L) 12 - 20 [facility] Urea Nitrogen (BUN) 11 9 - 16 mg/dL [facility] Creatinine, Serum 0.88 0.5 - 1.4 mg/dL [facility] Estimated Glomerular Filt Rate >60 [facility] Comment:Chronic Kidney Disea se: Estimated GFR < 60 mL/min/1.18i7Iiqixf Kidney Disease: Estimated GFR < 15 mL/min/1.73m2 Glucose 95 60 - 115 mg/dL [facility] Calcium 9.3 8.4 - 10.2 mg/dL [facility] 11/30/2024 3:04 PM EDT 11/30/2024 3:04 PM EDT us Generic External Data Provider LAB BLOOD ORDERAB LES Final Result [facility] [address] [place] [phone] * US Pelvis Transvaginal (11/30/2024 2:35 PM EDT) Anatomical Region Laterality Modality Pelvis Ultrasound 11/30/2024 2:35 PM EDT Narrative 11/30/2024 3:23 PM EDT [address] [address] Ultrasound Report Signed Patient: Nadia Montenegro MR#: [id number] 817 : 1990 Acct:[id number] Age/Sex: 34 / F ADM Date: 11/30/24 Loc: HO.US Attending Dr: Jennie Deleon SHOWPLACE MANAGER Ordering Physician: Jennie Deleon NP Date of Service: 11/30/24 Procedure(s): US pelvic and transvaginal Accession Number(s): [id number] cc: Jennie Deleon SHOWPLACE MANAGER EXAMINATION: US PELVIS TRANSABDOMINAL AND TRANSVAGINAL HISTORY: [...] 11/30/24 1520 DD/ 1435 TD/TT: 11/30/24 1445 Buffing And Polishing Wheel Repairer: Procedure Note Donotuseinterpreter, Image - 11/30/2024 [place] [address] Ultrasound Report Signed Patient: Nubia Montenegro#: [id number] 817 : 1990Acct:[id number] Age/Sex: 34 / FADM Date: 11/30/24 Loc: .US Attending Dr: Jennie Deleon SHOWPLACE MANAGER Ordering Physician: Jennie Deleon NP Date of Service: 11/30/24 Procedure(s): US pelvic and transvaginal Accession Number(s): [id number] cc: Jennie Deleon SHOWPLACE MANAGER EXAMINATION: US PELVIS TRANSABDOMINAL AND TRANSVAGINAL HISTORY: [...] 11/30/24 1520 DD/ 1435 TD/TT: 11/30/24 1445 Buffing And Polishing Wheel Repairer: us Jennie Deleon NP IMG US PROCEDURES Final Result * Chlamydia/N. Gonorrhoeae, PCR, Urine (11/30/2024 12:30 PM EDT) CT PCR, Urine NOT DETECTED Not Detect. [facility] Comment:A not detected test result [...] NG PCR, Urine NOT DETECTED Not Detect. [facility] Comment:A not detected test result [...] NP LAB URINE ORDERABLES Final Resul t [facility] [address] [place] [phone] * POCT Urine (11/30/2024 12:27 PM EDT) Preg Test, Ur Negative Negative, Indeterminate, None Detected, Invalid, Specimen unsatisfactory for evaluation, Weakly Positive, 2+ QC Media Lot # [id number] Lot# Expiration Date [id number] Urine 11/30/2024 12:2 7 PM EDT us Jennie Deleon NP POINT OF CARE TEST ENTER/EDIT OR DERABLES Final Result * IN INSERTION INTRAUTERINE DEVICE IUD (11/30/2024 11:15 AM EDT) Jennie Mills NP - 11/30/2024 11:15 AM EDT Jennie [...] noted, STAT ultrasound ordered. No abdominal pain. us Jennie Deleon NP IN CLINIC/BEDSIDE ORDERABLES Fin al Result * HM PAP/HPV (03/11/2024 7:23 PM EST) us Historical Provider HEALTH MAINTENANCE Final Result * (ABNORMAL) Lipid Panel, Standard (08/15/2022 3:21 PM EDT) Cholesterol, Total 212(H) <200 mg/dL [facility] HDL Cholesterol 45(L) > OR = 50 mg/dL [facility] Triglycerides 321(H) <150 mg/dL [facility] Comment: If a non-fasting specimen was collected, consider repeat triglyceride testing on a fasting specimen if clinically indicated. Francisco et al. J. of Clin. Lipidol. 2015;9:129-169. LDL Cholesterol 121(H) mg/dL (calc) [facility] Comment: Reference range: <100 Desirable range <100 mg/dL for primary prevention; <70 mg/dL for patients with CHD or diabetic patients with > or = 2 CHD risk factors. LDL-C is now calculated using the Evan-Driscoll calculation, which is a validated novel method providing better accuracy than the Friedewald equation in the estimation of LDL-C. Evan SS et al. JAMEY. 2013;310(19): 0169-1464 (http://education.Hearsay Social.Innovacell/faq/LPM820) Chol/HDLC Ratio 4.7 <5.0 (calc) [facility] Non-HDL Cholesterol 167(H) <130 mg/dL (calc) [facility] Comment: For patients with diabetes plus 1 major ASCVD risk factor, treating to a non-HDL-C goal of <100 mg/dL (LDL-C of <70 mg/dL) is considered a therapeutic option. Blood Venous blood specimen / Unknown 08/15/2022 3:21 PM EDT 08/15/2022 3:21 PM EDT Narrative [facility] - 08/16/2022 7:06 AM EDT FASTING:NO FASTING: NO us Becki Kennedy MD LAB BLOOD ORDERABLES Final Result [facility] [address], [place] [phone] [facility] [address] [place] [phone] * HIV 1/2 ANTIGEN/ANTIBODY,FOURTH GENERATION W/RFL (09/06/2020 2:34 PM EDT) [facility] HIV-1/2 ANTIGEN AND ANTIBODIES, 4TH GENERATION W/ REFLEX NON-REACT KAYLIE NON-REACT KAYLIE [facility] Comment: HIV-1 antigen and HIV-1/HIV-2 [...] purpose. For additional information please refer to http://education.EverPower.Innovacell/faq/KRX248 (This link is being provided for informational/ educational purposes only.) The performance of this assay has not been clinically validated in patients less than 2 years old. 09/06/2020 2:34 PM EDT us Becki Kennedy MD LAB BLOOD ORDERABLES Final Result [facility] [address] from Last 3 Months or Most Recently Relevant to Health Maintenance Insurance [facility] C3 DENTAL-[facility] MEDICAID STAND ADULT Care Teams Manager Client Support Relationship Specialty Start Date End Date Jennie Deleon NP [address] [place] [phone] PCP - General Family Medicine 11/12/23
--- OUTSIDE RECORDS SUMMARY | 2025-02-12 14:30 | XMS_ITS | Encounter Summary ---
Author Organization [employer] Address [address] [place] [address] 7 [place] [address] Care Team Providers Care Distance Education Director Name Role Phone Becki Posadas MD Primary Care Provide r Jennie Deleon NP Primary Care Provider [phone] Jennie Deleon NP Primary Care Provider [phone] Reason for Visit * Reason Onset Date Comments triage 04/05/2022 Encounter Details Date Type Department Care Team (Late st Contact Info) Description 04/05/2022 Telephone [facility] MEDICINE [address] [place], [place] [phone] Becki Posadas MD [address] [place], [place] [phone] triage Social History Tobacco Use Types Packs/Day [...] pt returning call Please contact pt at [phone] * Telephone Encounter - Lakshmi Booth RN - 04/05/2022 1:47 PM EST Call returned to patient for triage. No answer LVM to return call to [facility] triage line. Left [facility] operating hours for today and tomorrow as [...] on filedocumented in this encounter Care Teams Distance Education Director Relationship Specialty Start Date End Date Becki Posadas MD [address] [place] [address] PCP - General Family Medicine 08/30/20 11/10/23 Jennie Deleon NP [address] [place] [address] PCP - General Family Medicine 11/11/23 11/11/23 Jennie Deleon NP [address] [place] [address] PCP - General Family Medicine 11/12/23 documented as of this encounter
[2025-02-18 08:33] LABS: Anti Nuclear Antibody Screen NEGATIVE (NEGATIVE)
== END 2025-02-12 12:10 | disposition home or self-care (01) ==
LOC: HO.HHCL 12:09
PROVIDERS: PCP Nurse Practitioner Family; Visit Provider Nurse Practitioner Family
DX: M54.50 Low back pain, unspecified (principal)
CPT/HCPCS: 36415; 86038; 86200; 86431